=== PATIENT | male | born 1950 | race Caucasian/White ===

== ENCOUNTER 2020-12-12 15:57 | Outpatient (RCR) | payer MEDICARE, SELFPAY ==
[2015-11-04 21:30] VITALS: BMI 22.1
== END 2020-12-12 23:59 ==
LOC: IMMUN 15:57
PROVIDERS: Visit Provider Family Medicine
DX: Z23 Encounter for immunization (principal)
CPT/HCPCS: 0011A; 0012A; 91301

== ENCOUNTER 2022-11-02 12:50 | Emergency (ER) | payer MEDICARE, OTHER, SELFPAY ==
[2022-11-02 12:51] VITALS: BP 110/63; PULSE 79; RESP 22; TEMP 35.7; O2SAT 96; BMI 19.1
[2022-11-02 13:08] VITALS: BP 125/65; BP 131/67; BP 81/69; PULSE 71; PULSE 74; PULSE 80
--- NOTE | 2022-11-02 13:08 | EKG12_ITS ---
Test Reason : SYNCOPE Blood Pressure : / mmHG Vent. Rate : 079 BPM Atrial Rate : 079 BPM P-R Int : 160 ms QRS Dur : 072 ms QT Int : 378 ms P-R-T Axes : 082 001 051 degrees QTc Int : 433 ms Normal sinus rhythm Normal ECG Confirmed by CHRISTAL MIDDLETON, RIAZ ([id number]), sound editor MILKA MARTINEZ ([id number]) on 11/04/2022 9:29:13 AM Referred By: JACQUE Confirmed By:RIAZ SIEGEL MD
[2022-11-02 13:18] LABS: Absolute Lymphocyte Count 2.37 X10^3/uL (0.83-4.51); Absolute Neutrophil Count 7.7 X10^3/uL (2.0-7.7); Basophil# 0.09 X10^3/uL; Basophil% 0.8 % (0-1); Eosinophil# 0.32 X10^3/uL; Eosinophils% 2.8 % (0-5); Hematocrit 53.6 % (40-54); Hemoglobin 17.6 g/dL (13.0-16.5); Lymphocyte # 2.37 X10^3/ul (0.83-4.51); Mean Corp Hgb Conc 32.8 g/dL (32-36); Mean Corpuscular Hgb 30.4 pg (27.0-32.0); Mean Corpuscular Volume 92.7 fL (80-94); Mean Platelet Vol. 10.7 fl (6.2-12.0); Monocyte# 0.75 X10^3/uL; Monocyte% 6.6 % (0-10); NRBC Flagged by Analyzer 0 % (0-5); Neutrophil % 68.2 % (47-70); Platelet Count 240 K/mm3 (150-450); RBC Distribution Width CV 14.2 % (11.6-14.6); RBC Distribution Width SD 48.3 fl (35.1-43.9); Red Blood Count 5.78 M/mm3 (4.6-6.2); White Blood Count 11.3 K/mm3 (4.4-11.0)
[2022-11-02] MEDS: 0.9% Normal Saline 1,000 ML 1000 ML IV (13:22)
[2022-11-02 14:21] LABS: Anion Gap 6 (5-15); BUN 33 mg/dL (7-18); BUN/Creat Ratio 19.3 RATIO (10-20); Calcium,Total 9.1 mg/dL (8.5-10.1); Chloride 113 mmol/L (98-107); Creatinine, Serum 1.71 mg/dL (0.70-1.30); EST Glomerular Filtration Rate 42 mL/min (>60); Est Glom Filt Rate - Afr Amer 51 mL/min (>60); Estimated Creatinine Clearance 32.05 ml/min; Glucose 100 mg/dL (74-106); Potassium 4.2 mmol/L (3.5-5.1); Sodium Level 140 mmol/L (136-145)
[2022-11-02 14:50] VITALS: BP 128/69; PULSE 79; RESP 23; O2SAT 99
--- NOTE | 2022-11-02 14:55 | EDS_ITS ---
HPI History of Present Illness Chief Complaint: Syncope Detail of Chief Complaint: Near syncopal episode Informant: patient Onset/Context/Timing Onset: Hours Context: Sudden Onset Timing: Intermittent Quality: Lightheadedness while standing in line at [employer] Current Severity: Gone Maximum Severity: Moderate Worsened by: Prolonged standing Relieved by: Nothing specific Associated Symptoms Associated Symptoms: Sensation of warmth and slight nausea Narrative Narrative: Patient is a 72-year-old male with history of hypertension who presents with near syncopal sewed. Arrived by ambulance. He only eats once a day. He has had nothing to eat since yesterday at noon. He has had poor liquid intake. He denies headache, visual, ocular auditory symptoms. He denies cardiac respiratory symptoms. He denies black or maroon-colored stool. He reports compliance with his antihypertensive meds, amlodipine and lisinopril. Doses have not been changed or frequency has not been increased. He presently has no symptoms other than dry mouth and thirst. Prior similar symptoms: No Recent Illness/Hospitalization: No PFSH PFSH Allergy/AdvReac Type Severity Reaction Status Date / Time No Known Allergies Allergy Verified 11/02/22 12:53 Social History (Updated 11/02/22 @ 14:[address] Paddy Champagne MD) household members: none Smoking Status: Current every day smoker tobacco type: cigarettes substance use type: does not use ROS ROS ED Constitutional Constitutional ED: Denies chills, fever(s), subjective, sweats or weight loss Eyes Eyes: Denies blurry vision, change in vision or diplopia Cardiovascular Cardiovascular: Denies chest pain, orthopnea, palpitations, paroxysmal nocturnal dyspnea or racing heartbeat Respiratory/Chest Respiratory/Chest: Denies cough, dyspnea, dyspnea on exertion, orthopnea, paroxysmal nocturnal dyspnea or sputum Gastrointestinal Gastrointestinal: Reports nausea; Denies diarrhea or vomiting Neurologic Neurologic: Reports weakness; Denies headache(s) or paresthesias Endocrine Endocrinology: Denies cold intolerance, heat intolerance, polydipsia or polyuria Hematologic/Lymphatic Hematologic/Lymphatic: Reports none Allergic/Immunologic Allergic/Immunologic ED: Denies mouth swelling or tongue swelling EXAM Physical Exam Const Vital Signs: 11/02/22 12:51 11/02/22 13:21 11/02/22 13:08 Temperature 96.3 F L Temperature Source Temporal Pulse Rate 79 Pulse Rate [Lying] 71 Pulse Rate [Sitting (for 1 minute prior to obtaining)] 74 Pulse Rate [Standing (for 1 minute prior to obtaining)] 80 Respiratory Rate 22 H Respiratory Effort Normal Non-Labored Respiratory Pattern Normal Blood Pressure 110/63 Blood Pressure [Lying] 125/65 H Blood Pressure [Sitting (for 1 minute prior to obtaining)] 81/69 L Blood Pressure [Standing (for 1 minute prior to obtaining)] 131/67 H Blood Pressure Mean 78 Blood Pressure Mean [Lying] 85 Blood Pressure Mean [Sitting (for 1 minute prior to obtaining)] 73 Blood Pressure Mean [Standing (for 1 minute prior to obtaining)] 88 Pulse Ox 96 Oxygen Delivery Method Room Air Positive well nourished and well developed Constitutional Narrative: Patient appears slightly cachectic. He is not well groomed. General Appearance ED: well developed and NAD; Negative for cyanotic, diaphoretic or pallor HEENT Reports dry mucous membranes HEENT Narrative: Head is atraumatic no cephalic. Ears normal. Nares patent. Uvula midline. No deviation with protrusion. Mouth ED: Yes dry mucous membranes Mouth: dry mucous membranes Eyes PERRL and EOMs intact bilaterally General Eye ED: Negative for pale conjunctiva or scleral icterus Neck no lymphadenopathy, supple and no JVD Chest Wall inspection of chest normal and palpation of chest normal Resp normal respiratory effort and clear to auscultation bilaterally Cardio regular rate, regular rhythm, S1 normal heart sound, S2 normal heart sound and no murmurs GI normal to inspection, nondistended, normoactive bowel sounds, non-tender, non- distended and no masses; Negative for hepatosplenomegaly Palpation: soft Back/Spine no CVA tenderness Thoracic Spine / Upper Back: Negative for thoracic spinal tenderness Lumbar Spine / Lower Back: Negative for lumbar spinal tenderness Extremity normal to inspection General Extremety ED: Negative for edema or tenderness General Extremity: Negative for edema Neuro oriented x3, CN's II-XII intact bilaterally and no sensory deficits noted Sensorium / Orientation: alert Motor Exam: strength 5/5 throughout Psych mental status grossly normal Skin no rashes or lesions noted, no wounds and No skin turgor normal General Skin Exam: Negative for elasticity normal, jaundice or pallor MDM MDM MDM Narrative Medical decision making narrative: [facility] patient is dehydrated. Orthostatics were positive. Patient received a liter of normal saline. On reassessment he states he would like to go home. He is no longer thirsty. EKG was obtained per nurse protocol and was normal. There is no evidence of acute ischemic changes. Patient is not a good informant. History was supplemented by family member. Patient metabolic panel was obtained to assess electrolytes, anion gap and renal function. CBC to evaluate white count and H&H. Lab Data Attestation: I reviewed the patient's lab results. Lab results narrative: Comparing CBC to priors would indicate patient has heme count. Basic metabolic panel reveals an elevated BUN/creatinine of 33 and 1.71 consistent with poor p.o. intake. GFR is 42. His primary care physician is Dr. Alvarez. We will have patient make appointment for recheck in 3 to 5 days. Labs: Laboratory Results - last 24 hr 11/02/22 11/02/22 11/02/22 13:11 13:11 13:36 WBC 11.3 H RBC 5.78 Hgb 17.6 H Hct 53.6 MCV 92.7 MCH 30.4 MCHC 32.8 RDW Std Deviation 48.3 H RDW Coeff of Steven 14.2 Plt Count 240 MPV 10.7 Immature Gran % (Auto) 0.600 Neut % (Auto) 68.2 Lymph % (Auto) 21.0 [place] % (Auto) 6.6 Eos % (Auto) 2.8 Baso % (Auto) 0.8 Absolute Neuts (auto) 7.7 Absolute Lymphs (auto) 2.37 Nucleated RBC % 0 Sodium Cancelled Cancelled Potassium Cancelled Cancelled Chloride Cancelled Cancelled Carbon Dioxide Cancelled Cancelled Anion Gap Cancelled Cancelled BUN Cancelled Cancelled Creatinine Cancelled Cancelled Estim Creat Clear Calc Cancelled Cancelled Est GFR (MDRD) Af Amer Cancelled Cancelled Est GFR (MDRD) Non-Af Cancelled Cancelled BUN/Creatinine Ratio Cancelled Cancelled Glucose Cancelled Cancelled Calcium Cancelled Cancelled 11/02/22 13:59 WBC RBC Hgb Hct MCV MCH MCHC RDW Std Deviation RDW Coeff of Steven Plt Count MPV Immature Gran % (Auto) Neut % (Auto) Lymph % (Auto) [place] % (Auto) Eos % (Auto) Baso % (Auto) Absolute Neuts (auto) Absolute Lymphs (auto) Nucleated RBC % Sodium 140 Potassium 4.2 Chloride 113 H Carbon Dioxide 21.0 Anion Gap 6 BUN 33 H Creatinine 1.71 H Estim Creat Clear Calc 32.05 Est GFR (MDRD) Af Amer 51 L Est GFR (MDRD) Non-Af 42 L BUN/Creatinine Ratio 19.3 Glucose 100 Calcium 9.1 EKG Initial EKG: Attestation: I personally reviewed and interpreted this EKG as follows: Interpretation: Sinus Rhythm (Rate is 79. EKG is normal. MA interval is 160 ms. QS duration 72 ms. Dobbins is normal.) Prior: Unchanged Treatment and Re-Evaluation Narrative: IV fluids and outpatient follow-up basic metabolic panel Discharge Plan Triage Chief Complaint: Syncope ED Provider: Paddy Champagne Dx/Rx/DC Orders Clinical Impression: Orthostatic hypotension, Hypertension, Hypovolemia due to dehydration, Caloric malnutrition, Acute renal insufficiency Instructions: ED Dehydration (Adult), ED Hypotension, Orthostatic Primary Care Provider: Care Physician,No Primary Referrals: Tiago Alvarez MD [Med Staff - Rn Social Services] - 3-5 Days Care Physician,No Primary [Primary Care Provider] - Activity Restrictions/Additional Instructions: You need to contact Dr. Alvarez office tomorrow for follow-up appointment to have a repeat blood test, BMP. Your BUN and creatinine are elevated from baseline. This needs to be reassessed. You need to drink more fluids and increase your caloric intake. Disposition Disposition: Home, Self Care
[2022-11-02 15:12] VITALS: RESP 18
== END 2022-11-02 15:12 | disposition home or self-care (01) ==
PROVIDERS: Emergency Provider Emergency Medicine; Visit Provider Emergency Medicine
DX: I95.1 Orthostatic hypotension (principal); E86.0 Dehydration; F17.210 Nicotine dependence, cigarettes, uncomplicated; E86.1 Hypovolemia; I10 Essential (primary) hypertension; N28.9 Disorder of kidney and ureter, unspecified
CPT/HCPCS: 80048; 85025; 93005; 96360; 99285; J7030; A4216

== ENCOUNTER 2024-03-10 19:52 | Inpatient (IN) | payer MEDICARE, OTHER, SELFPAY ==
[2024-03-10 19:54] VITALS: BP 150/79; PULSE 88; RESP 16; TEMP 36.4; O2SAT 97; BMI 16.4
--- NOTE | 2024-03-10 20:09 | EKG12_ITS ---
Test Reason : DYSRHYTHMIA Blood Pressure : / mmHG Vent. Rate : 079 BPM Atrial Rate : 079 BPM P-R Int : 152 ms QRS Dur : 070 ms QT Int : 380 ms P-R-T Axes : 064 021 047 degrees QTc Int : 435 ms Normal sinus rhythm Cannot rule out Septal infarct , age undetermined Abnormal ECG Confirmed by Abhay Kc ([id number]), continuity editor MILKA MARTINEZ ([id number]) on 03/11/2024 10:14:57 AM Referred By: Confirmed By:Abhay Kc
--- NOTE | 2024-03-10 20:11 | EDS_ITS ---
HPI <SHILPA Ernandez - Last Filed: 03/10/24 22:02> History of Present Illness Chief Complaint: Weakness Narrative Narrative: Patient is a 73-year-old male with history of COPD who smokes 1 pack/day however he states he does not inhale, hypertension hyperlipidemia who presents to the emergency department for weakness, 60 pound weight loss in the last 6 weeks. Patient was seen at his PCPs office who referred him to the emergency department for further workup. Family is concerned. Patient does live at home, he does drive, does not use any ambulation devices, he goes to dinner every day. 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 PFSH <SHILPA Ernandez - Last Filed: 03/10/24 22:02> [facility] Medical History (Updated 03/10/24 @ 22:49 by Brianna Santiago) CKD (chronic kidney disease) CKD (chronic kidney disease) HTN (hypertension) HLD (hyperlipidemia) Medical History no medical history Home Medications ?Medication ?Instructions ?Recorded ?Last Taken ?Type NK 03/10/24 Unknown History Allergy/AdvReac Type Severity Reaction Status Date / Time No Known Allergies Allergy Verified 03/10/24 19:57 Social History household members: none Smoking Status: Current every day smoker tobacco type: cigarettes substance use type: does not use ROS <SHILPA Ernandez - Last Filed: 03/10/24 22:02> ROS ED ROS Narrative Constitutional: Negative for fever, chills. Positive for 16 pound weight loss in 6 weeks, positive for weakness Eyes: Negative for vision loss, vision change, double vision ENT: Negative for any sore throat, ear pain, congestion Cardiovascular: Negative for any chest pain, tightness, palpitations Respiratory: Negative for any cough, sputum production, hemoptysis, dyspnea, dyspnea on exertion, orthopnea Gastrointestinal: Negative for any abdominal pain, nausea, vomiting, diarrhea, constipation, blood in stool, blood in vomit : Negative for any urinary frequency, dysuria, retention, blood in urine Muscle skeletal: Negative for any neck pain, back pain Neurological: Negative for any headache, syncope, dizziness Skin: Negative for any rashes, itching, abrasions, lacerations Psychiatric: Negative for any depression, anxiety, stress, suicidal ideation, homicidal ideation Hematologic: Negative for any excessive bruising, easy bleeding EXAM <SHILPA Ernandez - Last Filed: 03/10/24 22:02> Physical Exam Narrative Exam Narrative: Vital signs reviewed. HEET: Head normocephalic atraumatic, TMs clear bilaterally. Posterior pharynx is clear, moist mucous membranes. Nares clear bilaterally. Neck: Supple with no lymphadenopathy or tenderness. No signs of meningismus. Cardiac: Regular rate and rhythm no murmurs gallops or rubs, equal peripheral pulses bilaterally. Respiratory: Coarse lung sounds throughout with expiratory wheezes to bilateral lower bases. no chest tenderness. Abdomen: Soft, nontender, nondistended. No abdominal bruit or pulsatile masses. No hepatosplenomegaly Extremities: No peripheral edema, no signs of gross trauma or deformity. Active full range of motion of all extremities. Neuro: Cranial nerves II through XII intact, no focal neurological deficits. Skin: Clean dry and intact with no rash, purpura, petechiae, vesicles or pustules. Backs/flank: No CVA tenderness, no midline spinal tenderness, no deformity. Psych: Normal mood and affect. No SI, HI or acute psychosis. Const Vital Signs: 03/10/24 19:54 03/10/24 20:13 03/10/24 20:25 Temperature 97.6 F L Temperature Source Temporal Pulse Rate 88 86 Respiratory Rate 16 18 Respiratory Effort Normal Respiratory Pattern Normal Normal Blood Pressure 150/79 H Blood Pressure Mean 102 Pulse Ox 97 Oxygen Delivery Method Room Air 03/10/24 21:53 Temperature Temperature Source Pulse Rate 86 Respiratory Rate 18 Respiratory Effort Respiratory Pattern Blood Pressure 149/65 H Blood Pressure Mean 93 Pulse Ox 96 Oxygen Delivery Method Room Air Positive cachectic General Appearance ED: cachectic Nutritional Appearance: cachectic <Dr. Kennedy Garcia DO - Last Filed: 03/10/24 23:29> Physical Exam Const Vital Signs: 03/10/24 19:54 03/10/24 20:13 03/10/24 20:25 Temperature 97.6 F L Temperature Source Temporal Pulse Rate 88 86 Respiratory Rate 16 18 Respiratory Effort Normal Respiratory Pattern Normal Normal Blood Pressure 150/79 H Blood Pressure Mean 102 Pulse Ox 97 Oxygen Delivery Method Room Air 03/10/24 21:53 Temperature Temperature Source Pulse Rate 86 Respiratory Rate 18 Respiratory Effort Respiratory Pattern Blood Pressure 149/65 H Blood Pressure Mean 93 Pulse Ox 96 Oxygen Delivery Method Room Air [facility] <Miguel MonaeSHILPA zhu - Last Filed: 03/10/24 22:02> [facility] Lab Data Labs: Laboratory Results - last 24 hr 03/10/24 03/10/24 20:17 20:50 WBC 9.2 RBC 4.02 L Hgb 11.1 L Hct 36.6 L MCV 91.0 MCH 27.6 MCHC 30.3 L RDW Std Deviation 46.5 H RDW Coeff of Steven 13.9 Plt Count 368 MPV 9.3 Immature Gran % (Auto) 0.700 Neut % (Auto) 75.8 H Lymph % (Auto) 15.1 L [place] % (Auto) 5.6 Eos % (Auto) 2.3 Baso % (Auto) 0.5 Absolute Neuts (auto) 7.0 Absolute Lymphs (auto) 1.39 Nucleated RBC % 0 Sodium 137 Potassium 3.3 L Chloride 103 Carbon Dioxide 27.0 Anion Gap 7 BUN 27 H Creatinine 1.94 H Estim Creat Clear Calc 23.86 Est GFR (MDRD) Af Amer 44 L Est GFR (MDRD) Non-Af 36 L BUN/Creatinine Ratio 13.9 Glucose 159 H Calcium 8.9 Total Bilirubin 0.30 AST 16 ALT 15 L Alkaline Phosphatase 126 H Total Protein 7.4 Albumin 2.3 L Globulin 5.1 H Albumin/Globulin Ratio 0.5 L Urine Color Yellow Urine Clarity Clear Urine pH 5.0 Ur Specific [place] 1.020 Urine Protein 30 H Urine Glucose (UA) Normal Urine Ketones Negative Urine Occult Blood Negative Urine Nitrite Negative Urine Bilirubin Negative Urine Urobilinogen Normal Ur Leukocyte Esterase 25 H Urine RBC 0 SEEN Urine WBC 0-5 SEEN Ur Squamous Epith Cells 0-5 SEEN Amorphous Sediment 1+ URATE Urine Bacteria RARE Hyaline Casts 0-5 SEEN Urine Mucus 0 SEEN Radiography Diagnostic Testing: Clinical Impression(s) from Imaging Studies Chest X-Ray 03/10/24 21:40 IMPRESSION: Suspect right lower lobe atelectasis. CT would be useful. Electronically Signed: Charles Flores MD at 22:07 EDT , Chest/Abdomen/Pelvis CT 03/10/24 22:04 IMPRESSION: 1. Dense right lower lobe pneumonia or atelectasis. Correlation with CT the chest with contrast and bronchoscopy to exclude endobronchial lesion would be useful. 2. 2. Nonobstructing right renal stones adjacent to a 6 cm cyst. 3. Suspect layering stones or sludge in the gallbladder. 4. Small right renal hernia containing fat. 5. Suspect benign prostatic hyperplasia. Electronically Signed: Charles Flores MD at 23:20 EDT , EKG Normal sinus rhythm, rate 79: Attestation: I personally reviewed and interpreted this EKG as follows: Comments: EKG shows normal sinus rhythm, rate 79 bpm, TX interval 152 ms, QRS duration 70 ms. Treatment and Re-Evaluation :: Differential diagnosis includes however is not limited to: Dehydration, failure to thrive, depression, electrolyte abnormality Patient appears to be in no obvious respiratory distress vital signs are stable, patient appears nontoxic. Patient alert orient x 4 and acting appropriate. Patient did come here from his PCPs office concerning for failure to thrive. Patient seems to be well-appearing, he is skinny, patient will receive basic laboratory values including CBC CMP, urinalysis. Chest x-ray two-view as well as some breathing treatments. Patient will receive IV fluids. Patient CBC shows anemia with a hemoglobin 11.1, in October 2022, it was 17.6, this is a significant drop. Patient's potassium was 3.3, creatinine is 1.9 which is getting worse, patient's glucose 159. Alkaline phos slightly elevated 126. Secondary to the patient's weight loss, I do believe the patient would benefit from admission to the hospital. I will speak with GI, I spoke with the patient as well as the patient's sister. Agreeable to be admitted to the hospital. Patient stool occult positive. Secondary to patient not having a colonoscopy in his life, I do believe it is important for admission. <Dr. Kennedy Garcia, DO - Last Filed: 03/10/24 23:29> [facility] Lab Data Attestation: I reviewed the patient's lab results. Labs: Laboratory Results - last 24 hr 03/10/24 03/10/24 20:17 20:50 WBC 9.2 RBC 4.02 L Hgb 11.1 L Hct 36.6 L MCV 91.0 MCH 27.6 MCHC 30.3 L RDW Std Deviation 46.5 H RDW Coeff of Steven 13.9 Plt Count 368 MPV 9.3 Immature Gran % (Auto) 0.700 Neut % (Auto) 75.8 H Lymph % (Auto) 15.1 L [place] % (Auto) 5.6 Eos % (Auto) 2.3 Baso % (Auto) 0.5 Absolute Neuts (auto) 7.0 Absolute Lymphs (auto) 1.39 Nucleated RBC % 0 Sodium 137 Potassium 3.3 L Chloride 103 Carbon Dioxide 27.0 Anion Gap 7 BUN 27 H Creatinine 1.94 H Estim Creat Clear Calc 23.86 Est GFR (MDRD) Af Amer 44 L Est GFR (MDRD) Non-Af 36 L BUN/Creatinine Ratio 13.9 Glucose 159 H Calcium 8.9 Total Bilirubin 0.30 AST 16 ALT 15 L Alkaline Phosphatase 126 H Total Protein 7.4 Albumin 2.3 L Globulin 5.1 H Albumin/Globulin Ratio 0.5 L Urine Color Yellow Urine Clarity Clear Urine pH 5.0 Ur Specific [place] 1.020 Urine Protein 30 H Urine Glucose (UA) Normal Urine Ketones Negative Urine Occult Blood Negative Urine Nitrite Negative Urine Bilirubin Negative Urine Urobilinogen Normal Ur Leukocyte Esterase 25 H Urine RBC 0 SEEN Urine WBC 0-5 SEEN Ur Squamous Epith Cells 0-5 SEEN Amorphous Sediment 1+ URATE Urine Bacteria RARE Hyaline Casts 0-5 SEEN Urine Mucus 0 SEEN Radiography Diagnostic Testing: Clinical Impression(s) from Imaging Studies Chest X-Ray 03/10/24 21:40 IMPRESSION: Suspect right lower lobe atelectasis. CT would be useful. Electronically Signed: Charles Flores MD at 22:07 EDT , Chest/Abdomen/Pelvis CT 03/10/24 22:04 IMPRESSION: 1. Dense right lower lobe pneumonia or atelectasis. Correlation with CT the chest with contrast and bronchoscopy to exclude endobronchial lesion would be useful. 2. 2. Nonobstructing right renal stones adjacent to a 6 cm cyst. 3. Suspect layering stones or sludge in the gallbladder. 4. Small right renal hernia containing fat. 5. Suspect benign prostatic hyperplasia. Electronically Signed: Charles Flores MD at 23:20 EDT , Treatment and Re-Evaluation :: Differential diagnosis includes however is not limited to: Dehydration, failure to thrive, depression, electrolyte abnormality Patient appears to be in no obvious respiratory distress vital signs are stable, patient appears nontoxic. Patient alert orient x 4 and acting appropriate. Patient did come here from his PCPs office concerning for failure to thrive. Patient seems to be well-appearing, he is skinny, patient will receive basic laboratory values including CBC CMP, urinalysis. Chest x-ray two-view as well as some breathing treatments. Patient will receive IV fluids. Patient CBC shows anemia with a hemoglobin 11.1, in October 2022, it was 17.6, this is a significant drop. Patient's potassium was 3.3, creatinine is 1.9 which is getting worse, patient's glucose 159. Alkaline phos slightly elevated 126. Secondary to the patient's weight loss, I do believe the patient would benefit from admission to the hospital. I will speak with GI, I spoke with the patient as well as the patient's sister. Agreeable to be admitted to the hospital. Patient stool occult positive. Secondary to patient not having a colonoscopy in his life, I do believe it is important for admission. Attending note: Patient seen and evaluated with precision filer hand. I perform my own [id number] evaluation. I agree with the plan of work-up. Sent in by PCP for evaluation. Patient reports 14 pound weight loss over the last 6 weeks. Decreased appetite only eating half the food. Denies vomiting or diarrhea. Denies bloody stools. Recent workup with concerning MICHELLE. He has not seen his PCP in over a year. Noncompliant not taking medication last few months. COPD along with hypertension hyperlipidemia history. Exam thin to check 6 male in no respiratory distress. Abdomen soft nondistended. Workup had a hemoglobin 11.1 down from 17 a year ago. Rectal exam brown stools return guaiac positive. 1 view chest x-ray reviewed interpreted myself concerning for right lung mass. Creatinine 1.94 up from 1.7 previously. He was given IV fluids. With clinic positive GI bleed hemoglobin down to 11.6 points from a year ago. Discussed with hospitalist for admission. Discussed concerning mass, will obtain noncontrast CT chest abdomen pelvis for further evaluation. Patient will be admitted to the medical floor. Discharge Plan Dx/Rx/DC Orders Clinical Impression: Abnormal weight loss, GI bleed, Weakness, Decreased appetite, Mass of right lung, Tobacco dependence, Acute on chronic renal insufficiency Disposition Disposition: Acute Care Hospital [facility] Discharge Date/Time: 03/10/24 22:35
[2024-03-10 20:25] VITALS: PULSE 86; RESP 18
[2024-03-10] MEDS: Ipratropium/Albuterol Sulfate 3 ML AMPUL.NEB INHALATION (20:25)
[2024-03-10] MEDS: Albuterol 2.5 MG/3 ML VIAL.NEB. INHALATION (20:25)
[2024-03-10] MEDS: 0.9% Normal Saline (1000mL) 1,000 ML 999 ML IV (20:27)
[2024-03-10 20:34] LABS: Absolute Lymphocyte Count 1.39 X10^3/uL (0.83-4.51); Basophil# 0.05 X10^3/uL; Basophil% 0.5 % (0-1); Eosinophil# 0.21 X10^3/uL; Eosinophils% 2.3 % (0-5); Hematocrit 36.6 % (40-54); Hemoglobin 11.1 g/dL (13.0-16.5); Lymphocyte # 1.39 X10^3/ul (0.83-4.51); Lymphocyte % 15.1 % (19-41); Mean Corp Hgb Conc 30.3 g/dL (32-36); Mean Corpuscular Hgb 27.6 pg (27.0-32.0); Mean Platelet Vol. 9.3 fl (6.2-12.0); Monocyte# 0.52 X10^3/uL; Monocyte% 5.6 % (0-10); NRBC Flagged by Analyzer 0 % (0-5); Neutrophil # 6.99 X10^3/uL (2.7-7.7); Neutrophil % 75.8 % (47-70); Platelet Count 368 K/mm3 (150-450); RBC Distribution Width CV 13.9 % (11.6-14.6); RBC Distribution Width SD 46.5 fl (35.1-43.9); Red Blood Count 4.02 M/mm3 (4.6-6.2); White Blood Count 9.2 K/mm3 (4.4-11.0)
[2024-03-10 20:50] LABS: ALB/GLOB Ratio 0.5 RATIO (0.9-2.4); AST(SGOT) 16 U/L (15-37); Alanine Aminotransfer ALT/SGPT 15 U/L (16-61); Albumin, Serum 2.3 g/dL (3.2-5.0); Alkaline Phosphatase 126 U/L (45-117); Anion Gap 7 (5-15); BUN 27 mg/dL (7-18); BUN/Creat Ratio 13.9 RATIO (10-20); Calcium,Total 8.9 mg/dL (8.5-10.1); Chloride 103 mmol/L (98-107); Creatinine, Serum 1.94 mg/dL (0.70-1.30); EST Glomerular Filtration Rate 36 mL/min (>60); Est Glom Filt Rate - Afr Amer 44 mL/min (>60); Estimated Creatinine Clearance 23.86 ml/min; Globulin 5.1 g/dL (2.2-4.2); Glucose 159 mg/dL (74-106); Potassium 3.3 mmol/L (3.5-5.1); Protein, Total 7.4 g/dL (6.4-8.2); Sodium Level 137 mmol/L (136-145)
--- NOTE | 2024-03-10 20:52 | CPS ---
x1 Albuterol given to pt. in ED as well
--- NOTE | 2024-03-10 21:40 | RAD_ITS ---
STUDY: X-RAY CHEST REASON FOR EXAM: Male, 73 years old. cough TECHNIQUE: Single AP portable view of the chest. COMPARISON: None. FINDINGS: Alveolar opacity in lower right lung with elevation right hemidiaphragm possibly consistent with right lower lobe atelectasis. CT would be useful.. There is no demonstrated pleural abnormality. Normal size heart. Normal mediastinum and ingris. Normal visualized pulmonary arteries. Normal visualized aortic arch and descending thoracic aorta. Normal visualized thoracic spine. Normal visualized ribs, clavicles, and shoulders. There is no demonstrated abnormality of the visualized soft tissue structures of the upper abdomen. RAD/Chest 1 View (Portable) IMPRESSION: Suspect right lower lobe atelectasis. CT would be useful. Electronically Signed: Charles Flores MD at 22:07 EDT ,
[2024-03-10 21:53] VITALS: BP 149/65; PULSE 86; RESP 18; O2SAT 96
--- NOTE | 2024-03-10 22:03 | PCM.HP.STD ---
[facility] - General General Date of Admission: 03/10/24 Date of Service: 03/10/24 Chief Complaint: ~60 pound weight loss in the past 6 weeks with generalized weakness. HPI Narrative DIANE FRANCES, is a 73 M with a past medical history of essential hypertension, hyperlipidemia, chronic kidney disease; stage III (with baseline creatinine of ~1.74 mg/dL) and history of tobacco abuse ~1 ppd x ~50 years; with subsequent COPD who presents to [facility] ER complaining of an unintentional ~60 pound weight loss in the past 6 weeks with patient having apparently been instructed by his PCP to come in for further evaluation and treatment. Mr. Lopez reports his symptoms began approximately 6 weeks prior to admission with a progressively worsening appetite and generalized weakness. His family accompany him to the ER to express their concerns though they admit he lives at home, drives and does not use any ambulation devices. He also admits to dyspnea on exertion that progressed to shortness of breath at rest with wheezing and nonproductive cough. There is no report of fever, chills, nausea, vomiting, diarrhea, constipation or blood in stools. In the ER he was noted to have a chest x-ray positive for evidence of a Right lower lobe mass likely due to malignancy with suspected pneumonia complicated by clinical evidence of acute exacerbation of COPD with respiratory insufficiency and he was noted to have laboratory evidence of hypokalemia of 3.3 mmol/L present on admission along with Hemoccult positive stools and he was then admitted to the general medical floor for ongoing care for stay that is expected to extend beyond 2 midnights. [facility] Medical History CKD (chronic kidney disease) CKD (chronic kidney disease) HTN (hypertension) HLD (hyperlipidemia) Medical History no medical history Home Medications ?Medication ?Instructions ?Recorded ?Last Taken ?Type NK 03/10/24 Unknown History Allergy/AdvReac Type Severity Reaction Status Date / Time No Known Allergies Allergy Verified 03/10/24 19:57 Social History household members: none Smoking Status: Current every day smoker tobacco type: cigarettes substance use type: does not use ROS ROS Narrative Review of systems: General: Patient admits to unintentional ~60 pound weight loss over the past 6 weeks as per HPI. He denies fever or chills. HENT: Denies headache, denies stuffy nose, denies sore throat EYES: Denies changes in vision or discharge from eyes. Resp: Patient admits to dyspnea on exertion that progressed to shortness of breath at rest with wheezing and nonproductive cough as per HPI. Cardiac: Denies chest pain, palpitations or heart racing. GI: Patient admits to sharply decreased appetite but he denies abdominal pain, denies changes in bowel, denies nausea or vomiting. : Denies changes in urination Extremity: Denies swelling Musculoskeletal: Feels somewhat generally weak and unwell but denies arthralgias or myalgias. Neuro: Patient denies headache, paresthesias or focal neurologic weakness. Heme: Patient was noted to have Hemoccult positive stools in the ER but he notes his stools are brown at home with no obvious bleeding. Skin: Denies rashes Psychiatric: No complaints voiced related to uncontrolled depression or anxiety. Endocrine: No polyuria, polydipsia or polyphagia. The rest of the 14 point ROS was negative except for positives in HPI. Vital Signs Vital Signs Vital Signs: 03/10/24 19:54 03/10/24 20:13 03/10/24 20:25 Temperature 97.6 F L Temperature Source Temporal Pulse Rate 88 86 Respiratory Rate 16 18 Respiratory Effort Normal Respiratory Pattern Normal Normal Blood Pressure 150/79 H Blood Pressure Mean 102 Pulse Ox 97 Oxygen Delivery Method Room Air Weight Weight: 111 lb 5.335 oz Body Mass Index (BMI) 16.4 Physical Exam Const alert, oriented x3 and no apparent distress Constitutional Narrative: Patient appears chronically ill. General Appearance: cooperative HEENT normocephalic, head/scalp atraumatic, hearing grossly normal bilaterally and moist oral mucous membranes Eyes PERRL and EOMs intact bilaterally Neck no lymphadenopathy and supple Resp Resp Narrative: Diminished breath sounds throughout with coarse rhonchi and expiratory wheezes at bilateral lower bases. Auscultation: rhonchi and wheezes Cardio regular rate and regular rhythm GI normal to inspection, nondistended, normoactive bowel sounds, soft to palpation, non-tender and non-distended Extremity normal to inspection and full ROM Skin Skin Narrative: Patient has no evidence of jaundice, rash or abscess. Neuro oriented x3, CN's II-XII intact bilaterally, moves all extremities and no focal motor deficits Sensorium / Orientation: awake, alert, oriented to person, oriented to place and oriented to time Speech: speech normal Psych affect normal Results Medical Records Data Attestation: I reviewed the patient's medical records Lab / Micro Data Attestation: I reviewed the patient's lab results. 03/10/24 20:17 03/10/24 20:17 Labs: Laboratory Results - last 24 hr 03/10/24 20:17: WBC 9.2, RBC 4.02 L, Hgb 11.1 L, Hct 36.6 L, MCV 91.0, MCH 27.6, MCHC 30.3 L, RDW Std Deviation 46.5 H, RDW Coeff of Steven 13.9, Plt Count 368, MPV 9.3, Immature Gran % (Auto) 0.700, Neut % (Auto) 75.8 H, Lymph % (Auto) 15.1 L, [place] % (Auto) 5.6, Eos % (Auto) 2.3, Baso % (Auto) 0.5, Absolute Neuts (auto) 7.0, Absolute Lymphs (auto) 1.39, Nucleated RBC % 0, Sodium 137, Potassium 3.3 L, Chloride 103, Carbon Dioxide 27.0, Anion Gap 7, BUN 27 H, Creatinine 1.94 H, Estim Creat Clear Calc 23.86, Est GFR (MDRD) Af Amer 44 L, Est GFR (MDRD) Non-Af 36 L, BUN/Creatinine Ratio 13.9, Glucose 159 H, Calcium 8.9, Total Bilirubin 0.30, AST 16, ALT 15 L, Alkaline Phosphatase 126 H, Total Protein 7.4, Albumin 2.3 L, Globulin 5.1 H, Albumin/Globulin Ratio 0.5 L Micro: Microbiology 03/10/24 20:55 Stool Stool Occult Blood (DEMETRICE) - Final Occult Blood Positive Imaging [facility] Imaging Services [address] [place] [address] Chest 1 View (Portable) MR#: [id number] Acct: [id number] Name: DIANE FRANCES Rep #: [id number] : 1950 M 73 From: Charles Flores MD PCP: Dr. Tiago Alvarez MD Status: REG ER Study: Chest 1 View (Portable) Date of Exam: 03/10/24 Exam# [id number] Ordering Dr: Miguel Monet STUDY: X-RAY CHEST REASON FOR EXAM: Male, 73 years old. cough TECHNIQUE: Single AP portable view of the chest. COMPARISON: None. FINDINGS: Alveolar opacity in lower right lung with elevation right hemidiaphragm possibly consistent with right lower lobe atelectasis. CT would be useful.. There is no demonstrated pleural abnormality. Normal size heart. Normal mediastinum and ingris. Normal visualized pulmonary arteries. Normal visualized aortic arch and descending thoracic aorta. Normal visualized thoracic spine. Normal visualized ribs, clavicles, and shoulders. There is no demonstrated abnormality of the visualized soft tissue structures of the upper abdomen. RAD/Chest 1 View (Portable) IMPRESSION: Suspect right lower lobe atelectasis. CT would be useful. Electronically Signed: Charles Flores MD at 22:07 EDT , CC: SHILPA Monet; Dr. Tiago Alvarez MD ~ Engineer Systems: Signed [facility] Imaging Services [address] [place], [place] [address] CT Chest, Abd, Pelvis WO Cont MR#: [id number] Acct: [id number] Name: DIANE FRANCES Rep #: [id number] : 1950 M 73 From: Charles Flores MD PCP: Dr. Tiago Alvarez MD Status: ADM IN Study: CT Chest, Abd, Pelvis WO Cont Date of Exam: 03/10/24 Exam# [id number] Ordering Dr: Kennedy Garcia DO STUDY: CT CHEST, ABDOMEN T PELVIS WITHOUT CONTRAST REASON FOR EXAM: Male, 73 years old. weight loss RADIATION DOSAGE (If Supplied By Facility): CTDIvol = ( 6.91 ) mGy, DLP = ( 610.21 ) mGycm TECHNIQUE: Transaxial imaging was performed without the administration of intravenous contrast material. Individualized dose optimization techniques were used for this CT. COMPARISON: Chest x-ray earlier today FINDINGS: CHEST Dense alveolar density in the lower right lung consistent with right lower lobe pneumonia or atelectasis. Correlation with CT the chest with contrast and bronchoscopy may be useful but no obvious endobronchial lesion is seen. There is no demonstrated pleural abnormality. Normal heart and pericardium. There are calcifications of the coronary arteries. Normal mediastinum. Normal hilar regions. Normal unenhanced pulmonary arteries. Normal aorta arch and descending thoracic aorta. Normal osseous structures. There is no demonstrated abnormality of the visualized upper abdomen. ABDOMEN The visualized lung bases are unremarkable. The visualized portions of the heart are within normal limits. Normal liver. Suspect layering stones or sludge in the gallbladder. Normal spleen. Normal pancreas. Normal bilateral adrenal glands. 6 cm cyst lower pole right kidney. Adjacent to this cyst or 2 nonobstructing stones. No hydronephrosis, ureteral stone, ureteral dilatation. Normal left kidney. Normal visualized stomach. Normal small intestine. Normal colon. The appendix is visualized and appears normal. Normal abdominal aorta. Normal inferior vena cava. Normal retroperitoneum. Normal abdominal wall. Normal osseous structures. PELVIS Normal urinary bladder. Normal visualized small intestine. Normal visualized colon. There is no pelvic fluid. There is no pelvic lymphadenopathy or mass lesion. There is enlargement of the prostate gland with calcification. Normal visualized pelvic arteries. There is a right inguinal hernia containing fat. Normal osseous structures. CT/CT Chest, Abd, Pelvis WO Cont IMPRESSION: 1. Dense right lower lobe pneumonia or atelectasis. Correlation with CT the chest with contrast and bronchoscopy to exclude endobronchial lesion would be useful. 2. 2. Nonobstructing right renal stones adjacent to a 6 cm cyst. 3. Suspect layering stones or sludge in the gallbladder. 4. Small right renal hernia containing fat. 5. Suspect benign prostatic hyperplasia. Electronically Signed: Charles Flores MD at 23:20 EDT , CC: Dr. Kennedy Garcia DO; Dr. Tiago Alvarez MD ~ Engineer Systems: Signed Assessment & Plan Assessment/Plan (1) COPD exacerbation: (2) Pneumonia: QUALIFIERS: Laterality: right Lung location: lower lobe of lung Pneumonia type: due to unspecified organism Qualified Code(s): J18.9 - Pneumonia, unspecified organism (3) Respiratory insufficiency: (4) Hypokalemia: (5) Tobacco dependence: (6) Decreased appetite: (7) Abnormal weight loss: (8) Weakness: PLAN: Plan 1. Acute exacerbation of COPD in the setting of ongoing chronic tobacco abuse with Right lower lobe mass with suspected pneumonia noted on chest x-ray present on admission and clinical evidence of respiratory insufficiency - Admit to general medical floor. Start IV Solu-Medrol and IV doxycycline plus scheduled and as needed nebulizers. Wean supplemental oxygen as tolerated. Tobacco cessation will be strongly encouraged with nicotine patch offered to control cravings. CT scan of the chest abdomen pelvis to stage patient's suspected malignancy is pending at this time. Finally, we will consult pulmonology to see this patient on rounds in the a.m. for further recommendations regarding possible bronchoscopy with biopsy this admission with help appreciated in advance. 2. Unintentional ~60 pound weight loss over the past 6 weeks with hypoalbuminemia of 2.3 g/dL present on admission suspicious for protein calorie malnutrition complicating #1 - Check prealbumin to confirm suspicion. Add Ensure meal supplements. Clinical dietitian will be asked to consult in the AM on-rounds with help appreciated in advance. 3. Hypokalemia of 3.3 mmol/L present on admission compounding #1 & #2 - Give supplemental KCl and then recheck level in a.m. to ensure improvement. 4. Hemoccult positive stools in the ER - Patient has slightly low hemoglobin of 11.1 g/dL present on admission (down from 17 g/dL at baseline). CT scan of the abdomen pelvis is pending to evaluate for potential mass. Check iron studies, B12 and folate levels to evaluate for potential reversible causes of anemia with obvious signs of chronically poor nutrition. Finally, we will consult gastroenterology disease patient on rounds in the a.m. for further recommendations regarding possible colonoscopy this admission with help appreciated in advance. 5. Essential hypertension - Continue home regimen plus give as needed IV hydralazine for systolic blood pressure greater than 160 mmHg. 6. Hyperlipidemia - Noted. Check lipid profile this admission. 7. CKD; stage III (with baseline creatinine of ~1.74 mg/dL) - Serum creatinine slightly elevated above previous baseline at 1.94 mg/dL so we will give volume resuscitation and recheck level in a.m. to ensure improvement. 8. DVT prophylaxis - SCD's only in light of Hemoccult positive stools present on admission. Total time: Approximately 75 minutes. Charges/Coding Visit Charges Inpatient E&M: 84308 Init Hosp L3
[2024-03-10 22:22] LABS: Mucous, Urine 0 SEEN /hpf (<or=2+); Red Blood Cells-Urine 0 SEEN /hpf (0-5)
[2024-03-10 22:24] LABS: Color, Urine Yellow (Yellow); Glucose, Dipstick Normal (Normal); Ketone-Dipstick Negative (Negative); Leukocyte Esterase-Dipstick 25 /ul (Negative); Nitrite-Dipstick Negative (Negative); Occult Blood-Urine Negative /ul (Negative); Protein-Dipstick 30 mg/dl (Negative); Urine Bilirubin Dipstick Negative (Negative); Urine Clarity Clear (Clear); Urine Urobilinogen Normal (Normal)
[2024-03-10 22:27] VITALS: BP 163/79; PULSE 84; RESP 16; TEMP 36.8; O2SAT 98
[2024-03-10 22:32] LABS: Amorphous Sediment 1+ URATE; Bacteria RARE /hpf (None Seen); Hyaline Cast 0-5 SEEN /lpf (0-5); Squamous Epithelial Cells - UA 0-5 SEEN /hpf (0-5); White Blood Cells 0-5 SEEN /hpf (0-5)
[2024-03-10 22:47] VITALS: BMI 14.3
[2024-03-10 22:55] VITALS: BP 153/76; PULSE 83; RESP 17; TEMP 36.9; O2SAT 98
[2024-03-10 23:15] VITALS: O2SAT 97
[2024-03-10 23:25] LABS: Ferritin 442 ng/mL (26-388); Iron 17 ug/dL (65-175); Iron Binding Capacity,Total 167 ug/dL (250-450); PERCENT IRON SATURATION 10.2 % (15.0-55.0); Prealbumin 8.4 mg/dL (20.0-40.0)
[2024-03-10] MEDS: Doxycycline 100 MG in Dextrose 5%-Water (250mL Bag) 250 ML 250 MG IV (23:33)
[2024-03-10] MEDS: 0.9% Normal Saline (1000mL) 1,000 ML 70 ML IV (23:33)
[2024-03-10] MEDS: MethylPREDNISolone 125 MG/2 ML Vial IV (23:33)
[2024-03-10] MEDS: Potassium Chloride Oral Tablet 20 MEQ 60 MEQ PO (23:48)
[2024-03-11 05:25] VITALS: BP 133/66; PULSE 71; RESP 16; TEMP 36.9; O2SAT 98
[2024-03-11 05:27] VITALS: BMI 16.1
--- NOTE | 2024-03-11 07:06 | CON.PCM.CC_ITS ---
Assessment & Plan Assessment/Plan (1) COPD exacerbation: PLAN: Plan RECOMMENDATIONS: 1. Transition antimicrobials to Levaquin to complete 7 days of therapy. 2. Continue bronchodilators. Transition from IV steroids to prednisone 40 mg daily to complete a 5-day burst. 3. Recommend follow-up CT scan in 6 to 8 weeks. 4. The patient should follow-up with his primary block making machine operator at [facility] following discharge. 5. Continue to monitor blood counts and transfuse if hemoglobin drops below 7 g/dL. Continue PPI therapy. 6. Will sign off from a pulmonary perspective. Please call with any additional questions. IMPRESSIONS: 1. Questionable COPD with exacerbation/history of tobacco dependency The patient initially presented to the hospital with generalized weakness and unintentional weight loss. As part of his workup, CT imaging of the chest was completed and demonstrated a dense right lower lobe consolidation without any focal endobronchial lesions. As such, the patient has been initiated on antimicrobials, bronchodilators and corticosteroids. He has noted overall improvement since being admitted to the hospital. The patient apparently has a history of COPD and is currently followed by a block making machine operator at [facility]. At this time, I would recommend that we transition the patient to Levaquin to complete a total of 7 days of therapy. In addition, I am going to discontinue his IV steroids and transition him to prednisone 40 mg daily x 5 days. I would recommend follow-up chest imaging in 6 to 8 weeks to document resolution of the pneumonia. Otherwise, no additional inpatient workup is indicated at this time. The patient is not hypoxemic. The patient should follow-up with his primary pulmonary provider following discharge. 2. Generalized weakness and unintentional weight loss Management and workup per hospitalist. 3. Anemia GI consultation is pending. Continue to monitor blood counts and transfuse if hemoglobin drops below 7 g/dL. Continue PPI therapy. This note was generated with [employer] dictation software. It may contain incorrect words, spelling, and punctuation that were not noted in checking the note before signing. HPI Consult Data Date of Consult: 03/11/24 HPI Narrative Reason for Consultation: COPD exacerbation HPI Narrative: The patient is a 73-year-old male, with a history as outlined below, who presented to the emergency department with generalized weakness and unintentional weight loss. The patient has a known history of tobacco dependency, questionable COPD, hypertension and hyperlipidemia. He stated that he has lost approximately 15 pounds unintentionally over the last several months. He reports associated decreased appetite. Apparently, his PCP advised that he should present to the emergency department for evaluation. When questioned as to what workup has been done by his primary care provider regarding the unintentional weight loss, the patient reported that nothing had been done thus far. The patient did state that he currently follows with a pulmonary provider at [facility], but cannot recall their name. He does currently smoke 1 pack of cigarettes per day. He is prescribed inhalers at his baseline, but cannot recall their names. On presentation, the patient was noted to be afebrile and hemodynamically stable. He was maintaining appropriate oxygen saturations on room air. Laboratory evaluation revealed a normal white blood cell count. Hemoglobin was low at 11.1 g/dL. Chemistry profile was notable for acute kidney injury with a creatinine of 1.94. Urine analysis was unrevealing. CT chest/abdomen/pelvis was obtained and demonstrated a right lower lobe consolidation with air bronchograms. There was no radiographic evidence of any endobronchial lesions. The patient received supplemental IV fluid hydration and was placed on antibiotics. He was admitted to the medical surgical floor for further management. [facility] Medical History CKD (chronic kidney disease) CKD (chronic kidney disease) HTN (hypertension) HLD (hyperlipidemia) Medical History no medical history Home Medications ?Medication ?Instructions ?Recorded ?Last Taken ?Type NK 03/10/24 Unknown History Allergy/AdvReac Type Severity Reaction Status Date / Time No Known Allergies Allergy Verified 03/10/24 19:57 Social History household members: none Smoking Status: Current every day smoker tobacco type: cigarettes substance use type: does not use ROS ROS Narrative 10 systems were reviewed with pertinent positives as noted in the HPI above. Physical Exam Const alert and no apparent distress Constitutional Narrative: Frail in appearance. General Appearance: cooperative HEENT normocephalic and head/scalp atraumatic Eyes PERRL, EOMs intact bilaterally and conjunctivae normal Neck supple General: trachea midline Chest inspection of chest normal Resp normal respiratory effort Auscultation: diminished lung sounds; Negative for rales, rhonchi or wheezes Cardio regular rate and regular rhythm GI normal to inspection, nondistended, normoactive bowel sounds Extremity no clubbing, cyanosis or edema Skin no rashes or lesions noted Neuro CN's II-XII intact bilaterally, moves all extremities and no focal motor deficits Psych cooperative Lab / Micro Data 03/11/24 06:32 03/10/24 20:17 Labs: Laboratory Results - last 24 hr 03/10/24 20:17: WBC 9.2, RBC 4.02 L, Hgb 11.1 L, Hct 36.6 L, MCV 91.0, MCH 27.6, MCHC 30.3 L, RDW Std Deviation 46.5 H, RDW Coeff of Steven 13.9, Plt Count 368, MPV 9.3, Immature Gran % (Auto) 0.700, Neut % (Auto) 75.8 H, Lymph % (Auto) 15.1 L, [place] % (Auto) 5.6, Eos % (Auto) 2.3, Baso % (Auto) 0.5, Absolute Neuts (auto) 7.0, Absolute Lymphs (auto) 1.39, Nucleated RBC % 0, Sodium 137, Potassium 3.3 L , Chloride 103, Carbon Dioxide 27.0, Anion Gap 7, BUN 27 H, Creatinine 1.94 H, Estim Creat Clear Calc 23.86, Est GFR (MDRD) Af Amer 44 L, Est GFR (MDRD) Non-Af 36 L, BUN/Creatinine Ratio 13.9, Glucose 159 H, Calcium 8.9, Iron 17 L, TIBC 167 L, Iron Saturation 10.2 L, Ferritin 442 H, Total Bilirubin 0.30, AST 16, ALT 15 L, Alkaline Phosphatase 126 H, Total Protein 7.4, Albumin 2.3 L, Globulin 5.1 H, Albumin/Globulin Ratio 0.5 L, Prealbumin 8.4 L, Folate 4.30 03/10/24 20:50: Urine Color Yellow, Urine Clarity Clear, Urine pH 5.0, Ur Specific [place] 1.020, Urine Protein 30 H, Urine Glucose (UA) Normal, Urine Ketones Negative, Urine Occult Blood Negative, Urine Nitrite Negative, Urine Bilirubin Negative, Urine Urobilinogen Normal, Ur Leukocyte Esterase 25 H, Urine RBC 0 SEEN, Urine WBC 0-5 SEEN, Ur Squamous Epith Cells 0-5 SEEN, Amorphous Sediment 1+ URATE, Urine Bacteria RARE, Hyaline Casts 0-5 SEEN, Urine Mucus 0 SEEN Micro: Microbiology 03/10/24 20:55 Stool Stool Occult Blood (DEMETRICE) - Final Occult Blood Positive Imaging Radiology Impression Chest X-Ray 03/10/24 21:40 IMPRESSION: Suspect right lower lobe atelectasis. CT would be useful. Electronically Signed: Charles Flores MD at 22:07 EDT , Chest/Abdomen/Pelvis CT 03/10/24 22:04 IMPRESSION: 1. Dense right lower lobe pneumonia or atelectasis. Correlation with CT the chest with contrast and bronchoscopy to exclude endobronchial lesion would be useful. 2. 2. Nonobstructing right renal stones adjacent to a 6 cm cyst. 3. Suspect layering stones or sludge in the gallbladder. 4. Small right renal hernia containing fat. 5. Suspect benign prostatic hyperplasia. Electronically Signed: Charles Flores MD at 23:20 EDT , Charges/Coding Visit Charges Inpatient E&M: 48050 Init Hosp L3
[2024-03-11 07:18] LABS: Absolute Lymphocyte Count 0.69 X10^3/uL (0.83-4.51); Absolute Neutrophil Count 9.4 X10^3/uL (2.0-7.7); Basophil# 0.02 X10^3/uL; Basophil% 0.2 % (0-1); Hematocrit 31.3 % (40-54); Hemoglobin 9.6 g/dL (13.0-16.5); Lymphocyte # 0.69 X10^3/ul (0.83-4.51); Lymphocyte % 6.7 % (19-41); Mean Corp Hgb Conc 30.7 g/dL (32-36); Mean Corpuscular Hgb 27.6 pg (27.0-32.0); Mean Corpuscular Volume 89.9 fL (80-94); Mean Platelet Vol. 9.8 fl (6.2-12.0); Monocyte# 0.09 X10^3/uL; Monocyte% 0.9 % (0-10); NRBC Flagged by Analyzer 0 % (0-5); Neutrophil # 9.39 X10^3/uL (2.7-7.7); Neutrophil % 91.3 % (47-70); Platelet Count 313 K/mm3 (150-450); RBC Distribution Width SD 45.5 fl (35.1-43.9); Red Blood Count 3.48 M/mm3 (4.6-6.2); White Blood Count 10.3 K/mm3 (4.4-11.0)
[2024-03-11 07:20] VITALS: O2SAT 95
[2024-03-11 07:54] LABS: ALB/GLOB Ratio 0.5 RATIO (0.9-2.4); AST(SGOT) 13 U/L (15-37); Alanine Aminotransfer ALT/SGPT 14 U/L (16-61); Albumin, Serum 2.1 g/dL (3.2-5.0); Alkaline Phosphatase 111 U/L (45-117); Anion Gap 5 (5-15); BUN 25 mg/dL (7-18); BUN/Creat Ratio 16.1 RATIO (10-20); Calcium,Total 8.5 mg/dL (8.5-10.1); Chloride 108 mmol/L (98-107); Creatinine, Serum 1.55 mg/dL (0.70-1.30); EST Glomerular Filtration Rate 47 mL/min (>60); Est Glom Filt Rate - Afr Amer 57 mL/min (>60); Estimated Creatinine Clearance 29.22 ml/min; Globulin 4.4 g/dL (2.2-4.2); Glucose 203 mg/dL (74-106); Potassium 4.3 mmol/L (3.5-5.1); Protein, Total 6.5 g/dL (6.4-8.2); Sodium Level 137 mmol/L (136-145); Thyroid Stim Hormone (TSH) 0.34 uIU/mL (0.358-3.74)
[2024-03-11] MEDS: predniSONE 20 MG Tablet 40 MG PO (09:49)
[2024-03-11] MEDS: Pantoprazole Sodium 40 MG Tablet PO (09:50)
[2024-03-11] MEDS: levoFLOXacin IV 750 MG/150 ML BAG 100 MG IV (09:50)
[2024-03-11] MEDS: Ensure Plus High Protein 120 ML LIQUID PO ×3 (09:56→16:55)
[2024-03-11 09:58] VITALS: BP 119/62; PULSE 66; RESP 16; TEMP 36.4; O2SAT 98
--- NOTE | 2024-03-11 10:59 | PCM.PN.HOSP ---
Reason for Visit Reason for Visit: Diagnoses Hypokalemia (03/10/24) Nicotine dependence, unspecified, uncomplicated (03/10/24) Pneumonia, unspecified organism (03/10/24) Chronic obstructive pulmonary disease with (acute) exacerbation (03/10/24) Other abnormalities of breathing (03/10/24) Weakness (03/10/24) Anorexia (03/10/24) Abnormal weight loss (03/10/24) Objective Data Objective Data Vital Signs: Vital Signs Temp Pulse Resp BP Pulse Ox O2 Del Method 97.5 F L 66 16 119/62 98 Room Air 03/11/24 09:58 03/11/24 09:58 03/11/24 09:58 03/11/24 09:58 03/11/24 09:58 03/11/24 09:59 Oxygen Delivery Method Room Air Weight: 108 lb 14.534 oz Body Mass Index (BMI) 16.1 Intake & Output: Intake and Output for Last 24 Hours 03/09/24 03/10/24 03/11/24 23:59 23:59 23:59 Intake Total 1000 / 1250 1485 / 1485 Output Total 650 / 650 Balance 1000 / 1050 835 / 835 Lab / Micro Data 03/11/24 06:32 03/11/24 06:32 Labs: Laboratory Results - last 24 hr 03/10/24 20:17: WBC 9.2, RBC 4.02 L, Hgb 11.1 L, Hct 36.6 L, MCV 91.0, MCH 27.6, MCHC 30.3 L, RDW Std Deviation 46.5 H, RDW Coeff of Steven 13.9, Plt Count 368, MPV 9.3, Immature Gran % (Auto) 0.700, Neut % (Auto) 75.8 H, Lymph % (Auto) 15.1 L, [place] % (Auto) 5.6, Eos % (Auto) 2.3, Baso % (Auto) 0.5, Absolute Neuts (auto) 7.0, Absolute Lymphs (auto) 1.39, Nucleated RBC % 0, Sodium 137, Potassium 3.3 L, Chloride 103, Carbon Dioxide 27.0, Anion Gap 7, BUN 27 H, Creatinine 1.94 H, Estim Creat Clear Calc 23.86, Est GFR (MDRD) Af Amer 44 L, Est GFR (MDRD) Non-Af 36 L, BUN/Creatinine Ratio 13.9, Glucose 159 H, Calcium 8.9, Iron 17 L, TIBC 167 L, Iron Saturation 10.2 L, Ferritin 442 H, Total Bilirubin 0.30, AST 16, ALT 15 L, Alkaline Phosphatase 126 H, Total Protein 7.4, Albumin 2.3 L, Globulin 5.1 H, Albumin/Globulin Ratio 0.5 L, Prealbumin 8.4 L, Folate 4.30 03/10/24 20:50: Urine Color Yellow, Urine Clarity Clear, Urine pH 5.0, Ur Specific [place] 1.020, Urine Protein 30 H, Urine Glucose (UA) Normal, Urine Ketones Negative, Urine Occult Blood Negative, Urine Nitrite Negative, Urine Bilirubin Negative, Urine Urobilinogen Normal, Ur Leukocyte Esterase 25 H, Urine RBC 0 SEEN, Urine WBC 0-5 SEEN, Ur Squamous Epith Cells 0-5 SEEN, Amorphous Sediment 1+ URATE, Urine Bacteria RARE, Hyaline Casts 0-5 SEEN, Urine Mucus 0 SEEN 03/11/24 06:32: WBC 10.3, RBC 3.48 L, Hgb 9.6 L, Hct 31.3 L, MCV 89.9, MCH 27.6, MCHC 30.7 L, RDW Std Deviation 45.5 H, RDW Coeff of Steven 14.0, Plt Count 313, MPV 9.8, Immature Gran % (Auto) 0.900, Neut % (Auto) 91.3 H, Lymph % (Auto) 6.7 L, [place] % (Auto) 0.9, Eos % (Auto) 0.0, Baso % (Auto) 0.2, Absolute Neuts (auto) 9.4 H, Absolute Lymphs (auto) 0.69 L, Nucleated RBC % 0, Sodium 137, Potassium 4.3, Chloride 108 H, Carbon Dioxide 24.0, Anion Gap 5, BUN 25 H, Creatinine 1.55 H, Estim Creat Clear Calc 29.22, Est GFR (MDRD) Af Amer 57 L, Est GFR (MDRD) Non-Af 47 L, BUN/Creatinine Ratio 16.1, Glucose 203 H, Calcium 8.5, Phosphorus 3.0, Magnesium 2.0, Total Bilirubin 0.20, AST 13 L, ALT 14 L, Alkaline Phosphatase 111, Total Protein 6.5, Albumin 2.1 L, Globulin 4.4 H, Albumin/Globulin Ratio 0.5 L, TSH 0.34 L, Blood Type A POSITIVE, Antibody Screen NEGATIVE Micro: Microbiology 03/10/24 20:55 Stool Stool Occult Blood (DEMETRICE) - Final Occult Blood Positive Radiography Diagnostic Testing: Radiology Impression Chest X-Ray 03/10/24 21:40 IMPRESSION: Suspect right lower lobe atelectasis. CT would be useful. Electronically Signed: Charles Flores MD at 22:07 EDT Reading Location ID and State: [id number] / [employer] Tel , Service support , Chest/Abdomen/Pelvis CT 03/10/24 22:04 IMPRESSION: 1. Dense right lower lobe pneumonia or atelectasis. Correlation with CT the chest with contrast and bronchoscopy to exclude endobronchial lesion would be useful. 2. 2. Nonobstructing right renal stones adjacent to a 6 cm cyst. 3. Suspect layering stones or sludge in the gallbladder. 4. Small right renal hernia containing fat. 5. Suspect benign prostatic hyperplasia. Electronically Signed: Charles Flores MD at 23:20 EDT , Physical Exam Narrative Seen and examined. Patient came to ED for generalized weakness and unintentional weight loss. Denies any increasing shortness of breath, increased cough or secretions/sputum production more than his baseline but has increased wheezing and rhonchi. 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 severe chronic protein malnutrition HEENT: Atraumatic, PERRLA, EOMI, Normocephalic Oral: No Gingival or Mucosal Lesions/ Ulcerations Neck: Supple, No JVD, Negative Carotid Bruits Chest wall/Lungs: Air entry diminished in bilateral lung bases. Right basilar expiratory rhonchi and wheezing Cardiovascular: Regular rate, Regular Rhythm, Normal S1, Normal S2, No M/G/R Abdomen: Bowel Sounds Present, Soft, Non Tender, Non-Distended : No dysuria. No renal angle tenderness. No suprapubic tenderness. Extremities: No edema, Capillary Refill Less than 3 Seconds Skin: No rashes, No breakdown Musculoskeletal: No Tenderness to Palpation of Joints or Extremities. Decreased muscle mass on extremities, paravertebral and craniofacial muscles Neurological: Cranial nerves II-XII grossly intact, DTR 2+/4. No acute focal neurological deficit. Psych/Mental Status: Normal Affect, Appropriate. Assessment & Plan Assessment/Plan (1) COPD exacerbation: (2) Pneumonia: QUALIFIERS: Laterality: right Lung location: lower lobe of lung Pneumonia type: due to unspecified organism Qualified Code(s): J18.9 - Pneumonia, unspecified organism (3) Respiratory insufficiency: (4) Hypokalemia: (5) Tobacco dependence: (6) Decreased appetite: (7) Abnormal weight loss: (8) Weakness: PLAN: Plan 73-year-old male was admitted with generalized weakness and unintentional weight loss. Patient has history of smoking, questionable COPD, hypertension and dyslipidemia Patient lost approximately 15 pounds unintentionally over the last several months. Decreased appetite. 1. Acute exacerbation of COPD with history of chronic tobacco abuse with Right lower lobe mass with suspected pneumonia noted on chest x-ray present on admission- Admit to general medical floor. Start IV Solu-Medrol and IV doxycycline plus scheduled and as needed nebulizers. Wean supplemental oxygen as tolerated. Tobacco cessation will be strongly encouraged with nicotine patch offered to control cravings. Patient was evaluated by architectural practice manager. Recommended to continue antibiotic Levaquin for total of 7 days. Discontinue IV steroid and transition to prednisone 40 mg daily for 5 days. Recommended follow-up chest imaging/CT scan in 6 to 8 weeks to document resolution of pneumonia. Patient is not hypoxemic. Patient further said about 2 years ago he had a right lobar mass in her bronchoscopic biopsy but pathology was negative for cancer, as verbal report from the patient but no documentation to corroborate it. 2. Unintentional ~60 pound weight loss over the past 6 weeks with hypoalbuminemia of 2.3 g/dL present on admission with clinical findings of severe chronic protein calorie malnutrition:-BMI 16.1 kg/m?. Prealbumin low. Add Ensure meal supplements. Clinical dietitian will be asked to consult in the AM on-rounds with help appreciated in advance. 3. Hypokalemia of 3.3 mmol/L present on admission: Potassium getting replaced. Serum magnesium phosphorus normal. 4. Hemoccult positive stools in the ER - Patient has slightly low hemoglobin of 11.1 g/dL present on admission (down from 17 g/dL at baseline). CT chest, abdomen and pelvis reported normal small intestine and colon. Normal visualized stomach, normal liver with layering of the stone or sludge in gallbladder. No tenderness. Stool for occult blood positive. Iron study shows low serum iron, TIBC and iron saturation 10.2% but ferritin elevated 442 consistent with anemia of chronic disease. Normal folic acid. B12 pending. GI is consulted 5. Essential hypertension - Continue home regimen plus give as needed IV hydralazine for systolic blood pressure greater than 160 mmHg. 6. Hyperlipidemia - Noted. Check lipid profile this admission. 7. CKD; stage III (with baseline creatinine of ~1.74 mg/dL) - Serum creatinine slightly elevated above previous baseline at 1.94 mg/dL so we will give volume resuscitation and recheck level in a.m. to ensure improvement. 8. DVT prophylaxis - SCD's only in light of Hemoccult positive stools present on admission. Microbiology Past 72 Hours 03/11/24 07:18 Mucosa - Nasopharyngeal Respiratory Panel (PCR) - Final 03/10/24 20:55 Stool Stool Occult Blood (DEMETRICE) - Final Occult Blood Positive Laboratory Results 03/10/24 20:17: WBC 9.2, RBC 4.02 L, Hgb 11.1 L, Hct 36.6 L, MCV 91.0, MCH 27.6, MCHC 30.3 L, RDW Std Deviation 46.5 H, RDW Coeff of Steven 13.9, Plt Count 368, MPV 9.3, Immature Gran % (Auto) 0.700, Neut % (Auto) 75.8 H, Lymph % (Auto) 15.1 L, [place] % (Auto) 5.6, Eos % (Auto) 2.3, Baso % (Auto) 0.5, Absolute Neuts (auto) 7.0, Absolute Lymphs (auto) 1.39, Nucleated RBC % 0, Sodium 137, Potassium 3.3 L, Chloride 103, Carbon Dioxide 27.0, Anion Gap 7, BUN 27 H, Creatinine 1.94 H, Estim Creat Clear Calc 23.86, Est GFR (MDRD) Af Amer 44 L, Est GFR (MDRD) Non-Af 36 L, BUN/Creatinine Ratio 13.9, Glucose 159 H, Calcium 8.9, Iron 17 L, TIBC 167 L, Iron Saturation 10.2 L, Ferritin 442 H, Total Bilirubin 0.30, AST 16, ALT 15 L, Alkaline Phosphatase 126 H, Total Protein 7.4, Albumin 2.3 L, Globulin 5.1 H, Albumin/Globulin Ratio 0.5 L, Prealbumin 8.4 L, Folate 4.30 03/10/24 20:50: Urine Color Yellow, Urine Clarity Clear, Urine pH 5.0, Ur Specific [place] 1.020, Urine Protein 30 H, Urine Glucose (UA) Normal, Urine Ketones Negative, Urine Occult Blood Negative, Urine Nitrite Negative, Urine Bilirubin Negative, Urine Urobilinogen Normal, Ur Leukocyte Esterase 25 H, Urine RBC 0 SEEN, Urine WBC 0-5 SEEN, Ur Squamous Epith Cells 0-5 SEEN, Amorphous Sediment 1+ URATE, Urine Bacteria RARE, Hyaline Casts 0-5 SEEN, Urine Mucus 0 SEEN 03/11/24 06:32: WBC 10.3, RBC 3.48 L, Hgb 9.6 L, Hct 31.3 L, MCV 89.9, MCH 27.6, MCHC 30.7 L, RDW Std Deviation 45.5 H, RDW Coeff of Steven 14.0, Plt Count 313, MPV 9.8, Immature Gran % (Auto) 0.900, Neut % (Auto) 91.3 H, Lymph % (Auto) 6.7 L, [place] % (Auto) 0.9, Eos % (Auto) 0.0, Baso % (Auto) 0.2, Absolute Neuts (auto) 9.4 H, Absolute Lymphs (auto) 0.69 L, Nucleated RBC % 0, Sodium 137, Potassium 4.3, Chloride 108 H, Carbon Dioxide 24.0, Anion Gap 5, BUN 25 H, Creatinine 1.55 H, Estim Creat Clear Calc 29.22, Est GFR (MDRD) Af Amer 57 L, Est GFR (MDRD) Non-Af 47 L, BUN/Creatinine Ratio 16.1, Glucose 203 H, Calcium 8.5, Phosphorus 3.0, Magnesium 2.0, Total Bilirubin 0.20, AST 13 L, ALT 14 L, Alkaline Phosphatase 111, Total Protein 6.5, Albumin 2.1 L, Globulin 4.4 H, Albumin/Globulin Ratio 0.5 L, Vitamin B12 1159 H, TSH 0.34 L, Blood Type A POSITIVE, Antibody Screen NEGATIVE Clinical Impression(s) from Imaging Studies Chest X-Ray 03/10/24 21:40 IMPRESSION: Suspect right lower lobe atelectasis. CT would be useful. Chest/Abdomen/Pelvis CT 03/10/24 22:04
--- NOTE | 2024-03-11 13:42 | CASEMGMT ---
Addendum entered by Tawny Olivas 03/11/24 16:39: HIWOT RUVALCABA back into pt room. Discussed with pt Pt Link program and HHC, pt declines both services. Pt does not feel he will need any services upon homegoing. Pt is aware that if he should change his mind once home, he can contact his PCP. Original Note: HIWOT RUVALCABA Assessment: Face to Face with pt for initial transition planning/care coordination assessment. HIWOT RUVALCABA introduced self and role at [facility], pt voices understanding and consents to assessment. Pt is A&O x4 and answers all questions appropriately at this time. Pt lying in bed in no distress on RA. Care providers, pharmacy, and demographics verified/updated. Admitting Dx: acute exac of COPD with newly dx R lung mass PCP:Antonio Specialists:[facility] [employer], pt cannot recall name Preferred Pharmacy: [facility] [place] Insurance: [employer], [employer] Prescription Benefit: yes LNOK: Montse Grady, sister Living Arrangements: Pt lives alone in a two story home with 1 step to enter. Pt reports he is I in ADL's and IADL's and denies concerns at home. Transportation: Pt drives self and denies concerns with transportation. DME:nebulizer, BP cuff HHC/SNF: Denies hx of Pt states no concerns with going home at time of dc. Pt states his neighbor checks in on him. Pt states no further concerns/needs. CM to follow. Advised pt to ask CM if any further question/concerns/needs arise, voices understanding. Pt Goal: Home Plan: Home [place] CM
[2024-03-11 14:05] LABS: Vitamin B12 1159 pg/mL (211-911)
[2024-03-11] MEDS: 0.9% Normal Saline (1000mL) 1,000 ML 70 ML IV (14:51)
[2024-03-11 14:52] VITALS: BP 127/64; PULSE 61; RESP 16; TEMP 36.3; O2SAT 99
--- NOTE | 2024-03-11 17:40 | EX.PCM.CON.G ---
HPI Consult Data Date of Consult: 03/11/24 HPI Narrative Reason for Consultation: Anemia and fecal positive stools HPI Narrative: DIANE FRANCES, is a 73 M with a past medical history of essential hypertension, hyperlipidemia, chronic kidney disease; stage III (with baseline creatinine of ~1.74 mg/dL) and history of tobacco abuse ~1 ppd x ~50 years; with subsequent COPD who presents to [facility] ER complaining of an unintentional ~60 pound weight loss in the past 6 weeks with patient having apparently been instructed by his PCP to come in for further evaluation and treatment. Mr. Lopez reports his symptoms began approximately 6 weeks prior to admission with a progressively worsening appetite and generalized weakness. His family accompany him to the ER to express their concerns though they admit he lives at home, drives and does not use any ambulation devices. He also admits to dyspnea on exertion that progressed to shortness of breath at rest with wheezing and nonproductive cough. There is no report of fever, chills, nausea, vomiting, diarrhea, constipation or blood in stools. In the ER he was noted to have a chest x-ray positive for evidence of a Right lower lobe mass likely due to malignancy with suspected pneumonia complicated by clinical evidence of acute exacerbation of COPD with respiratory insufficiency and he was noted to have laboratory evidence of hypokalemia of 3.3 mmol/L present on admission along with Hemoccult positive stools. Initially his hemoglobin was 17.6 when he came in to the hospital and it dropped down to 11.6 and currently is down to 9.6. He has never had a colonoscopy in the past. [facility] Medical History CKD (chronic kidney disease) CKD (chronic kidney disease) HTN (hypertension) HLD (hyperlipidemia) Medical History no medical history Home Medications ?Medication ?Instructions ?Recorded ?Last Taken ?Type NK 03/10/24 Unknown History Allergy/AdvReac Type Severity Reaction Status Date / Time No Known Allergies Allergy Verified 03/10/24 19:57 Social History household members: none Smoking Status: Current every day smoker tobacco type: cigarettes substance use type: does not use ROS ROS Narrative Review of systems: General: Patient admits to unintentional ~60 pound weight loss over the past 6 weeks as per HPI. He denies fever or chills. HENT: Denies headache, denies stuffy nose, denies sore throat EYES: Denies changes in vision or discharge from eyes. Resp: Patient admits to dyspnea on exertion that progressed to shortness of breath at rest with wheezing and nonproductive cough as per HPI. Cardiac: Denies chest pain, palpitations or heart racing. GI: Patient admits to sharply decreased appetite but he denies abdominal pain, denies changes in bowel, denies nausea or vomiting. : Denies changes in urination Extremity: Denies swelling Musculoskeletal: Feels somewhat generally weak and unwell but denies arthralgias or myalgias. Neuro: Patient denies headache, paresthesias or focal neurologic weakness. Heme: Patient was noted to have Hemoccult positive stools in the ER but he notes his stools are brown at home with no obvious bleeding. Skin: Denies rashes Psychiatric: No complaints voiced related to uncontrolled depression or anxiety. Endocrine: No polyuria, polydipsia or polyphagia. The rest of the 14 point ROS was negative except for positives in HPI. Physical Exam Narrative Seen and examined. Patient came to ED for generalized weakness and unintentional weight loss. Denies any increasing shortness of breath, increased cough or secretions/sputum production more than his baseline but has increased wheezing and rhonchi. 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 severe chronic protein malnutrition HEENT: Atraumatic, PERRLA, EOMI, Normocephalic Oral: No Gingival or Mucosal Lesions/ Ulcerations Neck: Supple, No JVD, Negative Carotid Bruits Chest wall/Lungs: Air entry diminished in bilateral lung bases. Right basilar expiratory rhonchi and wheezing Cardiovascular: Regular rate, Regular Rhythm, Normal S1, Normal S2, No M/G/R Abdomen: Bowel Sounds Present, Soft, Non Tender, Non-Distended : No dysuria. No renal angle tenderness. No suprapubic tenderness. Extremities: No edema, Capillary Refill Less than 3 Seconds Skin: No rashes, No breakdown Musculoskeletal: No Tenderness to Palpation of Joints or Extremities. Decreased muscle mass on extremities, paravertebral and craniofacial muscles Neurological: Cranial nerves II-XII grossly intact, DTR 2+/4. No acute focal neurological deficit. Psych/Mental Status: Normal Affect, Appropriate. Medical Records Data Medical Nutrition Assessment Dietitian: Malnutrition Criteria Met Start: 03/11/24 13:12 Freq: Status: Active Protocol: Document 03/11/24 13:12 SLA (Rec: 03/11/24 13:12 [facility] [id number]) Nutrition Malnutrition Evidence of Malnutrition Exists Yes Malnutrition (severe): Chronic Evidenced By Suboptimal Energy Intake ( Severe),Weight Loss (Severe), Physical Changes (Severe) Clinical Problem Altered Nutrient-Related Laboratory Values Etiology related to steroid administration Signs/Symptoms as evidenced by gluc 203 Status Active Problem Chronic Disease or Condition Related Malnutrition Etiology related to chronic COPD and new dx of lung mass and inadequate energy intake Signs/Symptoms as evidenced by 16.9% unintentional wt loss and <50% po intake of est 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 Status Active Problem Recommendation Dietitian Recommendations/Changes Rec [place] to liberal regular diet d/t signs and symptoms of malnutrition Continue ensure plus high protein 4 oz tid w/ medpass Add magic cup ice cream with lunch and dinner for increased nutrition if consumed. Lab / Micro Data 03/11/24 06:32 03/11/24 06:32 Labs: Laboratory Results - last 24 hr 03/10/24 20:17: WBC 9.2, RBC 4.02 L, Hgb 11.1 L, Hct 36.6 L, MCV 91.0, MCH 27.6, MCHC 30.3 L, RDW Std Deviation 46.5 H, RDW Coeff of Steven 13.9, Plt Count 368, MPV 9.3, Immature Gran % (Auto) 0.700, Neut % (Auto) 75.8 H, Lymph % (Auto) 15.1 L, [place] % (Auto) 5.6, Eos % (Auto) 2.3, Baso % (Auto) 0.5, Absolute Neuts (auto) 7.0, Absolute Lymphs (auto) 1.39, Nucleated RBC % 0, Sodium 137, Potassium 3.3 L, Chloride 103, Carbon Dioxide 27.0, Anion Gap 7, BUN 27 H, Creatinine 1.94 H, Estim Creat Clear Calc 23.86, Est GFR (MDRD) Af Amer 44 L, Est GFR (MDRD) Non-Af 36 L, BUN/Creatinine Ratio 13.9, Glucose 159 H, Calcium 8.9, Iron 17 L, TIBC 167 L, Iron Saturation 10.2 L, Ferritin 442 H, Total Bilirubin 0.30, AST 16, ALT 15 L, Alkaline Phosphatase 126 H, Total Protein 7.4, Albumin 2.3 L, Globulin 5.1 H, Albumin/Globulin Ratio 0.5 L, Prealbumin 8.4 L, Folate 4.30 03/10/24 20:50: Urine Color Yellow, Urine Clarity Clear, Urine pH 5.0, Ur Specific [place] 1.020, Urine Protein 30 H, Urine Glucose (UA) Normal, Urine Ketones Negative, Urine Occult Blood Negative, Urine Nitrite Negative, Urine Bilirubin Negative, Urine Urobilinogen Normal, Ur Leukocyte Esterase 25 H, Urine RBC 0 SEEN, Urine WBC 0-5 SEEN, Ur Squamous Epith Cells 0-5 SEEN, Amorphous Sediment 1+ URATE, Urine Bacteria RARE, Hyaline Casts 0-5 SEEN, Urine Mucus 0 SEEN 03/11/24 06:32: WBC 10.3, RBC 3.48 L, Hgb 9.6 L, Hct 31.3 L, MCV 89.9, MCH 27.6, MCHC 30.7 L, RDW Std Deviation 45.5 H, RDW Coeff of Steven 14.0, Plt Count 313, MPV 9.8, Immature Gran % (Auto) 0.900, Neut % (Auto) 91.3 H, Lymph % (Auto) 6.7 L, [place] % (Auto) 0.9, Eos % (Auto) 0.0, Baso % (Auto) 0.2, Absolute Neuts (auto) 9.4 H, Absolute Lymphs (auto) 0.69 L, Nucleated RBC % 0, Sodium 137, Potassium 4.3, Chloride 108 H, Carbon Dioxide 24.0, Anion Gap 5, BUN 25 H, Creatinine 1.55 H, Estim Creat Clear Calc 29.22, Est GFR (MDRD) Af Amer 57 L, Est GFR (MDRD) Non-Af 47 L, BUN/Creatinine Ratio 16.1, Glucose 203 H, Calcium 8.5, Phosphorus 3.0, Magnesium 2.0, Total Bilirubin 0.20, AST 13 L, ALT 14 L, Alkaline Phosphatase 111, Total Protein 6.5, Albumin 2.1 L, Globulin 4.4 H, Albumin/Globulin Ratio 0.5 L, Vitamin B12 1159 H, TSH 0.34 L, Blood Type A POSITIVE, Antibody Screen NEGATIVE Micro: Microbiology 03/11/24 07:18 Mucosa - Nasopharyngeal Respiratory Panel (PCR) - Final 03/10/24 20:55 Stool Stool Occult Blood (DEMETRICE) - Final Occult Blood Positive Imaging Radiology Impression Chest X-Ray 03/10/24 21:40 IMPRESSION: Suspect right lower lobe atelectasis. CT would be useful. Electronically Signed: Charles Flores MD at 22:07 EDT , Chest/Abdomen/Pelvis CT 03/10/24 22:04 IMPRESSION: 1. Dense right lower lobe pneumonia or atelectasis. Correlation with CT the chest with contrast and bronchoscopy to exclude endobronchial lesion would be useful. 2. 2. Nonobstructing right renal stones adjacent to a 6 cm cyst. 3. Suspect layering stones or sludge in the gallbladder. 4. Small right renal hernia containing fat. 5. Suspect benign prostatic hyperplasia. Electronically Signed: Charles Flores MD at 23:20 EDT , Assessment & Plan Assessment/Plan (1) COPD exacerbation: (2) Pneumonia: QUALIFIERS: Pneumonia type: due to unspecified organism Laterality: right Lung location: lower lobe of lung Qualified Code(s): J18.9 - Pneumonia, unspecified organism (3) Respiratory insufficiency: (4) Hypokalemia: (5) Tobacco dependence: (6) Decreased appetite: (7) Abnormal weight loss: (8) Weakness: PLAN: Plan 73 gentleman past medical history of COPD not on home oxygen with an Acute exacerbation of COPD in the setting of ongoing chronic tobacco abuse with Right lower lobe mass with suspected pneumonia noted on chest x-ray present on admission and clinical evidence of respiratory insufficiency. He also has been having decreasing hemoglobin and has loss ~60 pound weight loss over the past 6 weeks. Recommend upper and lower endoscopy to evaluate up any other GI tract for GI malignancy. We will also need to evaluate him for atrophic gastritis which can be associated with B12 and folate deficiency, celiac disease, underlying malignancy. He was explained alternatives, risk, benefits include not withstanding bleeding, infection, sepsis, perforation, need for emergent urgent . He will an ASA of 3. Charges/Coding Visit Charges Inpatient E&M: 19184 Init Hosp L3
[2024-03-11] MEDS: Bisacodyl 5 MG Tablet 20 MG PO (18:34)
[2024-03-11] MEDS: Metoclopramide 10 MG/2 ML Vial IV (18:34)
[2024-03-11] MEDS: Electrolyte Solution/Peg's 4000 ML PO (19:30)
[2024-03-11 20:00] VITALS: BP 153/79; PULSE 57; RESP 18; TEMP 36.6; O2SAT 99
[2024-03-12] VITALS (8 sets, daily range): BP systolic 130–159; BP diastolic 61–74; PULSE 53–66; RESP 14–18; TEMP 36–36.6; O2SAT 99–100; BMI 15.9; BMI 15.8
[2024-03-12] MEDS: Metoclopramide 10 MG/2 ML Vial IV ×2 (00:01→05:45)
[2024-03-12] MEDS: 0.9% Normal Saline (1000mL) 1,000 ML 70 ML IV ×2 (03:48→15:24)
[2024-03-12 06:17] LABS: Absolute Neutrophil Count 14.1 X10^3/uL (2.0-7.7); Basophil# 0.02 X10^3/uL; Basophil% 0.1 % (0-1); Hematocrit 31.8 % (40-54); Hemoglobin 9.6 g/dL (13.0-16.5); Lymphocyte % 6.9 % (19-41); Mean Corp Hgb Conc 30.2 g/dL (32-36); Mean Corpuscular Hgb 27.4 pg (27.0-32.0); Mean Corpuscular Volume 90.6 fL (80-94); Mean Platelet Vol. 9.3 fl (6.2-12.0); Monocyte% 3.1 % (0-10); NRBC Flagged by Analyzer 0 % (0-5); Neutrophil # 14.08 X10^3/uL (2.7-7.7); Neutrophil % 88.5 % (47-70); Platelet Count 322 K/mm3 (150-450); RBC Distribution Width CV 13.9 % (11.6-14.6); RBC Distribution Width SD 46.1 fl (35.1-43.9); Red Blood Count 3.51 M/mm3 (4.6-6.2); White Blood Count 15.9 K/mm3 (4.4-11.0)
[2024-03-12 06:25] LABS: International Normalized Ratio 1.3; Prothrombin Time (Protime)PT. 15.9 SECONDS (11.7-14.9)
--- NOTE | 2024-03-12 07:49 | NURSING ---
report given to Blas MI from x.
--- NOTE | 2024-03-12 08:05 | IMM_PTH ---
PATIENT: DIANE FRANCES LOC: MS3 U#:[id number] AGE/SX: 73/M ROOM: [facility]310 RE03/10/[address]: Dr. Bipin Hudson MD : 1950 BED: 1 DIS: 03/13/2024 SPEC #: [id number] RECD: 03/15/24 11:28 STATUS: SOUT REQ #: [id number] ROSA: 03/12/24 08:[address]: Ilan Thakkar DEPT: IMMUNOHISTOCHEMISTRY RECD BY: Sd Simms ENTERED: 03/15/24 11:28 SP TYPE: IMMUNO OTHR DR: DO Dr. Bipin Carias MD Dr. Victor Velasquez, MD Tissues: B - Gastric mucous membrane Procedures: H Pylori (initial) Comments: @ Ordering doctor for H.PYLORI edited from to @ by WESTLEY at 03/15/24 1130 @ Submitting doctor edited from to @ by WESTLEY at 03/15/24 1130 PHYSICIAN & [place] [phone] SPECIMEN INFORMATION: Tissue Source: B- Gastric antrum biopsy Clinical Info: Abnormal weight loss, anemia Specimen Number: [id number] CPT code: 41730 METHODOLOGY: Deparaffinized sections of prefer/formalin-fixed tissue or PAP/DQ stained slides are incubated with monoclonal/polyclonal antibodies/oligonucleotide probes. Localization is made via biotin free immunoperoxidase method. Appropriate controls are performed and reacted as expected. Results on target cell population are indicated in the following table: RESULTS: ANTIBODY / CLONE RESULT Block B H Pylori (polyclonal) negative These tests were developed and their performance characteristics determined by [facility]. They may not have been cleared or approved by the U.S. Food and Drug Administration. The FDA has determined that such clearance or approval is not necessary. The above immunohistochemical/dualISH markers are ordered and reviewed by the Pathologist. INTERPRETATION: B. Gastric antrum, biopsy: Negative for Helicobacter pylori organisms. DELISA/ 03/16/24
--- NOTE | 2024-03-12 08:05 | COLBX_PTH ---
PATIENT: DIANE FRANCES LOC: MS3 U#:[id number] AGE/SX: 73/M ROOM: [facility] [place] RE03/10/[address]: Dr. Bipin Hudson MD : 1950 BED: 1 DIS: 03/13/2024 SPEC #: [id number] RECD: 03/15/24 09:53 STATUS: PARKER NGUYỄN #: [id number] ROSA: 03/12/24 08:[address]: Ilan Thakkar DEPT: SURGICAL PATHOLOGY RECD BY: Rina Lagunas ENTERED: 03/15/24 13:18 SP TYPE: COLON BX OTHR DR: DO Dr. Bipin Carias MD Dr. Victor Velasquez, MD Tissues: A - Duodenum, NOS B - Gastric mucous membrane C - Gastric mucous membrane D - Gastric mucous membrane E - Esophagus, NOS F - COLON BIOPSY G - Sigmoid colon biopsy Procedures: Special Stain Group I Surgery Specimen Level IV Alcian Blue/PAS (control) HEADER OPERATION: Colonoscopy, cold snare polypectomy, biopsy, EGD with biopsy PRE-OP DIAGNOSIS: Abnormal weight loss, anemia TISSUE SUBMITTED: A- Duodenum biopsy, B- Gastric antrum biopsy, C- Gastric body biopsy, D- Gastric cardia biopsy, E- Distal esophagus biopsy, F- Hepatic flexure polyp, G- Sigmoid colon biopsy MICROSCOPIC DIAGNOSIS A. Duodenum, biopsy: Focal gastric metaplasia. Minimal chronic inflammation. See comment. B. Gastric antrum, biopsy: Mild chronic gastritis. C. Gastric body, biopsy: Mild chronic gastritis. D. Gastric cardia, biopsy: Mild chronic gastritis. E. Distal esophagus, biopsy: Gastroesophageal junctional mucosa with mild chronic inflammation. No evidence of goblet cell metaplasia. See comment. F. Colonic polyp at hepatic flexure, biopsy: Fragments of tubular adenoma. G. Sigmoid colon, biopsy: No pathologic change. AM/ 03/16/2024 COMMENT A. The results of immunohistochemistry for Helicobacter pylori will be reported separately ([id number]). E. Alcian blue/PAS stain with matched control supports the above diagnosis. MICROSCOPIC DESCRIPTION Slides are reviewed. GROSS DESCRIPTION A. Received in fixative is one container labeled with the patient's name and designated Duodenum biopsy. The specimen consists of two irregular fragments of light reilly soft tissue that in aggregate measure 0.7 x 0.5 x 0.1 cm. The specimen is totally submitted in one cassette. B. Received in fixative is one container labeled with the patient's name and designated gastric antrum. The specimen consists of two irregular fragments of light reilly soft tissue that in aggregate measure 0.7 x 0.5 x 0.1 cm. The specimen is totally submitted in one cassette. C. Received in fixative is one container labeled with the patient's name and designated Gastric body biopsy. The specimen consists of two irregular fragments of light reilly soft tissue that in aggregate measure 1.0 x 0.5 x 0.1 cm. The specimen is totally submitted in one cassette. D. Received in fixative is one container labeled with the patient's name and designated Gastric cardia biopsy. The specimen consists of two irregular fragments of light reilly soft tissue that in aggregate measure 1.0 x 0.3 x 0.1 cm. The specimen is totally submitted in one cassette. E. Received in fixative is one container labeled with the patient's name and designated Distal esophagus biopsy. The specimen consists of two irregular fragments of light reilly soft tissue that in aggregate measure 0.6 x 0.6 x 0.1 cm. The specimen is totally submitted in one cassette. F. Received in fixative is one container labeled with the patient's name and designated Hepatic flexure polyp. multiple irregular fragments of light reilly soft tissue that in aggregate measure 1.0 x 0.3 x 0.1 cm. The specimen is totally submitted in one cassette. G. Received in fixative is one container labeled with the patient's name and designated Sigmoid colon biopsy. The specimen consists of two irregular fragments of light reilly soft tissue that in aggregate measure 0.3 x 0.3 x 0.1 cm. The specimen is totally submitted in one cassette. DELISA/ 03/15/2024 TC:3 CPT:49056n9 ,29044
--- NOTE | 2024-03-12 08:09 | NURSING ---
CALLED SISTER, SHRUTHI, WITH UPDATE.
--- NOTE | 2024-03-12 09:13 | OP.CCLET_ITS ---
03/12/2024 Tiago Alvarez [address] [place] [address] Re : Upper GI endoscopy procedure for Jeffrey Barnhart Dear Dr. Alvarez This procedure was performed on Tuesday, March 12, 2024. My impressions and recommendations are as follows: Impressions : - Esophageal mucosal changes suspicious for short-segment Inman's esophagus. Biopsied. - Small hiatal hernia. - Non-bleeding gastric ulcers with no stigmata of bleeding. Biopsied. - Duodenitis. Biopsied. Recommendations : - Return patient to hospital heard for ongoing care. - Use Protonix (pantoprazole) 40 mg PO BID. - Continue present medications. My findings are described in the full procedure note, which is enclosed. If I can be of further assistance, please feel free to contact me at . Sincerely, Ilan Thakkar, 03/12/2024 9:12:43 AM This report has been signed electronically.
--- NOTE | 2024-03-12 09:13 | OP.EGD_ITS ---
Patient Name: Jeffrey Barnhart Procedure Date: 03/12/2024 7:39 AM Date of : 1950 Age: 73 Procedure: Upper GI endoscopy Indications: Iron deficiency anemia Providers: Ilan Thakkar DO Medicines: Monitored Anesthesia Care Patient Profile: This is a 73 year old male. Complications: No immediate complications. Procedure: Pre-Anesthesia Assessment: - Prior to the procedure, a History and Physical was performed, and patient medications and allergies were reviewed. The patient is competent. The risks and benefits of the procedure and the sedation options and risks were discussed with the patient. All questions were answered and informed consent was obtained. Patient identification and proposed procedure were verified by the physician in the pre-procedure area. Mental Status Examination: alert and oriented. Airway Examination: normal oropharyngeal airway and neck mobility. Respiratory Examination: clear to auscultation. CV Examination: normal. Prophylactic Antibiotics: The patient does not require prophylactic antibiotics. Prior Anticoagulants: The patient has taken no anticoagulant or antiplatelet agents. ASA Grade Assessment: IV - A patient with severe systemic disease that is a constant threat to life. After reviewing the risks and benefits, the patient was deemed in satisfactory condition to undergo the procedure. The anesthesia plan was to use monitored anesthesia care (MAC). Immediately prior to administration of medications, the patient was re-assessed for adequacy to receive sedatives. The heart rate, respiratory rate, oxygen saturations, blood pressure, adequacy of pulmonary ventilation, and response to care were monitored throughout the procedure. The physical status of the patient was re-assessed after the procedure. After obtaining informed consent, the endoscope was passed under direct vision. Throughout the procedure, the patient's blood pressure, pulse, and oxygen saturations were monitored continuously. The Colonoscope was introduced through the mouth, and advanced to the second part of duodenum. The upper GI endoscopy was accomplished without difficulty. The patient tolerated the procedure well. Scope In: 8:36:38 AM Scope Out: 8:44:20 AM Total Procedure Duration Time 0 hours 7 minutes 42 seconds Findings: The esophagus and gastroesophageal junction were examined with white light and narrow band imaging (NBI) from a forward view and retroflexed position. There were esophageal mucosal changes suspicious for short-segment Inman's esophagus. These changes involved the mucosa extending to the Z-line. [place]-colored mucosa was present. The maximum longitudinal extent of these esophageal mucosal changes was 2 cm in length. Mucosa was biopsied with a cold forceps for histology in a targeted manner at intervals of 1 cm in the lower third of the esophagus. One specimen bottle was sent to pathology. Verification of patient identification for the specimen was done. Estimated blood loss was minimal. A small hiatal hernia was present. Many non-bleeding linear gastric ulcers with no stigmata of bleeding were found in the cardia, in the gastric body and in the gastric antrum. The largest lesion was 5 mm in largest dimension. Biopsies were taken with a cold forceps for histology. Verification of patient identification for the specimen was done. Biopsies were taken with a cold forceps for Helicobacter pylori testing. Verification of patient identification for the specimen was done. Estimated blood loss was minimal. Patchy mild inflammation characterized by congestion (edema) was found in the duodenal bulb. Biopsies were taken with a cold forceps for histology. Verification of patient identification for the specimen was done. Estimated blood loss was minimal. Impression: - Esophageal mucosal changes suspicious for short-segment Inman's esophagus. Biopsied. - Small hiatal hernia. - Non-bleeding gastric ulcers with no stigmata of bleeding. Biopsied. - Duodenitis. Biopsied. Recommendation: - Return patient to hospital heard for ongoing care. - Use Protonix (pantoprazole) 40 mg PO BID. - Continue present medications. Procedure Code(s): --- Professional --- 12598, Esophagogastroduodenoscopy, flexible, transoral; with biopsy, single or multiple CPT copyright 2021 [employer]. All rights reserved. The codes documented in this report are preliminary and upon chemical operations and training review may be revised to meet current compliance requirements. Ilan Thakkar DO 03/12/2024 9:12:43 AM This report has been signed electronically. Number of Addenda: 0 Note Initiated On: 03/12/2024 7:39 AM
--- NOTE | 2024-03-12 09:17 | OP.COLON_ITS ---
Patient Name: Jeffrey Barnhart Procedure Date: 03/12/2024 8:44 AM Date of : 1950 Age: 73 Procedure: Colonoscopy Indications: Iron deficiency anemia Providers: Ilan Thakkar DO Medicines: Monitored Anesthesia Care Patient Profile: This is a 73 year old male. Refer to note in patient chart for documentation of history and physical. Last Colonoscopy: none. The patient's first colonoscopy is today. Complications: No immediate complications. Estimated blood loss: None. Procedure: Pre-Anesthesia Assessment: - Prior to the procedure, a History and Physical was performed, and patient medications and allergies were reviewed. The patient is competent. The risks and benefits of the procedure and the sedation options and risks were discussed with the patient. All questions were answered and informed consent was obtained. Patient identification and proposed procedure were verified by the physician in the pre-procedure area. Mental Status Examination: alert and oriented. Airway Examination: normal oropharyngeal airway and neck mobility. Respiratory Examination: clear to auscultation. CV Examination: normal. Prophylactic Antibiotics: The patient does not require prophylactic antibiotics. Prior Anticoagulants: The patient has taken no anticoagulant or antiplatelet agents. ASA Grade Assessment: IV - A patient with severe systemic disease that is a constant threat to life. After reviewing the risks and benefits, the patient was deemed in satisfactory condition to undergo the procedure. The anesthesia plan was to use monitored anesthesia care (MAC). Immediately prior to administration of medications, the patient was re-assessed for adequacy to receive sedatives. The heart rate, respiratory rate, oxygen saturations, blood pressure, adequacy of pulmonary ventilation, and response to care were monitored throughout the procedure. The physical status of the patient was re-assessed after the procedure. After I obtained informed consent, the scope was passed under direct vision. Throughout the procedure, the patient's blood pressure, pulse, and oxygen saturations were monitored continuously. The Colonoscope was introduced through the anus and advanced to the terminal ileum. The colonoscopy was performed without difficulty. The patient tolerated the procedure well. The quality of the bowel preparation was adequate. The terminal ileum, ileocecal valve, appendiceal orifice, and rectum were photographed. Scope In: 8:48:54 AM Scope Withdrawal Time 0 hours 9 minutes 9 seconds Scope Out: 9:00:47 AM Total Procedure Duration Time 0 hours 11 minutes 53 seconds Findings: The perianal and digital rectal examinations were normal. Multiple small and large-mouthed diverticula were found in the recto-sigmoid colon and sigmoid colon. An 8 mm polyp was found in the hepatic flexure. The polyp was sessile. The polyp was removed with a cold snare. Resection and retrieval were complete. Verification of patient identification for the specimen was done. Estimated blood loss was minimal. An area of mildly congested mucosa was found in the sigmoid colon. Biopsies were taken with a cold forceps for histology. Verification of patient identification for the specimen was done. Estimated blood loss was minimal. Impression: - Diverticulosis in the recto-sigmoid colon and in the sigmoid colon. - One 8 mm polyp at the hepatic flexure, removed with a cold snare. Resected and retrieved. - Congested mucosa in the sigmoid colon. Biopsied. Recommendation: - Return patient to hospital heard for ongoing care. - Resume previous diet. - Continue present medications. - Await pathology results. - Repeat colonoscopy in 5 years for surveillance. Procedure Code(s): --- Professional --- 88091, Colonoscopy, flexible; with removal of tumor(s), polyp(s), or other lesion(s) by snare technique 95541, 59, Colonoscopy, flexible; with biopsy, single or multiple CPT copyright 2021 [employer]. All rights reserved. The codes documented in this report are preliminary and upon manager balance review may be revised to meet current compliance requirements. Ilan Thakkar DO 03/12/2024 9:17:29 AM This report has been signed electronically. Number of Addenda: 0 Note Initiated On: 03/12/2024 8:44 AM
--- NOTE | 2024-03-12 09:18 | OP.CCLET_ITS ---
03/12/2024 Tiago Alvarez [address] [place] [address] Re : Colonoscopy procedure for Jeffrey Barnhart Dear Dr. Alvarez This procedure was performed on Tuesday, March 12, 2024. My impressions and recommendations are as follows: Impressions : - Diverticulosis in the recto-sigmoid colon and in the sigmoid colon. - One 8 mm polyp at the hepatic flexure, removed with a cold snare. Resected and retrieved. - Congested mucosa in the sigmoid colon. Biopsied. Recommendations : - Return patient to hospital heard for ongoing care. - Resume previous diet. - Continue present medications. - Await pathology results. - Repeat colonoscopy in 5 years for surveillance. My findings are described in the full procedure note, which is enclosed. If I can be of further assistance, please feel free to contact me at . Sincerely, Ilan Thakkar, 03/12/2024 9:17:29 AM This report has been signed electronically.
[2024-03-12] MEDS: Pantoprazole Sodium 40 MG Tablet PO ×2 (09:45→21:06)
[2024-03-12] MEDS: predniSONE 20 MG Tablet 40 MG PO (09:45)
[2024-03-12] MEDS: 0.9% Saline Lock 10 ML Syringe IV (09:46)
[2024-03-12 10:32] LABS: M R Staph aureus DNA By PCR Negative (Negative); Probe Check PASS; Specimen Processing Control PASS
--- NOTE | 2024-03-12 11:05 | DS.PCM_ITS ---
Providers Date of Admission: 03/10/24 Date of Discharge: 03/12/24 Primary Care Physician: Dr. Tiago Alvarez MD Consultations 03/10/24 22:40 Consult: Gastroenterology Routine Consulting Provider: [facility] Reason for Consult: Hemoccult positive stools with significant weight loss in the past 6 weeks EMERGENT Consult: No Notified: Yes Date Notified: 03/11/24 Time Notified: 06:03 Method of Notification: Text Consult: Coach Builder / Pulmonary Medicine Routine Consulting Provider: Intensivists/Pulmonary Med Reason for Consult: Acute exacerbation of COPD with newly diagnosed Right lower lobe mass. EMERGENT Consult: No Notified: Yes Date Notified: 03/11/24 Time Notified: 06:05 Method of Notification: Text Reason For Visit: ACUTE EXACERBATION OF COPD WITH NEWLY DIAGNOSED Diagnosis Discharge Diagnosis (1) COPD exacerbation: Status: Chronic Code(s): J44.1 - Chronic obstructive pulmonary disease with (acute) exacerbation (2) Pneumonia: Status: Acute Code(s): J18.9 - Pneumonia, unspecified organism Qualifiers: Pneumonia type: due to unspecified organism Laterality: right Lung location: lower lobe of lung Qualified Code(s): J18.9 - Pneumonia, unspecified organism (3) Respiratory insufficiency: Status: Acute Code(s): R06.89 - Other abnormalities of breathing (4) Hypokalemia: Status: Acute Code(s): E87.6 - Hypokalemia (5) Tobacco dependence: Status: Acute Code(s): F17.200 - Nicotine dependence, unspecified, uncomplicated (6) Decreased appetite: Status: Acute Code(s): R63.0 - Anorexia (7) Abnormal weight loss: Status: Acute Code(s): R63.4 - Abnormal weight loss (8) Weakness: Status: Acute Code(s): R53.1 - Weakness Plan 73-year-old male was admitted with generalized weakness and unintentional weight loss. Patient has history of smoking, questionable COPD, hypertension and dyslipidemia Patient lost approximately 15 pounds unintentionally over the last several months. Decreased appetite. 1. Acute exacerbation of COPD with history of chronic tobacco abuse with Right lower lobe mass with suspected pneumonia noted on chest x-ray present on admission- Admit to general medical floor. Start IV Solu-Medrol and IV doxycycline plus scheduled and as needed nebulizers. Wean supplemental oxygen as tolerated. Tobacco cessation will be strongly encouraged with nicotine patch offered to control cravings. Patient was evaluated by tactical air control party manager. Recommended to continue antibiotic Levaquin for total of 7 days. Discontinue IV steroid and transition to prednisone 40 mg daily for 5 days. Recommended follow-up chest imaging/CT scan in 6 to 8 weeks to document resolution of pneumonia. Patient is not hypoxemic. Patient further said about 2 years ago he had a right lobar mass in her bronchoscopic biopsy but pathology was negative for cancer, as verbal report from the patient but no documentation to corroborate it. 2. Unintentional ~60 pound weight loss over the past 6 weeks with hypoalbuminemia of 2.3 g/dL present on admission with clinical findings of severe chronic protein calorie malnutrition:-BMI 16.1 kg/m?. Prealbumin low. Add Ensure meal supplements. Clinical dietitian will be asked to consult in the AM on-rounds with help appreciated in advance. 3. Hypokalemia of 3.3 mmol/L present on admission: Potassium getting replaced. Serum magnesium phosphorus normal. 4. Hemoccult positive stools in the ER - Patient has slightly low hemoglobin of 11.1 g/dL present on admission (down from 17 g/dL at baseline). CT chest, abdomen and pelvis reported normal small intestine and colon. Normal visualized stomach, normal liver with layering of the stone or sludge in gallbladder. No tenderness. Stool for occult blood positive. Iron study shows low serum iron, TIBC and iron saturation 10.2% but ferritin elevated 442 consistent with anemia of chronic disease. Normal folic acid. B12 pending. GI is consulted 5. Essential hypertension - Continue home regimen plus give as needed IV hydralazine for systolic blood pressure greater than 160 mmHg. 6. Hyperlipidemia - Noted. Check lipid profile this admission. 7. CKD; stage III (with baseline creatinine of ~1.74 mg/dL) - Serum creatinine slightly elevated above previous baseline at 1.94 mg/dL so we will give volume resuscitation and recheck level in a.m. to ensure improvement. 8. DVT prophylaxis - SCD's only in light of Hemoccult positive stools present on admission. Microbiology Past 72 Hours 03/11/24 07:18 Mucosa - Nasopharyngeal Respiratory Panel (PCR) - Final 03/10/24 20:55 Stool Stool Occult Blood (DEMETRICE) - Final Occult Blood Positive Laboratory Results 03/10/24 20:17: WBC 9.2, RBC 4.02 L, Hgb 11.1 L, Hct 36.6 L, MCV 91.0, MCH 27.6, MCHC 30.3 L, RDW Std Deviation 46.5 H, RDW Coeff of Steven 13.9, Plt Count 368, MPV 9.3, Immature Gran % (Auto) 0.700, Neut % (Auto) 75.8 H, Lymph % (Auto) 15.1 L, Beckham % (Auto) 5.6, Eos % (Auto) 2.3, Baso % (Auto) 0.5, Absolute Neuts (auto) 7.0, Absolute Lymphs (auto) 1.39, Nucleated RBC % 0, Sodium 137, Potassium 3.3 L , Chloride 103, Carbon Dioxide 27.0, Anion Gap 7, BUN 27 H, Creatinine 1.94 H, Estim Creat Clear Calc 23.86, Est GFR (MDRD) Af Amer 44 L, Est GFR (MDRD) Non-Af 36 L, BUN/Creatinine Ratio 13.9, Glucose 159 H, Calcium 8.9, Iron 17 L, TIBC 167 L, Iron Saturation 10.2 L, Ferritin 442 H, Total Bilirubin 0.30, AST 16, ALT 15 L, Alkaline Phosphatase 126 H, Total Protein 7.4, Albumin 2.3 L, Globulin 5.1 H, Albumin/Globulin Ratio 0.5 L, Prealbumin 8.4 L, Folate 4.30 03/10/24 20:50: Urine Color Yellow, Urine Clarity Clear, Urine pH 5.0, Ur Specific Lynn 1.020, Urine Protein 30 H, Urine Glucose (UA) Normal, Urine Ketones Negative, Urine Occult Blood Negative, Urine Nitrite Negative, Urine Bilirubin Negative, Urine Urobilinogen Normal, Ur Leukocyte Esterase 25 H, Urine RBC 0 SEEN, Urine WBC 0-5 SEEN, Ur Squamous Epith Cells 0-5 SEEN, Amorphous Sediment 1+ URATE, Urine Bacteria RARE, Hyaline Casts 0-5 SEEN, Urine Mucus 0 SEEN 03/11/24 06:32: WBC 10.3, RBC 3.48 L, Hgb 9.6 L, Hct 31.3 L, MCV 89.9, MCH 27.6, MCHC 30.7 L, RDW Std Deviation 45.5 H, RDW Coeff of Steven 14.0, Plt Count 313, MPV 9.8, Immature Gran % (Auto) 0.900, Neut % (Auto) 91.3 H, Lymph % (Auto) 6.7 L, Beckham % (Auto) 0.9, Eos % (Auto) 0.0, Baso % (Auto) 0.2, Absolute Neuts (auto) 9.4 H, Absolute Lymphs (auto) 0.69 L, Nucleated RBC % 0, Sodium 137, Potassium 4.3, Chloride 108 H, Carbon Dioxide 24.0, Anion Gap 5, BUN 25 H, Creatinine 1.55 H, Estim Creat Clear Calc 29.22, Est GFR (MDRD) Af Amer 57 L, Est GFR (MDRD) Non-Af 47 L, BUN/Creatinine Ratio 16.1, Glucose 203 H, Calcium 8.5, Phosphorus 3.0, Magnesium 2.0, Total Bilirubin 0.20, AST 13 L, ALT 14 L, Alkaline Phosphatase 111, Total Protein 6.5, Albumin 2.1 L, Globulin 4.4 H, A lbumin/Globulin Ratio 0.5 L, Vitamin B12 1159 H, TSH 0.34 L, Blood Type A POSITIVE, Antibody Screen NEGATIVE Clinical Impression(s) from Imaging Studies Chest X-Ray 03/10/24 21:40 IMPRESSION: Suspect right lower lobe atelectasis. CT would be useful. Chest/Abdomen/Pelvis CT 03/10/24 22:04 IMPRESSION: 1. Dense right lower lobe pneumonia or atelectasis. Correlation with CT the chest with contrast and bronchoscopy to exclude endobronchial lesion would be useful. 2. 2. Nonobstructing right renal stones adjacent to a 6 cm cyst. 3. Suspect layering stones or sludge in the gallbladder. 4. Small right renal hernia containing fat. 5. Suspect benign prostatic hyperplasia. Electronically Signed: Charles Flores MD at 23:20 EDT , Medications at Discharge Home Medications NK 03/10/24 Medical Records Data Medical Nutrition Assessment Dietitian: Malnutrition Criteria Met Start: 03/11/24 13:12 Freq: Status: Active Protocol: Document 03/11/24 13:12 [facility] (Rec: 03/11/24 13:12 [facility] [id number]) Nutrition Malnutrition Evidence of Malnutrition Exists Yes Malnutrition (severe): Chronic Evidenced By Suboptimal Energy Intake ( Severe),Weight Loss (Severe), Physical Changes (Severe) Clinical Problem Altered Nutrient-Related Laboratory Values Etiology related to steroid administration Signs/Symptoms as evidenced by gluc 203 Status Active Problem Chronic Disease or Condition Related Malnutrition Etiology related to chronic COPD and new dx of lung mass and inadequate energy intake Signs/Symptoms as evidenced by 16.9% unintentional wt loss and <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 Status Active Problem Recommendation Dietitian Recommendations/Changes Rec BENTON to liberal regular diet d/t signs and symptoms of malnutrition Continue ensure plus high protein 4 oz tid w/ medpass Add magic cup ice cream with lunch and dinner for increased nutrition if consumed. Weight / BMI Weight Weight: 107 lb 8 oz Body Mass Index (BMI) 15.8 ABG / Lab / Microbiology Data 03/12/24 06:00 03/11/24 06:32 Laboratory: Laboratory Results - last 24 hr 03/11/24 06:32: Vitamin B12 1159 H 03/12/24 06:00: WBC 15.9 H, RBC 3.51 L, Hgb 9.6 L, Hct 31.8 L, MCV 90.6, MCH 27.4, MCHC 30.2 L, RDW Std Deviation 46.1 H, RDW Coeff of Steven 13.9, Plt Count 322, MPV 9.3, Immature Gran % (Auto) 1.400 H, Neut % (Auto) 88.5 H, Lymph % (Auto) 6.9 L, Beckham % (Auto) 3.1, Eos % (Auto) 0.0, Baso % (Auto) 0.1, Absolute Neuts (auto) 14.1 H, Absolute Lymphs (auto) 1.10, Nucleated RBC % 0, PT 15.9 H, INR 1.3 03/12/24 07:25: MRSA (PCR) Negative Microbiology: Microbiology 03/12/24 07:00 Urine, Clean Catch Legionella Antigen - Final 03/12/24 07:00 Urine, Clean Catch Streptococcus pneumoniae Antigen (M - Final 03/11/24 07:18 Mucosa - Nasopharyngeal Respiratory Panel (PCR) - Final 03/10/24 20:55 Stool Stool Occult Blood (DEMETRICE) - Final Occult Blood Positive Meaningful Use Info Ischemic Stroke Statin Dosing Therapy Reference: STATIN DOSE THERAPY REFERENCE: * Patients > 75 years receive moderate or high dose statin therapy. * Patients 75 years or YOUNGER should receive HIGH intensity statin dose unless contraindicated. You will be required to document reason for non-treatment if statin daily dose does not meet guidelines. HIGH DOSE STATIN THERAPY DAILY Atorvastatin > than or = to 40 mg Rosuvastatin > than or = to 20 mg Amlodipine + Atorvastatin > than or = to 2.5/40 mg Ezetimibe + Simvastatin 10/80 mg Simvastatin 80mg Discharge Plan Admission Admit Date/Time: 03/10/24 22:22 Attending Provider: Bipin Hudson Primary Care Provider: Tiago Alvarez Consulting Providers: Ed Jane Discharge Orders/Prescriptions Prescriptions: No Action NK Referrals / Follow Up: Tiago Alvarez MD [Primary Care Provider] - Care Physician,No Primary [Non-Staff] -
--- NOTE | 2024-03-12 11:05 | DCINST_ITS ---
Discharge Instructions Follow Up Care Test Results: Test results from this visit will be discussed in further detail at your follow- up appointment, if applicable. Discharge Plan Admission Admit Date/Time: 03/10/24 22:22 Attending Provider: Bipin Hudson Primary Care Provider: Tiago Alvarez Consulting Providers: Ed Jane Discharge Orders/Prescriptions Prescriptions: No Action NK Referrals / Follow Up: Care Physician,No Primary [Non-Staff] - Tiago Alvarez MD [Primary Care Provider] -
--- NOTE | 2024-03-12 12:02 | CASEMGMT ---
Addendum entered by Lianet Glynn 03/12/24 13:47: Social Work Return call from pt's sister Montse Grady. Montse stating concerns with pt's home situation - Broken Pipes, feces and urine running down the [place]rissey, no running water, no refrigerator, stove or oven in the home, uncertainty if microwave works. There is electricity and heat in the home. Sister is aware that pt denies any concerns with the home situation and states pt knows how to answer the questions correctly. Montse states [facility] was out at pt's home 2 1/2 weeks ago and they were unable to do anything since pt is A&Ox3 and denying problems. Pt's sister stating she understand that there is nothing to be done at this time but wants home situation documented. Pt does deny any concerns with returning home at this time. SW left a VM referral to Deepika at [facility]. Pt sister states she will pick pt up at time of discharge and take him home. SANIYA Diaz Addendum entered by Lianet Glynn 03/12/24 13:13: Social Work SW spoke with physician who reiterated pt's sisters concerns for pt poor living situation. Pt denies concerns with living situation. Phone call placed to pt sister and VM left. SANIYA Diaz Original Note: Social Work SW received referral from RN regarding pt's home situation. SW met with pt and introduced self and role of SW. SDOH questions addressed with pt. Pt stating he owns his home and has no concern with losing his housing. Pt states he has heat, electricity and running water. Pt expressing no concerns with home. Pt drives self and goes out to eat for meals. Pt able to tell SW where he enjoys eating. Pt states he is close with his sister and visits her several times a week. Pt denies any concerns with returning home at this time. SANIYA Diaz
--- NOTE | 2024-03-12 12:06 | PN.HOSP_ITS ---
Reason for Visit Reason for Visit: Diagnoses Hypokalemia (03/10/24) Nicotine dependence, unspecified, uncomplicated (03/10/24) Pneumonia, unspecified organism (03/10/24) Chronic obstructive pulmonary disease with (acute) exacerbation (03/10/24) Other abnormalities of breathing (03/10/24) Weakness (03/10/24) Anorexia (03/10/24) Abnormal weight loss (03/10/24) Objective Data Objective Data Vital Signs: Vital Signs Temp Pulse Resp BP Pulse Ox O2 Del Method 96.8 F L 58 L 18 159/70 H 99 Room Air 03/12/24 09:20 03/12/24 09:20 03/12/24 09:20 03/12/24 09:20 03/12/24 09:20 03/12/24 09:20 Oxygen Delivery Method Room Air Weight: 107 lb 8 oz Body Mass Index (BMI) 15.8 Intake & Output: Intake and Output for Last 24 Hours 03/10/24 03/11/24 03/12/24 23:59 23:59 23:59 Intake Total 1000 / 1250 1875.33 / 1875.33 906.5 / 906.5 Output Total 650 / 1050 800 / 800 Balance 1000 / 1050 1225.33 / 825.33 106.5 / 106.5 Medical Nutrition Assessment Dietitian: Malnutrition Criteria Met Start: 03/11/24 13:12 Freq: Status: Active Protocol: Document 03/11/24 13:12 [facility] (Rec: 03/11/24 13:12 [facility] [id number]) Nutrition Malnutrition Evidence of Malnutrition Exists Yes Malnutrition (severe): Chronic Evidenced By Suboptimal Energy Intake ( Severe),Weight Loss (Severe), Physical Changes (Severe) Clinical Problem Altered Nutrient-Related Laboratory Values Etiology related to steroid administration Signs/Symptoms as evidenced by gluc 203 Status Active Problem Chronic Disease or Condition Related Malnutrition Etiology related to chronic COPD and new dx of lung mass and inadequate energy intake Signs/Symptoms as evidenced by 16.9% unintentional wt loss and <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 Status Active Problem Recommendation Dietitian Recommendations/Changes Rec BENTON to liberal regular diet d/t signs and symptoms of malnutrition Continue ensure plus high protein 4 oz tid w/ medpass Add magic cup ice cream with lunch and dinner for increased nutrition if consumed. Lab / Micro Data 03/12/24 06:00 03/11/24 06:32 Labs: Laboratory Results - last 24 hr 03/11/24 06:32: Vitamin B12 1159 H 03/12/24 06:00: WBC 15.9 H, RBC 3.51 L, Hgb 9.6 L, Hct 31.8 L, MCV 90.6, MCH 27.4, MCHC 30.2 L, RDW Std Deviation 46.1 H, RDW Coeff of Steven 13.9, Plt Count 322, MPV 9.3, Immature Gran % (Auto) 1.400 H, Neut % (Auto) 88.5 H, Lymph % (Auto) 6.9 L, [place] % (Auto) 3.1, Eos % (Auto) 0.0, Baso % (Auto) 0.1, Absolute Neuts (auto) 14.1 H, Absolute Lymphs (auto) 1.10, Nucleated RBC % 0, PT 15.9 H, INR 1.3 03/12/24 07:25: MRSA (PCR) Negative Micro: Microbiology 03/12/24 07:00 Urine, Clean Catch Legionella Antigen - Final 03/12/24 07:00 Urine, Clean Catch Streptococcus pneumoniae Antigen (M - Final 03/11/24 07:18 Mucosa - Nasopharyngeal Respiratory Panel (PCR) - Final 03/10/24 20:55 Stool Stool Occult Blood (DEMETRICE) - Final Occult Blood Positive Physical Exam Narrative Seen and examined. As per the sister he is unsteady on her feet and fatigue. He does not have good home condition like no electricity or running water and his steps is he has difficulty climbing. No fever. Physical exam General: Alert, Oriented x3, Cooperative, BMI 16.1 kg/m? severe chronic protein malnutrition HEENT: Atraumatic, PERRLA, EOMI, Normocephalic Oral: No Gingival or Mucosal Lesions/ Ulcerations Neck: Supple, No JVD, Negative Carotid Bruits Chest wall/Lungs: Air entry diminished in bilateral lung bases. Right basilar expiratory rhonchi and wheezing. No hypoxia or tachypnea Cardiovascular: Regular rate, Regular Rhythm, Normal S1, Normal S2, No M/G/R Abdomen: Bowel Sounds Present, Soft, Non Tender, Non-Distended : No dysuria. No renal angle tenderness. No suprapubic tenderness. Extremities: No edema, Capillary Refill Less than 3 Seconds Skin: No rashes, No breakdown Musculoskeletal: No Tenderness to Palpation of Joints or Extremities. Decreased muscle mass on extremities, paravertebral and craniofacial muscles Neurological: Cranial nerves II-XII grossly intact, DTR 2+/4. No acute focal neurological deficit. Psych/Mental Status: Flat affect Assessment & Plan Assessment/Plan (1) COPD exacerbation: (2) Pneumonia: QUALIFIERS: Pneumonia type: due to unspecified organism L aterality: right Lung location: lower lobe of lung Qualified Code(s): J18.9 - Pneumonia, unspecified organism (3) Respiratory insufficiency: (4) Hypokalemia: (5) Tobacco dependence: (6) Decreased appetite: (7) Abnormal weight loss: (8) Weakness: PLAN: Plan 73-year-old male was admitted with generalized weakness and unintentional weight loss. Patient has history of smoking, questionable COPD, hypertension and dyslipidemia. He denied increasing or worsening of shortness of breath, increased cough or secretions/sputum production more than his baseline but has increased wheezing and rhonchi. He follows [place] senior financial reporting analyst for COPD and still smokes a pack of cigarette or less per day Patient lost approximately 60 pounds unintentionally over the last several months. Decreased appetite. 1. Acute exacerbation of COPD with history of chronic tobacco abuse with Right lower lobe mass with suspected pneumonia noted on chest x-ray present on admission- Admit to general medical floor. Start IV Solu-Medrol and IV doxycycline plus scheduled and as needed nebulizers. Wean supplemental oxygen as tolerated. Tobacco cessation will be strongly encouraged with nicotine patch offered to control cravings. Patient was evaluated by senior financial reporting analyst. Recommended to continue antibiotic Levaquin for total of 7 days. Discontinue IV steroid and transition to prednisone 40 mg daily for 5 days. Recommended follow-up chest imaging/CT scan in 6 to 8 weeks to document resolution of pneumonia. Patient is not hypoxemic. Patient further said about 2 years ago he had a right lobar mass in her bronchoscopic biopsy but pathology was negative for cancer, as verbal report from the patient but no documentation to corroborate it. 03/12:Menorrhagia/patient on levofloxacin continued. On prednisone. Continue incentive spirometry and PEP for 1 week. His sister also asked for prescription of DuoNeb 2. Unintentional ~60 pound weight loss over the past 6 weeks with hypoalbuminemia of 2.3 g/dL present on admission with clinical findings of severe chronic protein calorie malnutrition:-BMI 16.1 kg/m?. Prealbumin low. Add Ensure meal supplements. Clinical dietitian will be asked to consult in the AM on-rounds with help appreciated in advance. 03/12: As per her sister, her home living condition is not good with no electricity or running water and is unsteady on her feet. PT and OT ordered. Discussed with the social work instructor to further evaluate his living condition. 3. Hypokalemia of 3.3 mmol/L present on admission: Potassium getting replaced. Serum magnesium phosphorus normal. Labs from 03/11 shows repeat potassium 4.3, serum magnesium 2.0 and phosphorus 3.0. Hypokalemia resolved. 4. Chronic GI bleed most likely upper GI bleed with chronic severe anemia- Patient has slightly low hemoglobin of 11.1 g/dL present on admission (down from 17 g/dL at baseline). CT chest, abdomen and pelvis reported normal small intestine and colon. Normal visualized stomach, normal liver with layering of the stone or sludge in gallbladder. No tenderness. Stool for occult blood positive. Iron study shows low serum iron, TIBC and iron saturation 10.2% but ferritin elevated 442 consistent with anemia of chronic disease. Normal folic acid. GI is consulted 03/12: Patient had EGD and colonoscopy today. H&H decreased to 9.6 but similar to yesterday. B12 1159 high. EGD Impressions : - Esophageal mucosal changes suspicious for short-segment Inman's esophagus. Biopsied. - Small hiatal hernia. - Non-bleeding gastric ulcers with no stigmata of bleeding. Biopsied. - Duodenitis. Biopsied. Recommendations : - Return patient to hospital heard for ongoing care. - Use Protonix (pantoprazole) 40 mg PO BID. - Continue present medications. Colonoscopy impression: - Diverticulosis in the recto-sigmoid colon and in the sigmoid colon. - One 8 mm polyp at the hepatic flexure, removed with a cold snare. Resected and retrieved. - Congested mucosa in the sigmoid colon. Biopsied. Recommendation: - Return patient to hospital heard for ongoing care. - Resume previous diet. - Continue present medications. - Await pathology results. - Repeat colonoscopy in 5 years for surveillance. 5. Essential hypertension - Continue home regimen plus give as needed IV hydralazine for systolic blood pressure greater than 160 mmHg. 6. Hyperlipidemia - Noted. Check lipid profile this admission. 7. CKD; stage III (with baseline creatinine of ~1.74 mg/dL) - Serum creatinine slightly elevated above previous baseline at 1.94 mg/dL so we will give volume resuscitation and recheck level in a.m. to ensure improvement. 8. DVT prophylaxis - SCD's only in light of Hemoccult positive stools present on admission. Microbiology Past 72 Hours 03/12/24 07:00 Urine, Clean Catch Legionella Antigen - Final 03/12/24 07:00 Urine, Clean Catch Streptococcus pneumoniae Antigen (M - Final 03/11/24 07:18 Mucosa - Nasopharyngeal Respiratory Panel (PCR) - Final 03/10/24 20:55 Stool Stool Occult Blood (DEMETRIEC) - Final Occult Blood Positive Laboratory Results 03/11/24 06:32: Vitamin B12 1159 H 03/12/24 06:00: WBC 15.9 H, RBC 3.51 L, Hgb 9.6 L, Hct 31.8 L, MCV 90.6, MCH 27.4, MCHC 30.2 L, RDW Std Deviation 46.1 H, RDW Coeff of Steven 13.9, Plt Count 322, MPV 9.3, Immature Gran % (Auto) 1.400 H, Neut % (Auto) 88.5 H, Lymph % (Auto) 6.9 L, [place] % (Auto) 3.1, Eos % (Auto) 0.0, Baso % (Auto) 0.1, Absolute Neuts (auto) 14.1 H, Absolute Lymphs (auto) 1.10, Nucleated RBC % 0, PT 15.9 H, INR 1.3 03/12/24 07:25: MRSA (PCR) Negative Clinical Impression(s) from Imaging Studies Chest X-Ray 03/10/24 21:40 IMPRESSION: Suspect right lower lobe atelectasis. CT would be useful. Chest/Abdomen/Pelvis CT 03/10/24 22:04 IMPRESSION: 1. Dense right lower lobe pneumonia or atelectasis. Correlation with CT the chest with contrast and bronchoscopy to exclude endobronchial lesion would be useful. 2. 2. Nonobstructing right renal stones adjacent to a 6 cm cyst. 3. Suspect layering stones or sludge in the gallbladder. 4. Small right renal hernia containing fat. 5. Suspect benign prostatic hyperplasia. Electronically Signed: Charles Flores MD at 23:20 EDT , Charges/Coding Visit Charges Inpatient E&M: 22692 Subs Hosp L2
[2024-03-13 02:10] VITALS: BP 138/74; PULSE 61; RESP 16; TEMP 36.8; O2SAT 96
[2024-03-13] MEDS: 0.9% Normal Saline (1000mL) 1,000 ML 70 ML IV (05:25)
[2024-03-13 06:00] VITALS: BMI 17.9
[2024-03-13 06:26] LABS: Anion Gap 7 (5-15); BUN 30 mg/dL (7-18); BUN/Creat Ratio 19.2 RATIO (10-20); Calcium,Total 8.4 mg/dL (8.5-10.1); Chloride 113 mmol/L (98-107); Creatinine, Serum 1.56 mg/dL (0.70-1.30); EST Glomerular Filtration Rate 46 mL/min (>60); Est Glom Filt Rate - Afr Amer 56 mL/min (>60); Estimated Creatinine Clearance 32.32 ml/min; Glucose 120 mg/dL (74-106); Potassium 3.9 mmol/L (3.5-5.1); Sodium Level 142 mmol/L (136-145)
--- NOTE | 2024-03-13 07:43 | EX.PCM.PN.GI ---
Subjective Subjective Patient underwent upper lower endoscopy yesterday for weight loss and GI bleeding. He is doing very well and his hemoglobin seems to be stable today. Objective Data Objective Data Vital Signs: Vital Signs Temp Pulse Resp BP Pulse Ox O2 Del Method 97.5 F L 62 14 168/74 H 100 Room Air 03/13/24 09:00 03/13/24 09:00 03/13/24 09:00 03/13/24 09:00 03/13/24 09:00 03/13/24 09:00 Oxygen Delivery Method Room Air Weight: 121 lb 4.068 oz Body Mass Index (BMI) 17.9 Intake & Output: Intake and Output for Last 24 Hours 03/11/24 03/12/24 03/13/24 23:59 23:59 23:59 Intake Total 1875.33 / 1875.33 1718.5 / 1718.5 1487.00 / 1487.00 Output Total 650 / 1050 1600 / 1850 900 / 900 Balance 1225.33 / 825.33 118.5 / -131.5 587.00 / 587.00 Medical Nutrition Assessment Dietitian: Malnutrition Criteria Met Start: 03/11/24 13:12 Freq: Status: Active Protocol: Document 03/11/24 13:12 [facility] (Rec: 03/11/24 13:12 [facility] [id number]) Nutrition Malnutrition Evidence of Malnutrition Exists Yes Malnutrition (severe): Chronic Evidenced By Suboptimal Energy Intake ( Severe),Weight Loss (Severe), Physical Changes (Severe) Clinical Problem Altered Nutrient-Related Laboratory Values Etiology related to steroid administration Signs/Symptoms as evidenced by gluc 203 Status Active Problem Chronic Disease or Condition Related Malnutrition Etiology related to chronic COPD and new dx of lung mass and inadequate energy intake Signs/Symptoms as evidenced by 16.9% unintentional wt loss and <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 Status Active Problem Recommendation Dietitian Recommendations/Changes Rec BENTON to liberal regular diet d/t signs and symptoms of malnutrition Continue ensure plus high protein 4 oz tid w/ medpass Add magic cup ice cream with lunch and dinner for increased nutrition if consumed. Lab / Micro Data 03/12/24 06:00 03/13/24 05:11 Labs: Laboratory Results - last 24 hr 03/13/24 05:11: Sodium 142, Potassium 3.9, Chloride 113 H, Carbon Dioxide 22.0, Anion Gap 7, BUN 30 H, Creatinine 1.56 H, Estim Creat Clear Calc 32.32, Est GFR (MDRD) Af Amer 56 L, Est GFR (MDRD) Non-Af 46 L, BUN/Creatinine Ratio 19.2, Glucose 120 H, Calcium 8.4 L Micro: Microbiology 03/12/24 07:00 Urine, Clean Catch Legionella Antigen - Final 03/12/24 07:00 Urine, Clean Catch Streptococcus pneumoniae Antigen (M - Final 03/11/24 07:18 Mucosa - Nasopharyngeal Respiratory Panel (PCR) - Final 03/10/24 20:55 Stool Stool Occult Blood (DEMETRICE) - Final Occult Blood Positive Physical Exam Narrative Seen and examined. No acute issues. Patient is on room air Physical exam General: Alert, Oriented x3, Cooperative, BMI 16.1 kg/m? severe chronic protein malnutrition HEENT: Atraumatic, PERRLA, EOMI, Normocephalic Oral: No Gingival or Mucosal Lesions/ Ulcerations Neck: Supple, No JVD, Negative Carotid Bruits Chest wall/Lungs: Air entry diminished in bilateral lung bases. Lungs are clear. No hypoxia or tachypnea Cardiovascular: Regular rate, Regular Rhythm, Normal S1, Normal S2, No M/G/R Abdomen: Bowel Sounds Present, Soft, Non Tender, Non-Distended : No dysuria. No renal angle tenderness. No suprapubic tenderness. Extremities: No edema, Capillary Refill Less than 3 Seconds Skin: No rashes, No breakdown Musculoskeletal: No Tenderness to Palpation of Joints or Extremities. Decreased muscle mass on extremities, paravertebral and craniofacial muscles Neurological: Cranial nerves II-XII grossly intact, DTR 2+/4. No acute focal neurological deficit. Psych/Mental Status: Flat affect Assessment & Plan Assessment/Plan (1) COPD exacerbation: (2) Pneumonia: QUALIFIERS: Pneumonia type: due to unspecified organism Laterality: right Lung location: lower lobe of lung Qualified Code(s): J18.9 - Pneumonia, unspecified organism (3) Respiratory insufficiency: (4) Hypokalemia: (5) Tobacco dependence: (6) Decreased appetite: (7) Abnormal weight loss: (8) Weakness: PLAN: Plan 73-year-old male was admitted with generalized weakness and unintentional weight loss. Patient has history of smoking, questionable COPD, hypertension and dyslipidemia. He denied increasing or worsening of shortness of breath, increased cough or secretions/sputum production more than his baseline but has increased wheezing and rhonchi. He follows [place] protocol manager for COPD and still smokes a pack of cigarette or less per day Patient lost approximately 60 pounds unintentionally over the last several months. Decreased appetite. Unintentional ~60 pound weight loss over the past 6 weeks with hypoalbuminemia of 2.3 g/dL present on admission with clinical findings of severe chronic protein calorie malnutrition:-BMI 16.1 kg/m?. Prealbumin low. Add Ensure meal supplements. Clinical dietitian will be asked to consult in the AM on-rounds with help appreciated in advance. As per her sister, her home living condition is not good with no electricity or running water and is unsteady on her feet. Chronic GI bleed most likely upper GI bleed with chronic severe anemia- Patient has slightly low hemoglobin of 11.1 g/dL present on admission (down from 17 g/dL at baseline). CT chest, abdomen and pelvis reported normal small intestine and colon. Normal visualized stomach, normal liver with layering of the stone or sludge in gallbladder. No tenderness. Stool for occult blood positive. Iron study shows low serum iron, TIBC and iron saturation 10.2% but ferritin elevated 442 consistent with anemia of chronic disease. Normal folic acid. GI is consulted Patient had EGD and colonoscopy. H&H decreased to 9.6 but similar to yesterday. B12 1159 high. EGD Impressions : - Esophageal mucosal changes suspicious for short-segment Inman's esophagus. Biopsied. - Small hiatal hernia. - Non-bleeding gastric ulcers with no stigmata of bleeding. Biopsied. - Duodenitis. Biopsied. Recommendations : - Return patient to hospital heard for ongoing care. - Use Protonix (pantoprazole) 40 mg PO BID. - Continue present medications. Colonoscopy impression: - Diverticulosis in the recto-sigmoid colon and in the sigmoid colon. - One 8 mm polyp at the hepatic flexure, removed with a cold snare. Resected and retrieved. - Congested mucosa in the sigmoid colon. Biopsied. Recommendation: - Return patient to hospital heard for ongoing care. - Resume previous diet. - Continue present medications. - Await pathology results. - Repeat colonoscopy in 5 years for surveillance. Charges/Coding Visit Charges Inpatient E&M: 75702 Subs Hosp L3
--- NOTE | 2024-03-13 08:38 | DCINST_ITS ---
Discharge Instructions Diet Discharge Diet: No restrictions Activity Discharge Activity: Return to Normal Activity Weight Bearing Status: Weight bearing as tolerated Dressing / Incision Call your doctor if you observe: Fever of 101 or Higher, Coldness, Increased Pain, Numbness or Tingling, Change in Color, Inability to urinate, Inability to have a bowel movement, Shortness of breath, Dizziness, Fainting spells, Swelling in the ankles, Chest pain, Prolonged hiccupping, Increased palpitations (irregular heartbeat) and Calf discomfort Follow Up Care When: IN 2 WEEKS Test Results: Test results from this visit will be discussed in further detail at your follow- up appointment, if applicable. Discharge Plan Admission Admit Date/Time: 03/10/24 22:22 Primary Reason for Your Visit: Pneumonia. Attending Provider: Bipin Hudson Primary Care Provider: Tiago Alvarez Consulting Providers: Ed Jane Instructions Additional Instructions / Restrictions: Patient was advised to follow-up with forest ecology professor in [place] to have repeat CT chest in 6 to 8 weeks. Advised to follow-up with 2 to 3 weeks for COPD and pneumonia Discharge Orders/Prescriptions Prescriptions: New prednisone 20 mg Tablet 40 mg PO BREAKFAST 3 Days Qty: 6 0RF pantoprazole 40 mg Tablet,Delayed Release (Dr/Ec) 40 mg PO BID 30 Days Qty: 60 2RF ipratropium-albuterol 0.5 mg-3 mg(2.5 mg base)/3 mL solution for nebulization 3 ml inhalation Q6H PRN (Reason: shortness of breath) 30 Days Qty: 180 0RF levofloxacin 750 mg tablet 750 mg PO Q48H 6 Days Qty: 3 0RF Referrals / Follow Up: Ilan Thakkar DO [Med Staff - Active Staff] - Within 1 Month Tiago Alvarez MD [Primary Care Provider] - Within 1 Week Care Physician,No Primary [Non-Staff] - Disposition Disposition (needs filled in before D/C Order can be placed): Home, Self Care
--- NOTE | 2024-03-13 08:44 | PCM.DC.SUM ---
Providers Date of Admission: 03/10/24 Date of Discharge: 03/13/24 Primary Care Physician: Dr. Tiago Alvarez MD Consultations 03/10/24 22:40 Consult: Gastroenterology Routine Consulting Provider: [facility] Reason for Consult: Hemoccult positive stools with significant weight loss in the past 6 weeks EMERGENT Consult: No Notified: Yes Date Notified: 03/11/24 Time Notified: 06:03 Method of Notification: Text Consult: Lockstitch Cup Setter / Pulmonary Medicine Routine Consulting Provider: Intensivists/Pulmonary Med Reason for Consult: Acute exacerbation of COPD with newly diagnosed Right lower lobe mass. EMERGENT Consult: No Notified: Yes Date Notified: 03/11/24 Time Notified: 06:05 Method of Notification: Text Reason For Visit: ACUTE EXACERBATION OF COPD WITH NEWLY DIAGNOSED Diagnosis Discharge Diagnosis (1) COPD exacerbation: Status: Chronic Code(s): J44.1 - Chronic obstructive pulmonary disease with (acute) exacerbation (2) Pneumonia: Status: Acute Code(s): J18.9 - Pneumonia, unspecified organism Qualifiers: Pneumonia type: due to unspecified organism Laterality: right Lung location: lower lobe of lung Qualified Code(s): J18.9 - Pneumonia, unspecified organism (3) Respiratory insufficiency: Status: Acute Code(s): R06.89 - Other abnormalities of breathing (4) Hypokalemia: Status: Acute Code(s): E87.6 - Hypokalemia (5) Tobacco dependence: Status: Acute Code(s): F17.200 - Nicotine dependence, unspecified, uncomplicated (6) Decreased appetite: Status: Acute Code(s): R63.0 - Anorexia (7) Abnormal weight loss: Status: Acute Code(s): R63.4 - Abnormal weight loss (8) Weakness: Status: Acute Code(s): R53.1 - Weakness Plan 73-year-old male was admitted with generalized weakness and unintentional weight loss. Patient has history of smoking, questionable COPD, hypertension and dyslipidemia. He denied increasing or worsening of shortness of breath, increased cough or secretions/sputum production more than his baseline but has increased wheezing and rhonchi. He follows [place] hand worker for COPD and still smokes a pack of cigarette or less per day Patient lost approximately 60 pounds unintentionally over the last several months. Decreased appetite. 1. Acute exacerbation of COPD with history of chronic tobacco abuse with Right lower lobe mass with suspected pneumonia noted on chest x-ray present on admission- Admit to general medical floor. Start IV Solu-Medrol and IV doxycycline plus scheduled and as needed nebulizers. Wean supplemental oxygen as tolerated. Tobacco cessation will be strongly encouraged with nicotine patch offered to control cravings. Patient was evaluated by hand worker. Recommended to continue antibiotic Levaquin for total of 7 days. Discontinue IV steroid and transition to prednisone 40 mg daily for 5 days. Recommended follow-up chest imaging/CT scan in 6 to 8 weeks to document resolution of pneumonia. Patient is not hypoxemic. Patient further said about 2 years ago he had a right lobar mass in her bronchoscopic biopsy but pathology was negative for cancer, as verbal report from the patient but no documentation to corroborate it. 03/12:patient on levofloxacin continued. On prednisone. Continue incentive spirometry and PEP for 1 week. His sister also asked for prescription of DuoNeb 03/13: Prescriptions given for prednisone levofloxacin and DuoNeb. Mild leukocytosis from prednisone or steroid response. 2. Unintentional ~60 pound weight loss over the past 6 weeks with hypoalbuminemia of 2.3 g/dL present on admission with clinical findings of severe chronic protein calorie malnutrition:-BMI 16.1 kg/m?. Prealbumin low. Add Ensure meal supplements. Clinical dietitian will be asked to consult in the AM on-rounds with help appreciated in advance. 03/12: As per her sister, her home living condition is not good with no electricity or running water and is unsteady on her feet. PT and OT ordered. Discussed with the marriage and family social worker to further evaluate his living condition. 03/13: Patient wants to go home. Yesterday I discussed with the marriage and family social worker and necessary steps were taken. Patient emphasized today that he has inside and outside of his home in good condition with running water or electricity and no problem. 3. Hypokalemia of 3.3 mmol/L present on admission: Potassium getting replaced. Serum magnesium phosphorus normal. Labs from 03/11 shows repeat potassium 4.3, serum magnesium 2.0 and phosphorus 3.0. Hypokalemia resolved. 4. Chronic GI bleed most likely upper GI bleed with chronic severe anemia- Patient has slightly low hemoglobin of 11.1 g/dL present on admission (down from 17 g/dL at baseline). CT chest, abdomen and pelvis reported normal small intestine and colon. Normal visualized stomach, normal liver with layering of the stone or sludge in gallbladder. No tenderness. Stool for occult blood positive. Iron study shows low serum iron, TIBC and iron saturation 10.2% but ferritin elevated 442 consistent with anemia of chronic disease. Normal folic acid. GI is consulted 03/12: Patient had EGD and colonoscopy today. H&H decreased to 9.6 but similar to yesterday. B12 1159 high. EGD Impressions : - Esophageal mucosal changes suspicious for short-segment Inman's esophagus. Biopsied. - Small hiatal hernia. - Non-bleeding gastric ulcers with no stigmata of bleeding. Biopsied. - Duodenitis. Biopsied. Recommendations : - Return patient to hospital heard for ongoing care. - Use Protonix (pantoprazole) 40 mg PO BID. - Continue present medications. Colonoscopy impression: - Diverticulosis in the recto-sigmoid colon and in the sigmoid colon. - One 8 mm polyp at the hepatic flexure, removed with a cold snare. Resected and retrieved. - Congested mucosa in the sigmoid colon. Biopsied. Recommendation: - Return patient to hospital heard for ongoing care. - Resume previous diet. - Continue present medications. - Await pathology results. - Repeat colonoscopy in 5 years for surveillance. 03/13: Follow-up in GI clinic in 1 month 5. Essential hypertension - Continue home regimen plus give as needed IV hydralazine for systolic blood pressure greater than 160 mmHg. 6. Hyperlipidemia - Noted. Check lipid profile this admission. 7. CKD; stage III (with baseline creatinine of ~1.74 mg/dL) - Serum creatinine slightly elevated above previous baseline at 1.94 mg/dL so we will give volume resuscitation and recheck level in a.m. to ensure improvement. 8. DVT prophylaxis - SCD's only in light of Hemoccult positive stools present on admission. Discharge medication reconciliation done. Discharge follow-up instructions completed. Discharge process discussed with the patient and all questions were answered to patient's satisfaction. Follow with PCP in 1 to 2 weeks Total time spent, exact 35 minutes on discharge meds reconciliation, examination, coordination of care with nurses and ancillary staff, review of imaging and blood test and discussion with the patient on follow-up instructions. Microbiology Past 72 Hours 03/12/24 07:00 Urine, Clean Catch Legionella Antigen - Final 03/12/24 07:00 Urine, Clean Catch Streptococcus pneumoniae Antigen (M - Final 03/11/24 07:18 Mucosa - Nasopharyngeal Respiratory Panel (PCR) - Final 03/10/24 20:55 Stool Stool Occult Blood (DEMETRICE) - Final Occult Blood Positive Laboratory Results 03/11/24 06:32: Vitamin B12 1159 H 03/12/24 06:00: WBC 15.9 H, RBC 3.51 L, Hgb 9.6 L, Hct 31.8 L, MCV 90.6, MCH 27.4, MCHC 30.2 L, RDW Std Deviation 46.1 H, RDW Coeff of [place] 13.9, Plt Count 322, MPV 9.3, Immature Gran % (Auto) 1.400 H, Neut % (Auto) 88.5 H, Lymph % (Auto) 6.9 L, [place] % (Auto) 3.1, Eos % (Auto) 0.0, Baso % (Auto) 0.1, Absolute Neuts (auto) 14.1 H, Absolute Lymphs (auto) 1.10, Nucleated RBC % 0, PT 15.9 H, INR 1.3 03/12/24 07:25: MRSA (PCR) Negative Clinical Impression(s) from Imaging Studies Chest X-Ray 03/10/24 21:40 IMPRESSION: Suspect right lower lobe atelectasis. CT would be useful. Chest/Abdomen/Pelvis CT 03/10/24 22:04 IMPRESSION: 1. Dense right lower lobe pneumonia or atelectasis. Correlation with CT the chest with contrast and bronchoscopy to exclude endobronchial lesion would be useful. 2. 2. Nonobstructing right renal stones adjacent to a 6 cm cyst. 3. Suspect layering stones or sludge in the gallbladder. 4. Small right renal hernia containing fat. 5. Suspect benign prostatic hyperplasia. Electronically Signed: Charles Flores MD at 23:20 EDT , Medications at Discharge Home Medications ipratropium 0.5 mg-albuterol 3 mg (2.5 mg base)/3 mL nebulization soln 3 ml inhalation Q6H PRN shortness of breath 1 month #180 mL 03/13/24 levofloxacin 750 mg tablet 750 mg PO Q48H 6 days #3 tabs 03/13/24 pantoprazole 40 mg tablet,delayed release 40 mg PO BID 30 days #60 tabs 03/13/24 prednisone 20 mg tablet 40 mg (2 x 20 mg) PO BREAKFAST 3 days #6 tabs 03/13/24 Physical Exam Narrative Seen and examined. No acute issues. Patient is on room air Physical exam General: Alert, Oriented x3, Cooperative, BMI 16.1 kg/m? severe chronic protein malnutrition HEENT: Atraumatic, PERRLA, EOMI, Normocephalic Oral: No Gingival or Mucosal Lesions/ Ulcerations Neck: Supple, No JVD, Negative Carotid Bruits Chest wall/Lungs: Air entry diminished in bilateral lung bases. Lungs are clear. No hypoxia or tachypnea Cardiovascular: Regular rate, Regular Rhythm, Normal S1, Normal S2, No M/G/R Abdomen: Bowel Sounds Present, Soft, Non Tender, Non-Distended : No dysuria. No renal angle tenderness. No suprapubic tenderness. Extremities: No edema, Capillary Refill Less than 3 Seconds Skin: No rashes, No breakdown Musculoskeletal: No Tenderness to Palpation of Joints or Extremities. Decreased muscle mass on extremities, paravertebral and craniofacial muscles Neurological: Cranial nerves II-XII grossly intact, DTR 2+/4. No acute focal neurological deficit. Psych/Mental Status: Flat affect Medical Records Data Medical Nutrition Assessment Dietitian: Malnutrition Criteria Met Start: 03/11/24 13:12 Freq: Status: Active Protocol: Document 03/11/24 13:12 [facility] (Rec: 03/11/24 13:12 [facility] [id number]) Nutrition Malnutrition Evidence of Malnutrition Exists Yes Malnutrition (severe): Chronic Evidenced By Suboptimal Energy Intake ( Severe),Weight Loss (Severe), Physical Changes (Severe) Clinical Problem Altered Nutrient-Related Laboratory Values Etiology related to steroid administration Signs/Symptoms as evidenced by gluc 203 Status Active Problem Chronic Disease or Condition Related Malnutrition Etiology related to chronic COPD and new dx of lung mass and inadequate energy intake Signs/Symptoms as evidenced by 16.9% unintentional wt loss and <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 Status Active Problem Recommendation Dietitian Recommendations/Changes Rec [place] to liberal regular diet d/t signs and symptoms of malnutrition Continue ensure plus high protein 4 oz tid w/ medpass Add magic cup ice cream with lunch and dinner for increased nutrition if consumed. Weight / BMI Weight Weight: 121 lb 4.068 oz Body Mass Index (BMI) 17.9 ABG / Lab / Microbiology Data 03/12/24 06:00 03/13/24 05:11 Laboratory: Laboratory Results - last 24 hr 03/12/24 07:25: MRSA (PCR) Negative 03/13/24 05:11: Sodium 142, Potassium 3.9, Chloride 113 H, Carbon Dioxide 22.0, Anion Gap 7, BUN 30 H, Creatinine 1.56 H, Estim Creat Clear Calc 32.32, Est GFR (MDRD) Af Amer 56 L, Est GFR (MDRD) Non-Af 46 L, BUN/Creatinine Ratio 19.2, Glucose 120 H, Calcium 8.4 L Microbiology: Microbiology 03/12/24 07:00 Urine, Clean Catch Legionella Antigen - Final 03/12/24 07:00 Urine, Clean Catch Streptococcus pneumoniae Antigen (M - Final 03/11/24 07:18 Mucosa - Nasopharyngeal Respiratory Panel (PCR) - Final 03/10/24 20:55 Stool Stool Occult Blood (DEMETRICE) - Final Occult Blood Positive D/C Instructions Discharge Diet: No restrictions Weight Bearing Status: Weight bearing as tolerated Call your doctor if you observe: Fever of 101 or Higher, Coldness, Increased Pain, Numbness or Tingling, Change in Color, Inability to urinate, Inability to have a bowel movement, Shortness of breath, Dizziness, Fainting spells, Swelling in the ankles, Chest pain, Prolonged hiccupping, Increased palpitations (irregular heartbeat) and Calf discomfort When: IN 2 WEEKS Meaningful Use Info Meaningful Use Meaningful Use Diagnoses (Choose all that apply): None applicable Ischemic Stroke Statin Dosing Therapy Reference: STATIN DOSE THERAPY REFERENCE: * Patients > 75 years receive moderate or high dose statin therapy. * Patients 75 years or YOUNGER should receive HIGH intensity statin dose unless contraindicated. You will be required to document reason for non-treatment if statin daily dose does not meet guidelines. HIGH DOSE STATIN THERAPY DAILY Atorvastatin > than or = to 40 mg Rosuvastatin > than or = to 20 mg Amlodipine + Atorvastatin > than or = to 2.5/40 mg Ezetimibe + Simvastatin 10/80 mg Simvastatin 80mg Discharge Plan Admission Admit Date/Time: 03/10/24 22:22 Primary Reason for Your Visit: Pneumonia. Attending Provider: Bipin Hudson Primary Care Provider: Tiago Alvarez Consulting Providers: Ed Jane Instructions Additional Instructions / Restrictions: Patient was advised to follow-up with hand worker in [place] to have repeat CT chest in 6 to 8 weeks. Advised to follow-up with 2 to 3 weeks for COPD and pneumonia Discharge Orders/Prescriptions Prescriptions: New prednisone 20 mg Tablet 40 mg PO BREAKFAST 3 Days Qty: 6 0RF pantoprazole 40 mg Tablet,Delayed Release (Dr/Ec) 40 mg PO BID 30 Days Qty: 60 2RF ipratropium-albuterol 0.5 mg-3 mg(2.5 mg base)/3 mL solution for nebulization 3 ml inhalation Q6H PRN (Reason: shortness of breath) 30 Days Qty: 180 0RF levofloxacin 750 mg tablet 750 mg PO Q48H 6 Days Qty: 3 0RF Referrals / Follow Up: Ilan Thakkar DO [Med Staff - Active Staff] - Within 1 Month Tiago Alvarez MD [Primary Care Provider] - Within 1 Week Care Physician,No Primary [Non-Staff] - Disposition Disposition (needs filled in before D/C Order can be placed): Home, Self Care Charges/Coding Visit Charges Inpatient E&M: 68033 Disch Hosp >30min
[2024-03-13] MEDS: Pantoprazole Sodium 40 MG Tablet PO (08:57)
[2024-03-13] MEDS: predniSONE 20 MG Tablet 40 MG PO (08:57)
[2024-03-13] MEDS: levoFLOXacin IV 750 MG/150 ML BAG 100 MG IV (08:58)
[2024-03-13 09:00] VITALS: BP 168/74; PULSE 62; RESP 14; TEMP 36.4; O2SAT 100
== END 2024-03-13 13:48 | disposition home or self-care (01) | DRG 190 ==
LOC: ED 22:08 → MS3 23:02
PROVIDERS: Anesthesiology; Internal Medicine Critical Care Medicine; Internal Medicine Gastroenterology; Nurse Practitioner; Admitting Provider Internal Medicine; Emergency Provider Emergency Medicine; PCP Internal Medicine; Visit Provider Internal Medicine
PROC: 0DJD8ZZ Inspection of Lower Intestinal Tract, Via Natural or Artificial Opening Endoscopic (ICD-10-PCS; CPT 45378; principal; 2024-03-12 08:00)
DX: J44.0 Chronic obstructive pulmonary disease with (acute) lower respiratory infection (principal); J18.9 Pneumonia, unspecified organism; E43 Unspecified severe protein-calorie malnutrition; K92.2 Gastrointestinal hemorrhage, unspecified; Z68.1 Body mass index [BMI] 19.9 or less, adult; D63.8 Anemia in other chronic diseases classified elsewhere; J44.1 Chronic obstructive pulmonary disease with (acute) exacerbation; N18.30 Chronic kidney disease, stage 3 unspecified; I12.9 Hypertensive chronic kidney disease with stage 1 through stage 4 chronic kidney disease, or unspecified chronic kidney disease; F17.210 Nicotine dependence, cigarettes, uncomplicated; K80.20 Calculus of gallbladder without cholecystitis without obstruction; E78.5 Hyperlipidemia, unspecified; E87.6 Hypokalemia; K29.80 Duodenitis without bleeding; K57.30 Diverticulosis of large intestine without perforation or abscess without bleeding; K44.9 Diaphragmatic hernia without obstruction or gangrene; K63.5 Polyp of colon; K25.9 Gastric ulcer, unspecified as acute or chronic, without hemorrhage or perforation; R63.4 Abnormal weight loss; N40.0 Benign prostatic hyperplasia without lower urinary tract symptoms; K90.0 Celiac disease; Z91.148 Patient's other noncompliance with medication regimen for other reason; R91.8 Other nonspecific abnormal finding of lung field
CPT/HCPCS: 36415; 71045; 71250; 74176; 80048; 80053; 81001; 82274; 82607; 82728; 82746; 83540; 83550; 83735; 84100; 84134; 84443; 85025; 85610; 86850; 86900; 86901; 87449; 87633; 87641; 88305; 88312; 88342; 93005; 94640; 94668; 97162; 97165; 97530; 99284; J7030; A4216; J2405

== ENCOUNTER 2024-05-17 08:30 | Inpatient (IN) | payer MEDICARE, OTHER, SELFPAY ==
[2024-05-17] VITALS (20 sets, daily range): BP systolic 143–170; BP diastolic 94–119; PULSE 79–91; RESP 16–36; TEMP 36.1–36.8; O2SAT 88–99; BMI 17.8; BMI 16.4
--- NOTE | 2024-05-17 08:52 | EDS_ITS ---
HPI History of Present Illness Chief Complaint: Abn Labs Detail of Chief Complaint: Generalized weakness and elevated BUN Narrative Narrative: Patient presents to the emergency department with generalized weakness. Presents from extended-care facility. Patient recently admitted to [facility] from [facility] where he was there for COPD and malnutrition. There is practitioner called today after obtaining lab work and noting that patient's BUN was elevated at 106. Patient has history of chronic kidney disease but is not on dialysis. Patient denies chest pain or shortness of breath. Denies fevers or chills or sweats. He denies abdominal pain. Patient tells me has been urinating normally. Denies dysuria. PFSH [facility] Medical History CKD (chronic kidney disease) CKD (chronic kidney disease) HTN (hypertension) HLD (hyperlipidemia) Medical History no medical history Home Medications ?Medication ?Instructions ?Recorded ?Last Taken ?Type albuterol sulfate 90 mcg/actuation 2 puff inhalation Q4H PRN PRN 05/17/24 Unknown History aerosol inhaler wheezing guaifenesin 600 mg tablet, 600 mg PO BID 05/17/24 Unknown History extended release 12 hr (Mucus Relief ER) hydralazine 25 mg tablet 25 mg PO TID 05/17/24 Unknown History insulin glargine-yfgn 100 unit/mL 5 unit subcut QPM 05/17/24 Unknown History (3 mL) subcutaneous pen isosorbide mononitrate 30 mg 15 mg PO DAILY 05/17/24 Unknown History tablet,extended release 24 hr metoprolol succinate 25 mg 25 mg PO DAILY 05/17/24 Unknown History tablet,extended release 24 hr (Toprol XL) pantoprazole 40 mg tablet,delayed 40 mg PO DAILY 05/17/24 Unknown History release Allergy/AdvReac Type Severity Reaction Status Date / Time No Known Allergies Allergy Verified 05/17/24 08:38 Social History household members: none Smoking Status: Current every day smoker tobacco type: cigarettes substance use type: does not use ROS ROS ED Review of Systems ROS Unobtainable: other Constitutional Constitutional ED: Reports lethargy; Denies chills, fever(s), sweats or weight loss Eyes Eyes: Denies blurry vision, change in vision or diplopia ENT ENT ED: Denies rhinorrhea or sore throat Cardiovascular Cardiovascular: Denies chest pain, orthopnea or racing heartbeat Respiratory/Chest Respiratory/Chest: Denies cough, dyspnea, dyspnea on exertion, orthopnea or sputum Gastrointestinal Gastrointestinal: Denies abdominal pain, diarrhea, nausea or vomiting Genitourinary Genitourinary ED: Denies dysuria, hematuria or urinary frequency Musculoskeletal Musculoskeletal: Denies arthralgias, back pain, myalgias or neck pain Integumentary Denies abscess, Abrasions or rash Neurologic Neurologic: Reports weakness; Denies headache(s) Psychiatric Psychiatric: Denies anxiety, depression or suicidal thoughts Endocrine Endocrinology: Denies polydipsia, polyphagia or polyuria Hematologic/Lymphatic Hematologic/Lymphatic: Denies easy bleeding, easy bruising or lymphadenopathy Allergic/Immunologic Allergic/Immunologic ED: Denies mouth swelling, tongue swelling or urticaria EXAM Physical Exam Const Vital Signs: 05/17/24 08:33 05/17/24 08:33 05/17/24 09:30 Temperature 97.1 F L Temperature Source Temporal Pulse Rate 91 90 Respiratory Rate 30 H 28 H Respiratory Effort Short of Breath Labored Respiratory Pattern Tachypnea Blood Pressure 162/109 H 166/106 H Blood Pressure Mean 126 126 Pulse Ox 92 95 Oxygen Delivery Method Nasal Cannula Nasal Cannula Oxygen Flow Rate (L/min) 3 3 05/17/24 10:00 Temperature Temperature Source Pulse Rate 89 Respiratory Rate 33 H Respiratory Effort Respiratory Pattern Blood Pressure 159/109 H Blood Pressure Mean 125 Pulse Ox 90 Oxygen Delivery Method Nasal Cannula Oxygen Flow Rate (L/min) 3 Positive well nourished and well developed General Appearance ED: well developed and NAD HEENT Reports TM's clear and moist mucous membranes normocephalic and atraumatic; Negative for trauma or tenderness Tympanic Membrane ED: Yes TM's clear Eyes PERRL and EOMs intact bilaterally General Eye ED: Negative for pale conjunctiva or scleral icterus Neck no lymphadenopathy, supple and no JVD General: Negative for tenderness Chest Wall inspection of chest normal and palpation of chest normal Chest: Negative for tenderness Resp normal respiratory effort and clear to auscultation bilaterally Effort and Inspection: Negative for respiratory distress or pain with movement Auscultation: Negative for rhonchi, wheezes or diminished lung sounds Cardio regular rate, regular rhythm, S1 normal heart sound, S2 normal heart sound and no murmurs Peripheral Pulses: pulses 2+ throughout GI normal to inspection, nondistended, normoactive bowel sounds, soft to palpation, non-tender, non-distended and no masses Back/Spine no CVA tenderness and no thoracic nor lumbar tenderness Extremity normal to inspection General Extremety ED: Negative for edema General Extremity: Negative for edema Neuro oriented x3, CN's II-XII intact bilaterally, no sensory deficits noted and gait normal Sensorium / Orientation: awake, alert, oriented to person, oriented to place and oriented to time Motor Exam: strength 5/5 throughout and strength abnormal Psych mental status grossly normal Skin no rashes or lesions noted and no wounds MDM MDM MDM Narrative Medical decision making narrative: Patient presents to the emergency department from longterm with concern for elevated BUN. Patient just complains of generalized weakness really does not have much more complaint. IV line established. CBC with differential obtained showed a white count of 11.9 with hemoglobin 12.9 and platelet count of 286. Chemistries unremarkable. BUN was 105 and creatinine 4.46. LFTs elevated with AST of 243 and ALT of 264 however total bilirubin was normal at 0.6 and alk phos was normal at 89. Urinalysis unremarkable. While in the department patient was started on normal saline IV. Chest x-ray obtained showed diffuse airspace disease right hemithorax with blunting of both costophrenic angles infiltrate a nd posterior medial segment of left lower lobe also noticed. Patient had blood cultures ordered and will start empirically on Levaquin. Discussed case with hospitalist to evaluate patient for admission. Lab Data Attestation: I reviewed the patient's lab results. Labs: Laboratory Results - last 24 hr 05/17/24 05/17/24 08:57 10:00 WBC 11.9 H RBC 4.34 L Hgb 12.9 L Hct 40.4 MCV 93.1 MCH 29.7 MCHC 31.9 L RDW Std Deviation 67.6 H RDW Coeff of Steven 20.4 H Plt Count 286 MPV 10.8 Immature Gran % (Auto) 1.900 H Neut % (Auto) 72.3 H Lymph % (Auto) 18.5 L [place] % (Auto) 6.9 Eos % (Auto) 0.1 Baso % (Auto) 0.3 Absolute Neuts (auto) 8.6 H Absolute Lymphs (auto) 2.21 Nucleated RBC % 0.5 Differential Comment SCANNED Polychromasia RARE Anisocytosis 2+ Sodium 135 L Potassium 4.9 Chloride 98 Carbon Dioxide 23.0 Anion Gap 14 BUN 105 H* Creatinine 4.46 H Estim Creat Clear Calc 11.24 Est GFR (MDRD) Af Amer 17 L Est GFR (MDRD) Non-Af 14 L BUN/Creatinine Ratio 23.5 H Glucose 134 H Calcium 9.6 Total Bilirubin 0.60 AST 243 H ALT 264 H Alkaline Phosphatase 89 Total Protein 6.7 Albumin 2.5 L Globulin 4.2 Albumin/Globulin Ratio 0.6 L Urine Color Yellow Urine Clarity Clear Urine pH 5.0 Ur Specific [place] 1.020 Urine Protein 100 H Urine Glucose (UA) Normal Urine Ketones Negative Urine Occult Blood Negative Urine Nitrite Negative Urine Bilirubin Negative Urine Urobilinogen Normal Ur Leukocyte Esterase Negative Urine RBC 0 SEEN Urine WBC 0-5 SEEN Ur Squamous Epith Cells 0-5 SEEN Ur Transition Epith Cell 0-5 SEEN Ur Renal Epithelial Cell 0-5 SEEN Amorphous Sediment 1+ Urine Bacteria 2+ Hyaline Casts 0-5 SEEN Coarse Granular Casts 0-5 SEEN Urine Mucus 0 SEEN Radiography Diagnostic Testing: Clinical Impression(s) from Imaging Studies Chest X-Ray 05/17/24 09:00 IMPRESSION: Diffuse airspace disease in the right hemithorax with blunting of both costophrenic angles. Infiltrate in the posterior medial segment of the left lower lobe as well as focal infiltrate in the left upper lobe. Electronically Signed: Carroll Kim MD at 9:19 EDT , 1 view chest x-ray obtained interpreted by myself as increased markings in both lungs right greater than left concerning for possible pneumonia versus fluid overload. Radiology felt likely pneumonia. EKG Initial EKG: Attestation: I personally reviewed and interpreted this EKG as follows: Comments: Sinus rhythm with rate of [address] changes Discharge Plan Triage Chief Complaint: Abn Labs ED Provider: Bryant Hernandez Dx/Rx/DC Orders Clinical Impression: Acute renal failure, Weakness, Pneumonia, Dehydration Prescriptions: No Action albuterol sulfate 90 mcg/actuation HFA aerosol inhaler 2 puff inhalation Q4H PRN PRN (Reason: wheezing) guaifenesin [Mucus Relief ER] 600 mg tablet extended release 12hr 600 mg PO BID hydralazine 25 mg tablet 25 mg PO TID insulin glargine-yfgn 100 unit/mL (3 mL) insulin pen 5 unit subcut QPM isosorbide mononitrate 30 mg tablet extended release 24 hr 15 mg PO DAILY metoprolol succinate [Toprol XL] 25 mg tablet extended release 24 hr 25 mg PO DAILY pantoprazole 40 mg Tablet,Delayed Release (Dr/Ec) 40 mg PO DAILY Primary Care Provider: Tiago Alvarez Referrals: Tiago Alvarez MD [Primary Care Provider] - Print Language: Romansh Disposition Disposition: Acute Care Hospital [facility]
--- NOTE | 2024-05-17 08:52 | EKG12_ITS ---
Test Reason : SOB Blood Pressure : / mmHG Vent. Rate : 090 BPM Atrial Rate : 090 BPM P-R Int : 148 ms QRS Dur : 076 ms QT Int : 372 ms P-R-T Axes : 057 004 122 degrees QTc Int : 455 ms Normal sinus rhythm Possible Left atrial enlargement Nonspecific ST and T wave abnormality Abnormal ECG Confirmed by AVERY MIDDLETON, ELSA ([id number]), website/blog editor YASMANI HILTON ([id number]) on 05/20/2024 10:15:59 AM Referred By: Confirmed By:DARYL VARELA MD
[2024-05-17] MEDS: 0.9% Normal Saline (1000mL) 1,000 ML 150 ML IV ×2 (08:57→10:50)
--- NOTE | 2024-05-17 09:00 | RAD_ITS ---
STUDY: X-RAY CHEST REASON FOR EXAM: Male, 73 years old. Tachypnea TECHNIQUE: Single AP portable view of the chest. COMPARISON: Comparison is made with prior study dated March 10, 2024. FINDINGS: EKG electrodes are seen. Elevation of the right hemidiaphragm. Diffuse airspace disease in the right hemithorax with blunting of the right costophrenic angle. Consolidation in the posteromedial aspect of the left lower lobe as well as focal infiltrates in the left upper lobe. Blunting of the left costophrenic angle. Normal size heart. Normal mediastinum and ingris. Normal visualized pulmonary arteries. Normal visualized aortic arch and descending thoracic aorta. Normal visualized thoracic spine. Normal visualized ribs, clavicles, and shoulders. There is no demonstrated abnormality of the visualized soft tissue structures of the upper abdomen. RAD/Chest 1 View (Portable) IMPRESSION: Diffuse airspace disease in the right hemithorax with blunting of both costophrenic angles. Infiltrate in the posterior medial segment of the left lower lobe as well as focal infiltrate in the left upper lobe. Electronically Signed: Carroll Kim MD at 9:19 EDT ,
[2024-05-17 09:07] LABS: Absolute Lymphocyte Count 2.21 X10^3/uL (0.83-4.51); Absolute Neutrophil Count 8.6 X10^3/uL (2.0-7.7); Basophil# 0.04 X10^3/uL; Basophil% 0.3 % (0-1); Eosinophil# 0.01 X10^3/uL; Eosinophils% 0.1 % (0-5); Hematocrit 40.4 % (40-54); Hemoglobin 12.9 g/dL (13.0-16.5); Lymphocyte # 2.21 X10^3/ul (0.83-4.51); Lymphocyte % 18.5 % (19-41); Mean Corp Hgb Conc 31.9 g/dL (32-36); Mean Corpuscular Hgb 29.7 pg (27.0-32.0); Mean Corpuscular Volume 93.1 fL (80-94); Mean Platelet Vol. 10.8 fl (6.2-12.0); Monocyte# 0.82 X10^3/uL; Monocyte% 6.9 % (0-10); NRBC Flagged by Analyzer 0.5 % (0-5); Neutrophil # 8.63 X10^3/uL (2.7-7.7); Neutrophil % 72.3 % (47-70); POSITIVE MORPHOLOGY YES; Platelet Count 286 K/mm3 (150-450); RBC Distribution Width CV 20.4 % (11.6-14.6); RBC Distribution Width SD 67.6 fl (35.1-43.9); Red Blood Count 4.34 M/mm3 (4.6-6.2); White Blood Count 11.9 K/mm3 (4.4-11.0)
[2024-05-17 09:09] LABS: Differential Indicated SCAN CRITERIA MET
[2024-05-17 09:24] LABS: Anisocytosis 2+; Differential Comment SCANNED; Polychromasia RARE
[2024-05-17 09:29] LABS: ALB/GLOB Ratio 0.6 RATIO (0.9-2.4); AST(SGOT) 243 U/L (15-37); Alanine Aminotransfer ALT/SGPT 264 U/L (16-61); Albumin, Serum 2.5 g/dL (3.2-5.0); Alkaline Phosphatase 89 U/L (45-117); Anion Gap 14 (5-15); BUN 105 mg/dL (7-18); BUN/Creat Ratio 23.5 RATIO (10-20); Calcium,Total 9.6 mg/dL (8.5-10.1); Chloride 98 mmol/L (98-107); Creatinine, Serum 4.46 mg/dL (0.70-1.30); EST Glomerular Filtration Rate 14 mL/min (>60); Est Glom Filt Rate - Afr Amer 17 mL/min (>60); Estimated Creatinine Clearance 11.24 ml/min; Globulin 4.2 g/dL (2.2-4.2); Glucose 134 mg/dL (74-106); Potassium 4.9 mmol/L (3.5-5.1); Protein, Total 6.7 g/dL (6.4-8.2); Sodium Level 135 mmol/L (136-145)
[2024-05-17 10:03] LABS: Mucous, Urine 0 SEEN /hpf (<or=2+); Red Blood Cells-Urine 0 SEEN /hpf (0-5)
[2024-05-17 10:14] LABS: Color, Urine Yellow (Yellow); Glucose, Dipstick Normal (Normal); Ketone-Dipstick Negative (Negative); Leukocyte Esterase-Dipstick Negative /ul (Negative); Nitrite-Dipstick Negative (Negative); Occult Blood-Urine Negative /ul (Negative); Protein-Dipstick 100 mg/dl (Negative); Urine Bilirubin Dipstick Negative (Negative); Urine Clarity Clear (Clear); Urine Urobilinogen Normal (Normal)
[2024-05-17 10:20] LABS: Coarse Granular Cast 0-5 SEEN /lpf (0-5 /lpf); Hyaline Cast 0-5 SEEN /lpf (0-5)
[2024-05-17 10:21] LABS: Bacteria 2+ /hpf (None Seen)
[2024-05-17 10:22] LABS: Renal Epithelial Cells 0-5 SEEN /hpf (0-5); Squamous Epithelial Cells - UA 0-5 SEEN /hpf (0-5); Transitional Epithelial - Ur 0-5 SEEN /hpf (0-5); White Blood Cells 0-5 SEEN /hpf (0-5)
[2024-05-17 10:23] LABS: Amorphous Sediment 1+
--- NOTE | 2024-05-17 10:32 | HP.PCM.HOS_ITS ---
[facility] Date of Admission: 05/17/24 Date of Service: 05/17/24 Chief Complaint: abnormal labs [facility] Narrative DIANE FRANCES, is a 73 M with a PMH as outlined who presents via the ED on 05/17/2024 o/a of abnormal labs. He was sent in from his [facility] ([facility]) o/a of labs done which showed elevated BUN. History was mainly obtained from his sister who said patient had recently been admitted at [facility] for pneumonia and had just been discharged only this past Thursday. She said he was managed for pneumonia and had bronchoscopy x 2 done and treated with antibiotics. He had had a previous admission in [facility] for pneumonia as well. He was discharged from [facility] on Thursday 8 6 [facility] for where he was admitted bedside. He had also been admitted in [facility] at the end of February for pneumonia. He has not been eating and drinkiing well at the SNF. He denied any nausea or vomiting, fever or chills or shortness of breath. Review of systems otherwise negative. Vitals in the ED were blood pressure 159/109, pulse rate of 89, respiratory rate of 33 and oxygen saturation of 90% on 3 L of oxygen. CBC showed hemoglobin of 12.9, WBC of 11.9 and platelets of 286. Chemistry showed sodium of 135 with potassium of 4.9 and creatinine of 4.46 with BUN of 105. Baseline creatinine is around 1.55. Urinalysis showed 2+ bacteria. Chest x-ray showed diffuse airspace disease in the right hemithorax with blunting of both costophrenic angles infiltrates in the posterior medial segment of the left lower lobe as well as focal infiltrate in the left upper lobe. HE is being admitted to be managed for MICHELLE on CKD and bilateral pneumonia. [facility] Medical History Kidney disease COPD (chronic obstructive pulmonary disease) Former smoker Pneumonia CKD (chronic kidney disease) CKD (chronic kidney disease) HTN (hypertension) HLD (hyperlipidemia) Home Medications ?Medication ?Instructions ?Recorded ?Last Taken ?Type albuterol sulfate 90 mcg/actuation 2 puff inhalation Q4H PRN PRN 05/17/24 Unknown History aerosol inhaler wheezing guaifenesin 600 mg tablet, 600 mg PO BID 05/17/24 Unknown History extended release 12 hr (Mucus Relief ER) hydralazine 25 mg tablet 25 mg PO TID 05/17/24 Unknown History insulin glargine-yfgn 100 unit/mL 5 unit subcut QPM 05/17/24 Unknown History (3 mL) subcutaneous pen isosorbide mononitrate 30 mg 15 mg PO DAILY 05/17/24 Unknown History tablet,extended release 24 hr metoprolol succinate 25 mg 25 mg PO DAILY 05/17/24 Unknown History tablet,extended release 24 hr (Toprol XL) pantoprazole 40 mg tablet,delayed 40 mg PO DAILY 05/17/24 Unknown History release Allergy/AdvReac Type Severity Reaction Status Date / Time No Known Allergies Allergy Verified 05/17/24 08:38 Social History household members: none Smoking Status: Former smoker substance use type: does not use ROS Constitutional Constitutional: Reports anorexia, chills, fatigue, malaise and weakness; Denies fever(s) Eyes Eyes: Denies change in vision ENT HEENT: Denies dysphagia, headache(s), nasal congestion or sore throat Cardiovascular Cardiovascular: Reports dyspnea on exertion and orthopnea; Denies chest pain, edema, lightheadedness, rapid heart rate or syncope Respiratory/Chest Respiratory/Chest: Reports cough, dyspnea, shortness of breath at rest and shortness of breath with exertion; Denies excessive phlegm production, hemoptysis, productive cough or wheezing Gastrointestinal Gastrointestinal: Denies abdominal pain, constipation, diarrhea, dyspepsia, nausea or vomiting Genitourinary Genitourinary: Denies burning urination, dysuria or hematuria Musculoskeletal Musculoskeletal: Denies arthralgias Neurologic Neurologic: Denies confusion, dizziness, focal weakness or headache(s) Psychiatric Psychiatric: Denies anxiety or depression Endocrine Endocrinology: Denies change in body appearance Hematologic/Lymphatic Hematologic/Lymphatic: Denies anemia Vital Signs Vital Signs Vital Signs: 05/17/24 08:33 05/17/24 08:33 05/17/24 09:30 Temperature 97.1 F L Temperature Source Temporal Pulse Rate 91 90 Respiratory Rate 30 H 28 H Respiratory Effort Short of Breath Labored Respiratory Pattern Tachypnea Blood Pressure 162/109 H 166/106 H Blood Pressure Mean 126 126 Pulse Ox 92 95 Oxygen Delivery Method Nasal Cannula Nasal Cannula Oxygen Flow Rate (L/min) 3 3 05/17/24 10:00 Temperature Temperature Source Pulse Rate 89 Respiratory Rate 33 H Respiratory Effort Respiratory Pattern Blood Pressure 159/109 H Blood Pressure Mean 125 Pulse Ox 90 Oxygen Delivery Method Nasal Cannula Oxygen Flow Rate (L/min) 3 Weight Weight: 120 lb 9.486 oz Body Mass Index (BMI) 17.8 Physical Exam Const alert and oriented x3 Constitutional Narrative: frail and weak, looks cachectic General Appearance: cooperative Orientation / Consciousness: confused HEENT normocephalic and head/scalp atraumatic HEENT Narrative: dry oral mucosa Eyes PERRL, EOMs intact bilaterally and conjunctivae normal Neck no lymphadenopathy, supple and no JVD Resp Resp Narrative: Diminished breath sounds bibasilarly. No wheezes or crackles. On 4 L of oxygen by nasal cannula. Cardio regular rate, regular rhythm, S1 normal heart sound, S2 normal heart sound, no murmurs and no rub GI normal to inspection, nondistended, normoactive bowel sounds, soft to palpation and non-tender Extremity normal to inspection, full ROM and no clubbing, cyanosis or edema Neuro oriented x3, CN's II-XII intact bilaterally, moves all extremities and no focal motor deficits Sensorium / Orientation: awake and alert Motor Exam: strength 5/5 throughout Psych affect normal Results Lab / Micro Data 05/17/24 08:57 05/17/24 08:57 Labs: Laboratory Results - last 24 hr 05/17/24 08:57: WBC 11.9 H, RBC 4.34 L, Hgb 12.9 L, Hct 40.4, MCV 93.1, MCH 29.7, MCHC 31.9 L, RDW Std Deviation 67.6 H, RDW Coeff of Steven 20.4 H, Plt Count 286, MPV 10.8, Immature Gran % (Auto) 1.900 H, Neut % (Auto) 72.3 H, Lymph % (Auto) 18.5 L, [place] % (Auto) 6.9, Eos % (Auto) 0.1, Baso % (Auto) 0.3, Absolute Neuts (auto) 8.6 H, Absolute Lymphs (auto) 2.21, Nucleated RBC % 0.5, Differential Comment SCANNED, Polychromasia RARE, Anisocytosis 2+, Sodium 135 L, Potassium 4.9, Chloride 98, Carbon Dioxide 23.0, Anion Gap 14, BUN 105 H*, C reatinine 4.46 H, Estim Creat Clear Calc 11.24, Est GFR (MDRD) Af Amer 17 L, Est GFR (MDRD) Non-Af 14 L, BUN/Creatinine Ratio 23.5 H, Glucose 134 H, Calcium 9.6, Total Bilirubin 0.60, AST 243 H, ALT 264 H, Alkaline Phosphatase 89, Total Protein 6.7, Albumin 2.5 L, Globulin 4.2, Albumin/Globulin Ratio 0.6 L 05/17/24 10:00: Urine Color Yellow, Urine Clarity Clear, Urine pH 5.0, Ur Specific [place] 1.020, Urine Protein 100 H, Urine Glucose (UA) Normal, Urine Ketones Negative, Urine Occult Blood Negative, Urine Nitrite Negative, Urine Bilirubin Negative, Urine Urobilinogen Normal, Ur Leukocyte Esterase Negative, Urine RBC 0 SEEN, Urine WBC 0-5 SEEN, Ur Squamous Epith Cells 0-5 SEEN, Ur Transition Epith Cell 0-5 SEEN, Ur Renal Epithelial Cell 0-5 SEEN, Amorphous Sediment 1+, Urine Bacteria 2+, Hyaline Casts 0-5 SEEN, Coarse Granular Casts 0- 5 SEEN, Urine Mucus 0 SEEN Imaging Radiology Impression Chest X-Ray 05/17/24 09:00 IMPRESSION: Diffuse airspace disease in the right hemithorax with blunting of both costophrenic angles. Infiltrate in the posterior medial segment of the left lower lobe as well as focal infiltrate in the left upper lobe. Electronically Signed: Carroll Kim MD at 9:19 EDT , Assessment & Plan Assessment/Plan (1) Pneumonia: (2) Dehydration: (3) Weakness: (4) Acute renal failure: (5) Respiratory insufficiency: PLAN: Plan #MICHELLE on CKD * Creatinine is 4.46 with BUN of 105. Baseline in the EMR is 1.55 from February. * However per discussion with nephrology was [facility], at time patient was discharged from [facility] on Thursday, his baseline was between 3.5-4. * It does appear like his kidney function has gradually been worsening. Nephrology consulted. * Patient being hydrated with IV fluids but his sister told us that his EF at [facility] was 30% so IV fluids discontinued. * Will monitor creatinine. Renal ultrasound ordered. Will request records from [facility]. * I with nephrology recs * * #Hypoxia * May be due to pneumonia and heart failure. Chest x-ray showed diffuse airspace disease in the right hemithorax with blunting of both costophrenic angles and infiltrate in the posterior medial segment of the left lower lobe as well as focal infiltrate in the left upper lobe. * Per Records reviewed by nephrology at [facility], patient was treated for pneumonia over there on antibiotics. He had bronchoscopy x 2 and the culture results from the [facility] seem to have just come back with growth of a yeastlike organism. There was also growth of Coxiella species. * Infectious disease consulted. Per ID, patient had been on doxycycline at [facility] so patient continued on doxycycline here. * Will request records from [facility]. * Breathing treatments bronchodilators. Titrate oxygen to maintain saturation above 90%. Unable to diurese patient aggressively in light of his worsening kidney function. #History of heart failure with reduced action fraction * 2D echo done at [facility] showed EF of 31%. Patient currently on 4 L of oxygen was not previously on oxygen. * Will give a dose of IV Lasix though is not clear he is in exacerbation. Will check BNP though the results may be skewed in light of the elevated creatinine. * Monitor intake and output. * #History of lung mass #Hypertension: On hydralazine and Imdur as well as metoprolol #Severe protein calorie malnutrition: BMI 16.4 and patient looks cachectic. Nutrition consulted. #GERD prophylaxis: Heparin CODE STATUS: DNR CCA no intubation * Patient and sister counseled extensively about different types of CODE STATUS including full code, DNR CCA and DNR CCA. Patient elects to be DNRCCA no intubation * Patient sister said he is due to sign papers with cashier office today to make his sister his healthcare POA and it also indicates that he does not want any resuscitative measures.. * Total [id number] time 19 minutes. Charges/Coding Visit Charges Inpatient E&M: 74908 Init Hosp L3 Procedures Hospitalists Procedures: 96584 Advncd Care Plan 30 Min
--- NOTE | 2024-05-17 10:47 | NURSING ---
MED SURG KORAM ACUTE RENAL FAILURE, PNEUMONIA
[2024-05-17] MEDS: levoFLOXacin IV 750 MG/150 ML BAG 100 MG IV (10:49)
--- NOTE | 2024-05-17 11:46 | US_ITS ---
INDICATION: MICHELLE on CKD EXAMINATION: Ultrasound US Kidney(s) complete (eg, kidneys and bladder) TECHNIQUE: Atkins scale and color doppler images were obtained of the kidneys. COMPARISON: FINDINGS: RIGHT KIDNEY: 10.5 x 4.2 x 3.8 cm. The cortex is 13 mm. There is no hydronephrosis. Possible 6 mm calculus. Cysts are noted up to 6.4 cm. LEFT KIDNEY: 9.2 x 3.8 x 4.6 cm. The cortex is 10 mm. There is no hydronephrosis. No shadowing calculus or perinephric collection is demonstrated. 1.5 cm cyst. URINARY BLADDER: Bocanegra catheter in place. Possible intraluminal debris. US/Kidney and Bladder IMPRESSION: Bilateral renal cystic nodules. Possible right renal calculus. Debris in the urinary bladder. Electronically Signed: Errol Downing DO at 22:44 EDT ,
[2024-05-17] MEDS: hydrALAZINE 25 MG Tablet PO ×2 (12:26→21:24)
[2024-05-17 12:44] LABS: Bedside Glucose 110 mg/dL (74-106)
[2024-05-17] MEDS: Ipratropium/Albuterol Sulfate 3 ML AMPUL.NEB INHALATION ×2 (13:30→19:33)
--- NOTE | 2024-05-17 13:45 | CON.PCM.ID_ITS ---
Assessment & Plan Assessment/Plan (1) Pneumonia: (2) Acute renal failure: (3) Weakness: PLAN: TTE 05/10/24 at [facility] showed EF 31%. Cr at discharge 05/14/24 was 3.6. Now Cr 4.4. No fever, mild leukocytosis. Reviewed [facility] records, seen by ID there. Since discharge, coxiella IgG and phase II titer came back (+). Single BAL sample with rare yeast, likely not true pathogen. Had received one week of po doxy, will restart to complete course for the coxiella in case that was contributing. Given dose of levaquin here, will hold off on further doses at this time (with GFR, would not be due anyways until 48h from now.) Will follow, thank you HPI Consult Data Date of Consult: 05/17/24 HPI Narrative Reason for Consultation: pneumonia HPI Narrative: DIANE FRANCES, is a 73 M with h/o CKD, CHF, htn, multiple recent admits to [facility] and [facility]. Discharged from [facility] 05/14 after admit for pneumonia. Had bronch done. Seen by ID. Given one week of zosyn and doxy which completed that day. Since discharge to [facility], c/o worsened fatigue. No fever, no dyspnea, some mild cough. No abd pain. Found to have worsening GFR, admitted to [facility]. Given dose of levaquin in ED. After leaving [place], coxiella test came back (+). Does have indoor/outdoor cats at home and poor living conditions including cat feces on the floor. Full ROS performed and neg except as noted above. [facility] Medical History Kidney disease COPD (chronic obstructive pulmonary disease) Former smoker Pneumonia CKD (chronic kidney disease) CKD (chronic kidney disease) HTN (hypertension) HLD (hyperlipidemia) Home Medications ?Medication ?Instructions ?Recorded ?Last Taken ?Type albuterol sulfate 90 mcg/actuation 2 puff inhalation Q4H PRN PRN 05/17/24 Unknown History aerosol inhaler wheezing guaifenesin 600 mg tablet, 600 mg PO BID 05/17/24 Unknown History extended release 12 hr (Mucus Relief ER) hydralazine 25 mg tablet 25 mg PO TID 05/17/24 Unknown History insulin glargine-yfgn 100 unit/mL 5 unit subcut QPM 05/17/24 Unknown History (3 mL) subcutaneous pen isosorbide mononitrate 30 mg 15 mg PO DAILY 05/17/24 Unknown History tablet,extended release 24 hr metoprolol succinate 25 mg 25 mg PO DAILY 05/17/24 Unknown History tablet,extended release 24 hr (Toprol XL) pantoprazole 40 mg tablet,delayed 40 mg PO DAILY 05/17/24 Unknown History release Allergy/AdvReac Type Severity Reaction Status Date / Time No Known Allergies Allergy Verified 05/17/24 08:38 Social History household members: none Smoking Status: Former smoker substance use type: does not use Physical Exam Const alert and no apparent distress General Appearance: cooperative HEENT normocephalic and head/scalp atraumatic Eyes PERRL and EOMs intact bilaterally Neck supple and No nodes Resp Auscultation: rhonchi and diminished lung sounds Cardio regular rate and regular rhythm GI soft to palpation, non-tender and non-distended Extremity General Extremity: Negative for edema Skin no rashes or lesions noted Neuro CN's II-XII intact bilaterally Lab / Micro Data Attestation: I reviewed the patient's lab results. 05/17/24 08:57 05/17/24 08:57 Labs: Laboratory Results - last 24 hr 05/17/24 08:57: WBC 11.9 H, RBC 4.34 L, Hgb 12.9 L, Hct 40.4, MCV 93.1, MCH 29.7, MCHC 31.9 L, RDW Std Deviation 67.6 H, RDW Coeff of Steven 20.4 H, Plt Count 286, MPV 10.8, Immature Gran % (Auto) 1.900 H, Neut % (Auto) 72.3 H, Lymph % (Auto) 18.5 L, [place] % (Auto) 6.9, Eos % (Auto) 0.1, Baso % (Auto) 0.3, Absolute Neuts (auto) 8.6 H, Absolute Lymphs (auto) 2.21, Nucleated RBC % 0.5, Differential Comment SCANNED, Polychromasia RARE, Anisocytosis 2+, Sodium 135 L, Potassium 4.9, Chloride 98, Carbon Dioxide 23.0, Anion Gap 14, BUN 105 H*, C reatinine 4.46 H, Estim Creat Clear Calc 11.24, Est GFR (MDRD) Af Amer 17 L, Est GFR (MDRD) Non-Af 14 L, BUN/Creatinine Ratio 23.5 H, Glucose 134 H, Calcium 9.6, Total Bilirubin 0.60, AST 243 H, ALT 264 H, Alkaline Phosphatase 89, Total Protein 6.7, Albumin 2.5 L, Globulin 4.2, Albumin/Globulin Ratio 0.6 L 05/17/24 10:00: Urine Color Yellow, Urine Clarity Clear, Urine pH 5.0, Ur Specific [place] 1.020, Urine Protein 100 H, Urine Glucose (UA) Normal, Urine Ketones Negative, Urine Occult Blood Negative, Urine Nitrite Negative, Urine Bilirubin Negative, Urine Urobilinogen Normal, Ur Leukocyte Esterase Negative, Urine RBC 0 SEEN, Urine WBC 0-5 SEEN, Ur Squamous Epith Cells 0-5 SEEN, Ur Transition Epith Cell 0-5 SEEN, Ur Renal Epithelial Cell 0-5 SEEN, Amorphous Sediment 1+, Urine Bacteria 2+, Hyaline Casts 0-5 SEEN, Coarse Granular Casts 0- 5 SEEN, Urine Mucus 0 SEEN 05/17/24 12:25: POC Glucose 110 H Imaging Radiology Impression Chest X-Ray 05/17/24 09:00 IMPRESSION: Diffuse airspace disease in the right hemithorax with blunting of both costophrenic angles. Infiltrate in the posterior medial segment of the left lower lobe as well as focal infiltrate in the left upper lobe. Electronically Signed: Carroll Kim MD at 9:19 EDT ,
[2024-05-17] MEDS: Doxycycline 100 MG CAPSULE PO ×2 (14:40→21:24)
[2024-05-17] MEDS: 0.9% Saline Lock 10 ML Syringe IV ×2 (14:40→15:54)
--- NOTE | 2024-05-17 14:40 | CON.PCM.RE_ITS ---
Assessment & Plan Assessment/Plan (1) Acute renal failure: PLAN: CKD stage IIIb. Baseline creatinine around 1.6 or so. Reviewed records from [facility]. He was treated for pneumonia, CHF. Echocardiogram with low ejection fraction of 30%. BNP was as high as 55,000. He has received IV Lasix, this was held at the end of the hospitalization due to MICHELLE. Discharge creatinine around 3.4. Clinically does not look overloaded to me. If it he appears on the dry side however breathing is pretty heavy and borderline. Hold off on IV fluids for now. Urine analysis at [facility] did not show any significant hematuria. Urine protein was less than 300 mg. I doubt he has any glomerulonephritis. Currently has a Ramos catheter indwelling, obstruction unlikely. Discussed with hospitalist. BAL specimen reviewed. 1 specimen had fungus and it seems he also is Coxiella positive. ID will be consulted. HPI Consult Data Date of Consult: 05/17/24 HPI Narrative Reason for Consultation: Acute renal failure HPI Narrative: DIANE FRANCES, is a 73 M who presents To the hospital with shortness of breath. Nephrology on consultation in view of acute renal failure. This is his third admission in the last 3 months with similar complaints. He was initially admitted in here for pneumonia, treated for community-acquired pneumonia. He was admitted at [facility] couple of weeks ago. CT chest showed multifocal infiltrate, necrotizing pneumonia right lower lobe. He was seen by ID, pulmonary, status post bronchoscopic alveolar lavage. He was treated with Zosyn and doxycycline. Most of the cultures, smears were negative. It seems his Coxiella came back positive after he was discharged. He was sent to the snf/rehab, he was found to have worsening shortness of breath and sent in. Nephrology on consultation in view of acute renal failure, creatinine 4.4. It seems she has history of CKD stage IIIb, baseline creatinine around 1.6 about 2 months ago. Reviewed records from [facility]. He was aggressively diuresed, discharge creatinine around 3.5. Currently has a Ramos catheter. His main complaint right now is shortness of breath. [facility] Medical History Kidney disease COPD (chronic obstructive pulmonary disease) Former smoker Pneumonia CKD (chronic kidney disease) CKD (chronic kidney disease) HTN (hypertension) HLD (hyperlipidemia) Home Medications ?Medication ?Instructions ?Recorded ?Last Taken ?Type albuterol sulfate 90 mcg/actuation 2 puff inhalation Q4H PRN PRN 05/17/24 Unknown History aerosol inhaler wheezing guaifenesin 600 mg tablet, 600 mg PO BID 05/17/24 Unknown History extended release 12 hr (Mucus Relief ER) hydralazine 25 mg tablet 25 mg PO TID 05/17/24 Unknown History insulin glargine-yfgn 100 unit/mL 5 unit subcut QPM 05/17/24 Unknown History (3 mL) subcutaneous pen isosorbide mononitrate 30 mg 15 mg PO DAILY 05/17/24 Unknown History tablet,extended release 24 hr metoprolol succinate 25 mg 25 mg PO DAILY 05/17/24 Unknown History tablet,extended release 24 hr (Toprol XL) pantoprazole 40 mg tablet,delayed 40 mg PO DAILY 05/17/24 Unknown History release Allergy/AdvReac Type Severity Reaction Status Date / Time No Known Allergies Allergy Verified 05/17/24 08:38 Social History household members: none Smoking Status: Former smoker substance use type: does not use ROS ROS Narrative negative except above Physical Exam Narrative Alert awake oriented x 3 resp distress no pallor no icterus no JVD s1s2 no murmurs lungs coarse BS abdomen soft no organomegaly no edema no cyanosis ramos + Medical Records Data Medical Nutrition Assessment Dietitian: Malnutrition Criteria Met Start: 05/17/24 13:57 Freq: Status: Active Protocol: Document 05/17/24 13:57 HELENA (Rec: 05/17/24 13:58 SLA [email or web address]) Nutrition Malnutrition Evidence of Malnutrition Exists Yes Malnutrition (severe): Chronic Evidenced By Suboptimal Energy Intake ( Severe),Weight Loss (Severe), Physical Changes (Severe) Clinical Problem Chronic Disease or Condition Related Malnutrition Etiology related to chronic dz and inability to consume adequate nutrition Signs/Symptoms as evidenced by 23.4% unintended wt loss and po intake meeting <75% of estimated nutrition needs. Pt with obvious fat/muscle 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 BMI = 16.4 Status Active Problem Recommendation Dietitian Recommendations/Changes Will change diet to liberal regular d/t signs and symptoms of malnutrition. Will order 4 oz ensure plus high protein 4x/day w/ medpass . Rec consider appetite stimulant to help encourage increased po intake. May wish to consider alternate nutrition support if continued poor po intake/wt loss if in accordance w/ patient/family wishes to help prevent further decline in pt nutritional status. Lab / Micro Data 05/17/24 08:57 05/17/24 08:57 Labs: Laboratory Results - last 24 hr 05/17/24 08:57: WBC 11.9 H, RBC 4.34 L, Hgb 12.9 L, Hct 40.4, MCV 93.1, MCH 29.7, MCHC 31.9 L, RDW Std Deviation 67.6 H, RDW Coeff of Steven 20.4 H, Plt Count 286, MPV 10.8, Immature Gran % (Auto) 1.900 H, Neut % (Auto) 72.3 H, Lymph % (Auto) 18.5 L, [place] % (Auto) 6.9, Eos % (Auto) 0.1, Baso % (Auto) 0.3, Absolute Neuts (auto) 8.6 H, Absolute Lymphs (auto) 2.21, Nucleated RBC % 0.5, Differential Comment SCANNED, Polychromasia RARE, Anisocytosis 2+, Sodium 135 L, Potassium 4.9, Chloride 98, Carbon Dioxide 23.0, Anion Gap 14, BUN 105 H*, C reatinine 4.46 H, Estim Creat Clear Calc 11.24, Est GFR (MDRD) Af Amer 17 L, Est GFR (MDRD) Non-Af 14 L, BUN/Creatinine Ratio 23.5 H, Glucose 134 H, Calcium 9.6, Total Bilirubin 0.60, AST 243 H, ALT 264 H, Alkaline Phosphatase 89, Total Protein 6.7, Albumin 2.5 L, Globulin 4.2, Albumin/Globulin Ratio 0.6 L 05/17/24 10:00: Urine Color Yellow, Urine Clarity Clear, Urine pH 5.0, Ur Specific [place] 1.020, Urine Protein 100 H, Urine Glucose (UA) Normal, Urine Ketones Negative, Urine Occult Blood Negative, Urine Nitrite Negative, Urine Bilirubin Negative, Urine Urobilinogen Normal, Ur Leukocyte Esterase Negative, Urine RBC 0 SEEN, Urine WBC 0-5 SEEN, Ur Squamous Epith Cells 0-5 SEEN, Ur Transition Epith Cell 0-5 SEEN, Ur Renal Epithelial Cell 0-5 SEEN, Amorphous Sediment 1+, Urine Bacteria 2+, Hyaline Casts 0-5 SEEN, Coarse Granular Casts 0- 5 SEEN, Urine Mucus 0 SEEN 05/17/24 12:25: POC Glucose 110 H Micro: Microbiology 05/17/24 10:00 Urine Catheter - Catheter Legionella Antigen - Final 05/17/24 10:00 Urine Catheter - Catheter Streptococcus pneumoniae Antigen (M - Final Imaging Radiology Impression Chest X-Ray 05/17/24 09:00 IMPRESSION: Diffuse airspace disease in the right hemithorax with blunting of both costophrenic angles. Infiltrate in the posterior medial segment of the left lower lobe as well as focal infiltrate in the left upper lobe. Electronically Signed: Carroll Kim MD at 9:19 EDT ,
[2024-05-17] MEDS: cloNIDine HCl 0.2 MG Tablet PO (15:02)
[2024-05-17] MEDS: Ondansetron 4 MG/2 ML Vial IV (15:54)
[2024-05-17 16:17] LABS: Bedside Glucose 125 mg/dL (74-106)
[2024-05-17 16:54] LABS: Urine Sodium 15 mmol/L (Not Establ.)
[2024-05-17] MEDS: guaiFENesin 600 MG Tablet PO (21:24)
[2024-05-17] MEDS: Insulin Glargine-YFGN 100 UNIT/ML Pen SC (21:25)
[2024-05-17] MEDS: Heparin Injection (Vial) 5,000 UNIT/ML VIAL 5000 UNIT SC (21:25)
[2024-05-17 21:49] LABS: Bedside Glucose 138 mg/dL (74-106)
[2024-05-18] VITALS (18 sets, daily range): BP systolic 139–155; BP diastolic 102–115; PULSE 82–95; RESP 18–28; TEMP 36.2–36.8; O2SAT 93–98
[2024-05-18] MEDS: Ipratropium/Albuterol Sulfate 3 ML AMPUL.NEB INHALATION ×4 (00:44→19:36)
[2024-05-18] MEDS: hydrALAZINE 25 MG Tablet PO ×3 (04:16→22:24)
[2024-05-18 06:54] LABS: Absolute Lymphocyte Count 1.42 X10^3/uL (0.83-4.51); Absolute Neutrophil Count 11.1 X10^3/uL (2.0-7.7); Basophil# 0.03 X10^3/uL; Basophil% 0.2 % (0-1); Hematocrit 39.2 % (40-54); Hemoglobin 12.6 g/dL (13.0-16.5); Lymphocyte # 1.42 X10^3/ul (0.83-4.51); Lymphocyte % 10.5 % (19-41); Mean Corp Hgb Conc 32.1 g/dL (32-36); Mean Corpuscular Hgb 29.9 pg (27.0-32.0); Mean Corpuscular Volume 93.1 fL (80-94); Mean Platelet Vol. 11.6 fl (6.2-12.0); Monocyte# 0.73 X10^3/uL; Monocyte% 5.4 % (0-10); NRBC Flagged by Analyzer 0.5 % (0-5); Neutrophil # 11.08 X10^3/uL (2.7-7.7); Neutrophil % 81.8 % (47-70); POSITIVE MORPHOLOGY YES; Platelet Count 239 K/mm3 (150-450); RBC Distribution Width CV 20.6 % (11.6-14.6); RBC Distribution Width SD 67.9 fl (35.1-43.9); Red Blood Count 4.21 M/mm3 (4.6-6.2); White Blood Count 13.5 K/mm3 (4.4-11.0)
[2024-05-18 06:55] LABS: Differential Indicated SCAN CRITERIA MET
[2024-05-18 07:08] LABS: Bedside Glucose 109 mg/dL (74-106)
[2024-05-18 07:28] LABS: Anisocytosis 1+
[2024-05-18 08:09] LABS: Anion Gap 13 (5-15); BUN/Creat Ratio 24.8 RATIO (10-20); Calcium,Total 9.2 mg/dL (8.5-10.1); Chloride 101 mmol/L (98-107); Creatinine, Serum 4.35 mg/dL (0.70-1.30); EST Glomerular Filtration Rate 14 mL/min (>60); Est Glom Filt Rate - Afr Amer 17 mL/min (>60); Estimated Creatinine Clearance 10.64 ml/min; Glucose 131 mg/dL (74-106); Potassium 4.7 mmol/L (3.5-5.1); Sodium Level 135 mmol/L (136-145)
[2024-05-18 08:10] LABS: BUN 108 mg/dL (7-18)
[2024-05-18 08:23] LABS: BNP,B-Type NATRIURETIC PEPTIDE 2074.8 pg/mL (0-100)
[2024-05-18 09:07] LABS: Base Excess -4 mmol/L (-2 to +2); Bicarbonate 18.7 mmol/L (22-26); Blood Gas Specimen Type ART; Mode Not entered; O2 Delivery Device Cannula; PO2 74 mmHG (75-100); SITE L Brach; SO2 97 % (95-99); Total Carbon Dioxide 19 mmol/L; pCO2 21.7 mmHg (35-45); pH 7.54 (7.35-7.45)
[2024-05-18] MEDS: Metoprolol(XL)Succ 25 MG Tablet PO (09:30)
[2024-05-18] MEDS: Pantoprazole Sodium 40 MG Tablet PO (09:30)
[2024-05-18] MEDS: Doxycycline 100 MG CAPSULE PO ×2 (09:30→22:24)
[2024-05-18] MEDS: Heparin Injection (Vial) 5,000 UNIT/ML VIAL 5000 UNIT SC ×2 (09:30→22:24)
--- NOTE | 2024-05-18 09:30 | NURSING ---
Voicemail left for patient's NOK - Sister Montse for update on patient.
[2024-05-18] MEDS: guaiFENesin 600 MG Tablet PO ×2 (09:31→22:24)
[2024-05-18] MEDS: Isosorbide Mononitrate 30 MG Tablet 15 MG PO (09:31)
--- NOTE | 2024-05-18 10:26 | CASEMGMT ---
Patient is from [place]. SW will check in with patient to confirm his plan is to return to [facility] [place] at discharge. Updates sent to [facility] via [employer]. Shirin PANTOJA
[2024-05-18] MEDS: 0.9% Saline Lock 10 ML Syringe IV (10:57)
[2024-05-18] MEDS: Furosemide 40 MG/4 ML Vial IV (10:57)
[2024-05-18] MEDS: Insulin Lispro 100 UNIT/ML INSULN.PEN SC (11:07)
[2024-05-18 11:59] LABS: Bedside Glucose 152 mg/dL (74-106)
--- NOTE | 2024-05-18 12:29 | PN_ITS ---
Subjective Subjective Patient seen and examined. He had no active complaints. He felt like his breathing had not worsened. However, patient is tachypneic and was tachypneic overnight. He is now down to 2 L of oxygen. His creatinine today has trended downward slightly to 4.35. BUN is 108. Objective Data Objective Data Vital Signs: Vital Signs Temp Pulse Resp BP Pulse Ox O2 Del Method O2 Flow Rate 97.2 F L 92 18 142/108 H 97 Nasal Cannula 2 05/18/24 10:39 05/18/24 12:25 05/18/24 12:25 05/18/24 10:39 05/18/24 10:39 05/18/24 10:40 05/18/24 10:40 Oxygen Flow Rate (L/min) 2 Oxygen Delivery Method Nasal Cannula Weight: 111 lb 5.335 oz Body Mass Index (BMI) 16.4 Intake & Output: Intake and Output for Last 24 Hours 05/16/24 05/17/24 05/18/24 23:59 23:59 23:59 Intake Total 687.5 / 687.5 1040 / 1040 Output Total 375 / 375 650 / 650 Balance 312.5 / 312.5 390 / 390 Medical Nutrition Assessment Dietitian: Malnutrition Criteria Met Start: 05/17/24 13:57 Freq: Status: Active Protocol: Document 05/17/24 13:57 SLA (Rec: 05/17/24 13:58 SLA [email or web address]) Nutrition Malnutrition Evidence of Malnutrition Exists Yes Malnutrition (severe): Chronic Evidenced By Suboptimal Energy Intake ( Severe),Weight Loss (Severe), Physical Changes (Severe) Clinical Problem Chronic Disease or Condition Related Malnutrition Etiology related to chronic dz and inability to consume adequate nutrition Signs/Symptoms as evidenced by 23.4% unintended wt loss and po intake meeting <75% of estimated nutrition needs. Pt with obvious fat/muscle 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 BMI = 16.4 Status Active Problem Recommendation Dietitian Recommendations/Changes Will change diet to liberal regular d/t signs and symptoms of malnutrition. Will order 4 oz ensure plus high protein 4x/day w/ medpass . Rec consider appetite stimulant to help encourage increased po intake. May wish to consider alternate nutrition support if continued poor po intake/wt loss if in accordance w/ patient/family wishes to help prevent further decline in pt nutritional status. Lab / Micro Data 05/18/24 06:31 05/18/24 06:31 Labs: Laboratory Results - last 24 hr 05/17/24 11:00: Ur Random Sodium 15, Urine Creatinine 92.90 05/17/24 12:25: POC Glucose 110 H 05/17/24 15:57: POC Glucose 125 H 05/17/24 21:22: POC Glucose 138 H 05/18/24 06:31: WBC 13.5 H, RBC 4.21 L, Hgb 12.6 L, Hct 39.2 L, MCV 93.1, MCH 29.9, MCHC 32.1, RDW Std Deviation 67.9 H, RDW Coeff of Steven 20.6 H, Plt Count 239, MPV 11.6, Immature Gran % (Auto) 2.100 H, Neut % (Auto) 81.8 H, Lymph % (Auto) 10.5 L, [place] % (Auto) 5.4, Eos % (Auto) 0.0, Baso % (Auto) 0.2, Absolute Neuts (auto) 11.1 H, Absolute Lymphs (auto) 1.42, Nucleated RBC % 0.5, Anisocytosis 1+, Sodium 135 L, Potassium 4.7, Chloride 101, Carbon Dioxide 21.0, Anion Gap 13, BUN 108 H*, Creatinine 4.35 H, Estim Creat Clear Calc 10.64, Est GFR (MDRD) Af Amer 17 L, Est GFR (MDRD) Non-Af 14 L, BUN/Creatinine Ratio 24.8 H , Glucose 131 H, Calcium 9.2, B-Natriuretic Peptide 2074.8 H 05/18/24 06:48: POC Glucose 109 H 05/18/24 11:04: POC Glucose 152 H Micro: Microbiology 05/17/24 10:00 Urine Catheter - Catheter Legionella Antigen - Final 05/17/24 10:00 Urine Catheter - Catheter Streptococcus pneumoniae Antigen (M - Final ABG Data ABG results: ABG 05/18/24 09:01 Specimen Type ART Sample Site L Brach pH 7.54 H Bicarbonate Actual 18.7 L Total CO2 19 Base Excess -4 L O2 Saturation 97 O2 % 3.0 ABG pCO2 21.7 L ABG pO2 74 L Sanford Test N/A O2 Delivery Device Cannula Vent Mode Not entered Radiography Diagnostic Testing: Radiology Impression Renal Ultrasound 05/17/24 11:46 IMPRESSION: Bilateral renal cystic nodules. Possible right renal calculus. Debris in the urinary bladder. Electronically Signed: Errol Downing DO at 22:44 EDT , Physical Exam Const alert and oriented x3 Constitutional Narrative: frail and weak, looks cachectic General Appearance: cooperative Orientation / Consciousness: confused HEENT normocephalic and head/scalp atraumatic Eyes PERRL, EOMs intact bilaterally and conjunctivae normal Neck no lymphadenopathy, supple and no JVD Resp Resp Narrative: Diminished breath sounds bibasilarly. No wheezes or crackles. On 2 L of oxygen by nasal cannula. Effort and Inspection: tachypneic Cardio regular rate, regular rhythm, S1 normal heart sound, S2 normal heart sound, no murmurs and no rub GI normal to inspection, nondistended, normoactive bowel sounds, soft to palpation and non-tender Extremity normal to inspection, full ROM and no clubbing, cyanosis or edema Neuro oriented x3, CN's II-XII intact bilaterally, moves all extremities and no focal motor deficits Sensorium / Orientation: awake and alert Motor Exam: strength 5/5 throughout Psych affect normal Mood & Affect: flat affect Assessment & Plan Assessment/Plan (1) Pneumonia: (2) Dehydration: (3) Weakness: (4) Acute renal failure: (5) Respiratory insufficiency: PLAN: Plan #MICHELLE on CKD IIIb * Creatinine has trended down slightly today to 4.35 from 4.46 on admission. BUN is high at 108. * However per discussion with nephrology was able to pull up patient's chart at [facility], at time patient was discharged from [facility] on Thursday, his baseline was between 3.5-4. * Nephrology on board. * Continue holding off on IV fluids for now. * Bocanegra catheter in situ. * * * #Hypoxia with respiratory alkalosis * May be due to pneumonia and heart failure. Chest x-ray showed diffuse airspace disease in the right hemithorax with blunting of both costophrenic angles and infiltrate in the posterior medial segment of the left lower lobe as well as focal infiltrate in the left upper lobe. * Per Records reviewed by nephrology at [facility], patient was treated for pneumonia over there on antibiotics. He had bronchoscopy x 2 and the culture results from the [facility] seem to have just come back with growth of a yeastlike organism. There was also growth of Coxiella species. * Infectious disease on boad.. Per ID, patient had been on doxycycline at [facility] so patient continued on doxycycline here. * Currently down to 2 L of oxygen. He was however tachypneic this morning and ABG done showed respiratory alkalosis with low pO2 of 74 and pCO2 of 21.7. * Breathing treatments bronchodilators. Titrate oxygen to maintain saturation above 90%. * Patient given a dose of IV lasix 40mg x 1 today. #History of heart failure with reduced action fraction * 2D echo done at [facility] showed EF of 31%. Patient currently on 4 L of oxygen was not previously on oxygen. * Will give a dose of IV Lasix though is not clear he is in exacerbation. Will check BNP though the results may be skewed in light of the elevated creatinine. * Monitor intake and output. * BNP elevated at >2000, though in the setting of MICHELLE on CKD IIIB, the BNP results may not be very accurate. * will give a dose of IV lasix today * #History of lung mass: stable #Hypertension: On hydralazine and Imdur as well as metoprolol #Severe protein calorie malnutrition: BMI 16.4 and patient looks cachectic. Nutrition consulted. #GERD prophylaxis: Heparin CODE STATUS: DNR CCA no intubation * Disposition: Transfer to PCU in light of respiratory alkalosis and concern for fluid overload. Charges/Coding Visit Charges Inpatient E&M: 21991 Subs Hosp L3
--- NOTE | 2024-05-18 12:38 | CASEMGMT ---
CARLOS met with patient. Introduced self and role at [facility]. SW asked patient if his plan is to return to [place] at discharge for his rehab. Patient told SW to talk to his sister. SW called patient's sister and left her a voice mail requesting a return call. Shirin PANTOJA
--- NOTE | 2024-05-18 13:20 | PN.RENAL_ITS ---
Subjective Subjective remains dyspneic Objective Data Objective Data Vital Signs: Vital Signs Temp Pulse Resp BP Pulse Ox O2 Del Method O2 Flow Rate 97.9 F 88 22 H 149/105 H 96 Nasal Cannula 2 05/18/24 13:20 05/18/24 13:20 05/18/24 13:20 05/18/24 13:20 05/18/24 13:20 05/18/24 13:20 05/18/24 13:20 Oxygen Flow Rate (L/min) 2 Oxygen Delivery Method Nasal Cannula Weight: 50.5 kg Body Mass Index (BMI) 16.4 Intake & Output: Intake and Output for Last 24 Hours 05/16/24 05/17/24 05/18/24 23:59 23:59 23:59 Intake Total 687.5 / 687.5 1040 / 1040 Output Total 375 / 375 650 / 650 Balance 312.5 / 312.5 390 / 390 Medical Nutrition Assessment Dietitian: Malnutrition Criteria Met Start: 05/17/24 13:57 Freq: Status: Active Protocol: Document 05/17/24 13:57 SLA (Rec: 05/17/24 13:58 SLA [email or web address]) Nutrition Malnutrition Evidence of Malnutrition Exists Yes Malnutrition (severe): Chronic Evidenced By Suboptimal Energy Intake ( Severe),Weight Loss (Severe), Physical Changes (Severe) Clinical Problem Chronic Disease or Condition Related Malnutrition Etiology related to chronic dz and inability to consume adequate nutrition Signs/Symptoms as evidenced by 23.4% unintended wt loss and po intake meeting <75% of estimated nutrition needs. Pt with obvious fat/muscle 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 BMI = 16.4 Status Active Problem Recommendation Dietitian Recommendations/Changes Will change diet to liberal regular d/t signs and symptoms of malnutrition. Will order 4 oz ensure plus high protein 4x/day w/ medpass . Rec consider appetite stimulant to help encourage increased po intake. May wish to consider alternate nutrition support if continued poor po intake/wt loss if in accordance w/ patient/family wishes to help prevent further decline in pt nutritional status. Lab / Micro Data 05/18/24 06:31 05/18/24 06:31 Labs: Laboratory Results - last 24 hr 05/17/24 11:00: Ur Random Sodium 15, Urine Creatinine 92.90 05/17/24 15:57: POC Glucose 125 H 05/17/24 21:22: POC Glucose 138 H 05/18/24 06:31: WBC 13.5 H, RBC 4.21 L, Hgb 12.6 L, Hct 39.2 L, MCV 93.1, MCH 29.9, MCHC 32.1, RDW Std Deviation 67.9 H, RDW Coeff of Steven 20.6 H, Plt Count 239, MPV 11.6, Immature Gran % (Auto) 2.100 H, Neut % (Auto) 81.8 H, Lymph % (Auto) 10.5 L, Wilkes % (Auto) 5.4, Eos % (Auto) 0.0, Baso % (Auto) 0.2, Absolute Neuts (auto) 11.1 H, Absolute Lymphs (auto) 1.42, Nucleated RBC % 0.5, Anisocytosis 1+, Sodium 135 L, Potassium 4.7, Chloride 101, Carbon Dioxide 21.0, Anion Gap 13, BUN 108 H*, Creatinine 4.35 H, Estim Creat Clear Calc 10.64, Est GFR (MDRD) Af Amer 17 L, Est GFR (MDRD) Non-Af 14 L, BUN/Creatinine Ratio 24.8 H , Glucose 131 H, Calcium 9.2, B-Natriuretic Peptide 2074.8 H 05/18/24 06:48: POC Glucose 109 H 05/18/24 11:04: POC Glucose 152 H Micro: Microbiology 05/17/24 10:00 Urine Catheter - Catheter Legionella Antigen - Final 05/17/24 10:00 Urine Catheter - Catheter Streptococcus pneumoniae Antigen (M - Final ABG Data ABG results: ABG 05/18/24 09:01 Specimen Type ART Sample Site L Brach pH 7.54 H Bicarbonate Actual 18.7 L Total CO2 19 Base Excess -4 L O2 Saturation 97 O2 % 3.0 ABG pCO2 21.7 L ABG pO2 74 L Sanford Test N/A O2 Delivery Device Cannula Vent Mode Not entered Radiography Diagnostic Testing: Radiology Impression Renal Ultrasound 05/17/24 11:46 IMPRESSION: Bilateral renal cystic nodules. Possible right renal calculus. Debris in the urinary bladder. Electronically Signed: Errol Downing DO at 22:44 EDT , Physical Exam Narrative Alert awake oriented x 3 resp distress no pallor no icterus no JVD s1s2 no murmurs lungs coarse BS abdomen soft no organomegaly no edema no cyanosis ramos + Assessment & Plan Assessment/Plan (1) Acute renal failure: PLAN: CKD stage IIIb. Baseline creatinine around 1.6 or so. Reviewed records from [facility]. He was treated for pneumonia, CHF. Echocardiogram with low ejection fraction of 30%. BNP was as high as 55,000. He has received IV Lasix, this was held at the end of the hospitalization due to MICHELLE. Discharge creatinine around 3.4. Clinically does not look overloaded to me. he appears on the dry side however breathing is pretty heavy and borderline. if breathing improves will give back some fluids Urine analysis at [facility] did not show any significant hematuria. Urine protein was less than 300 mg. I doubt he has any glomerulonephritis. Currently has a Ramos catheter indwelling, obstruction unlikely.
--- NOTE | 2024-05-18 13:47 | PCM.PN.ID ---
Physical Exam Narrative Feeling tired, no fever, breathing ok, no abd pain, no n/v/d, no sputum Const alert and no apparent distress General Appearance: cooperative Resp Auscultation: diminished lung sounds Cardio regular rate and regular rhythm GI soft to palpation, non-tender and non-distended Skin no rashes or lesions noted ID ID: Route of nutrition/ use of supplements: [] Nutritional Intake: [] IV Site: [] Bocanegra Catheter: [] Assessment & Plan Assessment/Plan (1) Pneumonia: (2) Acute renal failure: (3) Weakness: PLAN: TTE 05/10/24 at [facility] showed EF 31%. Cr at discharge 05/14/24 was 3.6. Now Cr 4.4. No fever, mild leukocytosis. Reviewed [facility] records, seen by ID there. Since discharge, coxiella IgG and phase II titer came back (+). Single BAL sample with rare yeast, likely not true pathogen. Had received one week of po doxy, plan on 7 more days of doxy to complete course for the coxiella in case that was contributing. Given dose of levaquin here, will hold off on further doses at this time. Will follow
[2024-05-18 17:05] LABS: Bedside Glucose 93 mg/dL (74-106)
--- NOTE | 2024-05-18 22:14 | NURSING ---
Talked with patients sister, Montse. Update was given regarding pt being tx from [facility] to [facility]. Sister states that patient will return to [facility] on the transitional care floor when pt is ready for d/c.
[2024-05-19] VITALS (14 sets, daily range): BP systolic 141–152; BP diastolic 95–103; PULSE 79–90; RESP 16–24; TEMP 36.2–36.6; O2SAT 93–100; BMI 16.6
[2024-05-19 00:42] LABS: Bedside Glucose 147 mg/dL (74-106)
[2024-05-19] MEDS: hydrALAZINE 25 MG Tablet PO ×3 (06:22→21:10)
[2024-05-19 06:24] LABS: Absolute Lymphocyte Count 1.64 X10^3/uL (0.83-4.51); Absolute Neutrophil Count 7.9 X10^3/uL (2.0-7.7); Basophil# 0.02 X10^3/uL; Basophil% 0.2 % (0-1); Eosinophil# 0.01 X10^3/uL; Eosinophils% 0.1 % (0-5); Hematocrit 37.6 % (40-54); Hemoglobin 12.1 g/dL (13.0-16.5); Lymphocyte # 1.64 X10^3/ul (0.83-4.51); Lymphocyte % 15.9 % (19-41); Mean Corp Hgb Conc 32.2 g/dL (32-36); Mean Corpuscular Hgb 30.3 pg (27.0-32.0); Mean Platelet Vol. 11.8 fl (6.2-12.0); Monocyte# 0.67 X10^3/uL; Monocyte% 6.5 % (0-10); NRBC Flagged by Analyzer 0.3 % (0-5); Neutrophil # 7.85 X10^3/uL (2.7-7.7); Neutrophil % 75.9 % (47-70); POSITIVE MORPHOLOGY YES; Platelet Count 215 K/mm3 (150-450); RBC Distribution Width CV 20.4 % (11.6-14.6); RBC Distribution Width SD 67.2 fl (35.1-43.9); White Blood Count 10.3 K/mm3 (4.4-11.0)
[2024-05-19] MEDS: Ipratropium/Albuterol Sulfate 3 ML AMPUL.NEB INHALATION ×3 (06:40→18:57)
[2024-05-19 06:48] LABS: Bedside Glucose 150 mg/dL (74-106)
[2024-05-19 07:04] LABS: Differential Indicated SCAN CRITERIA MET
[2024-05-19 07:16] LABS: Anion Gap 15 (5-15); BUN 113 mg/dL (7-18); BUN/Creat Ratio 25.2 RATIO (10-20); Chloride 100 mmol/L (98-107); Creatinine, Serum 4.48 mg/dL (0.70-1.30); EST Glomerular Filtration Rate 14 mL/min (>60); Est Glom Filt Rate - Afr Amer 17 mL/min (>60); Estimated Creatinine Clearance 10.44 ml/min; Glucose 156 mg/dL (74-106); Sodium Level 136 mmol/L (136-145)
[2024-05-19 08:26] LABS: Anisocytosis 2+
--- NOTE | 2024-05-19 09:18 | CASEMGMT ---
Addendum entered by Shirin Bright 05/19/24 13:00: CARLOS spoke with Montse. CARLOS let Montse know as long as patient does not need O2 and patient is able to get in and out of the car it should be okay for her to transport. CARLOS said it can be assessed when he is ready for discharge. Montse thanked CARLOS. Shirin PANTOJA Original Note: CARLOS received a voice mail from patient's sister Montse. Montse confirmed the plan is for patient to return to [place]. Montse also said she would like to transport patient back to [place] when ready. Plan: d/c back to [place] when medically ready. Shirin PANTOJA
[2024-05-19] MEDS: Doxycycline 100 MG CAPSULE PO ×2 (10:26→21:11)
[2024-05-19] MEDS: guaiFENesin 600 MG Tablet PO ×2 (10:27→21:11)
[2024-05-19] MEDS: Metoprolol(XL)Succ 25 MG Tablet PO (10:27)
[2024-05-19] MEDS: Heparin Injection (Vial) 5,000 UNIT/ML VIAL 5000 UNIT SC ×2 (10:27→21:11)
[2024-05-19] MEDS: Pantoprazole Sodium 40 MG Tablet PO (10:27)
[2024-05-19] MEDS: Isosorbide Mononitrate 30 MG Tablet 15 MG PO (10:27)
--- NOTE | 2024-05-19 10:43 | PN_ITS ---
Subjective Subjective Patient seen and examined. He had no complaints and was resting calmly in bed. He had an uneventful night. Review of systems otherwise negative. Cr has trended upwards to 4.48 today. Objective Data Objective Data Vital Signs: Vital Signs Temp Pulse Resp BP Pulse Ox O2 Del Method O2 Flow Rate 97.8 F 81 24 H 141/95 H 100 Nasal Cannula 2 05/19/24 08:11 05/19/24 10:27 05/19/24 08:11 05/19/24 08:11 05/19/24 08:55 05/19/24 08:55 05/19/24 08:55 Oxygen Flow Rate (L/min) 2 Oxygen Delivery Method Nasal Cannula Weight: 112 lb 6.972 oz Body Mass Index (BMI) 16.6 Intake & Output: Intake and Output for Last 24 Hours 05/17/24 05/18/24 05/19/24 23:59 23:59 23:59 Intake Total 687.5 / 687.5 1400 / 1400 Output Total 375 / 375 2049 / 2049 275 / 275 Balance 312.5 / 312.5 -650 / -650 -275 / -275 Medical Nutrition Assessment Dietitian: Malnutrition Criteria Met Start: 05/17/24 13:57 Freq: Status: Active Protocol: Document 05/17/24 13:57 SLA (Rec: 05/17/24 13:58 SLA [email or web address]) Nutrition Malnutrition Evidence of Malnutrition Exists Yes Malnutrition (severe): Chronic Evidenced By Suboptimal Energy Intake ( Severe),Weight Loss (Severe), Physical Changes (Severe) Clinical Problem Chronic Disease or Condition Related Malnutrition Etiology related to chronic dz and inability to consume adequate nutrition Signs/Symptoms as evidenced by 23.4% unintended wt loss and po intake meeting <75% of estimated nutrition needs. Pt with obvious fat/muscle 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 BMI = 16.4 Status Active Problem Recommendation Dietitian Recommendations/Changes Will change diet to liberal regular d/t signs and symptoms of malnutrition. Will order 4 oz ensure plus high protein 4x/day w/ medpass . Rec consider appetite stimulant to help encourage increased po intake. May wish to consider alternate nutrition support if continued poor po intake/wt loss if in accordance w/ patient/family wishes to help prevent further decline in pt nutritional status. Lab / Micro Data 05/19/24 05:45 05/19/24 05:45 Labs: Laboratory Results - last 24 hr 05/18/24 11:04: POC Glucose 152 H 05/18/24 16:21: POC Glucose 93 05/18/24 22:29: POC Glucose 147 H 05/19/24 05:45: WBC 10.3, RBC 4.00 L, Hgb 12.1 L, Hct 37.6 L, MCV 94.0, MCH 30.3, MCHC 32.2, RDW Std Deviation 67.2 H, RDW Coeff of Stevne 20.4 H, Plt Count 215, MPV 11.8, Immature Gran % (Auto) 1.400 H, Neut % (Auto) 75.9 H, Lymph % (Auto) 15.9 L, [place] % (Auto) 6.5, Eos % (Auto) 0.1, Baso % (Auto) 0.2, Absolute Neuts (auto) 7.9 H, Absolute Lymphs (auto) 1.64, Nucleated RBC % 0.3, Anisocytosis 2+, Sodium 136, Potassium 4.0, Chloride 100, Carbon Dioxide 21.0, Anion Gap 15, BUN 113 H*, Creatinine 4.48 H, Estim Creat Clear Calc 10.44, Est GFR (MDRD) Af Amer 17 L, Est GFR (MDRD) Non-Af 14 L, BUN/Creatinine Ratio 25.2 H , Glucose 156 H, Calcium 9.0 05/19/24 06:21: POC Glucose 150 H Micro: Microbiology 05/17/24 10:00 Urine Catheter - Catheter Legionella Antigen - Final 05/17/24 10:00 Urine Catheter - Catheter Streptococcus pneumoniae Antigen (M - Final Physical Exam Const alert and oriented x3 Constitutional Narrative: frail and weak, looks cachectic General Appearance: cooperative Orientation / Consciousness: confused HEENT normocephalic and head/scalp atraumatic Eyes PERRL, EOMs intact bilaterally and conjunctivae normal Neck no lymphadenopathy, supple and no JVD Resp Resp Narrative: Diminished breath sounds bibasilarly. No wheezes or crackles. On 2 L of oxygen by nasal cannula. Effort and Inspection: tachypneic Cardio regular rate, regular rhythm, S1 normal heart sound, S2 normal heart sound, no murmurs and no rub GI normal to inspection, nondistended, normoactive bowel sounds, soft to palpation and non-tender Extremity normal to inspection, full ROM and no clubbing, cyanosis or edema Neuro oriented x3, CN's II-XII intact bilaterally, moves all extremities and no focal motor deficits Sensorium / Orientation: awake and alert Motor Exam: strength 5/5 throughout Psych affect normal Mood & Affect: flat affect Assessment & Plan Assessment/Plan (1) Pneumonia: (2) Dehydration: (3) Weakness: (4) Acute renal failure: (5) Respiratory insufficiency: PLAN: Plan #MICHELLE on CKD IIIb * Creatinine has trended upward slightly from 4.35 yesterday to 4.48 today. BUN is even higher today at 113. * However per discussion with nephrology was able to pull up patient's chart at [facility], at time patient was discharged from [facility] on Thursday, his baseline was between 3.5-4. * Nephrology on board. * Bocanegra catheter in situ. * await nephro rec's in light of worsening Cr. * #Hypoxia with respiratory alkalosis * May be due to pneumonia and heart failure. Chest x-ray showed diffuse airspace disease in the right hemithorax with blunting of both costophrenic angles and infiltrate in the posterior medial segment of the left lower lobe as well as focal infiltrate in the left upper lobe. * Per Records reviewed by nephrology at [facility], patient was treated for pneumonia over there on antibiotics. He had bronchoscopy x 2 and the culture results from the [facility] seem to have just come back with growth of a yeastlike organism. There was also growth of Coxiella species. * Infectious disease on board. Per ID, patient had been on doxycycline at [facility] so patient continued on doxycycline, to complete a one week course here. * Currently down to 2 L of oxygen. * Breathing treatments bronchodilators. Titrate oxygen to maintain saturation above 90%. * #History of heart failure with reduced action fraction * 2D echo done at [facility] showed EF of 31%. Patient currently on 4 L of oxygen was not previously on oxygen. * Will give a dose of IV Lasix though is not clear he is in exacerbation. Will check BNP though the results may be skewed in light of the elevated creatinine. * Monitor intake and output. * BNP elevated at >2000, though in the setting of MICHELLE on CKD IIIB, the BNP results may not be very accurate. * currently on 2L of oxygen. * in negative fluid balance by 612.5mls * #History of lung mass: stable #Hypertension: On hydralazine and Imdur as well as metoprolol #Severe protein calorie malnutrition: BMI 16.4 and patient looks cachectic. Nutrition consulted. #GERD prophylaxis: Heparin CODE STATUS: DNR CCA no intubation * Charges/Coding Visit Charges Inpatient E&M: 99722 Subs Hosp L2
[2024-05-19 11:33] LABS: Bedside Glucose 172 mg/dL (74-106)
--- NOTE | 2024-05-19 15:08 | PCM.PN.REN ---
Subjective Subjective received a dose of lasix yesterday breathing is actually better BUN higher Objective Data Objective Data Vital Signs: Vital Signs Temp Pulse Resp BP Pulse Ox O2 Del Method O2 Flow Rate 97.1 F L 84 16 143/96 H 95 Room Air 2 05/19/24 14:13 05/19/24 14:18 05/19/24 14:13 05/19/24 14:13 05/19/24 14:13 05/19/24 14:13 05/19/24 08:55 Oxygen Flow Rate (L/min) 2 Oxygen Delivery Method Room Air Weight: 51 kg Body Mass Index (BMI) 16.6 Intake & Output: Intake and Output for Last 24 Hours 05/17/24 05/18/24 05/19/24 23:59 23:59 23:59 Intake Total 687.5 / 687.5 1400 / 1400 Output Total 375 / 375 2049 / 2049 525 / 525 Balance 312.5 / 312.5 -650 / -650 -525 / -525 Medical Nutrition Assessment Dietitian: Malnutrition Criteria Met Start: 05/17/24 13:57 Freq: Status: Active Protocol: Document 05/17/24 13:57 SLA (Rec: 05/17/24 13:58 SLA [email or web address]) Nutrition Malnutrition Evidence of Malnutrition Exists Yes Malnutrition (severe): Chronic Evidenced By Suboptimal Energy Intake ( Severe),Weight Loss (Severe), Physical Changes (Severe) Clinical Problem Chronic Disease or Condition Related Malnutrition Etiology related to chronic dz and inability to consume adequate nutrition Signs/Symptoms as evidenced by 23.4% unintended wt loss and po intake meeting <75% of estimated nutrition needs. Pt with obvious fat/muscle 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 BMI = 16.4 Status Active Problem Recommendation Dietitian Recommendations/Changes Will change diet to liberal regular d/t signs and symptoms of malnutrition. Will order 4 oz ensure plus high protein 4x/day w/ medpass . Rec consider appetite stimulant to help encourage increased po intake. May wish to consider alternate nutrition support if continued poor po intake/wt loss if in accordance w/ patient/family wishes to help prevent further decline in pt nutritional status. Lab / Micro Data 05/19/24 05:45 05/19/24 05:45 Labs: Laboratory Results - last 24 hr 05/18/24 16:21: POC Glucose 93 05/18/24 22:29: POC Glucose 147 H 05/19/24 05:45: WBC 10.3, RBC 4.00 L, Hgb 12.1 L, Hct 37.6 L, MCV 94.0, MCH 30.3, MCHC 32.2, RDW Std Deviation 67.2 H, RDW Coeff of Steven 20.4 H, Plt Count 215, MPV 11.8, Immature Gran % (Auto) 1.400 H, Neut % (Auto) 75.9 H, Lymph % (Auto) 15.9 L, Travis % (Auto) 6.5, Eos % (Auto) 0.1, Baso % (Auto) 0.2, Absolute Neuts (auto) 7.9 H, Absolute Lymphs (auto) 1.64, Nucleated RBC % 0.3, Anisocytosis 2+, Sodium 136, Potassium 4.0, Chloride 100, Carbon Dioxide 21.0, Anion Gap 15, BUN 113 H*, Creatinine 4.48 H, Estim Creat Clear Calc 10.44, Est GFR (MDRD) Af Amer 17 L, Est GFR (MDRD) Non-Af 14 L, BUN/Creatinine Ratio 25.2 H, Glucose 156 H, Calcium 9.0 05/19/24 06:21: POC Glucose 150 H 05/19/24 11:16: POC Glucose 172 H Micro: Microbiology 05/17/24 10:00 Urine Catheter - Catheter Legionella Antigen - Final 05/17/24 10:00 Urine Catheter - Catheter Streptococcus pneumoniae Antigen (M - Final Physical Exam Narrative Alert awake oriented x 3 resp distress no pallor no icterus no JVD s1s2 no murmurs lungs coarse BS abdomen soft no organomegaly no edema no cyanosis ramos + Assessment & Plan Assessment/Plan (1) Acute renal failure: PLAN: CKD stage IIIb. Baseline creatinine around 1.6 or so. Reviewed records from [facility]. He was treated for pneumonia, CHF. Echocardiogram with low ejection fraction of 30%. BNP was as high as 55,000. He has received IV Lasix, this was held at the end of the hospitalization due to MICHELLE. Discharge creatinine around 3.4. Urine analysis at [facility] did not show any significant hematuria. Urine protein was less than 300 mg. I doubt he has any glomerulonephritis. Currently has a Ramos catheter indwelling, obstruction unlikely. Overnight received lasix. breathing is slightly better. I think dyspnea is a combination of CHF and pneumonia. unfortunately renal function is poor. discussed about temporary dialysis to make breathing better. he is agreeable. consult placed to surgery for catheter placement. emanuel surgery. dw hospitalist
--- NOTE | 2024-05-19 16:05 | EX.PCM.CON.S ---
Assessment & Plan Assessment/Plan (1) Acute on chronic renal insufficiency: PLAN: Patient is a 73-year-old male admitted for ongoing management of bilateral pneumonia as well as evidence of acute on chronic kidney injury. According to nephrology, patient requires initiation of dialysis in the next couple of days. They are hopeful for spontaneous recovery of his kidney function and Mr. Barnhart, for his part, denies an awareness of kidney difficulties chronically?speaking. His last creatinine in our system before this visit was approximately 1.5 during a admission for treatment of pneumonia as well. It is further nephrology suspicion, however, that patient will not see this recovery in the span of his admission and will likely require outpatient dialysis. Thus I held a lengthy conversation with both patient and his sister (who was initially present only via telephone but then arrived later to the hospital for an?person encounter) regarding the goals of dialysis to improve the filtration of Mr. Barnhart's blood as well as to avoid volume overload. I discussed the access options to include temporary lines, tunneled lines, fistula, and even evaluation for kidney transplant if patient is found to require dialysis indefinitely. Numerous questions were addressed from patient and his sister and were answered to their satisfaction?somewhat so that patient's sister repeatedly thanked us for time. In addition to this introduction I shared with patient that I recommended placing a catheter opposite the prospective extremity for the fistula and given his left hand dominance recommended placement of a left-sided catheter. Procedure risks including bleeding, infection, and possible pneumothorax were addressed. Patient confirms that he is interested in proceeding as described and confesses that he would like to at least see how dialysis goes at first and if he is able to achieve spontaneous recovery of his renal function. Given the above we have requested patient to be held n.p.o. past midnight and OR this tentatively scheduled for noon on 05/20/2024. Primary team is also been notified. Abhay Quiroz MD General Surgery Endocrine Surgery Pager: [facility] [address] [place] [address], [address] [place] [address] Office: [phone] HPI Consult Data Date of Consult: 05/19/24 HPI Narrative Reason for Consultation: MICHELLE on CKD requiring access for initiation of hemodialysis HPI Narrative: DIANE BARNHART, is a 73 M who presented to [facility] on 05/17/2024 with progressive shortness of breath and respiratory complaints as well as laboratory evidence of acute kidney injury on a history of chronic kidney disease. Patient is notably recently discharged from [facility] where he was treated for bilateral pneumonia. He confirms during that hospital stay he was followed by nephrology, but never approached about dialysis. In fact, he denies any awareness of a problem with his kidneys apart from the past month. He was seen in February of this year at our facility for a pneumonia as well and at that time had a creatinine of 1.5. Today Mr. Barnhart states that he feels somewhat worse than yesterday with increased shortness of breath. He denies any difficulty with problem-solving or concentrating. Mr. Barnhart denies any history of central line placement. He denies any history of cutaneous infections. Lastly he reports that he is left-hand dominant. [facility] Medical History Kidney disease COPD (chronic obstructive pulmonary disease) Former smoker Pneumonia CKD (chronic kidney disease) CKD (chronic kidney disease) HTN (hypertension) HLD (hyperlipidemia) Home Medications ?Medication ?Instructions ?Recorded ?Last Taken ?Type albuterol sulfate 90 mcg/actuation 2 puff inhalation Q4H PRN PRN 05/17/24 Unknown History aerosol inhaler wheezing guaifenesin 600 mg tablet, 600 mg PO BID 05/17/24 Unknown History extended release 12 hr (Mucus Relief ER) hydralazine 25 mg tablet 25 mg PO TID 05/17/24 Unknown History insulin glargine-yfgn 100 unit/mL 5 unit subcut QPM 05/17/24 Unknown History (3 mL) subcutaneous pen isosorbide mononitrate 30 mg 15 mg PO DAILY 05/17/24 Unknown History tablet,extended release 24 hr metoprolol succinate 25 mg 25 mg PO DAILY 05/17/24 Unknown History tablet,extended release 24 hr (Toprol XL) pantoprazole 40 mg tablet,delayed 40 mg PO DAILY 05/17/24 Unknown History release Allergy/AdvReac Type Severity Reaction Status Date / Time No Known Allergies Allergy Verified 05/17/24 08:38 Social History household members: none Smoking Status: Former smoker substance use type: does not use Physical Exam Const alert, oriented x3 and no apparent distress Neck Neck Narrative: No scars or cutaneous eruptions Chest Chest Narrative: No scars or cutaneous eruptions Resp Resp Narrative: Mildly tachypneic Medical Records Data Medical Nutrition Assessment Dietitian: Malnutrition Criteria Met Start: 05/17/24 13:57 Freq: Status: Active Protocol: Document 05/17/24 13:57 SLA (Rec: 05/17/24 13:58 SLA [id number]) Nutrition Malnutrition Evidence of Malnutrition Exists Yes Malnutrition (severe): Chronic Evidenced By Suboptimal Energy Intake ( Severe),Weight Loss (Severe), Physical Changes (Severe) Clinical Problem Chronic Disease or Condition Related Malnutrition Etiology related to chronic dz and inability to consume adequate nutrition Signs/Symptoms as evidenced by 23.4% unintended wt loss and po intake meeting <75% of estimated nutrition needs. Pt with obvious fat/muscle 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 BMI = 16.4 Status Active Problem Recommendation Dietitian Recommendations/Changes Will change diet to liberal regular d/t signs and symptoms of malnutrition. Will order 4 oz ensure plus high protein 4x/day w/ medpass . Rec consider appetite stimulant to help encourage increased po intake. May wish to consider alternate nutrition support if continued poor po intake/wt loss if in accordance w/ patient/family wishes to help prevent further decline in pt nutritional status. Lab / Micro Data 05/19/24 05:45 05/19/24 05:45 Labs: Laboratory Results - last 24 hr 05/18/24 16:21: POC Glucose 93 05/18/24 22:29: POC Glucose 147 H 05/19/24 05:45: WBC 10.3, RBC 4.00 L, Hgb 12.1 L, Hct 37.6 L, MCV 94.0, MCH 30.3, MCHC 32.2, RDW Std Deviation 67.2 H, RDW Coeff of Steven 20.4 H, Plt Count 215, MPV 11.8, Immature Gran % (Auto) 1.400 H, Neut % (Auto) 75.9 H, Lymph % (Auto) 15.9 L, [place] % (Auto) 6.5, Eos % (Auto) 0.1, Baso % (Auto) 0.2, Absolute Neuts (auto) 7.9 H, Absolute Lymphs (auto) 1.64, Nucleated RBC % 0.3, Anisocytosis 2+, Sodium 136, Potassium 4.0, Chloride 100, Carbon Dioxide 21.0, Anion Gap 15, BUN 113 H*, Creatinine 4.48 H, Estim Creat Clear Calc 10.44, Est GFR (MDRD) Af Amer 17 L, Est GFR (MDRD) Non-Af 14 L, BUN/Creatinine Ratio 25.2 H, Glucose 156 H, Calcium 9.0 05/19/24 06:21: POC Glucose 150 H 05/19/24 11:16: POC Glucose 172 H Micro: Microbiology 05/17/24 10:00 Urine Catheter - Catheter Legionella Antigen - Final 05/17/24 10:00 Urine Catheter - Catheter Streptococcus pneumoniae Antigen (M - Final Charges/Coding Visit Charges Inpatient E&M: 52872 Init Hosp L2
[2024-05-19] MEDS: 0.9% Saline Lock 10 ML Syringe IV (21:16)
[2024-05-19 23:00] LABS: Bedside Glucose 127 mg/dL (74-106)
[2024-05-20] VITALS (25 sets, daily range): BP systolic 116–166; BP diastolic 71–104; PULSE 71–97; RESP 14–20; TEMP 36.2–36.7; O2SAT 88–99; BMI 16.9; BMI 16.6
[2024-05-20 05:08] LABS: Absolute Lymphocyte Count 1.46 X10^3/uL (0.83-4.51); Absolute Neutrophil Count 7.4 X10^3/uL (2.0-7.7); Basophil# 0.03 X10^3/uL; Basophil% 0.3 % (0-1); Eosinophil# 0.03 X10^3/uL; Eosinophils% 0.3 % (0-5); Hematocrit 36.3 % (40-54); Hemoglobin 11.3 g/dL (13.0-16.5); Lymphocyte # 1.46 X10^3/ul (0.83-4.51); Lymphocyte % 15.1 % (19-41); Mean Corp Hgb Conc 31.1 g/dL (32-36); Mean Corpuscular Hgb 29.5 pg (27.0-32.0); Mean Corpuscular Volume 94.8 fL (80-94); Mean Platelet Vol. 11.7 fl (6.2-12.0); Monocyte# 0.68 X10^3/uL; NRBC Flagged by Analyzer 0.3 % (0-5); Neutrophil # 7.36 X10^3/uL (2.7-7.7); Neutrophil % 76.2 % (47-70); POSITIVE MORPHOLOGY YES; Platelet Count 210 K/mm3 (150-450); RBC Distribution Width CV 20.2 % (11.6-14.6); RBC Distribution Width SD 68.8 fl (35.1-43.9); Red Blood Count 3.83 M/mm3 (4.6-6.2); White Blood Count 9.7 K/mm3 (4.4-11.0)
[2024-05-20 05:17] LABS: Partial Thromboplast Time 39.2 Seconds (24.1-36.2)
[2024-05-20 05:31] LABS: Differential Indicated SCAN CRITERIA MET
--- NOTE | 2024-05-20 05:55 | EKG12_ITS ---
Test Reason : AM EKG Blood Pressure : / mmHG Vent. Rate : 080 BPM Atrial Rate : 080 BPM P-R Int : 154 ms QRS Dur : 080 ms QT Int : 416 ms P-R-T Axes : 046 -14 137 degrees QTc Int : 479 ms Normal sinus rhythm Nonspecific T wave abnormality Prolonged QT Abnormal ECG No previous ECGs available Confirmed by CHRISTAL MIDDLETON, RIAZ ([id number]), industrial editor YASMANI HILTON ([id number]) on 05/20/2024 11:33:12 AM Referred By: NESHA Confirmed By:RIAZ SIEGEL MD
[2024-05-20 05:59] LABS: Anion Gap 11 (5-15); BUN 107 mg/dL (7-18); BUN/Creat Ratio 25.2 RATIO (10-20); Chloride 101 mmol/L (98-107); Creatinine, Serum 4.25 mg/dL (0.70-1.30); EST Glomerular Filtration Rate 15 mL/min (>60); Est Glom Filt Rate - Afr Amer 18 mL/min (>60); Estimated Creatinine Clearance 11.22 ml/min; Glucose 110 mg/dL (74-106); Potassium 3.9 mmol/L (3.5-5.1); Sodium Level 137 mmol/L (136-145)
[2024-05-20] MEDS: hydrALAZINE 25 MG Tablet PO ×3 (06:45→21:16)
[2024-05-20 07:11] LABS: Bedside Glucose 98 mg/dL (74-106)
[2024-05-20] MEDS: Ipratropium/Albuterol Sulfate 3 ML AMPUL.NEB INHALATION ×2 (07:26→19:10)
[2024-05-20 08:12] LABS: Hemoglobin A1c 5.3 % (3.8-5.6)
--- NOTE | 2024-05-20 08:57 | CASEMGMT ---
CARLOS sent updates to Delano via [employer]. CARLOS also let Delano know patient is getting a temporary dialysis catheter placed today. Shirin Bright [employer]
--- NOTE | 2024-05-20 09:18 | PN_ITS ---
Subjective Subjective Patient seen and examined. He had no complaints and had an uneventful night. Review of systems is otherwise negative. He is for insertion of temporary dialysis catheter today and commencement of dialysis afterwards. He has remained hemodynamically stable. Objective Data Objective Data Vital Signs: Vital Signs Temp Pulse Resp BP Pulse Ox O2 Del Method O2 Flow Rate 97.1 F L 78 16 148/93 H 93 Room Air 2 05/20/24 06:37 05/20/24 06:45 05/20/24 06:37 05/20/24 06:45 05/20/24 06:37 05/20/24 07:55 05/19/24 08:55 Oxygen Flow Rate (L/min) 2 Oxygen Delivery Method Room Air Weight: 114 lb 10.246 oz Body Mass Index (BMI) 16.9 Intake & Output: Intake and Output for Last 24 Hours 05/18/24 05/19/24 05/20/24 23:59 23:59 23:59 Intake Total 1400 / 1400 Output Total 2049 / 2049 800 / 800 300 / 300 Balance -650 / -650 -800 / -800 -300 / -300 Medical Nutrition Assessment Dietitian: Malnutrition Criteria Met Start: 05/17/24 13:57 Freq: Status: Active Protocol: Document 05/17/24 13:57 SLA (Rec: 05/17/24 13:58 SLA [email or web address]) Nutrition Malnutrition Evidence of Malnutrition Exists Yes Malnutrition (severe): Chronic Evidenced By Suboptimal Energy Intake ( Severe),Weight Loss (Severe), Physical Changes (Severe) Clinical Problem Chronic Disease or Condition Related Malnutrition Etiology related to chronic dz and inability to consume adequate nutrition Signs/Symptoms as evidenced by 23.4% unintended wt loss and po intake meeting <75% of estimated nutrition needs. Pt with obvious fat/muscle 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 BMI = 16.4 Status Active Problem Recommendation Dietitian Recommendations/Changes Will change diet to liberal regular d/t signs and symptoms of malnutrition. Will order 4 oz ensure plus high protein 4x/day w/ medpass . Rec consider appetite stimulant to help encourage increased po intake. May wish to consider alternate nutrition support if continued poor po intake/wt loss if in accordance w/ patient/family wishes to help prevent further decline in pt nutritional status. Lab / Micro Data 05/20/24 04:00 05/20/24 04:00 Labs: Laboratory Results - last 24 hr 05/19/24 11:16: POC Glucose 172 H 05/19/24 21:07: POC Glucose 127 H 05/20/24 04:00: WBC 9.7, RBC 3.83 L, Hgb 11.3 L, Hct 36.3 L, MCV 94.8 H, MCH 29.5, MCHC 31.1 L, RDW Std Deviation 68.8 H, RDW Coeff of Steven 20.2 H, Plt Count 210, MPV 11.7, Immature Gran % (Auto) 1.100 H, Neut % (Auto) 76.2 H, Lymph % (Auto) 15.1 L, [place] % (Auto) 7.0, Eos % (Auto) 0.3, Baso % (Auto) 0.3, Absolute Neuts (auto) 7.4, Absolute Lymphs (auto) 1.46, Nucleated RBC % 0.3, APTT 39.2 H, Sodium 137, Potassium 3.9, Chloride 101, Carbon Dioxide 25.0, Anion Gap 11, BUN 107 H*, Creatinine 4.25 H, Estim Creat Clear Calc 11.22, Est GFR (MDRD) Af Amer 18 L, Est GFR (MDRD) Non-Af 15 L, BUN/Creatinine Ratio 25.2 H, Glucose 110 H, Hemoglobin A1c 5.3, Calcium 9.0 05/20/24 06:43: POC Glucose 98 Micro: Microbiology 05/17/24 10:43 Blood Culture (Wb) - Right Hand Blood Culture - Preliminary No growth in 48 hours. 05/17/24 10:00 Urine Catheter - Catheter Legionella Antigen - Final 05/17/24 10:00 Urine Catheter - Catheter Streptococcus pneumoniae Antigen (M - Final Physical Exam Const alert and oriented x3 Constitutional Narrative: frail and weak, looks cachectic General Appearance: cooperative Orientation / Consciousness: confused HEENT normocephalic and head/scalp atraumatic Eyes PERRL, EOMs intact bilaterally and conjunctivae normal Neck no lymphadenopathy, supple and no JVD Resp Resp Narrative: Diminished breath sounds bibasilarly. No wheezes or crackles. On 2 L of oxygen by nasal cannula. Effort and Inspection: tachypneic Cardio regular rate, regular rhythm, S1 normal heart sound, S2 normal heart sound and no murmurs GI normal to inspection, nondistended, normoactive bowel sounds, soft to palpation and non-tender Extremity normal to inspection, full ROM, normal capillary refill and no clubbing, cyanosis or edema General Extremity: no tenderness to palpation of joints or extremities Neuro oriented x3, CN's II-XII intact bilaterally, moves all extremities and no focal motor deficits Sensorium / Orientation: awake and alert Motor Exam: strength 5/5 throughout Psych thought process normal, cooperative and affect normal Mood & Affect: flat affect Assessment & Plan Assessment/Plan (1) Pneumonia: (2) Dehydration: (3) Weakness: (4) Acute renal failure: (5) Respiratory insufficiency: PLAN: Plan #MICHELLE on CKD IIIb * Creatinine has trended upward slightly from 4.35 yesterday to 4.48 today. BUN is even higher today at 113. * However per discussion with nephrology was able to pull up [facility], at time patient was discharged from [facility] on Thursday, his baseline was between 3.5-4. * Nephrology on board. * Bocanegra catheter in situ. * to have temporary dialysis catheter inserted today, and for commencement of dialysis afterwards. * renal USG showed bilateral renal cystic nodules and possible reight renal calculus * #Hypoxia with respiratory alkalosis * May be due to pneumonia and heart failure. Chest x-ray showed diffuse airspace disease in the right hemithorax with blunting of both costophrenic angles and infiltrate in the posterior medial segment of the left lower lobe as well as focal infiltrate in the left upper lobe. * Per Records reviewed by nephrology at [facility], patient was treated for pneumonia over there on antibiotics. He had bronchoscopy x 2 and the culture results from the [facility] seem to have just come back with growth of a yeastlike organism. There was also growth of Coxiella species. * Infectious disease on board. Per ID, patient had been on doxycycline at [facility] so patient continued on doxycycline, to complete a one week course here. * now on room air. * Breathing treatments bronchodilators. Titrate oxygen to maintain saturation above 90%. * #History of heart failure with reduced action fraction * 2D echo done at [facility] showed EF of 31%. Patient currently on 4 L of oxygen was not previously on oxygen. * Will give a dose of IV Lasix though is not clear he is in exacerbation. Will check BNP though the results may be skewed in light of the elevated creatinine. * Monitor intake and output. * BNP elevated at >2000, though in the setting of MICHELLE on CKD IIIB, the BNP results may not be very accurate. * now on room air. * in negative fluid balance by 1.437L * #History of lung mass: stable #Hypertension: On hydralazine and Imdur as well as metoprolol #Severe protein calorie malnutrition: BMI 16.4 and patient looks cachectic. Nutrition on board. #GERD prophylaxis: Heparin CODE STATUS: DNR CCA no intubation * Charges/Coding Visit Charges Inpatient E&M: 37304 Subs Hosp L2
--- NOTE | 2024-05-20 11:07 | PCM.PRE.AN2 ---
ASA Classification* ASA Classification ASA Classification: 3 Assessment & Plan Anesthesia* Anesthesia Assessment Anesthesia Assessment: Discussed sedation and/or anesthesia options, risks, benefits, and alternatives with patient/parents/legal guardian/POA. Questions invited. The patient/parents/legal guardian/POA seems to understand and agrees to proceed with anesthesia plan. Reviewed the physical assessment, medical history, allergy history and patient home medications list prior to surgery/procedure/anesthetic and documented any changes. Performed airway and anesthesia risk assessments. Anesthesia Type Anesthesia Type: MAC Anesthesia Focused Assessment* Temperature: 97.2 F Pulse Rate: 83 Blood Pressure: 152/93 Respiratory Rate: 14 Pulse Ox: 94 Airway Assessment Mouth opens: >3 cm Mallampati Score: II Focused Labs Anesthesia Preop lab: CBC WBC 9.7 K/mm3 (4.4-11.0) 05/20/24 04:00 RBC 3.83 M/mm3 (4.6-6.2) L 05/20/24 04:00 Hgb 11.3 g/dL (13.0-16.5) L 05/20/24 04:00 Hct 36.3 % (40-54) L 05/20/24 04:00 Plt Count 210 K/mm3 (150-450) 05/20/24 04:00 CHEMISTRY Potassium 3.9 mmol/L (3.5-5.1) 05/20/24 04:00 Sodium 137 mmol/L (136-145) 05/20/24 04:00 Magnesium 2.0 mg/dL (1.6-2.6) 03/11/24 06:32 Phosphorus 3.0 mg/dL (2.5-4.9) 03/11/24 06:32 BUN 107 mg/dL (7-18) H* 05/20/24 04:00 Creatinine 4.25 mg/dL (0.70-1.30) H 05/20/24 04:00 Glucose 110 mg/dL (74-106) H 05/20/24 04:00 POC Glucose 98 mg/dL (74-106) 05/20/24 06:43 TSH 0.34 uIU/mL (0.358-3.74) L 03/11/24 06:32 COAG PT 15.9 SECONDS (11.7-14.9) H 03/12/24 06:00 Pre-Assessment Diagnosis/Proposed Procedure Planned Operative Procedure(s): Insertion Left hemodiaylsis catheter Anesthesia History 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 When Was Last Pacemaker Check QUESTION #4 FULL TEXT: You/Your Family Experience fever (hyperthermia) with Anesthesia Last Oral Intake Last Oral intake: Last Oral Intake NPO since 00:00 05/19/24 23:02 Meds taken in AM with sips of Yes 05/19/24 23:02 water? Meds patient instructed to hydralazine 05/19/24 23:02 take am of surgery PONV PONV - bus trolley and taxi instructor: PONV - bus trolley and taxi instructor Female HX of Motion Sickness HX of N/V After Surgery Non-Smoker Duration of Surgery greater than 60 minutes Number of Risk Factors PONV Score Height & Weight Height & Weight: Anesthesia: Height & Weight Height 5 ft 9 in 05/19/24 23:02 Weight: 52 kg 05/20/24 04:17 Body Mass Index (BMI) 16.9 05/20/24 04:17 Respiratory Assessment Respiratory Assessment - bus trolley and taxi instructor: Respiratory Tract Infection Hx - bus trolley and taxi instructor Hx Respiratory Tract Infection No 05/19/24 21:18 STOP Sleep Apnea STOP Sleep Apnea - bus trolley and taxi instructor: STOP Sleep Apnea - bus trolley and taxi instructor Hx Hypertension Yes 05/19/24 14:59 Hx Sleep Apnea No 05/17/24 11:47 CPAP BIPAP Do you snore loudly (louder No 05/17/24 11:47 than talking or can be heard Do you often feel tired/ No 05/17/24 11:47 fatigued/ sleepy during daytime? Has anyone observed you stop No 05/17/24 11:47 breathing during sleep? STOP Results Negative 05/17/24 11:47 QUESTION #5 FULL TEXT : Do you snore loudly (louder than talking or can be heard through closed doors)? 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 Specify any problems Hx of Preganancy in last 3 N/A 05/17/24 11:47 Months Nurse Filling Out Transfusion [id number] 05/17/24 11:47 & Questions: Date: 05/17/24 05/17/24 11:47 Time: 11:57 05/17/24 11:47 Patient unable to answer at this time (ie. confused, unrespo /Reproduction History /Reproductive History - bus trolley and taxi instructor: /Reproductive Hx- bus trolley and taxi instructor Hx Now Gestational Age (in weeks): EDC: Hx Hx Para Hx Section SAB No 03/12/24 00:00 Active Medications Active Medications: Current Medications Generic Name Dose Route Start Last Admin Trade Name Freq PRN Reason Stop Dose Admin Acetaminophen 650 mg 05/17/24 11:46 Acetaminophen 325 Mg Tablet PO Q6H PRN PRN Pain 1-10 Or Fever >100.7 Albuterol/Ipratropium 3 ml 05/17/24 11:46 05/20/24 07:26 Ipratropium/Albuterol Sulfate 3 Ml Ampul.Neb INHALATION 3 ml Q6HWA.RT JOSÉ MANUEL Administration Doxycycline Monohydrate 100 mg 05/17/24 13:10 05/19/24 21:11 Doxycycline 100 Mg Capsule PO 100 mg BID JOSÉ MANUEL Administration Glucagon 1 mg 05/17/24 11:46 Glucagon 1 Mg/Ml Syringe IM X1 PRN HYPOGLYCEMIA Protocol Guaifenesin 600 mg 05/17/24 22:00 05/19/24 21:11 Guaifenesin 600 Mg Tablet PO 600 mg BID [facility] Administration Heparin Sodium (Porcine) 5,000 unit 05/17/24 22:00 05/20/24 10:24 Heparin Injection (Vial) 5,000 Unit/Ml Vial SC Not Given Q12 [facility] Hydralazine HCl 25 mg 05/17/24 14:00 05/20/24 06:45 Hydralazine 25 Mg Tablet PO 25 mg TID [facility] Administration Protocol Dextrose 250 mls @ 0 mls/hr 05/17/24 11:46 Dextrose 10%-Water IV .Q0M PRN HYPOGLYCEMIA Protocol As Directed Sodium Chloride 250 mls @ 15 mls/hr 05/17/24 11:48 IV .[id number] PRN Additional IVPB Infusion Sodium Chloride 250 mls @ 15 mls/hr 05/17/24 11:48 IV .[id number] PRN Saline Flush Cefazolin Sodium 2 gm/ Sodium 110 mls @ 150 mls/hr 05/20/24 12:00 Chloride IV 05/20/24 12:43 PREOP ONE Insulin Glargine 5 unit 05/17/24 22:00 05/19/24 21:12 Insulin Glargine-Yfgn 100 Unit/Ml Pen SC Not Given QHS [facility] Insulin Human Lispro 0 unit 05/17/24 11:46 05/20/24 06:45 Insulin Lispro 100 Unit/Ml Insuln.Pen SC Not Given ACHS [facility] Protocol Isosorbide Mononitrate 15 mg 05/18/24 10:00 05/19/24 10:27 Isosorbide Mononitrate 30 Mg Tablet PO 15 mg DAILY [facility] Administration Protocol Metoprolol Succinate 25 mg 05/18/24 10:00 05/19/24 10:27 Metoprolol(Xl)Succ 25 Mg Tablet PO 25 mg DAILY [facility] Administration Protocol Morphine Sulfate 2 - 4 mg 05/17/24 11:46 Morphine 2 Mg/Ml Syringe IV Q3H PRN PRN Pain Score 6-10 Nitroglycerin 0.4 mg 05/17/24 11:46 Nitroglycerin (Inpatient Use) 0.4 Mg Tab.Subl SL Q5M PRN CARDIAC/CHEST PAIN Nutritional Formula (Lactose Free) 120 ml 05/17/24 14:00 05/20/24 10:24 Ensure Plus High Protein 120 Ml Liquid PO Not Given 4X/DAY JOSÉ MANUEL Ondansetron HCl 4 mg 05/17/24 11:46 05/17/24 15:54 Ondansetron 4 Mg/2 Ml Vial IV 4 mg Q8H PRN PRN Administration NAUSEA/VOMITING Oxycodone HCl 5 mg 05/17/24 11:46 Oxycodone 5 Mg Tablet PO Q4H PRN PRN Pain Score 4-10 Pantoprazole Sodium 40 mg 05/18/24 10:00 05/19/24 10:27 Pantoprazole Sodium 40 Mg Tablet PO 40 mg DAILY JOSÉ MANUEL Administration Sodium Chloride 10 - 40 ml 05/17/24 11:48 05/19/24 21:16 0.9% Saline Lock 10 Ml Syringe IV 10 ml UD PRN Administration SALINE FLUSH [facility] Medical History Kidney disease COPD (chronic obstructive pulmonary disease) Former smoker Pneumonia CKD (chronic kidney disease) CKD (chronic kidney disease) HTN (hypertension) HLD (hyperlipidemia) Home Medications ?Medication ?Instructions ?Recorded ?Last Taken ?Type albuterol sulfate 90 mcg/actuation 2 puff inhalation Q4H PRN PRN 05/17/24 Unknown History aerosol inhaler wheezing guaifenesin 600 mg tablet, 600 mg PO BID 05/17/24 Unknown History extended release 12 hr (Mucus Relief ER) hydralazine 25 mg tablet 25 mg PO TID 05/17/24 Unknown History insulin glargine-yfgn 100 unit/mL 5 unit subcut QPM 05/17/24 Unknown History (3 mL) subcutaneous pen isosorbide mononitrate 30 mg 15 mg PO DAILY 05/17/24 Unknown History tablet,extended release 24 hr metoprolol succinate 25 mg 25 mg PO DAILY 05/17/24 Unknown History tablet,extended release 24 hr (Toprol XL) pantoprazole 40 mg tablet,delayed 40 mg PO DAILY 05/17/24 Unknown History release Allergy/AdvReac Type Severity Reaction Status Date / Time No Known Allergies Allergy Verified 05/17/24 08:38 Social History household members: none Smoking Status: Former smoker substance use type: does not use Review of Systems (Anesthesia) ROS Narrative System reviewed and no additional complaints, except as documented.
[2024-05-20] MEDS: 0.9% Normal Saline (250mL Bag) 250 ML 15 ML IV (11:27)
[2024-05-20 11:49] LABS: Bedside Glucose 107 mg/dL (74-106)
[2024-05-20] MEDS: Cefazolin 2 GM in 0.9% Normal Saline (100mL Bag) 100 ML IV (12:20)
[2024-05-20] MEDS: Bupivacaine Mpf 0.5% 30 ML VIAL (12:49)
[2024-05-20] MEDS: Heparin 10,000 UNITS/10 ML Vial 10000 UNITS (13:00)
--- NOTE | 2024-05-20 13:09 | PCM.OPRPT ---
Report of Operation Date of Procedure: 05/20/24 Pre-Operative Diagnosis: Acute kidney injury on chronic kidney disease requiring initiation of hemodialysis Post-Operative Diagnosis: Same Surgery/Procedure Performed:: Ultrasound and fluoroscopic guided placement of tunneled right internal jugular hemodialysis catheter Surgeon: Abhay Quiroz Type of Anesthesia: MAC/Supplemental Estimated Blood Loss (mL): 10 Description of Procedure: After appropriate identification in the preoperative holding area the patient was brought to the operating room where they were positioned supine on the operating room table. Preoperative antibiotics were completely administered. Sedation was begun per anesthesia and the patient's right neck was prepped and draped in usual sterile fashion after confirming patency of the right internal jugular vein with bedside ultrasound. Formal timeout was conducted to confirm both the patient and the procedure. Procedure was begun with ultrasound-guided access of the right internal jugular vein using a provided 035 guidewire from the access kit. Fluoroscopy confirmed appropriate position of the wire. At this point I made a measurement from the insertion site to the mid atrium of approximately 15 cm. Desiring some room for the patient's tunneling/cuff placement, elected to proceed with a 19 cm catheter. The 035 guidewire from the catheter kit was placed through the micro access sheath and again fluoroscopy was used to confirm this placement. The insertion site was then enlarged sharply and bluntly. Measuring back from the proximal insertion site on the catheter, we determined that the tunneling site would need to be at least 6 cm away from the insertion site. Therefore this was measured out on the patient's chest and a counterincision was made at this point after instilling local anesthetic. A gentle curve of the tunneling tract to the insertion site was also instilled with local anesthetic. Then the catheter was connected to the tunneling device and was tunneled to the insertion site. I again measured the distance to the atrium and major extra catheter was fed to the insertion site. Next the insertion site was serially dilated and the peel-away sheath was placed under fluoroscopy. The catheter was fed through the peel-away sheath and once we neared completion another fluoroscopy image was obtained. Functionally, the catheter was tested with aspiration and flush of injectable saline which it did with ease. The insertion site was then closed with a single interrupted 2-0 nylon stitch. Another 3-0 nylon stitch was used to close down the insertion site at the tunneling entrance as a means of creating a cerclage. Lastly, the catheter was secured at the tiedown points on each port with a interrupted 2-0 nylon. Now the catheter was locked with 2.0 mL heparinized saline (concentration 1000 units/mL) per package specification. A chlorhexidine gel dressing was fit about the catheter. A small OpSite was applied to the insertion site. Patient was then allowed to emerge from sedation and was taken to PACU in stable condition. A chest x-ray was ordered in PACU for review of the catheter placement and to exclude pneumothorax. Grafts/Implants Used: Palindrome catheter 14.5 Fr X 19 cm, ref [id number], lot [id number] Complications None Procedures Cardiovascular CF Procedures [id number]: [id number] Insert tunneled cv cath
--- NOTE | 2024-05-20 13:12 | RAD_ITS ---
STUDY: X-RAY CHEST REASON FOR EXAM: Male, 73 years old. Status post line placement TECHNIQUE: Single AP portable view of the chest. COMPARISON: Comparison is made with prior study dated May 17, 2024. FINDINGS: A right-sided Vas-Cath has been placed with the tip at the junction of the superior vena cava and right atrium. Stable airspace disease in the right hemithorax with the infiltrate in the left lower lobe. Blunting of both costophrenic angles. There is mild cardiac enlargement. Normal mediastinum and ingris. Normal visualized pulmonary arteries. Normal visualized aortic arch and descending thoracic aorta. Normal visualized thoracic spine. Normal visualized ribs, clavicles, and shoulders. There is no demonstrated abnormality of the visualized soft tissue structures of the upper abdomen. RAD/CXR for Line Placement IMPRESSION: The tip of the right-sided dialysis catheter is at the junction of the superior vena cava and right atrium. The remainder of the examination is unchanged. Electronically Signed: Carroll Kim MD at 13:52 EDT ,
--- NOTE | 2024-05-20 13:20 | PCM.POST.ANE ---
Anesthesia: Postop Eval I Current Vital Signs Temperature: 98 F Pulse Rate: 83 Blood Pressure: 151/97 Respiratory Rate: 20 Pulse Ox: 88 Oxygen Delivery Method: Room Air Assessment Airway patent: Yes Spontaneous unlabored respirations: Yes Mental status: Awake and Calm nausea: No Vomiting: No Anesthesia Complication: No Fluid Hydration Crystalloid volume administer (ml): 300 Total IV fluid infused: 300 Progress Note Anesthesia document: Postop Eval 1 completed: Yes
--- NOTE | 2024-05-20 13:25 | POSTOPAN2_ITS ---
Anesthesia Postop Eval I Sum Postop Eval Completion status Anesthesia document: Postop Eval 1 completed: Yes Anesthesia Postop Eval I Summary Anesthesia Postop Eval I Summary: Anesthesia Postop Eval I: Assessment Summary Airway patent Yes 05/20/24 13:22 [email or web address] Spontaneous unlabored Yes 05/20/24 13:22 [email or web address]/LAUNDRY [email or web address] respirations Mental status Awake,Calm 05/20/24 13:22 [email or web address] [email or web address] nausea No 05/20/24 13:22 [email or web address]/LAUNDRY [email or web address] Vomiting No 05/20/24 13:22 [email or web address]/LAUNDRY [email or web address] Anesthesia Postop Eval I: Fluid Summary Crystalloid volume administer 300 05/20/24 13:22 [email or web address] [email or web address] (ml) Colloids volume administered ( ml) Blood Product volume administered (ml) Total IV fluid infused 300 05/20/24 13:22 [email or web address]/LAUNDRY [email or web address] Anesthesia Postop Eval I: Summary Notes Anesthesia Complication No 05/20/24 13:22 [email or web address] [email or web address] Anesthesia Complication Comment: Post-operative progress note Anesthesia: Postop Eval II Evaluation Mental status: Awake Pain Level: 0 nausea: No Vomiting: No
--- NOTE | 2024-05-20 13:25 | PCM.POSTANE2 ---
Anesthesia Postop Eval I Sum Postop Eval Completion status Anesthesia document: Postop Eval 1 completed: Yes Anesthesia Postop Eval I Summary Anesthesia Postop Eval I Summary: Anesthesia Postop Eval I: Assessment Summary Airway patent Yes 05/20/24 13:22 CERTIFIED VETERINARY [email or web address] Spontaneous unlabored Yes 05/20/24 13:22 CERTIFIED VETERINARY TECHNICIAN.JDEF respirations Mental status Awake,Calm 05/20/24 13:22 CERTIFIED VETERINARY [email or web address] nausea No 05/20/24 13:22 CERTIFIED VETERINARY TECHNICIAN.[email or web address] Vomiting No 05/20/24 13:22 CERTIFIED VETERINARY [email or web address] Anesthesia Postop Eval I: Fluid Summary Crystalloid volume administer 300 05/20/24 13:22 CERTIFIED VETERINARY [email or web address] (ml) Colloids volume administered ( ml) Blood Product volume administered (ml) Total IV fluid infused 300 05/20/24 13:22 CERTIFIED VETERINARY [email or web address] Anesthesia Postop Eval I: Summary Notes Anesthesia Complication No 05/20/24 13:22 CERTIFIED VETERINARY TECHNICIAN.[email or web address] Anesthesia Complication Comment: Post-operative progress note Anesthesia: Postop Eval II Evaluation Mental status: Awake Pain Level: 0 nausea: No Vomiting: No
[2024-05-20] MEDS: 0.9% Saline Lock 10 ML Syringe IV ×2 (14:49→21:26)
[2024-05-20] MEDS: PureFlow B 4K Dialysis Soln 1 BAG BAG 6 BAG PF (14:49)
[2024-05-20] MEDS: 0.9% Normal Saline 1,000 ML IV.SOLN. 1000 ML OPERA.SITE (14:49)
[2024-05-20 15:32] LABS: Hepatitis B Surface Antigen Non-Reactive (Nonreactive)
--- NOTE | 2024-05-20 15:50 | CASEMGMT ---
Social Work LW/POA documents are not on file. SW sent a message to [employer] via [email or web address] asked them to fax over the documents. ELIZABETH Fletcher
[2024-05-20] MEDS: Heparin 10,000 UNITS/10 ML Vial IV (16:33)
[2024-05-20 17:17] LABS: Bedside Glucose 110 mg/dL (74-106)
[2024-05-20] MEDS: guaiFENesin 600 MG Tablet PO (21:16)
[2024-05-20] MEDS: Doxycycline 100 MG CAPSULE PO (21:16)
[2024-05-20] MEDS: Insulin Glargine-YFGN 100 UNIT/ML Pen SC (21:16)
[2024-05-20] MEDS: Heparin Injection (Vial) 5,000 UNIT/ML VIAL 5000 UNIT SC (21:17)
[2024-05-20] MEDS: Insulin Lispro 100 UNIT/ML INSULN.PEN SC (21:17)
[2024-05-20 22:38] LABS: Bedside Glucose 157 mg/dL (74-106)
[2024-05-21] VITALS (23 sets, daily range): BP systolic 138–209; BP diastolic 81–116; PULSE 76–90; RESP 17–22; TEMP 36.1–36.6; O2SAT 93–100; BMI 16.6
[2024-05-21] MEDS: Ipratropium/Albuterol Sulfate 3 ML AMPUL.NEB INHALATION ×4 (00:15→19:13)
[2024-05-21] MEDS: hydrALAZINE 25 MG Tablet PO ×3 (06:30→22:39)
[2024-05-21 06:32] LABS: Absolute Neutrophil Count 8.3 X10^3/uL (2.0-7.7); Basophil# 0.02 X10^3/uL; Basophil% 0.2 % (0-1); Eosinophil# 0.01 X10^3/uL; Eosinophils% 0.1 % (0-5); Hemoglobin 11.9 g/dL (13.0-16.5); Lymphocyte % 11.5 % (19-41); Mean Corp Hgb Conc 31.3 g/dL (32-36); Mean Corpuscular Hgb 29.7 pg (27.0-32.0); Mean Corpuscular Volume 94.8 fL (80-94); Mean Platelet Vol. 11.4 fl (6.2-12.0); Monocyte# 0.81 X10^3/uL; Monocyte% 7.7 % (0-10); NRBC Flagged by Analyzer 0.3 % (0-5); Neutrophil # 8.33 X10^3/uL (2.7-7.7); Neutrophil % 79.5 % (47-70); POSITIVE MORPHOLOGY YES; Platelet Count 184 K/mm3 (150-450); RBC Distribution Width CV 20.6 % (11.6-14.6); RBC Distribution Width SD 68.9 fl (35.1-43.9); Red Blood Count 4.01 M/mm3 (4.6-6.2); White Blood Count 10.5 K/mm3 (4.4-11.0)
[2024-05-21 06:47] LABS: Differential Indicated SCAN CRITERIA MET
[2024-05-21 07:13] LABS: Bedside Glucose 121 mg/dL (74-106)
[2024-05-21 07:15] LABS: Anion Gap 11 (5-15); BUN 71 mg/dL (7-18); BUN/Creat Ratio 21.6 RATIO (10-20); Calcium,Total 8.9 mg/dL (8.5-10.1); Chloride 106 mmol/L (98-107); Creatinine, Serum 3.29 mg/dL (0.70-1.30); EST Glomerular Filtration Rate 20 mL/min (>60); Est Glom Filt Rate - Afr Amer 24 mL/min (>60); Estimated Creatinine Clearance 14.21 ml/min; Glucose 121 mg/dL (74-106); Potassium 4.3 mmol/L (3.5-5.1); Sodium Level 139 mmol/L (136-145)
[2024-05-21] MEDS: PureFlow B 2K Dialysis Soln 1 BAG 6 BAG PF (07:51)
[2024-05-21] MEDS: 0.9% Normal Saline 1,000 ML IV.SOLN. 1000 ML OPERA.SITE (07:51)
[2024-05-21] MEDS: 0.9% Saline Lock 10 ML Syringe IV ×2 (07:52→10:08)
--- NOTE | 2024-05-21 08:43 | PCM.PN.SRG ---
Subjective Subjective Patient currently getting dialysis no issues also got dialysis yesterday Objective Data Objective Data Vital Signs: Vital Signs Temp Pulse Resp BP Pulse Ox O2 Del Method O2 Flow Rate 96.9 F L 84 20 H 174/113 H 99 Nasal Cannula 3 05/21/24 06:25 05/21/24 08:30 05/21/24 08:30 05/21/24 08:30 05/21/24 08:30 05/21/24 08:30 05/21/24 08:30 Oxygen Flow Rate (L/min) 3 Oxygen Delivery Method Nasal Cannula Weight: 112 lb 6.972 oz Body Mass Index (BMI) 16.6 Intake & Output: Intake and Output for Last 24 Hours 05/19/24 05/20/24 05/21/24 23:59 23:59 23:59 Intake Total 597 / 597 Output Total 800 / 800 1950 / 1950 150 / 150 Balance -800 / -800 -1353 / -1353 -150 / -150 Medical Nutrition Assessment Dietitian: Malnutrition Criteria Met Start: 05/17/24 13:57 Freq: Status: Active Protocol: Document 05/17/24 13:57 SLA (Rec: 05/17/24 13:58 SLA [email or web address]) Nutrition Malnutrition Evidence of Malnutrition Exists Yes Malnutrition (severe): Chronic Evidenced By Suboptimal Energy Intake ( Severe),Weight Loss (Severe), Physical Changes (Severe) Clinical Problem Chronic Disease or Condition Related Malnutrition Etiology related to chronic dz and inability to consume adequate nutrition Signs/Symptoms as evidenced by 23.4% unintended wt loss and po intake meeting <75% of estimated nutrition needs. Pt with obvious fat/muscle 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 BMI = 16.4 Status Active Problem Recommendation Dietitian Recommendations/Changes Will change diet to liberal regular d/t signs and symptoms of malnutrition. Will order 4 oz ensure plus high protein 4x/day w/ medpass . Rec consider appetite stimulant to help encourage increased po intake. May wish to consider alternate nutrition support if continued poor po intake/wt loss if in accordance w/ patient/family wishes to help prevent further decline in pt nutritional status. Lab / Micro Data 05/21/24 06:11 05/21/24 06:11 Labs: Laboratory Results - last 24 hr 05/20/24 11:31: POC Glucose 107 H 05/20/24 13:07: Hep Bs Antigen Non-Reactive 05/20/24 16:26: POC Glucose 110 H 05/20/24 21:13: POC Glucose 157 H 05/21/24 06:11: WBC 10.5, RBC 4.01 L, Hgb 11.9 L, Hct 38.0 L, MCV 94.8 H, MCH 29.7, MCHC 31.3 L, RDW Std Deviation 68.9 H, RDW Coeff of Steven 20.6 H, Plt Count 184, MPV 11.4, Immature Gran % (Auto) 1.000 H, Neut % (Auto) 79.5 H, Lymph % (Auto) 11.5 L, [place] % (Auto) 7.7, Eos % (Auto) 0.1, Baso % (Auto) 0.2, Absolute Neuts (auto) 8.3 H, Absolute Lymphs (auto) 1.20, Nucleated RBC % 0.3, Sodium 139, Potassium 4.3, Chloride 106, Carbon Dioxide 22.0, Anion Gap 11, BUN 71 H, Creatinine 3.29 H, Estim Creat Clear Calc 14.21, Est GFR (MDRD) Af Amer 24 L, Est GFR (MDRD) Non-Af 20 L, BUN/Creatinine Ratio 21.6 H, Glucose 121 H, Calcium 8.9 05/21/24 06:28: POC Glucose 121 H Micro: Microbiology 05/17/24 10:43 Blood Culture (Wb) - Right Hand Blood Culture - Preliminary No growth in 48 hours. 05/17/24 10:00 Urine Catheter - Catheter Legionella Antigen - Final 05/17/24 10:00 Urine Catheter - Catheter Streptococcus pneumoniae Antigen (M - Final Radiography Diagnostic Testing: Radiology Impression Chest X-Ray 05/20/24 13:12 IMPRESSION: The tip of the right-sided dialysis catheter is at the junction of the superior vena cava and right atrium. The remainder of the examination is unchanged. Electronically Signed: Carroll Kim MD at 13:52 EDT , Physical Exam Narrative Right IJ tunneled dialysis catheter intact working well. Assessment & Plan Assessment/Plan (1) Acute on chronic renal insufficiency: PLAN: Plan Right IJ tunneled dialysis catheter working well-No issues. Follow-up as needed. Call with questions. Rianna Foreman M.D. Pager: [phone] [facility] [address] [place] [address], [address] [place] [address] Office: [phone]
[2024-05-21 08:57] LABS: Anisocytosis 1+; Red Cell Morphology N CHROM NORMAL (NORM C&C)
[2024-05-21] MEDS: Heparin 10,000 UNITS/10 ML Vial IV (10:08)
[2024-05-21] MEDS: Doxycycline 100 MG CAPSULE PO ×2 (10:39→22:40)
[2024-05-21] MEDS: Metoprolol(XL)Succ 25 MG Tablet PO (10:39)
[2024-05-21] MEDS: Pantoprazole Sodium 40 MG Tablet PO (10:39)
[2024-05-21] MEDS: Isosorbide Mononitrate 30 MG Tablet 15 MG PO (10:39)
[2024-05-21] MEDS: guaiFENesin 600 MG Tablet PO ×2 (10:40→22:41)
[2024-05-21] MEDS: Heparin Injection (Vial) 5,000 UNIT/ML VIAL 5000 UNIT SC ×2 (10:40→22:40)
--- NOTE | 2024-05-21 11:04 | PN_ITS ---
Subjective Subjective Patient seen and examined. He had no active complaints. He was undergoing dialysis. He had an uneventful night. Review of systems otherwise negative. Blood pressure was a bit elevated this morning but came down with dialysis. Objective Data Objective Data Vital Signs: Vital Signs Temp Pulse Resp BP Pulse Ox O2 Del Method O2 Flow Rate 97.2 F L 85 18 157/110 H 100 Nasal Cannula 2 05/21/24 10:35 05/21/24 10:39 05/21/24 10:35 05/21/24 10:39 05/21/24 10:35 05/21/24 10:35 05/21/24 10:35 Oxygen Flow Rate (L/min) 2 Oxygen Delivery Method Nasal Cannula Weight: 112 lb 6.972 oz Body Mass Index (BMI) 16.6 Intake & Output: Intake and Output for Last 24 Hours 05/19/24 05/20/24 05/21/24 23:59 23:59 23:59 Intake Total 597 / 597 Output Total 800 / 800 1950 / 1950 1600 / 1600 Balance -800 / -800 -1353 / -1353 -1600 / -1600 Medical Nutrition Assessment Dietitian: Malnutrition Criteria Met Start: 05/17/24 13:57 Freq: Status: Active Protocol: Document 05/17/24 13:57 SLA (Rec: 05/17/24 13:58 SLA [email or web address]) Nutrition Malnutrition Evidence of Malnutrition Exists Yes Malnutrition (severe): Chronic Evidenced By Suboptimal Energy Intake ( Severe),Weight Loss (Severe), Physical Changes (Severe) Clinical Problem Chronic Disease or Condition Related Malnutrition Etiology related to chronic dz and inability to consume adequate nutrition Signs/Symptoms as evidenced by 23.4% unintended wt loss and po intake meeting <75% of estimated nutrition needs. Pt with obvious fat/muscle 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 BMI = 16.4 Status Active Problem Recommendation Dietitian Recommendations/Changes Will change diet to liberal regular d/t signs and symptoms of malnutrition. Will order 4 oz ensure plus high protein 4x/day w/ medpass . Rec consider appetite stimulant to help encourage increased po intake. May wish to consider alternate nutrition support if continued poor po intake/wt loss if in accordance w/ patient/family wishes to help prevent further decline in pt nutritional status. Lab / Micro Data 05/21/24 06:11 05/21/24 06:11 Labs: Laboratory Results - last 24 hr 05/20/24 11:31: POC Glucose 107 H 05/20/24 13:07: Hep Bs Antigen Non-Reactive 05/20/24 16:26: POC Glucose 110 H 05/20/24 21:13: POC Glucose 157 H 05/21/24 06:11: WBC 10.5, RBC 4.01 L, Hgb 11.9 L, Hct 38.0 L, MCV 94.8 H, MCH 29.7, MCHC 31.3 L, RDW Std Deviation 68.9 H, RDW Coeff of Steven 20.6 H, Plt Count 184, MPV 11.4, Immature Gran % (Auto) 1.000 H, Neut % (Auto) 79.5 H, Lymph % (Auto) 11.5 L, [place] % (Auto) 7.7, Eos % (Auto) 0.1, Baso % (Auto) 0.2, Absolute Neuts (auto) 8.3 H, Absolute Lymphs (auto) 1.20, Nucleated RBC % 0.3, RBC Morphology N CHROM, Anisocytosis 1+, Sodium 139, Potassium 4.3, Chloride 106, Carbon Dioxide 22.0, Anion Gap 11, BUN 71 H, Creatinine 3.29 H, Estim Creat Clear Calc 14.21, Est GFR (MDRD) Af Amer 24 L, Est GFR (MDRD) Non-Af 20 L, B UN/Creatinine Ratio 21.6 H, Glucose 121 H, Calcium 8.9 05/21/24 06:28: POC Glucose 121 H Micro: Microbiology 05/17/24 10:43 Blood Culture (Wb) - Right Hand Blood Culture - Preliminary No growth in 48 hours. 05/17/24 10:00 Urine Catheter - Catheter Legionella Antigen - Final 05/17/24 10:00 Urine Catheter - Catheter Streptococcus pneumoniae Antigen (M - Final Radiography Diagnostic Testing: Radiology Impression Chest X-Ray 05/20/24 13:12 IMPRESSION: The tip of the right-sided dialysis catheter is at the junction of the superior vena cava and right atrium. The remainder of the examination is unchanged. Electronically Signed: Carroll Kim MD at 13:52 EDT , Physical Exam Const alert and oriented x3 Constitutional Narrative: frail and weak, looks cachectic General Appearance: cooperative Orientation / Consciousness: confused HEENT normocephalic and head/scalp atraumatic Eyes PERRL, EOMs intact bilaterally and conjunctivae normal Neck no lymphadenopathy, supple and no JVD Resp Resp Narrative: Diminished breath sounds bibasilarly. No wheezes or crackles. On 2 L of oxygen by nasal cannula. Effort and Inspection: tachypneic Cardio regular rate, regular rhythm, S1 normal heart sound, S2 normal heart sound, no murmurs and no rub GI normal to inspection, nondistended, normoactive bowel sounds, soft to palpation and non-tender Extremity normal to inspection, full ROM, normal capillary refill and no clubbing, cyanosis or edema Extremity Narrative: temporary dialysis catheter in situ General Extremity: no tenderness to palpation of joints or extremities Neuro oriented x3, CN's II-XII intact bilaterally, moves all extremities and no focal motor deficits Sensorium / Orientation: awake and alert Motor Exam: general weakness Psych thought process normal, cooperative and affect normal Mood & Affect: flat affect Assessment & Plan Assessment/Plan (1) Pneumonia: (2) Dehydration: (3) Weakness: (4) Acute renal failure: (5) Respiratory insufficiency: PLAN: Plan #MICHELLE on CKD IIIb * Creatinine has trended upward slightly from 4.35 yesterday to 4.48 today. BUN is even higher today at 113. * However per discussion with nephrology was able to pull up patient's chart at [facility], at time patient was discharged from [facility] on Thursday, his baseline was between 3.5-4. * Nephrology on board. * Bocanegra catheter in situ. * to have temporary dialysis catheter inserted yesterday, and commnced dialysis afterwards * renal USG showed bilateral renal cystic nodules and possible reight renal calculus * #Hypoxia with respiratory alkalosis * May be due to pneumonia and heart failure. Chest x-ray showed diffuse airspace disease in the right hemithorax with blunting of both costophrenic angles and infiltrate in the posterior medial segment of the left lower lobe as well as focal infiltrate in the left upper lobe. * Per Records reviewed by nephrology at [facility], patient was treated for pneumonia over there on antibiotics. He had bronchoscopy x 2 and the culture results from the [facility] seem to have just come back with growth of a yeastlike organism. There was also growth of Coxiella species. * Infectious disease on board. Per ID, patient had been on doxycycline at [facility] so patient continued on doxycycline, to complete a one week course here. * now on room air. * Breathing treatments bronchodilators. Titrate oxygen to maintain saturation above 90%. * resolving. On 2L of oxygen by nasal caula #History of heart failure with reduced action fraction * 2D echo done at [facility] showed EF of 31%. Patient currently on 2 L of oxygen was not previously on oxygen. * Will give a dose of IV Lasix though is not clear he is in exacerbation. Will check BNP though the results may be skewed in light of the elevated creatinine. * Monitor intake and output. * BNP elevated at >2000, though in the setting of MICHELLE on CKD IIIB, the BNP results may not be very accurate. * now on room air. * * #History of lung mass: stable #Hypertension: On hydralazine and Imdur as well as metoprolol. Blood pressure has been elevated with systolic in the 170s. Should improve with dialysis. If it does not we will adjust BP meds. #Severe protein calorie malnutrition: BMI 16.4 and patient looks cachectic. Nutrition on board. #GERD prophylaxis: Heparin CODE STATUS: DNR CCA no intubation * Disposition: Case management to set up dialysis in detention. Patient to be discharged to detention once this is set up which will likely be early next week. Charges/Coding Visit Charges Inpatient E&M: 78463 Subs Hosp L2
--- NOTE | 2024-05-21 12:20 | PCM.PN.REN ---
Subjective Subjective Follow-up for acute kidney injury Had hemodialysis earlier today, his second dialysis treatment He feels okay, tolerating his lunch Objective Data Objective Data Vital Signs: Vital Signs Temp Pulse Resp BP Pulse Ox O2 Del Method O2 Flow Rate 97.2 F L 85 18 157/110 H 100 Nasal Cannula 2 05/21/24 10:35 05/21/24 10:39 05/21/24 10:35 05/21/24 10:39 05/21/24 10:35 05/21/24 10:35 05/21/24 10:35 Oxygen Flow Rate (L/min) 2 Oxygen Delivery Method Nasal Cannula Weight: 51 kg Body Mass Index (BMI) 16.6 Intake & Output: Intake and Output for Last 24 Hours 05/19/24 05/20/24 05/21/24 23:59 23:59 23:59 Intake Total 597 / 597 120 / 120 Output Total 800 / 800 1950 / 1950 1750 / 1750 Balance -800 / -800 -1353 / -1353 -1630 / -1630 Medical Nutrition Assessment Dietitian: Malnutrition Criteria Met Start: 05/17/24 13:57 Freq: Status: Active Protocol: Document 05/17/24 13:57 SLA (Rec: 05/17/24 13:58 SLA [email or web address]) Nutrition Malnutrition Evidence of Malnutrition Exists Yes Malnutrition (severe): Chronic Evidenced By Suboptimal Energy Intake ( Severe),Weight Loss (Severe), Physical Changes (Severe) Clinical Problem Chronic Disease or Condition Related Malnutrition Etiology related to chronic dz and inability to consume adequate nutrition Signs/Symptoms as evidenced by 23.4% unintended wt loss and po intake meeting <75% of estimated nutrition needs. Pt with obvious fat/muscle 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 BMI = 16.4 Status Active Problem Recommendation Dietitian Recommendations/Changes Will change diet to liberal regular d/t signs and symptoms of malnutrition. Will order 4 oz ensure plus high protein 4x/day w/ medpass . Rec consider appetite stimulant to help encourage increased po intake. May wish to consider alternate nutrition support if continued poor po intake/wt loss if in accordance w/ patient/family wishes to help prevent further decline in pt nutritional status. Lab / Micro Data 05/21/24 06:11 05/21/24 06:11 Labs: Laboratory Results - last 24 hr 05/20/24 13:07: Hep Bs Antigen Non-Reactive 05/20/24 16:26: POC Glucose 110 H 05/20/24 21:13: POC Glucose 157 H 05/21/24 06:11: WBC 10.5, RBC 4.01 L, Hgb 11.9 L, Hct 38.0 L, MCV 94.8 H, MCH 29.7, MCHC 31.3 L, RDW Std Deviation 68.9 H, RDW Coeff of Steven 20.6 H, Plt Count 184, MPV 11.4, Immature Gran % (Auto) 1.000 H, Neut % (Auto) 79.5 H, Lymph % (Auto) 11.5 L, [place] % (Auto) 7.7, Eos % (Auto) 0.1, Baso % (Auto) 0.2, Absolute Neuts (auto) 8.3 H, Absolute Lymphs (auto) 1.20, Nucleated RBC % 0.3, RBC Morphology N CHROM, Anisocytosis 1+, Sodium 139, Potassium 4.3, Chloride 106, Carbon Dioxide 22.0, Anion Gap 11, BUN 71 H, Creatinine 3.29 H, Estim Creat Clear Calc 14.21, Est GFR (MDRD) Af Amer 24 L, Est GFR (MDRD) Non-Af 20 L, BUN/Creatinine Ratio 21.6 H, Glucose 121 H, Calcium 8.9 05/21/24 06:28: POC Glucose 121 H Micro: Microbiology 05/17/24 10:43 Blood Culture (Wb) - Right Hand Blood Culture - Preliminary No growth in 48 hours. 05/17/24 10:00 Urine Catheter - Catheter Legionella Antigen - Final 05/17/24 10:00 Urine Catheter - Catheter Streptococcus pneumoniae Antigen (M - Final Radiography Diagnostic Testing: Radiology Impression Chest X-Ray 05/20/24 13:12 IMPRESSION: The tip of the right-sided dialysis catheter is at the junction of the superior vena cava and right atrium. The remainder of the examination is unchanged. Electronically Signed: Carroll Kim MD at 13:52 EDT , Physical Exam Narrative Thin, alert responsive no acute distress Positive for right tunnel dialysis catheter Normal respiration Assessment & Plan Assessment/Plan (1) Acute renal failure: PLAN: CKD stage IIIb. Baseline creatinine around 1.6 or so. Reviewed records from [facility]. He was treated for pneumonia, CHF. Echocardiogram with low ejection fraction of 30%. BNP was as high as 55,000. He has received IV Lasix, this was held at the end of the hospitalization due to MICHELLE. Discharge creatinine around 3.4. Urine analysis at [facility] did not show any significant hematuria. Urine protein was less than 300 mg. I doubt he has any glomerulonephritis. Currently has a Bocanegra catheter indwelling, obstruction unlikely. Overnight received lasix. breathing is slightly better. I think dyspnea is a combination of CHF and pneumonia. unfortunately renal function is poor. discussed about temporary dialysis to make breathing better. PLAN: Plan Tolerated hemodialysis well today, azotemia is improving, electrolytes are stable Continue with renal replacement therapy next dialysis treatment to be on Thursday Patient will need outpatient dialysis to be set up prior to discharge Thank you please call [phone] with any concerns
[2024-05-21 12:39] LABS: Bedside Glucose 68 mg/dL (74-106)
[2024-05-21 13:05] LABS: Bedside Glucose 108 mg/dL (74-106)
[2024-05-21 17:33] LABS: Bedside Glucose 131 mg/dL (74-106)
[2024-05-21] MEDS: Insulin Glargine-YFGN 100 UNIT/ML Pen SC (22:41)
[2024-05-21 23:39] LABS: Bedside Glucose 109 mg/dL (74-106)
[2024-05-22] VITALS (16 sets, daily range): BP systolic 135–151; BP diastolic 74–104; PULSE 69–80; RESP 16–20; TEMP 36.3–36.9; O2SAT 93–100; BMI 16.8
[2024-05-22 05:28] LABS: Bedside Glucose 108 mg/dL (74-106)
[2024-05-22 05:40] LABS: Absolute Lymphocyte Count 1.49 X10^3/uL (0.83-4.51); Absolute Neutrophil Count 6.7 X10^3/uL (2.0-7.7); Basophil# 0.03 X10^3/uL; Basophil% 0.3 % (0-1); Eosinophil# 0.06 X10^3/uL; Eosinophils% 0.7 % (0-5); Hematocrit 37.8 % (40-54); Hemoglobin 11.8 g/dL (13.0-16.5); Lymphocyte # 1.49 X10^3/ul (0.83-4.51); Lymphocyte % 16.4 % (19-41); Mean Corp Hgb Conc 31.2 g/dL (32-36); Mean Corpuscular Hgb 29.9 pg (27.0-32.0); Mean Corpuscular Volume 95.7 fL (80-94); Mean Platelet Vol. 12.4 fl (6.2-12.0); Monocyte% 7.7 % (0-10); NRBC Flagged by Analyzer 0.2 % (0-5); Neutrophil # 6.71 X10^3/uL (2.7-7.7); Neutrophil % 74.1 % (47-70); POSITIVE MORPHOLOGY YES; Platelet Count 143 K/mm3 (150-450); RBC Distribution Width CV 19.9 % (11.6-14.6); RBC Distribution Width SD 70.1 fl (35.1-43.9); Red Blood Count 3.95 M/mm3 (4.6-6.2); White Blood Count 9.1 K/mm3 (4.4-11.0)
[2024-05-22 05:59] LABS: Anion Gap 9 (5-15); BUN 59 mg/dL (7-18); BUN/Creat Ratio 21.6 RATIO (10-20); Calcium,Total 8.8 mg/dL (8.5-10.1); Chloride 103 mmol/L (98-107); Creatinine, Serum 2.73 mg/dL (0.70-1.30); EST Glomerular Filtration Rate 24 mL/min (>60); Est Glom Filt Rate - Afr Amer 29 mL/min (>60); Estimated Creatinine Clearance 17.33 ml/min; Glucose 108 mg/dL (74-106); Sodium Level 136 mmol/L (136-145)
[2024-05-22] MEDS: hydrALAZINE 25 MG Tablet PO ×3 (06:20→21:06)
[2024-05-22 06:24] LABS: Differential Indicated SCAN CRITERIA MET
[2024-05-22] MEDS: Ipratropium/Albuterol Sulfate 3 ML AMPUL.NEB INHALATION ×3 (06:31→19:25)
[2024-05-22 06:35] LABS: Anisocytosis 1+
[2024-05-22 06:49] LABS: Bedside Glucose 101 mg/dL (74-106)
[2024-05-22] MEDS: Pantoprazole Sodium 40 MG Tablet PO (08:57)
[2024-05-22] MEDS: guaiFENesin 600 MG Tablet PO ×2 (08:57→21:06)
[2024-05-22] MEDS: Doxycycline 100 MG CAPSULE PO ×2 (08:57→21:06)
[2024-05-22] MEDS: Isosorbide Mononitrate 30 MG Tablet 15 MG PO (08:57)
[2024-05-22] MEDS: Metoprolol(XL)Succ 25 MG Tablet PO (08:58)
[2024-05-22] MEDS: Heparin Injection (Vial) 5,000 UNIT/ML VIAL 5000 UNIT SC ×2 (08:59→21:06)
--- NOTE | 2024-05-22 10:42 | PN.HOSP_ITS ---
Reason for Visit Reason for Visit: Diagnoses Dehydration (05/17/24) Pneumonia, unspecified organism (05/17/24) Acute kidney failure, unspecified (05/17/24) Chronic kidney disease, unspecified (05/17/24) Disorder of kidney and ureter, unspecified (05/17/24) Other abnormalities of breathing (05/17/24) Weakness (05/17/24) Objective Data Objective Data Vital Signs: Vital Signs Temp Pulse Resp BP Pulse Ox O2 Del Method O2 Flow Rate 97.3 F L 80 18 151/104 H 100 Nasal Cannula 2 05/22/24 09:05 05/22/24 09:05 05/22/24 09:05 05/22/24 09:05 05/22/24 09:05 05/22/24 09:05 05/22/24 09:05 Oxygen Flow Rate (L/min) 2 Oxygen Delivery Method Nasal Cannula Weight: 113 lb 12.136 oz Body Mass Index (BMI) 16.8 Intake & Output: Intake and Output for Last 24 Hours 05/20/24 05/21/24 05/22/24 23:59 23:59 23:59 Intake Total 597 / 597 240 / 480 600 / 600 Output Total 1950 / 1950 1750 / 1875 725 / 725 Balance -1353 / -1353 -1510 / -1395 -125 / -125 Medical Nutrition Assessment Dietitian: Malnutrition Criteria Met Start: 05/17/24 13:57 Freq: Status: Active Protocol: Document 05/17/24 13:57 SLA (Rec: 05/17/24 13:58 SLA [email or web address]) Nutrition Malnutrition Evidence of Malnutrition Exists Yes Malnutrition (severe): Chronic Evidenced By Suboptimal Energy Intake ( Severe),Weight Loss (Severe), Physical Changes (Severe) Clinical Problem Chronic Disease or Condition Related Malnutrition Etiology related to chronic dz and inability to consume adequate nutrition Signs/Symptoms as evidenced by 23.4% unintended wt loss and po intake meeting <75% of estimated nutrition needs. Pt with obvious fat/muscle 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 BMI = 16.4 Status Active Problem Recommendation Dietitian Recommendations/Changes Will change diet to liberal regular d/t signs and symptoms of malnutrition. Will order 4 oz ensure plus high protein 4x/day w/ medpass . Rec consider appetite stimulant to help encourage increased po intake. May wish to consider alternate nutrition support if continued poor po intake/wt loss if in accordance w/ patient/family wishes to help prevent further decline in pt nutritional status. Lab / Micro Data 05/22/24 04:39 05/22/24 04:39 Labs: Laboratory Results - last 24 hr 05/21/24 11:54: POC Glucose 68 L 05/21/24 12:47: POC Glucose 108 H 05/21/24 16:52: POC Glucose 131 H 05/21/24 22:33: POC Glucose 109 H 05/22/24 03:10: POC Glucose 108 H 05/22/24 04:39: WBC 9.1, RBC 3.95 L, Hgb 11.8 L, Hct 37.8 L, MCV 95.7 H, MCH 29.9, MCHC 31.2 L, RDW Std Deviation 70.1 H, RDW Coeff of Steven 19.9 H, Plt Count 143 L, MPV 12.4 H, Immature Gran % (Auto) 0.800, Neut % (Auto) 74.1 H, Lymph % (Auto) 16.4 L, [place] % (Auto) 7.7, Eos % (Auto) 0.7, Baso % (Auto) 0.3, Absolute Neuts (auto) 6.7, Absolute Lymphs (auto) 1.49, Nucleated RBC % 0.2, Anisocytosis 1+, Sodium 136, Potassium 4.0, Chloride 103, Carbon Dioxide 24.0, Anion Gap 9, B UN 59 H, Creatinine 2.73 H, Estim Creat Clear Calc 17.33, Est GFR (MDRD) Af Amer 29 L, Est GFR (MDRD) Non-Af 24 L, BUN/Creatinine Ratio 21.6 H, Glucose 108 H, Calcium 8.8 05/22/24 06:24: POC Glucose 101 Micro: Microbiology 05/17/24 10:43 Blood Culture (Wb) - Right Hand Blood Culture - Preliminary No growth in 48 hours. 05/17/24 10:00 Urine Catheter - Catheter Legionella Antigen - Final 05/17/24 10:00 Urine Catheter - Catheter Streptococcus pneumoniae Antigen (M - Final Physical Exam Narrative Seen and examined. Patient has dialysis catheter inserted during this hospital course, right IJ. Shortness of breath is better. No chest pain. Physical exam General: Alert, Oriented x3, Cooperative HEENT: Atraumatic, PERRLA, EOMI, Normocephalic Oral: No Gingival or Mucosal Lesions/ Ulcerations Neck: Supple, No JVD, Negative Carotid Bruits Chest wall/Lungs: Air entry diminished in bilateral lung bases. No crepitation/rhonchi Cardiovascular: Regular rate, Regular Rhythm, Normal S1, Normal S2, No M/G/R Abdomen: Bowel Sounds Present, Soft, Non Tender, Non-Distended : Chronic anuria. On dialysis. No renal angle tenderness. No suprapubic tenderness. Extremities: No edema, Capillary Refill Less than 3 Seconds Skin: No rashes, No breakdown Musculoskeletal: No Tenderness to Palpation of Joints or Extremities Neurological: Cranial nerves II-XII grossly intact, DTR 2+/4. No acute focal neurological deficit. Psych/Mental Status: Flat affect Assessment & Plan Assessment/Plan (1) Pneumonia: (2) Dehydration: (3) Weakness: (4) Acute renal failure: (5) Respiratory insufficiency: PLAN: Plan #MICHELLE on CKD IIIb * Creatinine has trended upward slightly from 4.35 yesterday to 4.48 today. BUN is even higher today at 113. * However per discussion with nephrology was able to pull up patient's chart at [facility], at time patient was discharged from [facility] on Thursday, his baseline was between 3.5-4. * Nephrology on board. * Bocanegra catheter in situ. * to have temporary dialysis catheter inserted on 06-11 and started dialysis afterwards * renal USG showed bilateral renal cystic nodules and possible right renal calculus #Hypoxia with respiratory alkalosis * May be due to pneumonia and heart failure. Chest x-ray showed diffuse airspace disease in the right hemithorax with blunting of both costophrenic angles and infiltrate in the posterior medial segment of the left lower lobe as well as focal infiltrate in the left upper lobe. * Per Records reviewed by nephrology at [facility], patient was treated for pneumonia over there on antibiotics. He had bronchoscopy x 2 and the culture results from the [facility] seem to have just come back with growth of a yeastlike organism. There was also growth of Coxiella species. * Infectious disease on board. Per ID, patient had been on doxycycline at [facility] so patient continued on doxycycline, to complete a one week course here. * now on room air. * Breathing treatments bronchodilators. Titrate oxygen to maintain saturation above 90%. * resolving. On 2L of oxygen by nasal caula #History of heart failure with reduced action fraction * 2D echo done at [facility] showed EF of 31%. Patient currently on 2 L of oxygen was not previously on oxygen. * Will give a dose of IV Lasix though is not clear he is in exacerbation. * Monitor intake and output. * BNP elevated at >2000, though in the setting of MICHELLE on CKD IIIB, the BNP results may not be very accurate. * now on room air. 05/22: Patient does not seem to be in acute exacerbation. #History of lung mass: stable #Hypertension: On hydralazine and Imdur as well as metoprolol. Blood pressure has been elevated with systolic in the 170s. Should improve with dialysis. If it does not we will adjust BP meds. #Severe protein calorie malnutrition: BMI 16.4 and patient looks cachectic. Nutrition on board. #GERD prophylaxis: Heparin CODE STATUS: DNR CCA no intubation Patient was transferred to [facility] floor from [facility] in exchange of 1 patient from [facility] who required NIH stroke scale monitoring and telemetry Charges/Coding Visit Charges Inpatient E&M: 26740 Subs Hosp L2
[2024-05-22 11:53] LABS: Bedside Glucose 119 mg/dL (74-106)
--- NOTE | 2024-05-22 13:26 | NURSING ---
Report called to nurse Angel for pt to be transferred to [facility].
[2024-05-22 17:02] LABS: Bedside Glucose 91 mg/dL (74-106)
[2024-05-22] MEDS: Insulin Glargine-YFGN 100 UNIT/ML Pen SC (21:09)
[2024-05-22 22:23] LABS: Bedside Glucose 122 mg/dL (74-106)
[2024-05-23] VITALS (20 sets, daily range): BP systolic 141–225; BP diastolic 86–109; PULSE 63–80; RESP 16–20; TEMP 36.4–37; O2SAT 96–100; BMI 16.7; BMI 16.5
[2024-05-23 06:25] LABS: Absolute Lymphocyte Count 1.63 X10^3/uL (0.83-4.51); Absolute Neutrophil Count 6.4 X10^3/uL (2.0-7.7); Basophil# 0.03 X10^3/uL; Basophil% 0.3 % (0-1); Eosinophil# 0.17 X10^3/uL; Eosinophils% 1.9 % (0-5); Hemoglobin 11.7 g/dL (13.0-16.5); Lymphocyte # 1.63 X10^3/ul (0.83-4.51); Lymphocyte % 18.1 % (19-41); Mean Corp Hgb Conc 30.8 g/dL (32-36); Mean Corpuscular Hgb 29.7 pg (27.0-32.0); Mean Corpuscular Volume 96.4 fL (80-94); Mean Platelet Vol. 12.1 fl (6.2-12.0); Monocyte# 0.68 X10^3/uL; Monocyte% 7.6 % (0-10); NRBC Flagged by Analyzer 0 % (0-5); Neutrophil # 6.42 X10^3/uL (2.7-7.7); Neutrophil % 71.3 % (47-70); POSITIVE MORPHOLOGY YES; Platelet Count 145 K/mm3 (150-450); RBC Distribution Width CV 20.1 % (11.6-14.6); RBC Distribution Width SD 70.5 fl (35.1-43.9); Red Blood Count 3.94 M/mm3 (4.6-6.2)
[2024-05-23] MEDS: hydrALAZINE 25 MG Tablet PO ×3 (06:25→21:27)
[2024-05-23 06:33] LABS: Differential Indicated SCAN CRITERIA MET
[2024-05-23 07:04] LABS: Anion Gap 10 (5-15); BUN 66 mg/dL (7-18); BUN/Creat Ratio 22.1 RATIO (10-20); Calcium,Total 8.7 mg/dL (8.5-10.1); Chloride 102 mmol/L (98-107); Creatinine, Serum 2.99 mg/dL (0.70-1.30); EST Glomerular Filtration Rate 22 mL/min (>60); Est Glom Filt Rate - Afr Amer 27 mL/min (>60); Estimated Creatinine Clearance 15.73 ml/min; Glucose 106 mg/dL (74-106); Potassium 4.2 mmol/L (3.5-5.1); Sodium Level 135 mmol/L (136-145)
[2024-05-23] MEDS: Ipratropium/Albuterol Sulfate 3 ML AMPUL.NEB INHALATION ×2 (07:10→18:36)
[2024-05-23 07:19] LABS: Bedside Glucose 125 mg/dL (74-106)
[2024-05-23 07:42] LABS: Anisocytosis 2+; Differential Comment SCANNED
[2024-05-23] MEDS: Doxycycline 100 MG CAPSULE PO ×2 (10:05→21:27)
[2024-05-23] MEDS: Heparin Injection (Vial) 5,000 UNIT/ML VIAL 5000 UNIT SC ×2 (10:05→21:28)
[2024-05-23] MEDS: Pantoprazole Sodium 40 MG Tablet PO (10:06)
[2024-05-23] MEDS: guaiFENesin 600 MG Tablet PO ×2 (10:06→21:28)
[2024-05-23] MEDS: Isosorbide Mononitrate 30 MG Tablet 15 MG PO (10:06)
[2024-05-23] MEDS: Metoprolol(XL)Succ 25 MG Tablet PO (10:06)
--- NOTE | 2024-05-23 10:23 | CASEMGMT ---
Discharge Planning Updates sent via [facility] to [facility]. Suzan Rojas DC Planning Asst.
--- NOTE | 2024-05-23 10:23 | NURSING ---
iv apresoline held due to starting dialdysis at this time
[2024-05-23] MEDS: 0.9% Normal Saline 1,000 ML IV.SOLN. 1000 ML OPERA.SITE (10:44)
[2024-05-23] MEDS: PureFlow B 2K Dialysis Soln 1 BAG 6 BAG PF (10:44)
[2024-05-23] MEDS: Heparin 10,000 UNITS/10 ML Vial IV (12:38)
--- NOTE | 2024-05-23 12:40 | CASEMGMT ---
This RN CM contacted Dr. Joya to ensure the pt will need OP HD set up for after DC. The MD states that they are not working today and to contact [facility] [place]. This RN CM contacted [facility] who states the pt is in fact needing OP HD set up for MICHELLE. This RN CM to pt room at this time. Pt is resting in bed and is currently getting HD treatment. Pt agreeable to answer this RN CM questions. Pt states that he does not have a preference on where to attend OP HD. Pt states that he is OK with [facility] in [place] (Pt lives at [facility]). Pt also reports that he does not have a preference between M/W/F schedule vs T//S. Pt does not have a preference in the time of day. Pt states that whatever they have available works. Referral sent to [facility] via the Portal at this time with the appropriate documentation. Awaiting return response. Pt sister came to the nurses station to talk to this RN CM. Pt sister states that she can provide transportation from [facility] to [facility] but the pt sister cannot drive the pt to HD 3x/week. Will collaborate with and [facility] to figure out transportation for this pt. Pt sister also states that it is too early to DC him today, and that he shouldn't DC until tomorrow at the earliest. This RN CM reassured the pt sister that this RN CM will let the MD know. Pt sister thanks this RN CM and denies further concerns at this time. Backline to Dr. Hudson at this time updating the MD of this information.
--- NOTE | 2024-05-23 12:49 | PN.RENAL_ITS ---
<Statement entered by Yasmin Alcala MD - 05/25/24 15:26> Pt seen & evaluated w/JENNIFER. I personally interviewed & exam the pt. I was involved in all aspects of pt's orders, interpretation of results & treatment Subjective Subjective Resting in bed undergoing hemodialysis. No overnight events. Objective Data Objective Data Vital Signs: Vital Signs Temp Pulse Resp BP Pulse Ox O2 Del Method O2 Flow Rate 98.2 F 63 16 141/97 H 99 Nasal Cannula 1 05/23/24 10:15 05/23/24 12:36 05/23/24 12:36 05/23/24 12:36 05/23/24 12:36 05/23/24 12:36 05/23/24 12:36 Oxygen Flow Rate (L/min) 1 Oxygen Delivery Method Nasal Cannula Weight: 51.3 kg Body Mass Index (BMI) 16.7 Intake & Output: Intake and Output for Last 24 Hours 05/21/24 05/22/24 05/23/24 23:59 23:59 23:59 Intake Total 240 / 480 1540 / 1740 300 / 300 Output Total 1750 / 1875 1200 / 1475 350 / 350 Balance -1510 / -1395 340 / 265 -50 / -50 Medical Nutrition Assessment Dietitian: Malnutrition Criteria Met Start: 05/17/24 13:57 Freq: Status: Active Protocol: Document 05/17/24 13:57 SLA (Rec: 05/17/24 13:58 SLA [email or web address]) Nutrition Malnutrition Evidence of Malnutrition Exists Yes Malnutrition (severe): Chronic Evidenced By Suboptimal Energy Intake ( Severe),Weight Loss (Severe), Physical Changes (Severe) Clinical Problem Chronic Disease or Condition Related Malnutrition Etiology related to chronic dz and inability to consume adequate nutrition Signs/Symptoms as evidenced by 23.4% unintended wt loss and po intake meeting <75% of estimated nutrition needs. Pt with obvious fat/muscle 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 BMI = 16.4 Status Active Problem Recommendation Dietitian Recommendations/Changes Will change diet to liberal regular d/t signs and symptoms of malnutrition. Will order 4 oz ensure plus high protein 4x/day w/ medpass . Rec consider appetite stimulant to help encourage increased po intake. May wish to consider alternate nutrition support if continued poor po intake/wt loss if in accordance w/ patient/family wishes to help prevent further decline in pt nutritional status. Lab / Micro Data 05/23/24 05:25 05/23/24 05:25 Labs: Laboratory Results - last 24 hr 05/22/24 16:40: POC Glucose 91 05/22/24 21:10: POC Glucose 122 H 05/23/24 05:25: WBC 9.0, RBC 3.94 L, Hgb 11.7 L, Hct 38.0 L, MCV 96.4 H, MCH 29.7, MCHC 30.8 L, RDW Std Deviation 70.5 H, RDW Coeff of Steven 20.1 H, Plt Count 145 L, MPV 12.1 H, Immature Gran % (Auto) 0.800, Neut % (Auto) 71.3 H, Lymph % (Auto) 18.1 L, [place] % (Auto) 7.6, Eos % (Auto) 1.9, Baso % (Auto) 0.3, Absolute Neuts (auto) 6.4, Absolute Lymphs (auto) 1.63, Nucleated RBC % 0, Differential Comment SCANNED, Anisocytosis 2+, Sodium 135 L, Potassium 4.2, Chloride 102, Carbon Dioxide 23.0, Anion Gap 10, BUN 66 H, Creatinine 2.99 H, Estim Creat Clear Calc 15.73, Est GFR (MDRD) Af Amer 27 L, Est GFR (MDRD) Non-Af 22 L, B UN/Creatinine Ratio 22.1 H, Glucose 106, Calcium 8.7 05/23/24 06:27: POC Glucose 125 H Micro: Microbiology 05/17/24 10:43 Blood Culture (Wb) - Right Hand Blood Culture - Final No growth in 5 days. 05/17/24 10:00 Urine Catheter - Catheter Legionella Antigen - Final 05/17/24 10:00 Urine Catheter - Catheter Streptococcus pneumoniae Antigen (M - Final Physical Exam Narrative Alert and oriented, no acute distress S1, S2, RRR Lung sounds clear Abdomen soft Tunneled dialysis catheter dressing clean, dry and intact Bocanegra with straw-colored urine in bag Assessment & Plan Assessment/Plan (1) Acute renal failure: PLAN: CKD stage IIIb. Baseline creatinine around 1.6 or so. Reviewed records from [facility]. He was treated for pneumonia, CHF. Echocardiogram with low ejection fraction of 30%. BNP was as high as 55,000. He has received IV Lasix, this was held at the end of the hospitalization due to MICHELLE. Discharge creatinine around 3.4. Urine analysis at [facility] did not show any significant hematuria. Urine protein was less than 300 mg. I doubt he has any glomerulonephritis. Currently has a Bocanegra catheter indwelling, obstruction unlikely. dyspnea is a combination of CHF and pneumonia (also note patient has history of stable lung mass). unfortunately renal function is poor. discussed about temporary dialysis to make breathing better. -Dialysis requiring MICHELLE on CKD. Patient's first hemodialysis was 05/20 (serum creatinine 4.25, BUN 107). Underwent hemodialysis again on 05/21. Patient to undergo hemodialysis today with aim of ~1.5L UF. Arrangements underway for outpatient hemodialysis at [facility], diagnosis MICHELLE followed by Dr. Joya. Will continue to monitor for renal recovery. Volume status improving with hemodialysis.
--- NOTE | 2024-05-23 13:53 | PN.HOSP_ITS ---
Reason for Visit Reason for Visit: Diagnoses Dehydration (05/17/24) Pneumonia, unspecified organism (05/17/24) Acute kidney failure, unspecified (05/17/24) Chronic kidney disease, unspecified (05/17/24) Disorder of kidney and ureter, unspecified (05/17/24) Other abnormalities of breathing (05/17/24) Weakness (05/17/24) Objective Data Objective Data Vital Signs: Vital Signs Temp Pulse Resp BP Pulse Ox O2 Del Method O2 Flow Rate 98.2 F 63 16 141/97 H 99 Nasal Cannula 1 05/23/24 10:15 05/23/24 13:50 05/23/24 12:36 05/23/24 12:36 05/23/24 12:36 05/23/24 12:36 05/23/24 12:36 Oxygen Flow Rate (L/min) 1 Oxygen Delivery Method Nasal Cannula Weight: 113 lb 1.554 oz Body Mass Index (BMI) 16.7 Intake & Output: Intake and Output for Last 24 Hours 05/21/24 05/22/24 05/23/24 23:59 23:59 23:59 Intake Total 240 / 480 1540 / 1740 300 / 300 Output Total 1750 / 1875 1200 / 1475 350 / 350 Balance -1510 / -1395 340 / 265 -50 / -50 Medical Nutrition Assessment Dietitian: Malnutrition Criteria Met Start: 05/17/24 13:57 Freq: Status: Active Protocol: Document 05/17/24 13:57 SLA (Rec: 05/17/24 13:58 SLA [email or web address]) Nutrition Malnutrition Evidence of Malnutrition Exists Yes Malnutrition (severe): Chronic Evidenced By Suboptimal Energy Intake ( Severe),Weight Loss (Severe), Physical Changes (Severe) Clinical Problem Chronic Disease or Condition Related Malnutrition Etiology related to chronic dz and inability to consume adequate nutrition Signs/Symptoms as evidenced by 23.4% unintended wt loss and po intake meeting <75% of estimated nutrition needs. Pt with obvious fat/muscle 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 BMI = 16.4 Status Active Problem Recommendation Dietitian Recommendations/Changes Will change diet to liberal regular d/t signs and symptoms of malnutrition. Will order 4 oz ensure plus high protein 4x/day w/ medpass . Rec consider appetite stimulant to help encourage increased po intake. May wish to consider alternate nutrition support if continued poor po intake/wt loss if in accordance w/ patient/family wishes to help prevent further decline in pt nutritional status. Lab / Micro Data 05/23/24 05:25 05/23/24 05:25 Labs: Laboratory Results - last 24 hr 05/22/24 16:40: POC Glucose 91 05/22/24 21:10: POC Glucose 122 H 05/23/24 05:25: WBC 9.0, RBC 3.94 L, Hgb 11.7 L, Hct 38.0 L, MCV 96.4 H, MCH 29.7, MCHC 30.8 L, RDW Std Deviation 70.5 H, RDW Coeff of Steven 20.1 H, Plt Count 145 L, MPV 12.1 H, Immature Gran % (Auto) 0.800, Neut % (Auto) 71.3 H, Lymph % (Auto) 18.1 L, [place] % (Auto) 7.6, Eos % (Auto) 1.9, Baso % (Auto) 0.3, Absolute Neuts (auto) 6.4, Absolute Lymphs (auto) 1.63, Nucleated RBC % 0, Differential Comment SCANNED, Anisocytosis 2+, Sodium 135 L, Potassium 4.2, Chloride 102, Carbon Dioxide 23.0, Anion Gap 10, BUN 66 H, Creatinine 2.99 H, Estim Creat Clear Calc 15.73, Est GFR (MDRD) Af Amer 27 L, Est GFR (MDRD) Non-Af 22 L, B UN/Creatinine Ratio 22.1 H, Glucose 106, Calcium 8.7 05/23/24 06:27: POC Glucose 125 H Micro: Microbiology 05/17/24 10:43 Blood Culture (Wb) - Right Hand Blood Culture - Final No growth in 5 days. 05/17/24 10:00 Urine Catheter - Catheter Legionella Antigen - Final 05/17/24 10:00 Urine Catheter - Catheter Streptococcus pneumoniae Antigen (M - Final Physical Exam Narrative Seen and examined. Patient has dialysis catheter inserted during this hospital course, right IJ. Shortness of breath is better. No chest pain. No acute issues overnight. Physical exam General: Alert, Oriented x3, Cooperative HEENT: Atraumatic, PERRLA, EOMI, Normocephalic Oral: No Gingival or Mucosal Lesions/ Ulcerations Neck: Supple, No JVD, Negative Carotid Bruits Chest wall/Lungs: Air entry diminished in bilateral lung bases. No crepitation/rhonchi Cardiovascular: Regular rate, Regular Rhythm, Normal S1, Normal S2, No M/G/R Abdomen: Bowel Sounds Present, Soft, Non Tender, Non-Distended : Chronic anuria. On dialysis. No renal angle tenderness. No suprapubic tenderness. Extremities: No edema, Capillary Refill Less than 3 Seconds Skin: No rashes, No breakdown Musculoskeletal: No Tenderness to Palpation of Joints or Extremities Neurological: Cranial nerves II-XII grossly intact, DTR 2+/4. No acute focal neurological deficit. Psych/Mental Status: Flat affect Assessment & Plan Assessment/Plan (1) Pneumonia: (2) Dehydration: (3) Weakness: (4) Acute renal failure: (5) Respiratory insufficiency: PLAN: Plan #MICHELLE on CKD IIIb * Creatinine has trended upward slightly from 4.35 yesterday to 4.48 today. BUN is even higher today at 113. * However per discussion with nephrology was able to pull up patient's chart at [facility], at time patient was discharged from [facility] on Thursday, his baseline was between 3.5-4. * Nephrology on board. * Bocanegra catheter in situ. * to have temporary dialysis catheter inserted on 06-11 and started dialysis afterwards * renal USG showed bilateral renal cystic nodules and possible right renal calculus 05/23: Patient is started on dialysis and had dialysis today. Plan for possible discharge tomorrow with setting up of outpatient hemodialysis. #Hypoxia with respiratory alkalosis * May be due to pneumonia and heart failure. Chest x-ray showed diffuse airspace disease in the right hemithorax with blunting of both costophrenic angles and infiltrate in the posterior medial segment of the left lower lobe as well as focal infiltrate in the left upper lobe. * Per Records reviewed by nephrology at [facility], patient was treated for pneumonia over there on antibiotics. He had bronchoscopy x 2 and the culture results from the [facility] seem to have just come back with growth of a yeastlike organism. There was also growth of Coxiella species. * Infectious disease on board. Per ID, patient had been on doxycycline at [facility] so patient continued on doxycycline, to complete a one week course here. * now on room air. * Breathing treatments bronchodilators. Titrate oxygen to maintain saturation above 90%. * resolving. On 2L of oxygen by nasal caula 05/23: Patient titrated down to 1 L of oxygen pulse ox 99. Heart rate in 60s. Try to wean off the oxygen. ID recommended 1 week of doxycycline from 05/18/2024. #History of heart failure with reduced action fraction * 2D echo done at [facility] showed EF of 31%. Patient currently on 2 L of oxygen was not previously on oxygen. * Will give a dose of IV Lasix though is not clear he is in exacerbation. * Monitor intake and output. * BNP elevated at >2000, though in the setting of MICHELLE on CKD IIIB, the BNP results may not be very accurate. * now on room air. 05/22: Patient does not seem to be in acute exacerbation. #History of lung mass: stable #Hypertension: On hydralazine and Imdur as well as metoprolol. Blood pressure has been elevated with systolic in the 170s. Should improve with dialysis. If it does not we will adjust BP meds. #Severe protein calorie malnutrition: BMI 16.4 and patient looks cachectic. Nutrition on board. 05/23: Nutrition and calories as planned by agricultural real estate agent. #GERD prophylaxis: Heparin CODE STATUS: DNR CCA no intubation Charges/Coding Visit Charges Inpatient E&M: 10098 Subs Hosp L2
--- NOTE | 2024-05-23 14:06 | CASEMGMT ---
Social Work SW sent two messages to [place] and left a voicemail regarding dialysis, the last question asked is regarding if they have a time slot they prefer in order to get pt to and from dialysis. SW awaiting a response. ELIZABETH Fletcher
[2024-05-23 20:30] LABS: Bedside Glucose 134 mg/dL (74-106)
[2024-05-23] MEDS: Insulin Glargine-YFGN 100 UNIT/ML Pen SC (21:28)
[2024-05-23 22:28] LABS: Bedside Glucose 116 mg/dL (74-106)
[2024-05-24 02:15] VITALS: BP 129/86; PULSE 76; RESP 16; TEMP 36.8; O2SAT 99
[2024-05-24 06:00] VITALS: BMI 16.5
[2024-05-24 06:02] VITALS: BP 134/89; PULSE 80
[2024-05-24] MEDS: hydrALAZINE 25 MG Tablet PO (06:02)
[2024-05-24 06:28] LABS: Bedside Glucose 101 mg/dL (74-106)
[2024-05-24 07:02] LABS: Absolute Lymphocyte Count 1.61 X10^3/uL (0.83-4.51); Absolute Neutrophil Count 5.3 X10^3/uL (2.0-7.7); Basophil# 0.04 X10^3/uL; Basophil% 0.5 % (0-1); Eosinophil# 0.24 X10^3/uL; Eosinophils% 3.1 % (0-5); Hematocrit 36.7 % (40-54); Hemoglobin 11.4 g/dL (13.0-16.5); Lymphocyte # 1.61 X10^3/ul (0.83-4.51); Lymphocyte % 20.6 % (19-41); Mean Corp Hgb Conc 31.1 g/dL (32-36); Mean Corpuscular Hgb 29.8 pg (27.0-32.0); Mean Corpuscular Volume 95.8 fL (80-94); Mean Platelet Vol. 12.2 fl (6.2-12.0); Monocyte# 0.57 X10^3/uL; Monocyte% 7.3 % (0-10); NRBC Flagged by Analyzer 0 % (0-5); Neutrophil # 5.31 X10^3/uL (2.7-7.7); POSITIVE MORPHOLOGY YES; Platelet Count 112 K/mm3 (150-450); RBC Distribution Width CV 19.8 % (11.6-14.6); RBC Distribution Width SD 68.9 fl (35.1-43.9); Red Blood Count 3.83 M/mm3 (4.6-6.2); White Blood Count 7.8 K/mm3 (4.4-11.0)
[2024-05-24 07:09] VITALS: PULSE 73; RESP 18; O2SAT 96
[2024-05-24] MEDS: Ipratropium/Albuterol Sulfate 3 ML AMPUL.NEB INHALATION (07:09)
[2024-05-24 07:10] LABS: Differential Indicated SCAN CRITERIA MET
[2024-05-24 07:14] LABS: Anion Gap 7 (5-15); BUN 47 mg/dL (7-18); BUN/Creat Ratio 18.3 RATIO (10-20); Calcium,Total 8.6 mg/dL (8.5-10.1); Chloride 107 mmol/L (98-107); Creatinine, Serum 2.57 mg/dL (0.70-1.30); EST Glomerular Filtration Rate 26 mL/min (>60); Est Glom Filt Rate - Afr Amer 32 mL/min (>60); Estimated Creatinine Clearance 18.01 ml/min; Glucose 77 mg/dL (74-106); Potassium 3.8 mmol/L (3.5-5.1); Sodium Level 139 mmol/L (136-145)
[2024-05-24 07:43] LABS: Anisocytosis 1+
[2024-05-24 09:25] VITALS: BP 139/83; PULSE 72; RESP 18; TEMP 36.7; O2SAT 94
--- NOTE | 2024-05-24 09:25 | DCINST_ITS ---
Discharge Instructions Diet Discharge Diet: 2000 mg Sodium Diet and Renal Diet Activity Discharge Activity: Return to Normal Activity Weight Bearing Status: Weight bearing as tolerated Dressing / Incision Call your doctor if you observe: Fever of 101 or Higher, Coldness, Increased Pain, Numbness or Tingling, Change in Color, Inability to urinate, Inability to have a bowel movement, Shortness of breath, Dizziness, Fainting spells, Swelling in the ankles, Chest pain, Prolonged hiccupping, Increased palpitations (irregular heartbeat) and Calf discomfort Follow Up Care When: IN 2 WEEKS Test Results: Test results from this visit will be discussed in further detail at your follow- up appointment, if applicable. Discharge Plan Admission Admit Date/Time: 05/17/24 10:45 Primary Reason for Your Visit: MICHELLE on CKD, new start hemodialysis. Atypical chronic pneumonia Attending Provider: Bipin Hudson Primary Care Provider: Tiago Alvarez Consulting Providers: Abhay Quiroz; Luiz Ferguson; Deirdre Jerry Discharge Orders/Prescriptions Prescriptions: New doxycycline monohydrate 100 mg Capsule 100 mg PO BID 2 Days Qty: 4 0RF Continued albuterol sulfate 90 mcg/actuation HFA aerosol inhaler 2 puff inhalation Q4H PRN PRN (Reason: wheezing) guaifenesin [Mucus Relief ER] 600 mg tablet extended release 12hr 600 mg PO BID hydralazine 25 mg tablet 25 mg PO TID isosorbide mononitrate 30 mg tablet extended release 24 hr 15 mg PO DAILY metoprolol succinate [Toprol XL] 25 mg tablet extended release 24 hr 25 mg PO DAILY pantoprazole 40 mg Tablet,Delayed Release (Dr/Ec) 40 mg PO DAILY insulin glargine-yfgn 100 unit/mL (3 mL) insulin pen 5 unit subcut QPM 30 Days Qty: 0 0RF Rx Instructions: Hold if glucose less than 130 mg/dl Referrals / Follow Up: Kaitlin Joya MD [Med Staff - Consulting] - Within 1 Month (New start of hemodialysis.) Tiago Alvarez MD [Primary Care Provider] - Within 2 Weeks Disposition Disposition (needs filled in before D/C Order can be placed): Home, Self Care
--- NOTE | 2024-05-24 09:40 | TREXTCAR_ITS ---
Diet Diet Order/Speech Therapy: 05/20/24 14:53 Diet: Renal diet Routine Orders/Code Status Suppository Type: Dulcolax 10mg Suppository Frequency: Daily PRN Wound(s) buttock: Wound Type: Pressure Injury RIGHT CHEST: Wound Type: Surgical Incision Therapies Extremity Affected:: Bilateral Lower Physical Therapy: Eval and Treat Occupational Therapy: Eval and Treat Speech Therapy: Eval and Treat Problem/Diagnosis (1) Acute renal failure: Status: Acute Code(s): N17.9 - Acute kidney failure, unspecified Plan #MICHELLE on CKD IIIb * Creatinine has trended upward slightly from 4.35 yesterday to 4.48 today. BUN is even higher today at 113. * However per discussion with nephrology was able to pull up patient's chart at [facility], at time patient was discharged from [facility] on Thursday, his baseline was between 3.5-4. * Nephrology on board. * Bocanegra catheter in situ. * to have temporary dialysis catheter inserted on 06-11 and started dialysis afterwards * renal USG showed bilateral renal cystic nodules and possible right renal calculus 05/23: Patient is started on dialysis and had dialysis today. Plan for possible discharge tomorrow with setting up of outpatient hemodialysis. #Hypoxia with respiratory alkalosis * May be due to pneumonia and heart failure. Chest x-ray showed diffuse airspace disease in the right hemithorax with blunting of both costophrenic angles and infiltrate in the posterior medial segment of the left lower lobe as well as focal infiltrate in the left upper lobe. * Per Records reviewed by nephrology at [facility], patient was treated for pneumonia over there on antibiotics. He had bronchoscopy x 2 and the culture results from the [facility] seem to have just come back with growth of a yeastlike organism. There was also growth of Coxiella species. * Infectious disease on board. Per ID, patient had been on doxycycline at [facility] so patient continued on doxycycline, to complete a one week course here. * now on room air. * Breathing treatments bronchodilators. Titrate oxygen to maintain saturation above 90%. * resolving. On 2L of oxygen by nasal caula 05/23: Patient titrated down to 1 L of oxygen pulse ox 99. Heart rate in 60s. Try to wean off the oxygen. ID recommended 1 week of doxycycline from 05/18/2024. #History of heart failure with reduced action fraction * 2D echo done at [facility] showed EF of 31%. Patient currently on 2 L of oxygen was not previously on oxygen. * Will give a dose of IV Lasix though is not clear he is in exacerbation. * Monitor intake and output. * BNP elevated at >2000, though in the setting of MICHELLE on CKD IIIB, the BNP results may not be very accurate. * now on room air. 05/22: Patient does not seem to be in acute exacerbation. #History of lung mass: stable #Hypertension: On hydralazine and Imdur as well as metoprolol. Blood pressure has been elevated with systolic in the 170s. Should improve with dialysis. If it does not we will adjust BP meds. #Severe protein calorie malnutrition: BMI 16.4 and patient looks cachectic. Nutrition on board. 05/23: Nutrition and calories as planned by business communications instructor. #GERD prophylaxis: Heparin CODE STATUS: DNR CCA no intubation Allergies/Procedures Done in Hospital Allergies No Known Allergies Allergy (Verified 05/17/24 08:38) Type of Care/Length of Stay Estimated LOS: Convalescent Care Less Than 30 days Type of Care Needed: Skilled Rehab Potential: Good Prognosis: Good Additional Orders/Day of Discharge Day of Discharge: 05/24/24 Dietary and Speech Recommendations Dietitian Recommendations/Changes: Will continue liberal regular d/t signs and symptoms of malnutrition. Will discontinue 4 oz ensure plus high protein 4x/day w/ medpass d/t consistent refusals Rec consider appetite stimulant to help encourage increased po intake. May wish to consider alternate nutrition support if continued poor po intake/wt loss if in accordance w/ patient/family wishes to help prevent further decline in pt nutritional status. Discharge Plan Admission Admit Date/Time: 05/17/24 10:45 Primary Reason for Your Visit: MICHELLE on CKD, new start hemodialysis. Atypical chronic pneumonia Attending Provider: Bipin Hudson Primary Care Provider: Tiago Alvarez Consulting Providers: Abhay Quiroz; Luiz Ferguson; Deirdre Jerry Discharge Orders/Prescriptions Prescriptions: New doxycycline monohydrate 100 mg Capsule 100 mg PO BID 2 Days Qty: 4 0RF Continued albuterol sulfate 90 mcg/actuation HFA aerosol inhaler 2 puff inhalation Q4H PRN PRN (Reason: wheezing) guaifenesin [Mucus Relief ER] 600 mg tablet extended release 12hr 600 mg PO BID hydralazine 25 mg tablet 25 mg PO TID isosorbide mononitrate 30 mg tablet extended release 24 hr 15 mg PO DAILY metoprolol succinate [Toprol XL] 25 mg tablet extended release 24 hr 25 mg PO DAILY pantoprazole 40 mg Tablet,Delayed Release (Dr/Ec) 40 mg PO DAILY insulin glargine-yfgn 100 unit/mL (3 mL) insulin pen 5 unit subcut QPM 30 Days Qty: 0 0RF Rx Instructions: Hold if glucose less than 130 mg/dl Referrals / Follow Up: [facility] [Outside] (Dialysis Thursday, , Thursday at 11:30 AM with arrival at 10:45. First start date 05/26/24.) Kaitlin Joya MD [Med Staff - Consulting] - Within 1 Month (New start of h emodialysis.) Tiago Alvarez MD [Primary Care Provider] - Within 2 Weeks Disposition Disposition (needs filled in before D/C Order can be placed): Home, Self Care
--- NOTE | 2024-05-24 09:59 | CASEMGMT ---
Social Work Pt is ready for discharge as per physician. SW spoke w/CM, pt's dialysis chair time is set up w/[facility] for Thursday, and Thursday at 11:30 with the first dialysis on 05/26, and pt needs to be there that day at 10:45. SW called Dayana Hanna at [facility], message left w/chair time and to ask if they can secure transportation, waiting for a return call. SW will continue to follow. ELIZABETH Fletcher
[2024-05-24] MEDS: Pantoprazole Sodium 40 MG Tablet PO (10:05)
[2024-05-24] MEDS: Isosorbide Mononitrate 30 MG Tablet 15 MG PO (10:05)
[2024-05-24] MEDS: Heparin Injection (Vial) 5,000 UNIT/ML VIAL 5000 UNIT SC (10:05)
[2024-05-24 10:06] VITALS: PULSE 80
[2024-05-24] MEDS: guaiFENesin 600 MG Tablet PO (10:06)
[2024-05-24] MEDS: Metoprolol(XL)Succ 25 MG Tablet PO (10:06)
--- NOTE | 2024-05-24 10:34 | PCM.PN.REN ---
Subjective Subjective Following for dialysis requiring MICHELLE Patient sitting up in bed. No complaints. No overnight events. Hopeful discharge today. Objective Data Objective Data Vital Signs: Vital Signs Temp Pulse Resp BP Pulse Ox O2 Del Method O2 Flow Rate 98.0 F 80 18 139/83 H 94 Room Air 2 05/24/24 09:25 05/24/24 10:06 05/24/24 09:25 05/24/24 09:25 05/24/24 09:25 05/24/24 09:25 05/24/24 02:00 Oxygen Flow Rate (L/min) 2 Oxygen Delivery Method Room Air Weight: 50.5 kg Body Mass Index (BMI) 16.5 Intake & Output: Intake and Output for Last 24 Hours 05/22/24 05/23/24 05/24/24 23:59 23:59 23:59 Intake Total 1540 / 1740 330 / 330 Output Total 1200 / 1475 1450 / 1600 400 / 400 Balance 340 / 265 -1120 / -1270 -400 / -400 Medical Nutrition Assessment Dietitian: Malnutrition Criteria Met Start: 05/17/24 13:57 Freq: Status: Active Protocol: Document 05/17/24 13:57 SLA (Rec: 05/17/24 13:58 SLA [email or web address]) Nutrition Malnutrition Evidence of Malnutrition Exists Yes Malnutrition (severe): Chronic Evidenced By Suboptimal Energy Intake ( Severe),Weight Loss (Severe), Physical Changes (Severe) Clinical Problem Chronic Disease or Condition Related Malnutrition Etiology related to chronic dz and inability to consume adequate nutrition Signs/Symptoms as evidenced by 23.4% unintended wt loss and po intake meeting <75% of estimated nutrition needs. Pt with obvious fat/muscle 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 BMI = 16.4 Status Active Problem Recommendation Dietitian Recommendations/Changes Will change diet to liberal regular d/t signs and symptoms of malnutrition. Will order 4 oz ensure plus high protein 4x/day w/ medpass . Rec consider appetite stimulant to help encourage increased po intake. May wish to consider alternate nutrition support if continued poor po intake/wt loss if in accordance w/ patient/family wishes to help prevent further decline in pt nutritional status. Lab / Micro Data 05/24/24 05:35 05/24/24 05:35 Labs: Laboratory Results - last 24 hr 05/23/24 19:45: POC Glucose 134 H 05/23/24 21:26: POC Glucose 116 H 05/24/24 05:35: WBC 7.8, RBC 3.83 L, Hgb 11.4 L, Hct 36.7 L, MCV 95.8 H, MCH 29.8, MCHC 31.1 L, RDW Std Deviation 68.9 H, RDW Coeff of Steven 19.8 H, Plt Count 112 L, MPV 12.2 H, Immature Gran % (Auto) 0.500, Neut % (Auto) 68.0, Lymph % (Auto) 20.6, [place] % (Auto) 7.3, Eos % (Auto) 3.1, Baso % (Auto) 0.5, Absolute Neuts (auto) 5.3, Absolute Lymphs (auto) 1.61, Nucleated RBC % 0, Anisocytosis 1+, Sodium 139, Potassium 3.8, Chloride 107, Carbon Dioxide 25.0, Anion Gap 7, BUN 47 H, Creatinine 2.57 H, Estim Creat Clear Calc 18.01, Est GFR (MDRD) Af Amer 32 L, Est GFR (MDRD) Non-Af 26 L, BUN/Creatinine Ratio 18.3, Glucose 77, Calcium 8.6 05/24/24 06:01: POC Glucose 101 Micro: Microbiology 05/17/24 10:43 Blood Culture (Wb) - Right Hand Blood Culture - Final No growth in 5 days. 05/17/24 10:00 Urine Catheter - Catheter Legionella Antigen - Final 05/17/24 10:00 Urine Catheter - Catheter Streptococcus pneumoniae Antigen (M - Final Physical Exam Narrative Alert and oriented, no acute distress S1, S2, RRR Lung sounds clear Abdomen soft no edema Tunneled dialysis catheter dressing clean, dry and intact Bocanegra with straw-colored urine in bag Assessment & Plan Assessment/Plan (1) Acute renal failure: PLAN: CKD stage IIIb. Baseline creatinine around 1.6 or so. Reviewed records from [facility]. He was treated for pneumonia, CHF. Echocardiogram with low ejection fraction of 30%. BNP was as high as 55,000. He has received IV Lasix, this was held at the end of the hospitalization due to MICHELLE. Discharge creatinine around 3.4. Urine analysis at [facility] did not show any significant hematuria. Urine protein was less than 300 mg. I doubt he has any glomerulonephritis. Currently has a Bocanegra catheter indwelling, obstruction unlikely. dyspnea is a combination of CHF and pneumonia (also note patient has history of stable lung mass). unfortunately renal function is poor. discussed about temporary dialysis to make breathing better. -Dialysis requiring MICHELLE on CKD. Patient's first hemodialysis was 05/20 (serum creatinine 4.25, BUN 107). Underwent hemodialysis again on 05/24 with ~1.5L UF. No acute indication for BI REPORT DEVELOPER today. Bps acceptable on hydralazine. Arrangements underway for outpatient hemodialysis at [facility], diagnosis MICHELLE followed by Dr. Joya. Will continue to monitor for renal recovery. Volume status improving with hemodialysis. - Ok for discharge per renal when outpatient HD arrangements confirmed. Next dialysis depending upon outpatient dialysis schedule.
--- NOTE | 2024-05-24 10:48 | PHA.DC.MR.R ---
Pharmacy [place] Med Reconciliation Pharmacy Service has performed discharge medication reconciliation for this patient. The patient's discharge medication list was reviewed for discrepancies and discrepancies were resolved. Medications at Discharge Home Medications albuterol sulfate 90 mcg/actuation aerosol inhaler 2 puff inhalation Q4H PRN PRN wheezing 05/17/24 guaifenesin 600 mg tablet, extended release 12 hr (Mucus Relief ER) 600 mg PO BID 05/17/24 hydralazine 25 mg tablet 25 mg PO TID 05/17/24 isosorbide mononitrate 30 mg tablet,extended release 24 hr 15 mg PO DAILY 05/17/24 metoprolol succinate 25 mg tablet,extended release 24 hr (Toprol XL) 25 mg PO DAILY 05/17/24 pantoprazole 40 mg tablet,delayed release 40 mg PO DAILY 05/17/24 doxycycline monohydrate 100 mg capsule 100 mg PO BID 2 days #4 caps 05/23/24 insulin glargine-yfgn 100 unit/mL (3 mL) subcutaneous pen 5 unit (0.05 mL) subcut QPM 30 days #0 mL 05/23/24
--- NOTE | 2024-05-24 11:36 | CASEMGMT ---
The pt has been accepted by [facility] and has a chair time for 1100 T//S. CARLOS Gonzalez is working with [facility] to figure out transportation for this pt. See note. TC to Soha ([facility] liaison working on this case). No answer at this time, VM left.
--- NOTE | 2024-05-24 12:08 | CASEMGMT ---
Addendum entered by Lisa Ruby 05/24/24 12:12: Social Work SW spoke w/escrow assistant Dennis, he states pt will be fine getting dialysis . D/C estate planning attorney Suzan setting up discharge. ELIZABETH Fletcher Original Note: Social Work SW spoke w/Dayana from [facility], they have the transport set for pt to start to dialysis, and can be d/c to [facility] today. SW asked RN to complete the COVID test. Text sent to physician to make sure pt okay to go today and get dialysis next on . SW waiting for a response. ELIZABETH Fletcher
--- NOTE | 2024-05-24 13:37 | CASEMGMT ---
Discharge Planning Discharge orders, signed med list, covid results, and transport time sent via [facility] to [facility]. Physicians will transport patient by cot at 3p. Nursing, SW, patient, and his sister updated. Suzan Rojas DC Planning Asst.
--- NOTE | 2024-05-24 13:55 | PCM.PN.HOSP ---
Reason for Visit Reason for Visit: Diagnoses Dehydration (05/17/24) Pneumonia, unspecified organism (05/17/24) Acute kidney failure, unspecified (05/17/24) Chronic kidney disease, unspecified (05/17/24) Disorder of kidney and ureter, unspecified (05/17/24) Other abnormalities of breathing (05/17/24) Weakness (05/17/24) Objective Data Objective Data Vital Signs: Vital Signs Temp Pulse Resp BP Pulse Ox O2 Del Method O2 Flow Rate 98.0 F 80 18 139/83 H 94 Room Air 2 05/24/24 09:25 05/24/24 10:06 05/24/24 09:25 05/24/24 09:25 05/24/24 09:25 05/24/24 09:25 05/24/24 02:00 Oxygen Flow Rate (L/min) 2 Oxygen Delivery Method Room Air Weight: 111 lb 5.335 oz Body Mass Index (BMI) 16.5 Intake & Output: Intake and Output for Last 24 Hours 05/22/24 05/23/24 05/24/24 23:59 23:59 23:59 Intake Total 1540 / 1740 330 / 330 Output Total 1200 / 1475 1450 / 1600 400 / 400 Balance 340 / 265 -1120 / -1270 -400 / -400 Medical Nutrition Assessment Dietitian: Malnutrition Criteria Met Start: 05/17/24 13:57 Freq: Status: Active Protocol: Document 05/17/24 13:57 SLA (Rec: 05/17/24 13:58 SLA [id number]) Nutrition Malnutrition Evidence of Malnutrition Exists Yes Malnutrition (severe): Chronic Evidenced By Suboptimal Energy Intake ( Severe),Weight Loss (Severe), Physical Changes (Severe) Clinical Problem Chronic Disease or Condition Related Malnutrition Etiology related to chronic dz and inability to consume adequate nutrition Signs/Symptoms as evidenced by 23.4% unintended wt loss and po intake meeting <75% of estimated nutrition needs. Pt with obvious fat/muscle 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 BMI = 16.4 Status Active Problem Recommendation Dietitian Recommendations/Changes Will change diet to liberal regular d/t signs and symptoms of malnutrition. Will order 4 oz ensure plus high protein 4x/day w/ medpass . Rec consider appetite stimulant to help encourage increased po intake. May wish to consider alternate nutrition support if continued poor po intake/wt loss if in accordance w/ patient/family wishes to help prevent further decline in pt nutritional status. Lab / Micro Data 05/24/24 05:35 05/24/24 05:35 Labs: Laboratory Results - last 24 hr 05/23/24 19:45: POC Glucose 134 H 05/23/24 21:26: POC Glucose 116 H 05/24/24 05:35: WBC 7.8, RBC 3.83 L, Hgb 11.4 L, Hct 36.7 L, MCV 95.8 H, MCH 29.8, MCHC 31.1 L, RDW Std Deviation 68.9 H, RDW Coeff of Steven 19.8 H, Plt Count 112 L, MPV 12.2 H, Immature Gran % (Auto) 0.500, Neut % (Auto) 68.0, Lymph % (Auto) 20.6, [place] % (Auto) 7.3, Eos % (Auto) 3.1, Baso % (Auto) 0.5, Absolute Neuts (auto) 5.3, Absolute Lymphs (auto) 1.61, Nucleated RBC % 0, Anisocytosis 1+, Sodium 139, Potassium 3.8, Chloride 107, Carbon Dioxide 25.0, Anion Gap 7, BUN 47 H, Creatinine 2.57 H, Estim Creat Clear Calc 18.01, Est GFR (MDRD) Af Amer 32 L, Est GFR (MDRD) Non-Af 26 L, BUN/Creatinine Ratio 18.3, Glucose 77, Calcium 8.6 05/24/24 06:01: POC Glucose 101 Micro: Microbiology 05/24/24 12:35 Nasal Secretion SARS-CoV-2 Antigen (Rapid) - Final 05/17/24 10:43 Blood Culture (Wb) - Right Hand Blood Culture - Final No growth in 5 days. 05/17/24 10:00 Urine Catheter - Catheter Legionella Antigen - Final 05/17/24 10:00 Urine Catheter - Catheter Streptococcus pneumoniae Antigen (M - Final Physical Exam Narrative Seen and examined. Patient has dialysis catheter inserted during this hospital course, right IJ. Shortness of breath is improved. On room air. Physical exam General: Alert, Oriented x3, Cooperative HEENT: Atraumatic, PERRLA, EOMI, Normocephalic Oral: No Gingival or Mucosal Lesions/ Ulcerations Neck: Supple, No JVD, Negative Carotid Bruits Chest wall/Lungs: Air entry diminished in bilateral lung bases. No crepitation/rhonchi Cardiovascular: Regular rate, Regular Rhythm, Normal S1, Normal S2, No M/G/R Abdomen: Bowel Sounds Present, Soft, Non Tender, Non-Distended : Chronic anuria. On dialysis. No renal angle tenderness. No suprapubic tenderness. Extremities: No edema, Capillary Refill Less than 3 Seconds Skin: No rashes, No breakdown Musculoskeletal: No Tenderness to Palpation of Joints or Extremities Neurological: Cranial nerves II-XII grossly intact, DTR 2+/4. No acute focal neurological deficit. Psych/Mental Status: Flat affect Assessment & Plan Assessment/Plan (1) Pneumonia: (2) Dehydration: (3) Weakness: (4) Acute renal failure: (5) Respiratory insufficiency: PLAN: Plan #MICHELLE on CKD IIIb Creatinine has trended upward slightly from 4.35 yesterday to 4.48 today. BUN is even higher today at 113. However per discussion with nephrology was able to pull up patient's chart at [facility], at time patient was discharged from [facility] on Thursday, his baseline was between 3.5-4. Nephrology on board. Bocanegra catheter in situ. to have temporary dialysis catheter inserted on 06-11 and started dialysis afterwards renal USG showed bilateral renal cystic nodules and possible right renal calculus 05/23: Patient is started on dialysis and had dialysis today. Plan for possible discharge tomorrow with setting up of outpatient hemodialysis. 05/24: clearing tub worker to set up dialysis outpatient. [facility] Follow-up with repair electric motor assembler as an outpatient. #Hypoxia with respiratory alkalosis May be due to pneumonia and heart failure. Chest x-ray showed diffuse airspace disease in the right hemithorax with blunting of both costophrenic angles and infiltrate in the posterior medial segment of the left lower lobe as well as focal infiltrate in the left upper lobe. Per Records reviewed by nephrology at [facility], patient was treated for pneumonia over there on antibiotics. He had bronchoscopy x 2 and the culture results from the [facility] seem to have just come back with growth of a yeastlike organism. There was also growth of Coxiella species. Infectious disease on board. Per ID, patient had been on doxycycline at [facility] so patient continued on doxycycline, to complete a one week course here. now on room air. Breathing treatments bronchodilators. Titrate oxygen to maintain saturation above 90%. resolving. On 2L of oxygen by nasal caula 05/23: Patient titrated down to 1 L of oxygen pulse ox 99. Heart rate in 60s. Try to wean off the oxygen. ID recommended 1 week of doxycycline from 05/18/2024. 05/24: Patient on room air, pulse ox 94%. #History of heart failure with reduced action fraction 2D echo done at [facility] showed EF of 31%. Patient currently on 2 L of oxygen was not previously on oxygen. Will give a dose of IV Lasix though is not clear he is in exacerbation. Monitor intake and output. BNP elevated at >2000, though in the setting of MICHELLE on CKD IIIB, the BNP results may not be very accurate. now on room air. 05/22: Patient does not seem to be in acute exacerbation. #History of lung mass: stable #Hypertension: On hydralazine and Imdur as well as metoprolol. Blood pressure has been elevated with systolic in the 170s. Should improve with dialysis. If it does not we will adjust BP meds. #Severe protein calorie malnutrition: BMI 16.4 and patient looks cachectic. Nutrition on board. 05/23: Nutrition and calories as planned by professional housing consultant. #GERD prophylaxis: Heparin CODE STATUS: DNR CCA no intubation Discharge medication reconciliation done. Discharge follow-up instructions completed. Discharge process discussed with the patient and all questions were answered to patient's satisfaction. Follow with PCP in 1 to 2 weeks Total time spent, exact 35 minutes on discharge meds reconciliation, examination, coordination of care with nurses and ancillary staff, review of imaging and blood test and discussion with the patient on follow-up instructions. Charges/Coding Visit Charges Inpatient E&M: 64970 Subs Hosp L2
--- NOTE | 2024-05-24 14:53 | NURSING ---
report given to GIOVANNI
--- NOTE | 2024-05-24 15:14 | CASEMGMT ---
Social Work Pt's sister inquiring why pt can't go to [facility] and get [facility]. SW explained to pt's sister that only chronic dialysis pts can get dialysis at [facility] so if pt went to [facility] he would still need to go out to dialysis. Pt's sister states understanding. She then had several questions around assisted living vs SNF, SW answered. No further needs, pt to [place] today. ELIZABETH Fletcher
--- NOTE | 2024-05-24 16:36 | PCM.DC.SUM ---
Providers Date of Admission: 05/17/24 Date of Discharge: 05/24/24 Primary Care Physician: Dr. Tiago Alvarez MD Consultations 05/17/24 12:23 Consult: Infectious Disease Routine Consulting Provider: Luiz Ferguson Reason for Consult: fungal pneumonia EMERGENT Consult: No Notified: Yes Date Notified: 05/17/24 Time Notified: 12:23 Method of Notification: Verbal 05/19/24 12:20 Consult: General Surgery Routine Consulting Provider: Abhay Quiroz Reason for Consult: HD catheter placement EMERGENT Consult: No Notified: Yes Date Notified: 05/19/24 Time Notified: 12:21 Method of Notification: Verbal Reason For Visit: COMMUNITY ACQUIRED PNEUMONIA, MICHELLE ON CKD Diagnosis Discharge Diagnosis (1) Pneumonia: Status: Acute Code(s): J18.9 - Pneumonia, unspecified organism (2) Dehydration: Status: Acute Code(s): E86.0 - Dehydration (3) Weakness: Status: Acute Code(s): R53.1 - Weakness (4) Acute renal failure: Status: Acute Code(s): N17.9 - Acute kidney failure, unspecified (5) Respiratory insufficiency: Status: Acute Code(s): R06.89 - Other abnormalities of breathing Plan 73 gentleman was admitted with generalized weakness from extended-care facility where he was admitted from [facility] after treatment of COPD exacerbation and malnutrition. His BUN was elevated 106 no chest pain shortness of breath fever or chills. #MICHELLE on CKD IIIb Creatinine has trended upward slightly from 4.35 yesterday to 4.48 today. BUN is even higher at 113. However per discussion with nephrology was able to pull up patient's chart at [facility], at time patient was discharged from [facility] on Thursday, his baseline was between 3.5-4. Nephrology on board. Bocanegra catheter in situ. to have temporary dialysis catheter inserted on 06-11 and started dialysis afterwards renal USG showed bilateral renal cystic nodules and possible right renal calculus 05/23: Patient is started on dialysis and had dialysis today. Plan for possible discharge tomorrow with setting up of outpatient hemodialysis. 05/24: mat worker to set up dialysis outpatient. [facility] going to detention. Follow-up with surgical nurse as an outpatient. #Hypoxia with respiratory alkalosis May be due to pneumonia and heart failure. Chest x-ray showed diffuse airspace disease in the right hemithorax with blunting of both costophrenic angles and infiltrate in the posterior medial segment of the left lower lobe as well as focal infiltrate in the left upper lobe. Per Records reviewed by nephrology at [facility], patient was treated for pneumonia over there on antibiotics. He had bronchoscopy x 2 and the culture results from the [facility] seem to have just come back with growth of a yeastlike organism. There was also growth of Coxiella species. Infectious disease on board. Per ID, patient had been on doxycycline at [facility] so patient continued on doxycycline, to complete a one week course here. now on room air. Breathing treatments bronchodilators. Titrate oxygen to maintain saturation above 90%. resolving. On 2L of oxygen by nasal caula 05/23: Patient titrated down to 1 L of oxygen pulse ox 99. Heart rate in 60s. Try to wean off the oxygen. ID recommended 1 week of doxycycline from 05/18/2024. 05/24: Patient on room air, pulse ox 94%. #History of heart failure with reduced action fraction 2D echo done at [facility] showed EF of 31%. Patient currently on 2 L of oxygen was not previously on oxygen. Will give a dose of IV Lasix though is not clear he is in exacerbation. Monitor intake and output. BNP elevated at >2000, though in the setting of MICHELLE on CKD IIIB, the BNP results may not be very accurate. now on room air. 05/22: Patient does not seem to be in acute exacerbation. #History of lung mass: stable #Hypertension: On hydralazine and Imdur as well as metoprolol. Blood pressure has been elevated with systolic in the 170s. Should improve with dialysis. If it does not we will adjust BP meds. #Severe protein calorie malnutrition: BMI 16.4 and patient looks cachectic. Nutrition on board. 05/23: Nutrition and calories as planned by drapery estimator. #GERD prophylaxis: Heparin CODE STATUS: DNR CCA no intubation Discharge medication reconciliation done. Discharge follow-up instructions completed. Discharge process discussed with the patient and all questions were answered to patient's satisfaction. Follow with PCP in 1 to 2 weeks Total time spent, exact 35 minutes on discharge meds reconciliation, examination, coordination of care with nurses and ancillary staff, review of imaging and blood test and discussion with the patient on follow-up instructions. Medications at Discharge Home Medications albuterol sulfate 90 mcg/actuation aerosol inhaler 2 puff inhalation Q4H PRN PRN wheezing 05/17/24 guaifenesin 600 mg tablet, extended release 12 hr (Mucus Relief ER) 600 mg PO BID 05/17/24 hydralazine 25 mg tablet 25 mg PO TID 05/17/24 isosorbide mononitrate 30 mg tablet,extended release 24 hr 15 mg PO DAILY 05/17/24 metoprolol succinate 25 mg tablet,extended release 24 hr (Toprol XL) 25 mg PO DAILY 05/17/24 pantoprazole 40 mg tablet,delayed release 40 mg PO DAILY 05/17/24 doxycycline monohydrate 100 mg capsule 100 mg PO BID 2 days #4 caps 05/23/24 insulin glargine-yfgn 100 unit/mL (3 mL) subcutaneous pen 5 unit (0.05 mL) subcut QPM 30 days #0 mL 05/23/24 Physical Exam Narrative Seen and examined. Patient has dialysis catheter inserted during this hospital course, right IJ. Shortness of breath is improved. On room air. Physical exam General: Alert, Oriented x3, Cooperative HEENT: Atraumatic, PERRLA, EOMI, Normocephalic Oral: No Gingival or Mucosal Lesions/ Ulcerations Neck: Supple, No JVD, Negative Carotid Bruits Chest wall/Lungs: Air entry diminished in bilateral lung bases. No crepitation/rhonchi Cardiovascular: Regular rate, Regular Rhythm, Normal S1, Normal S2, No M/G/R Abdomen: Bowel Sounds Present, Soft, Non Tender, Non-Distended : Chronic anuria. On dialysis. No renal angle tenderness. No suprapubic tenderness. Extremities: No edema, Capillary Refill Less than 3 Seconds Skin: No rashes, No breakdown Musculoskeletal: No Tenderness to Palpation of Joints or Extremities Neurological: Cranial nerves II-XII grossly intact, DTR 2+/4. No acute focal neurological deficit. Psych/Mental Status: Flat affect Medical Records Data Medical Nutrition Assessment Dietitian: Malnutrition Criteria Met Start: 05/17/24 13:57 Freq: Status: Active Protocol: Document 05/17/24 13:57 SLA (Rec: 05/17/24 13:58 SLA [id number]) Nutrition Malnutrition Evidence of Malnutrition Exists Yes Malnutrition (severe): Chronic Evidenced By Suboptimal Energy Intake ( Severe),Weight Loss (Severe), Physical Changes (Severe) Clinical Problem Chronic Disease or Condition Related Malnutrition Etiology related to chronic dz and inability to consume adequate nutrition Signs/Symptoms as evidenced by 23.4% unintended wt loss and po intake meeting <75% of estimated nutrition needs. Pt with obvious fat/muscle 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 BMI = 16.4 Status Active Problem Recommendation Dietitian Recommendations/Changes Will change diet to liberal regular d/t signs and symptoms of malnutrition. Will order 4 oz ensure plus high protein 4x/day w/ medpass . Rec consider appetite stimulant to help encourage increased po intake. May wish to consider alternate nutrition support if continued poor po intake/wt loss if in accordance w/ patient/family wishes to help prevent further decline in pt nutritional status. Weight / BMI Weight Weight: 111 lb 5.335 oz Body Mass Index (BMI) 16.5 ABG / Lab / Microbiology Data 05/24/24 05:35 05/24/24 05:35 Laboratory: Laboratory Results - last 24 hr 05/23/24 19:45: POC Glucose 134 H 05/23/24 21:26: POC Glucose 116 H 05/24/24 05:35: WBC 7.8, RBC 3.83 L, Hgb 11.4 L, Hct 36.7 L, MCV 95.8 H, MCH 29.8, MCHC 31.1 L, RDW Std Deviation 68.9 H, RDW Coeff of Steven 19.8 H, Plt Count 112 L, MPV 12.2 H, Immature Gran % (Auto) 0.500, Neut % (Auto) 68.0, Lymph % (Auto) 20.6, [place] % (Auto) 7.3, Eos % (Auto) 3.1, Baso % (Auto) 0.5, Absolute Neuts (auto) 5.3, Absolute Lymphs (auto) 1.61, Nucleated RBC % 0, Anisocytosis 1+, Sodium 139, Potassium 3.8, Chloride 107, Carbon Dioxide 25.0, Anion Gap 7, BUN 47 H, Creatinine 2.57 H, Estim Creat Clear Calc 18.01, Est GFR (MDRD) Af Amer 32 L, Est GFR (MDRD) Non-Af 26 L, BUN/Creatinine Ratio 18.3, Glucose 77, Calcium 8.6 05/24/24 06:01: POC Glucose 101 Microbiology: Microbiology 05/17/24 10:43 Blood Culture (Wb) - Right Hand Blood Culture - Final No growth in 5 days. 05/17/24 10:00 Urine Catheter - Catheter Legionella Antigen - Final 05/17/24 10:00 Urine Catheter - Catheter Streptococcus pneumoniae Antigen (M - Final D/C Instructions Discharge Diet: 2000 mg Sodium Diet and Renal Diet Weight Bearing Status: Weight bearing as tolerated Call your doctor if you observe: Fever of 101 or Higher, Coldness, Increased Pain, Numbness or Tingling, Change in Color, Inability to urinate, Inability to have a bowel movement, Shortness of breath, Dizziness, Fainting spells, Swelling in the ankles, Chest pain, Prolonged hiccupping, Increased palpitations (irregular heartbeat) and Calf discomfort When: IN 2 WEEKS Meaningful Use Info Meaningful Use Meaningful Use Diagnoses (Choose all that apply): None applicable Ischemic Stroke Statin Dosing Therapy Reference: STATIN DOSE THERAPY REFERENCE: * Patients > 75 years receive moderate or high dose statin therapy. * Patients 75 years or YOUNGER should receive HIGH intensity statin dose unless contraindicated. You will be required to document reason for non-treatment if statin daily dose does not meet guidelines. HIGH DOSE STATIN THERAPY DAILY Atorvastatin > than or = to 40 mg Rosuvastatin > than or = to 20 mg Amlodipine + Atorvastatin > than or = to 2.5/40 mg Ezetimibe + Simvastatin 10/80 mg Simvastatin 80mg Discharge Plan Admission Admit Date/Time: 05/17/24 10:45 Primary Reason for Your Visit: MICHELLE on CKD, new start hemodialysis. Atypical chronic pneumonia Attending Provider: Bipin Hudson Primary Care Provider: Tiago Alvarez Consulting Providers: Abhay Quiroz; Luiz Ferguson; Deirdre Jerry Discharge Orders/Prescriptions Prescriptions: New doxycycline monohydrate 100 mg Capsule 100 mg PO BID 2 Days Qty: 4 0RF Continued albuterol sulfate 90 mcg/actuation HFA aerosol inhaler 2 puff inhalation Q4H PRN PRN (Reason: wheezing) guaifenesin [Mucus Relief ER] 600 mg tablet extended release 12hr 600 mg PO BID hydralazine 25 mg tablet 25 mg PO TID isosorbide mononitrate 30 mg tablet extended release 24 hr 15 mg PO DAILY metoprolol succinate [Toprol XL] 25 mg tablet extended release 24 hr 25 mg PO DAILY pantoprazole 40 mg Tablet,Delayed Release (Dr/Ec) 40 mg PO DAILY insulin glargine-yfgn 100 unit/mL (3 mL) insulin pen 5 unit subcut QPM 30 Days Qty: 0 0RF Rx Instructions: Hold if glucose less than 130 mg/dl Referrals / Follow Up: [facility] [Outside] (Dialysis Thursday, , Thursday at 11:30 AM with arrival at 10:45. First start date 05/26/24.) Kaitlin Joya MD [Med Staff - Consulting] - Within 1 Month (New start of hemodialysis.) Tiago Alvarez MD [Primary Care Provider] - Within 2 Weeks Disposition Disposition (needs filled in before D/C Order can be placed): Home, Self Care Charges/Coding Visit Charges Inpatient E&M: 04733 Disch Hosp >30min
== END 2024-05-24 14:56 | disposition skilled nursing facility (03) | DRG 673 ==
LOC: ED 10:45 → MS3 11:11 → PCU 05-18 12:24 → MS3 05-22 14:05
PROVIDERS: Anesthesiology; Internal Medicine Nephrology; Surgery; Admitting Provider Student in an Organized Health Care Education/Training Program; Emergency Provider Emergency Medicine; PCP Internal Medicine; Visit Provider Internal Medicine
PROC: 0JH63XZ Insertion of Tunneled Vascular Access Device into Chest Subcutaneous Tissue and Fascia, Percutaneous Approach (ICD-10-PCS; principal; 2024-05-20 11:45)
DX: N17.9 Acute kidney failure, unspecified (principal); J18.9 Pneumonia, unspecified organism; E43 Unspecified severe protein-calorie malnutrition; I13.0 Hypertensive heart and chronic kidney disease with heart failure and stage 1 through stage 4 chronic kidney disease, or unspecified chronic kidney disease; E87.3 Alkalosis; J44.0 Chronic obstructive pulmonary disease with (acute) lower respiratory infection; I50.22 Chronic systolic (congestive) heart failure; Z68.1 Body mass index [BMI] 19.9 or less, adult; N18.32 Chronic kidney disease, stage 3b; E86.0 Dehydration; E78.5 Hyperlipidemia, unspecified; K21.9 Gastro-esophageal reflux disease without esophagitis; Z87.891 Personal history of nicotine dependence; Z66 Do not resuscitate; N20.0 Calculus of kidney
CPT/HCPCS: 36415; 36600; 51702; 71045; 76000; 76770; 80048; 80053; 81001; 82570; 82803; 82962; 83036; 83880; 84300; 85025; 85730; 87040; 87340; 87426; 87449; 90937; 92610; 93005; 94640; 97150; 97162; 97166; 97802; 99285; J7030; J7050; A4216; C1750; G0257; J1940; J2405

== ENCOUNTER 2024-06-09 02:00 | Inpatient (IN) | payer MEDICARE, OTHER, SELFPAY ==
[2024-06-09] VITALS (30 sets, daily range): BP systolic 110–342; BP diastolic 67–142; PULSE 69–91; RESP 14–118; TEMP 36–36.6; O2SAT 4–100; BMI 18.1; BMI 17.2; BMI 17.9
--- NOTE | 2024-06-09 | FLU_PTH ---
PATIENT: DIANE FRANCES LOC: [facility] U#:[id number] AGE/SX: 73/M ROOM: [facility] RE06/10/[address]: Dr. Ed Davis MD : 1950 BED: 1 DIS: 06/11/2024 SPEC #: [id number] RECD: 06/09/24 15:19 STATUS: PARKER REKinga #: [id number] ROSA: 06/09/24 00:[address]: Ed Davis DEPT: CYTOLOGY RECD BY: Rina Lagunas ENTERED: 06/10/24 07:37 SP TYPE: Fluid OTHR DR: MD Dr. Kaitlin Olivia MD Dr. Kathryn Lee, DO Tissues: Pleural fluid, NOS Procedures: Special Stain Group II Surgery Specimen Level IV Cytospin Fluid HEADER OPERATION: Ultrasound guided thoracentesis PRE-OP DIAGNOSIS: Pleural effusion TISSUE SUBMITTED: Thoracentesis fluid for cytology DIAGNOSIS CYTOLOGY Thoracentesis fluid for cytology (cytospin and cellblock): Negative for malignant cells. DELISA/ 06/13/2024 CYTOLOGY STUDY Slides are reviewed. CYTOLOGY GROSS Received is 85 ml of hazy-yellow fluid labeled with the patient's name and and designated per the requisition as Thoracentesis fluid. Submitted for cytology preparation including cell block. Mr 06/10/2024 TC:5 CPT: 36030,83136
--- NOTE | 2024-06-09 02:18 | RAD_ITS ---
EXAM: XR CHEST, 1 VIEW CLINICAL INDICATION: SOB TECHNIQUE: Frontal view of the chest. COMPARISON: Single view chest 05/17/2024 FINDINGS: LUNGS AND PLEURAL SPACES: Patchy bilateral airspace disease with moderate pleural effusions. No pneumothorax. HEART: Mild enlargement of the cardiac silhouette. MEDIASTINUM: Central airways and mediastinal contour are unremarkable. BONES/JOINTS: Unremarkable. No acute fracture. SOFT TISSUES: Unremarkable. TUBES, LINES AND DEVICES: Right chest central venous catheter. RAD/Chest 1 View (Portable) IMPRESSION: Patchy bilateral airspace disease with moderate pleural effusions. Findings may indicate pneumonia. Electronically Signed: Sammy Riley MD at 3:02 EDT ,
--- NOTE | 2024-06-09 02:18 | EKG12_ITS ---
Test Reason : Blood Pressure : / mmHG Vent. Rate : 093 BPM Atrial Rate : 093 BPM P-R Int : 146 ms QRS Dur : 070 ms QT Int : 366 ms P-R-T Axes : 044 -19 125 degrees QTc Int : 455 ms Sinus rhythm with Premature supraventricular complexes Possible Left atrial enlargement NS T CHANGES Abnormal ECG Reconfirmed by AVERY MIDDLETON, ELSA ([id number]), pictures editor YASMANI HILTON ([id number]) on 06/10/2024 6:51:21 A M Referred By: Confirmed By:DARYL VARELA MD
[2024-06-09 02:25] LABS: Absolute Lymphocyte Count 1.68 X10^3/uL (0.83-4.51); Absolute Neutrophil Count 5.4 X10^3/uL (2.0-7.7); Basophil# 0.05 X10^3/uL; Basophil% 0.6 % (0-1); Eosinophil# 0.19 X10^3/uL; Eosinophils% 2.4 % (0-5); Hematocrit 43.6 % (40-54); Hemoglobin 13.1 g/dL (13.0-16.5); Lymphocyte # 1.68 X10^3/ul (0.83-4.51); Lymphocyte % 21.1 % (19-41); Mean Corpuscular Hgb 29.6 pg (27.0-32.0); Mean Corpuscular Volume 98.4 fL (80-94); Mean Platelet Vol. 11.4 fl (6.2-12.0); Monocyte# 0.63 X10^3/uL; Monocyte% 7.9 % (0-10); NRBC Flagged by Analyzer 0 % (0-5); Neutrophil # 5.35 X10^3/uL (2.7-7.7); Neutrophil % 67.2 % (47-70); Platelet Count 231 K/mm3 (150-450); RBC Distribution Width CV 17.2 % (11.6-14.6); RBC Distribution Width SD 62.4 fl (35.1-43.9); Red Blood Count 4.43 M/mm3 (4.6-6.2)
[2024-06-09 02:38] LABS: Anion Gap 8 (5-15); BUN 66 mg/dL (7-18); BUN/Creat Ratio 22.4 RATIO (10-20); Calcium,Total 8.9 mg/dL (8.5-10.1); Chloride 104 mmol/L (98-107); Creatinine, Serum 2.95 mg/dL (0.70-1.30); EST Glomerular Filtration Rate 22 mL/min (>60); Est Glom Filt Rate - Afr Amer 27 mL/min (>60); Estimated Creatinine Clearance 16.87 ml/min; Glucose 129 mg/dL (74-106); Potassium 4.7 mmol/L (3.5-5.1); Sodium Level 139 mmol/L (136-145)
[2024-06-09] MEDS: Ipratropium/Albuterol Sulfate 3 ML AMPUL.NEB INHALATION (03:29)
--- NOTE | 2024-06-09 03:32 | CPS ---
pt took 1/2 aero tx-states these don't do anything/help
--- NOTE | 2024-06-09 03:43 | ED.VIS.DYS ---
HPI History of Present Illness Chief Complaint: Shortness of Breath Narrative Narrative: 73-year-old male past medical history of COPD, currently on dialysis, [facility] 2 L of oxygen [facility] the [facility] presents with increasing shortness of breath. He received an aerosol treatment at the correction facility but still complains of shortness of breath. He denies any fever or chills, no cough. Of note, he has a dialysis catheter in his right chest but no fistulas, and states that he missed dialysis yesterday because he did not feel well. He had gone on Thursday and received full treatment, but skipped it. He denies any leg swelling. He states he quit smoking 6 weeks ago. [facility] Medical History Acute renal failure Respiratory insufficiency Kidney disease COPD (chronic obstructive pulmonary disease) Former smoker Pneumonia CKD (chronic kidney disease) CKD (chronic kidney disease) HTN (hypertension) HLD (hyperlipidemia) Home Medications ?Medication ?Instructions ?Recorded ?Last Taken ?Type albuterol sulfate 90 mcg/actuation 2 puff inhalation Q4H PRN PRN 05/17/24 Unknown History aerosol inhaler wheezing guaifenesin 600 mg tablet, 600 mg PO BID 05/17/24 Unknown History extended release 12 hr (Mucus Relief ER) hydralazine 25 mg tablet 25 mg PO TID 05/17/24 Unknown History isosorbide mononitrate 30 mg 15 mg PO DAILY 05/17/24 Unknown History tablet,extended release 24 hr metoprolol succinate 25 mg 25 mg PO DAILY 05/17/24 Unknown History tablet,extended release 24 hr (Toprol XL) pantoprazole 40 mg tablet,delayed 40 mg PO DAILY 05/17/24 Unknown History release insulin glargine-yfgn 100 unit/mL 5 unit (0.05 mL) subcut QPM 30 05/23/24 Unknown Rx (3 mL) subcutaneous pen days #0 mL amino acids-protein hydrolysate 15 30 ml PO BID 06/09/24 Unknown History gram-100 kcal/30 mL oral liquid (Pro-Stat Sugar Free) fluticasone 250 mcg-salmeterol 50 1 inh inhalation BID 06/09/24 Unknown History mcg/dose blistr powdr for inhalation (Advair Diskus) Allergy/AdvReac Type Severity Reaction Status Date / Time No Known Allergies Allergy Verified 06/09/24 02:01 Social History household members: none Smoking Status: Former smoker substance use type: does not use ROS ROS ED ROS Narrative Constitutional: No fever, no chills. HEENT: No sore throat. No neck pain. No loss of vision. No rhinorrhea. Cardiovascular: No chest pain. No palpitations. No pedal edema. Respiratory: No cough, positive dyspnea and shortness of breath. Abdominal: No abdominal pain. No nausea. No vomiting. Genitourinary: No dysuria. No hematuria. Musculoskeletal: No myalgias. No arthralgias. Neurologic: No headaches. No dizziness. No lightheadedness. Skin: No rash. No change in color. Psychiatric: No depression. No anxiety. EXAM Physical Exam Narrative Exam Narrative: Afebrile. Vital signs noted. HEENT: Normocephalic. Atraumatic. PERRL, EOMI. Neck soft and supple. No point tenderness or step off. Cardiovascular: Regular rate and rhythm. No murmurs, rubs, or gallops appreciated. Respiratory: Positive tachypnea. Decreased breath sounds bilateral bases. Continually stating I can't breathe. Gastrointestinal: Abdomen soft, nontender, with normoactive bowel sounds. No rebound or guarding. Neurological: Awake. Alert. Nonfocal, nonlateralizing. Skin: No rash. Normal color. No pallor. Musculoskeletal: No pedal edema. Full range of motion extremities. Const Vital Signs: 06/09/24 02:01 06/09/24 02:07 06/09/24 02:22 Temperature 97.3 F L Temperature Source Temporal Pulse Rate 91 Respiratory Rate 31 H Respiratory Effort Normal Blood Pressure 157/117 H Blood Pressure Mean 130 Pulse Ox 97 Oxygen Delivery Method Nasal Cannula Nasal Cannula Nasal Cannula Oxygen Flow Rate (L/min) 2 2 2 06/09/24 03:29 Temperature Temperature Source Pulse Rate 89 Respiratory Rate 18 Respiratory Effort Blood Pressure Blood Pressure Mean Pulse Ox Oxygen Delivery Method Oxygen Flow Rate (L/min) MDM MDM MDM Narrative Medical decision making narrative: Differential diagnosis includes fluid overload versus COPD exacerbation versus pneumonia versus pneumothorax. History and physical does not support the latter 2 diagnoses as he states he has not had fever or cough. He may have more of a COPD exacerbation, and additionally he missed his dialysis. Chest x-ray in 1 view interpreted by myself independently shows bilateral fluffy infiltrates and bilateral pleural effusions more consistent with fluid overload. Patient has not been hypoxic on his 2 L here nasal cannula. I reviewed his laboratory work and he has normal white count of 8.0 and hemoglobin 13.1, hematocrit 43.6, platelet count normal at 231. His electrolyte panel is grossly unremarkable except for the BUN of 66 and creatinine of 2.95. This appears to be his baseline. Potassium is normal at 4.7. Glucose elevated at 129 with a normal anion gap of 8. EKG was obtained and interpreted by myself independently as sinus rhythm with premature supraventricular complexes at [address] changes. No STEMI. I do not feel that the patient has pneumonia as clinically he has no fever, no cough, and there is no leukocytosis. I discussed the patient with the on-call physician for Dr. Portillo his vinyl cutter who was made aware of the patient's need for dialysis. I then discussed patient with Dr. Singletary the hospitalist for observation as he continued to state that he could not breathe and I think that although he does not have an electrolyte abnormality that he could not be sent back to the detention because he requires dialysis later today. Disposition is assigned observation on the PCU. Patient is in stable condition. History & Record Review Discussion w/independent historian: Patient Additional record(s) reviewed:: Prior labs Lab Data Attestation: I reviewed the patient's lab results. Labs: Laboratory Results - last 24 hr 06/09/24 02:20 WBC 8.0 RBC 4.43 L Hgb 13.1 Hct 43.6 MCV 98.4 H MCH 29.6 MCHC 30.0 L RDW Std Deviation 62.4 H RDW Coeff of Steven 17.2 H Plt Count 231 MPV 11.4 Immature Gran % (Auto) 0.800 Neut % (Auto) 67.2 Lymph % (Auto) 21.1 [place] % (Auto) 7.9 Eos % (Auto) 2.4 Baso % (Auto) 0.6 Absolute Neuts (auto) 5.4 Absolute Lymphs (auto) 1.68 Nucleated RBC % 0 Sodium 139 Potassium 4.7 Chloride 104 Carbon Dioxide 27.0 Anion Gap 8 BUN 66 H Creatinine 2.95 H Estim Creat Clear Calc 16.87 Est GFR (MDRD) Af Amer 27 L Est GFR (MDRD) Non-Af 22 L BUN/Creatinine Ratio 22.4 H Glucose 129 H Calcium 8.9 Radiography Diagnostic Testing: Clinical Impression(s) from Imaging Studies Chest X-Ray 06/09/24 02:18 IMPRESSION: Patchy bilateral airspace disease with moderate pleural effusions. Findings may indicate pneumonia. Electronically Signed: Sammy Riley MD at 3:02 EDT , Discharge Plan Dx/Rx/DC Orders Clinical Impression: SOB (shortness of breath), Missed dialysis Disposition Disposition: Acute [facility]
--- NOTE | 2024-06-09 03:50 | CT_ITS ---
EXAM: CT ANGIOGRAPHY CHEST WITHOUT AND WITH INTRAVENOUS CONTRAST CLINICAL INDICATION: sob TECHNIQUE: Helically acquired angiography images were obtained of the chest without and with intravenous contrast. This CT exam was performed using one or more of the following dose reduction techniques: automated exposure control, adjustment of the mA and/or kV according to patient size, and/or use of iterative reconstruction technique. MIP reconstructed images were created and reviewed. CONTRAST: IV 75mL [id number]-370 RADIATION DOSE: CTDIvol = 16.38 mGy, DLP = 345.08 mGy-cm COMPARISON: Single view chest from same date, and previous CT chest abdomen pelvis from 03/10/2024 FINDINGS: PULMONARY ARTERIES: Unremarkable. Normal in caliber. No evidence of pulmonary embolism. AORTA: Atherosclerotic changes of the thoracic aorta. Normal in caliber. No evidence of dissection. GREAT VESSELS OF AORTIC ARCH: Unremarkable. Normal in caliber. No evidence of dissection. LUNGS AND PLEURAL SPACES: Large left and moderate right pleural effusions with left lower lobe consolidation, and additional patchy airspace disease in the upper lobes and right lower lobe. No mass. HEART: Unremarkable. Heart size is normal. No pericardial effusion. No significant coronary artery calcifications. MEDIASTINUM: Unremarkable. No mediastinal or hilar adenopathy. Esophagus is unremarkable. No hiatal hernia. THYROID: Unremarkable. No thyroid lesions. BONES/JOINTS: Unremarkable. No suspicious lytic or blastic abnormality. CT/CTA Chest W/WO Contrast IMPRESSION: 1. Large left and moderate right pleural effusions with left lower lobe consolidation, and additional patchy airspace disease in the upper lobes and right lower lobe. Findings likely indicate pneumonia. Follow-up is recommended to ensure resolution. 2. No evidence of pulmonary embolism. Electronically Signed: Sammy Riley MD at 5:45 EDT ,
--- NOTE | 2024-06-09 03:52 | PCM.HP.STD ---
HPI - General General Date of Admission: 06/09/24 Date of Service: 06/09/24 Chief Complaint: Shortness of breath HPI Narrative DIANE FRANCES, is a 73 M who presented to the emergency department at [facility] on 06/09/2024 with a chief complaint of shortness of breath. Patient states his symptoms started about 3 days ago. He denies any associated cough, fever, or chills. He states he is short of breath at rest and with exertion. He had a recent extensive admission here at which time he was started on dialysis. He reports now he is making very little urine. He missed dialysis on 06/08/2024 because he did not feel well. He would not elaborate on how he did not feel well at that time but it sounds as if maybe it was related to his shortness of breath. He is not clear what his dry weight is. He denies any wheezing. He was sent in from [facility] for evaluation due to his complaints. Patient reports he has been wearing 2 L nasal cannula [id number] since his discharge from here on 05/24/2024. Vital signs on presentation showed a temperature of 97.3, heart rate 91, blood pressure 157/117, respiratory rate was initially 31 but repeat was 18 and oxygen saturations were 97% on 2 L nasal cannula. His CBC is unremarkable. He has no left shift. Chemistry panel shows an elevated BUN and creatinine compared to his 1 at discharge consistent with not having dialysis. Chest x-ray was reviewed and shows patchy bilateral airspace disease with moderate pleural effusions. I have ordered a CTA of the chest given his symptoms and this is currently pending at the time of admission. He was treated with aerosols in the emergency department without much response per his report. He does not feel like his chest is tight or wheezy but is just short of breath. [facility] Medical History Acute renal failure Respiratory insufficiency Kidney disease COPD (chronic obstructive pulmonary disease) Former smoker Pneumonia CKD (chronic kidney disease) CKD (chronic kidney disease) HTN (hypertension) HLD (hyperlipidemia) Home Medications ?Medication ?Instructions ?Recorded ?Last Taken ?Type albuterol sulfate 90 mcg/actuation 2 puff inhalation Q4H PRN PRN 05/17/24 Unknown History aerosol inhaler wheezing guaifenesin 600 mg tablet, 600 mg PO BID 05/17/24 Unknown History extended release 12 hr (Mucus Relief ER) hydralazine 25 mg tablet 25 mg PO TID 05/17/24 Unknown History isosorbide mononitrate 30 mg 15 mg PO DAILY 05/17/24 Unknown History tablet,extended release 24 hr metoprolol succinate 25 mg 25 mg PO DAILY 05/17/24 Unknown History tablet,extended release 24 hr (Toprol XL) pantoprazole 40 mg tablet,delayed 40 mg PO DAILY 05/17/24 Unknown History release insulin glargine-yfgn 100 unit/mL 5 unit (0.05 mL) subcut QPM 30 05/23/24 Unknown Rx (3 mL) subcutaneous pen days #0 mL amino acids-protein hydrolysate 15 30 ml PO BID 06/09/24 Unknown History gram-100 kcal/30 mL oral liquid (Pro-Stat Sugar Free) fluticasone 250 mcg-salmeterol 50 1 inh inhalation BID 06/09/24 Unknown History mcg/dose blistr powdr for inhalation (Advair Diskus) Allergy/AdvReac Type Severity Reaction Status Date / Time No Known Allergies Allergy Verified 06/09/24 02:01 Social History (Updated 06/09/24 @ 03:[address] Leena Singletary, DO) housing: senior care Smoking Status: Former smoker alcohol intake: former substance use type: does not use ROS Constitutional Constitutional: Reports fatigue; Denies anorexia, change in weight, chills, fever(s), malaise, night sweats, weakness or other Eyes Eyes: Denies blurry vision, change in eye color, change in vision, discharge from eye(s), double vision, erythema, eye pain, loss of vision or other ENT HEENT: Denies abnormal hearing, dysphagia, ear pain, epistaxis, headache(s), hearing loss, nasal congestion, nasal discharge, post nasal drip, sinus pressure, sore throat or other Cardiovascular Cardiovascular: Reports dyspnea on exertion; Denies chest pain, claudication, edema, lightheadedness, orthopnea, palpitations, paroxysmal nocturnal dyspnea, rapid heart rate, syncope or other Respiratory/Chest Respiratory/Chest: Reports shortness of breath at rest and shortness of breath with exertion; Denies cough, dyspnea, excessive phlegm production, hemoptysis, productive cough, wheezing or other Gastrointestinal Gastrointestinal: Denies abdominal pain, coffee ground emesis, constipation, diarrhea, dyspepsia, hematemesis, hematochezia, loose stools, melena, nausea, vomiting or other Genitourinary Genitourinary: Denies burning urination, difficulty urinating, dysuria, hematuria, nocturia, urinary frequency, urinary hesitancy, urinary incontinence, urinary urgency or other Musculoskeletal Musculoskeletal: Denies arthralgias, back pain, joint pain, joint stiffness, joint swelling, myalgias, neck pain or other Neurologic Neurologic: Denies abnormal gait, abnormal speech, confusion, disequilibrium, dizziness, focal weakness, headache(s), numbness, paresthesias, seizure-like activity, seizures, syncope, tingling, tremor(s) or other Psychiatric Psychiatric: Denies anxiety, depression, homicidal ideation, suicidal ideation or other Endocrine Endocrinology: Denies change in body appearance, cold intolerance, excessive sweating, heat intolerance, polydipsia, polyuria or other Hematologic/Lymphatic Hematologic/Lymphatic: Denies anemia, easy bleeding, easy bruising, lymphadenopathy or other Allergic/Immunologic Allergic/Immunologic: Denies rhinitis, hives, eczemia, asthma or other Vital Signs Vital Signs Vital Signs: 06/09/24 02:01 06/09/24 02:07 06/09/24 02:22 Temperature 97.3 F L Temperature Source Temporal Pulse Rate 91 Respiratory Rate 31 H Respiratory Effort Normal Blood Pressure 157/117 H Blood Pressure Mean 130 Pulse Ox 97 Oxygen Delivery Method Nasal Cannula Nasal Cannula Nasal Cannula Oxygen Flow Rate (L/min) 2 2 2 06/09/24 03:29 Temperature Temperature Source Pulse Rate 89 Respiratory Rate 18 Respiratory Effort Blood Pressure Blood Pressure Mean Pulse Ox Oxygen Delivery Method Oxygen Flow Rate (L/min) Weight Weight: 54.3 kg Body Mass Index (BMI) 18.1 Physical Exam Const alert, oriented x3 and no apparent distress; Negative for average body habitus, healthy appearing or well nourished Constitutional Narrative: Cachectic, older, white male, sitting up in bed, no current signs of distress however is mildly tachypneic and has some mild conversational dyspnea, does not appear toxic, appears chronically ill General Appearance: cooperative HEENT normocephalic, head/scalp atraumatic and moist oral mucous membranes HEENT Narrative: Mild to moderate hearing loss, dentition is poor, Mallampati is 1, no thrush, temporal wasting Eyes PERRL, EOMs intact bilaterally and conjunctivae normal Eyes Narrative: No scleral icterus Neck no lymphadenopathy and supple Neck Narrative: Trachea midline, no thyroid enlargement Resp no retractions, no use of accessory muscles and No clear to auscultation bilaterally Resp Narrative: Mild tachypnea, crackles at bases on the right and consolidation on the left with good aeration at the apices bilaterally, no signs of respiratory extremis Auscultation: crackles; Negative for rhonchi or wheezes Cardio regular rate, regular rhythm, S1 normal heart sound, S2 normal heart sound, no murmurs, no rub, no gallops and no clicks GI normal to inspection, nondistended, normoactive bowel sounds, soft to palpation and non-tender GI Narrative: Scaphoid abdomen Extremity no clubbing, cyanosis or edema Extremity Narrative: Significant decrease in muscle mass Skin Skin Narrative: Skin is thin with scattered ecchymosis, total dialysis catheter right chest with dressing clean dry and intact, no surrounding tenderness Neuro oriented x3, moves all extremities and no focal motor deficits Speech: speech normal Psych Psych Narrative: Mildly agitated but answers questions appropriately and eye contact is good Results Lab / Micro Data 06/09/24 02:20 06/09/24 02:20 Labs: Laboratory Results - last 24 hr 06/09/24 02:20: WBC 8.0, RBC 4.43 L, Hgb 13.1, Hct 43.6, MCV 98.4 H, MCH 29.6, MCHC 30.0 L, RDW Std Deviation 62.4 H, RDW Coeff of Steven 17.2 H, Plt Count 231, MPV 11.4, Immature Gran % (Auto) 0.800, Neut % (Auto) 67.2, Lymph % (Auto) 21.1, [place] % (Auto) 7.9, Eos % (Auto) 2.4, Baso % (Auto) 0.6, Absolute Neuts (auto) 5.4, Absolute Lymphs (auto) 1.68, Nucleated RBC % 0, Sodium 139, Potassium 4.7, Chloride 104, Carbon Dioxide 27.0, Anion Gap 8, BUN 66 H, Creatinine 2.95 H, Estim Creat Clear Calc 16.87, Est GFR (MDRD) Af Amer 27 L, Est GFR (MDRD) Non-Af 22 L, BUN/Creatinine Ratio 22.4 H, Glucose 129 H, Calcium 8.9 Imaging Radiology Impression Chest X-Ray 06/09/24 02:18 IMPRESSION: Patchy bilateral airspace disease with moderate pleural effusions. Findings may indicate pneumonia. Electronically Signed: Sammy Riley MD at 3:02 EDT , Assessment & Plan Assessment/Plan (1) Missed dialysis: (2) SOB (shortness of breath): (3) Pleural effusion: (4) Severe malnutrition: PLAN: Plan Shortness of breath secondary to volume overload/pleural effusions -Patient without any wheezing, cough, fever, chills so highly doubt COPD exacerbation or infection -Check CTA of the chest to rule out PE and to further evaluate effusions -Thoracentesis ordered-May need bilateral but ordered for left as chest x-ray appears to have large left pleural effusion and right -Fluid studies, cytology, and culture ordered, serum LDH ordered for today to calculate lights criteria -Dialysis-discussed with nephrology per emergency department physician -Continue home inhalers -No nebulizers at this time as patient received in the emergency department with no relief of symptoms and I highly suspect this is more related to volume -Continue home oxygen of 2 L nasal cannula Pleural effusions -Thoracentesis as noted above -May need bilateral but will start with left -CTA of the chest pending to further clarify Essential hypertension -Continue home hydralazine -Continue home metoprolol -Continue isosorbide mononitrate MICHELLE on CKD stage IIIb -Patient is not yet chronic dialysis -Tunneled dialysis catheter placed at last hospitalization -Consult nephrology for assistance with ongoing dialysis Chronic HFrEF -Recent echocardiogram done at [facility] showed an EF of 31% -Volume management per dialysis next-patient is currently making very little urine -Continue home beta-denia, isosorbide mononitrate, hydralazine for goal-directed therapy History of lung mass -Has been stable Severe malnutrition -Patient cachectic in appearance and neck criteria for severe malnutrition at last admission 2 weeks ago -Supplements ordered -Dietitian consulted GERD -Continue home PPI COPD -Continue home inhalers/aerosols as needed -Continue home guaifenesin History of tobacco abuse -Remote -Encourage ongoing cessation DVT prophylaxis -Subcu Lovenox CODE STATUS -DNR CCA but okay for short-term intubation per discussion prior to admission Charges/Coding Visit Charges Inpatient E&M: 17357 Init Hosp L2
[2024-06-09 04:12] LABS: LDH 256 U/L (87-241)
[2024-06-09] MEDS: hydrALAZINE 25 MG Tablet PO ×3 (05:33→22:27)
[2024-06-09] MEDS: 0.9% Saline Lock 10 ML Syringe IV ×3 (05:37→12:10)
[2024-06-09 07:26] LABS: Absolute Lymphocyte Count 1.48 X10^3/uL (0.83-4.51); Absolute Neutrophil Count 5.6 X10^3/uL (2.0-7.7); Basophil# 0.05 X10^3/uL; Basophil% 0.6 % (0-1); Eosinophil# 0.13 X10^3/uL; Eosinophils% 1.6 % (0-5); Hematocrit 42.8 % (40-54); Hemoglobin 12.9 g/dL (13.0-16.5); Lymphocyte # 1.48 X10^3/ul (0.83-4.51); Lymphocyte % 18.5 % (19-41); Mean Corp Hgb Conc 30.1 g/dL (32-36); Mean Corpuscular Hgb 30.1 pg (27.0-32.0); Mean Corpuscular Volume 99.8 fL (80-94); Mean Platelet Vol. 11.7 fl (6.2-12.0); Monocyte# 0.63 X10^3/uL; Monocyte% 7.9 % (0-10); NRBC Flagged by Analyzer 0 % (0-5); Neutrophil # 5.63 X10^3/uL (2.7-7.7); Neutrophil % 70.4 % (47-70); Platelet Count 215 K/mm3 (150-450); RBC Distribution Width CV 17.2 % (11.6-14.6); RBC Distribution Width SD 63.6 fl (35.1-43.9); Red Blood Count 4.29 M/mm3 (4.6-6.2)
[2024-06-09 07:30] LABS: International Normalized Ratio 1.1; Prothrombin Time (Protime)PT. 14.6 SECONDS (11.7-14.9)
--- NOTE | 2024-06-09 07:36 | PCM.PN.HOSP ---
Reason for Visit Reason for Visit: Diagnoses Unspecified severe protein-calorie malnutrition (06/09/24) Pleural effusion, not elsewhere classified (06/09/24) Shortness of breath (06/09/24) Subjective Subjective Patient is a 73-year-old gentleman who presented with progressive shortness of breath imaging studies demonstrated bilateral pleural effusion and left lower lobe consolidation with patchy airspace disease in upper lobes and right lower lobe. Admitted to a monitored bed for subsequent Objective Data Objective Data Vital Signs: Vital Signs Temp Pulse Resp BP Pulse Ox O2 Del Method O2 Flow Rate 96.8 F L 90 18 161/112 H 4 High Flow 4 06/09/24 05:14 06/09/24 05:33 06/09/24 05:14 06/09/24 05:33 06/09/24 06:50 06/09/24 06:50 06/09/24 06:50 Oxygen Flow Rate (L/min) 4 Oxygen Delivery Method High Flow Weight: 51.2 kg Body Mass Index (BMI) 17.2 Intake & Output: Intake and Output for Last 24 Hours 06/07/24 06/08/24 06/09/24 23:59 23:59 23:59 Intake Total 60 / 60 Balance 60 / 60 Lab / Micro Data 06/09/24 06:05 06/09/24 06:05 Labs: Laboratory Results - last 24 hr 06/09/24 02:20: WBC 8.0, RBC 4.43 L, Hgb 13.1, Hct 43.6, MCV 98.4 H, MCH 29.6, MCHC 30.0 L, RDW Std Deviation 62.4 H, RDW Coeff of Steven 17.2 H, Plt Count 231, MPV 11.4, Immature Gran % (Auto) 0.800, Neut % (Auto) 67.2, Lymph % (Auto) 21.1, [place] % (Auto) 7.9, Eos % (Auto) 2.4, Baso % (Auto) 0.6, Absolute Neuts (auto) 5.4, Absolute Lymphs (auto) 1.68, Nucleated RBC % 0, Sodium 139, Potassium 4.7, Chloride 104, Carbon Dioxide 27.0, Anion Gap 8, BUN 66 H, Creatinine 2.95 H, Estim Creat Clear Calc 16.87, Est GFR (MDRD) Af Amer 27 L, Est GFR (MDRD) Non-Af 22 L, BUN/Creatinine Ratio 22.4 H, Glucose 129 H, Calcium 8.9, Lactate Dehydrogenase 256 H 06/09/24 06:05: WBC 8.0, RBC 4.29 L, Hgb 12.9 L, Hct 42.8, MCV 99.8 H, MCH 30.1, MCHC 30.1 L, RDW Std Deviation 63.6 H, RDW Coeff of Steven 17.2 H, Plt Count 215, MPV 11.7, Immature Gran % (Auto) 1.000 H, Neut % (Auto) 70.4 H, Lymph % (Auto) 18.5 L, [place] % (Auto) 7.9, Eos % (Auto) 1.6, Baso % (Auto) 0.6, Absolute Neuts (auto) 5.6, Absolute Lymphs (auto) 1.48, Nucleated RBC % 0, PT 14.6, INR 1.1 Radiography Diagnostic Testing: Radiology Impression Chest X-Ray 06/09/24 02:18 IMPRESSION: Patchy bilateral airspace disease with moderate pleural effusions. Findings may indicate pneumonia. Electronically Signed: Sammy Riley MD at 3:02 EDT , Chest CTA 06/09/24 03:50 IMPRESSION: 1. Large left and moderate right pleural effusions with left lower lobe consolidation, and additional patchy airspace disease in the upper lobes and right lower lobe. Findings likely indicate pneumonia. Follow-up is recommended to ensure resolution. 2. No evidence of pulmonary embolism. Electronically Signed: Sammy Riley MD at 5:45 EDT , Physical Exam Narrative GENERAL: Patient appears ill looking, dyspneic at rest HEENT: Atraumatic; normocephalic EYES; Anicteric, Normal Conjunctiva NECK; supple, normal thyroid, RESPIRATORY: Diminished to auscultation CARDIOVASCULAR: Regular S1 S2, GI: soft, normoactive bowel sounds, : No Renal angle tenderness; EXTREMITIES: Bipedal edema, no clubbing, MUSCULOSKELETAL: no muscle wasting NEURO: Awake; no lateralizing signs. SKIN: No Rash PSYCH; Flat affect Assessment & Plan Assessment/Plan (1) Missed dialysis: (2) SOB (shortness of breath): (3) Pleural effusion: (4) Severe malnutrition: PLAN: Plan Patient is a 73-year-old gentleman who presented with progressive shortness of breath imaging studies demonstrated bilateral pleural effusion and left lower lobe consolidation with patchy airspace disease in upper lobes and right lower lobe. Admitted to a monitored bed for subsequent 1. Acute hypoxia ? Secondary to combination of pneumonia as well as bilateral pleural effusion 2. Pneumonia - Suspected to be secondary to with suspected gram-negative organisms given patient recent hospitalization, Blood and sputum cultures sent. Patient placed on cefepime vancomycin and Zithromax and placed on oxygen titrated to keep Pulse Ox greater than 90. Also ordered sputum and blood cultures as well as viral respiratory panel COVID and influenza. 3. Bilateral pleural effusion ? Large left and moderate right pleural effusions. Suspected parapneumonic effusion versus CHF given patient low EF of 31%. Patient to undergo diagnostic and therapeutic thoracocentesis 4. Hypertension ? Blood pressure controlled, home medications continued with dose adjustment as needed 5. Chronic kidney disease stage IV ? Today appears to be progressive worsening of patient's kidney function. Creatinine from 03/13/2024 was 1.56 peaked at 4. 4 8 during patient previous hospitalization. Patient has a tunneled dialysis catheter and had received dialysis during previous admission on 05/24/2024. Consult placed to nephrology 6. Acute on chronic chronic congestive heart, -recent echo from [facility] had apparently demonstrated EF of 31%; patient presented with progressive shortness of breath bilateral pleural effusion. Patient to undergo therapeutic thoracocentesis consult has also been placed to nephrology for possible dialysis to help manage patient fluid overload status repeat echo ordered 7. Severe protein calorie malnutrition ? As evidenced by suboptimal energy intake, weight loss and severe physical changes consult placed to dietitian 8. Lung mass As per history stable 9. COPD ? With mild exacerbation, management initiated with bronchodilator treatment in addition to supplemental oxygen and antibiotics as stated above 10. GERD ? On PPI 11. Tobacco dependence ? Counseled on cessation, offered nicotine patch for tobacco cravings 12. Chronic use of insulin ? Patient denies being diabetic hemoglobin A1c from 05/20/2024 was 5.3 insulin subsequently discontinued 13. DVT prophylaxis ? Placed on subcu Lovenox dose adjusted for kidney function Time spent in the patient's overall evaluation,decision-making process, review of diagnostic data, adjustment of management, discussion with other providers, nursing nursing and ancillary staff involved in patient's care documentation, 52 Minutes Charges/Coding Visit Charges Inpatient E&M: 03764 [facility] Hosp L3
[2024-06-09] MEDS: 0.9% Normal Saline 1,000 ML IV.SOLN. 1000 ML OPERA.SITE (08:15)
[2024-06-09 08:50] LABS: ALB/GLOB Ratio 0.8 RATIO (0.9-2.4); AST(SGOT) 30 U/L (15-37); Alanine Aminotransfer ALT/SGPT 66 U/L (16-61); Albumin, Serum 2.3 g/dL (3.2-5.0); Alkaline Phosphatase 209 U/L (45-117); Anion Gap 11 (5-15); BUN 63 mg/dL (7-18); BUN/Creat Ratio 21.9 RATIO (10-20); Calcium,Total 8.1 mg/dL (8.5-10.1); Chloride 104 mmol/L (98-107); Creatinine, Serum 2.88 mg/dL (0.70-1.30); EST Glomerular Filtration Rate 23 mL/min (>60); Est Glom Filt Rate - Afr Amer 28 mL/min (>60); Estimated Creatinine Clearance 17.11 ml/min; Globulin 2.9 g/dL (2.2-4.2); Glucose 95 mg/dL (74-106); Magnesium 2.9 mg/dL (1.6-2.6); Phosphorus 4.1 mg/dL (2.5-4.9); Protein, Total 5.2 g/dL (6.4-8.2); Sodium Level 140 mmol/L (136-145)
--- NOTE | 2024-06-09 09:21 | ECHOD_ITS ---
Reason For Study: Dyspnea/SOB Procedure This was a 2D Doppler, Color Flow transthoracic echocardiogram. Exam performed portable in patient room. Left Ventricle Mildly dilated left ventricle. The estimated ejection fraction is 20 %. There is evidence of diastolic dysfunction. There is severe global hypokinesis of the left ventricle. Right Ventricle Normal RV size. Normal systolic function. Atria There is mild biatrial dilatation. Mitral Valve There is no mitral valve stenosis. Moderate (2+) mitral valve insufficiency. Tricuspid Valve There is no tricuspid stenosis. Mild to moderate (1-2+) tricuspid valve insufficiency. Pulmonary artery systolic pressure is 45 mmHg. Aortic Valve Trisinus/trileaflet aortic valve. There is no aortic stenosis. No aortic valve insufficiency. Pulmonic Valve There is no pulmonic valvular stenosis. No pulmonic valve insufficiency. Great Vessels Normal aortic root. Pericardium/Pleural No pericardial effusion. MMode/2D Measurements & Calculations LVIDd: 5.4 cm IVSd: 1.1 cm Ao root diam: 3.4 cm LVIDs: 4.9 cm LVPWd: 0.98 cm LA dimension: 4.0 cm FS: 8.9 % LAV(MOD-bp): 73.2 ml LVAd ap4: 30.9 cm2 LVAd ap2: 34.2 cm2 LAV(MOD-bp) Indexed: 44.8 ml/m2 LVLd ap4: 7.7 cm LVLd ap2: 8.6 cm LAV(MOD-sp2): 67.3 ml EDV(MOD-sp4): 102.7 ml EDV(MOD-sp2): 116.1 ml LAV(MOD-sp4): 63.8 ml EDV(sp4-el): 104.7 ml EDV(sp2-el): 115.6 ml LVAs ap4: 26.3 cm2 LVAs ap2: 27.9 cm2 LVLs ap4: 7.1 cm LVLs ap2: 8.3 cm ESV(MOD-sp4): 80.6 ml ESV(MOD-sp2): 79.9 ml ESV(sp4-el): 83.1 ml ESV(sp2-el): 79.8 ml EF(MOD-sp4): 21.5 % EF(MOD-sp2): 31.2 % EF(sp4-el): 20.6 % SV(MOD-sp4): 22.1 ml SV(MOD-sp2): 36.2 ml SV(sp4-el): 21.6 ml TAPSE: 1.7 cm LA A4 area: 23.7 cm2 RA A4 area: 17.6 cm2 Time Measurements MV dec time: 0.12 sec Doppler Measurements & Calculations MV E max ervin: 92.7 cm/sec Lat Peak E' Ervin: 7.5 cm/sec Med Peak E' Ervin: 5.7 cm/sec MV A max ervin: 46.7 cm/sec E/E' lat: 12.4 E/E' med: 16.2 MV E/A: 2.0 MV V2 max: 85.1 cm/sec MV P1/2t max ervin: 85.1 cm/sec Ao V2 max: 78.2 cm/sec MV max P.9 mmHg MV P1/2t: 35.5 msec Ao max P.5 mmHg MV V2 mean: 41.5 cm/sec MV dec slope: 701.6 cm/sec2 MV mean P.84 mmHg MV V2 VTI: 15.5 cm MVA(P1/2t): 6.2 cm2 LV V1 max: 44.6 cm/sec MR max ervin: 540.2 cm/sec PA V2 max: 37.9 cm/sec LV V1 max P.81 mmHg MR max P.7 mmHg MR mean ervin: 388.5 cm/sec MR mean P.6 mmHg MR VTI: 186.3 cm TR max ervni: 318.2 cm/sec TR max P.5 mmHg ECHO/Echo Complete Interpretation Summary The estimated ejection fraction is 20 %. There is evidence of diastolic dysfunction. There is severe global hypokinesis of the left ventricle. There is mild biatrial dilatation. Moderate (2+) mitral valve insufficiency. Ordering Physician: Ed Davis Referring Physician: Mackenzie Rizo Performed By: Jose De Jesus Pérez RCS
[2024-06-09] MEDS: PureFlow B 2K Dialysis Soln 1 BAG 6 BAG PF (09:31)
--- NOTE | 2024-06-09 09:48 | PCM.RX.CS ---
Consult Antibiotic Management Pharmacy has been consulted to manage selected antibiotic: Vancomycin Type of Intervention Type of Consult: New start Suspected Infection Suspected Infection: Pneumonia Labs Labs: Sodium 140 mmol/L (136-145) 06/09/24 06:05 Potassium 4.0 mmol/L (3.5-5.1) 06/09/24 06:05 Chloride 104 mmol/L (98-107) 06/09/24 06:05 Carbon Dioxide 25.0 mmol/L (21.0-32.0) 06/09/24 06:05 Anion Gap 11 (5-15) 06/09/24 06:05 BUN 63 mg/dL (7-18) H 06/09/24 06:05 Creatinine 2.88 mg/dL (0.70-1.30) H 06/09/24 06:05 Est GFR (MDRD) Af Amer 28 mL/min (>60) L 06/09/24 06:05 Est GFR (MDRD) Non-Af 23 mL/min (>60) L 06/09/24 06:05 BUN/Creatinine Ratio 21.9 RATIO (10-20) H 06/09/24 06:05 Glucose 95 mg/dL (74-106) 06/09/24 06:05 Estimated Creatinine Clearance Estimated Creatinine Clearance: 17.11 Goal Trough Goal Trough: 15-20 mcg/mL Pharmacy Plan for Drug Dosing Pharmacy Plan for Drug Dosing: NEW START IV VANCOMYCIN Consulting Physician: Dr. Davis Indication: Pneumonia Goal Trough: 15-20 SrCr: 2.88 CrCl: 17.11 (HD, but not yet chronic HD pt) Comments: Standing initial dose of 750mg x1 ordered for 14:00 06/09/24 following HD session. Will review HD schedule for subsequent dosing. Pharmacy Service will continue to monitor and adjust dosing as required.
--- NOTE | 2024-06-09 10:47 | CASEMGMT ---
Patient is from [place]. SW confirmed with patient's sister that the plan is to return to [facility] at discharge. Plan: d/c back to [facility] when medically ready. Shirin PANTOJA
[2024-06-09] MEDS: Heparin 10,000 UNITS/10 ML Vial IV (12:10)
[2024-06-09] MEDS: Azithromycin 500 MG in Dextrose 5%-Water (250mL Bag) 250 ML 250 MG IV (12:23)
[2024-06-09] MEDS: Isosorbide Mononitrate 30 MG Tablet 15 MG PO (12:30)
[2024-06-09] MEDS: Pantoprazole Sodium 40 MG Tablet PO (12:31)
[2024-06-09] MEDS: Metoprolol(XL)Succ 25 MG Tablet PO (12:31)
[2024-06-09] MEDS: guaiFENesin 1,200 MG Tablet 1200 MG PO ×2 (12:31→22:27)
[2024-06-09] MEDS: Albuterol 2.5 MG/3 ML VIAL.NEB. INHALATION ×2 (13:15→19:22)
--- NOTE | 2024-06-09 13:20 | PCM.CONS.R ---
Assessment & Plan Assessment/Plan (1) Acute renal failure: (2) Pleural effusion: (3) Weakness: PLAN: Plan This is a pleasant, unfortunate 73-year-old male with past medical history significant for hypertension, chronic heart failure reduced EF (EF 31%), history of lung mass, severe malnutrition, COPD, CKD stage IIIb (baseline SCr ~1.6) who was sent to the emergency room from the snf for evaluation of shortness of breath. Workup in the emergency room including chest x-ray and CT of chest showing bilateral pleural effusions. Nephrology consulted as patient has history of dialysis requiring hypervolemic acute kidney injury superimposed on CKD stage IIIb. Patient currently dialyzes Thursday at [facility]. He did miss his Thursday dialysis session. Patient underwent hemodialysis today and tolerated fluid removal, ~3L. Oxygenation improved. Will evaluate for hemodialysis/ultrafiltration tomorrow. Likely plan for dialysis again on Thursday to regularize hemodialysis schedule. We will continue to monitor for renal recovery. EDW has not been established yet as patient is fairly new with dialysis, he has been tolerating fluid removal with dialysis and weights have been slowly lowered at the [facility]. Dry weight was lowered to 48kg at [facility]. Patient is to undergo diagnostic and therapeutic thoracentesis. Blood pressures acceptable on hydralazine. Patient started on IV antibiotics for suspected pneumonia. Blood cultures pending. Further orders forthcoming as hospitalization evolves, thank you for allowing us to participate in the care of Mr. Frances. HPI Consult Data Date of Consult: 06/09/24 HPI Narrative HPI Narrative: DIANE FRANCES, is a 73 M who was sent from [facility] to the ER yesterday due to complaints of shortness of breath. Workup in the emergency room included chest x-ray which showed moderate bilateral pleural effusions. Chest CT showed large left, moderate right pleural effusions. Patient was admitted for further evaluation and treatment. Nephrology consulted in view of dialysis arrangements. Patient has history of dialysis requiring acute kidney injury superimposed on CKD stage IIIb. He was started on dialysis last admission when he was admitted for difficulty breathing felt to be combination of CHF and pneumonia, unfortunately renal function worsened to the point of needing dialysis. Patient's first dialysis was on 05/24/2004/07/2024. Patient is dialyzing at [facility] on a Thursday schedule via tunneled hemodialysis cath. He is tolerating dialysis well; he tolerates fluid removal. EDW not reached yet as dialysis is fairly new for patient. [facility] Medical History (Updated 06/09/24 @ 13:25 by SHILPA Bolivar) Acute renal failure Respiratory insufficiency Kidney disease COPD (chronic obstructive pulmonary disease) Former smoker Pneumonia CKD (chronic kidney disease) CKD (chronic kidney disease) HTN (hypertension) HLD (hyperlipidemia) Home Medications ?Medication ?Instructions ?Recorded ?Last Taken ?Type albuterol sulfate 90 mcg/actuation 2 puff inhalation Q4H PRN PRN 05/17/24 Unknown History aerosol inhaler wheezing guaifenesin 600 mg tablet, 600 mg PO BID 05/17/24 Unknown History extended release 12 hr (Mucus Relief ER) hydralazine 25 mg tablet 25 mg PO TID 05/17/24 Unknown History isosorbide mononitrate 30 mg 15 mg PO DAILY 05/17/24 Unknown History tablet,extended release 24 hr metoprolol succinate 25 mg 25 mg PO DAILY 05/17/24 Unknown History tablet,extended release 24 hr (Toprol XL) pantoprazole 40 mg tablet,delayed 40 mg PO DAILY 05/17/24 Unknown History release insulin glargine-yfgn 100 unit/mL 5 unit (0.05 mL) subcut QPM 30 05/23/24 Unknown Rx (3 mL) subcutaneous pen days #0 mL amino acids-protein hydrolysate 15 30 ml PO BID 06/09/24 Unknown History gram-100 kcal/30 mL oral liquid (Pro-Stat Sugar Free) fluticasone 250 mcg-salmeterol 50 1 inh inhalation BID 06/09/24 Unknown History mcg/dose blistr powdr for inhalation (Advair Diskus) Allergy/AdvReac Type Severity Reaction Status Date / Time No Known Allergies Allergy Verified 06/09/24 02:01 Social History (Updated 06/09/24 @ 03:[address] Leena Singletary DO) housing: snf Smoking Status: Former smoker alcohol intake: former substance use type: does not use ROS ROS Narrative As in HPI and past medical history Physical Exam Narrative Alert and oriented, no apparent distress S1, S2, RRR Diminished breath sounds with faint rales Abdomen soft, nontender No pitting edema Tunneled HD catheter dressing clean, dry and intact Lab / Micro Data 06/09/24 06:05 06/09/24 06:05 Labs: Laboratory Results - last 24 hr 06/09/24 02:20: WBC 8.0, RBC 4.43 L, Hgb 13.1, Hct 43.6, MCV 98.4 H, MCH 29.6, MCHC 30.0 L, RDW Std Deviation 62.4 H, RDW Coeff of Steven 17.2 H, Plt Count 231, MPV 11.4, Immature Gran % (Auto) 0.800, Neut % (Auto) 67.2, Lymph % (Auto) 21.1, [place] % (Auto) 7.9, Eos % (Auto) 2.4, Baso % (Auto) 0.6, Absolute Neuts (auto) 5.4, Absolute Lymphs (auto) 1.68, Nucleated RBC % 0, Sodium 139, Potassium 4.7, Chloride 104, Carbon Dioxide 27.0, Anion Gap 8, BUN 66 H, Creatinine 2.95 H, Estim Creat Clear Calc 16.87, Est GFR (MDRD) Af Amer 27 L, Est GFR (MDRD) Non-Af 22 L, BUN/Creatinine Ratio 22.4 H, Glucose 129 H, Calcium 8.9, Lactate Dehydrogenase 256 H 06/09/24 06:05: WBC 8.0, RBC 4.29 L, Hgb 12.9 L, Hct 42.8, MCV 99.8 H, MCH 30.1, MCHC 30.1 L, RDW Std Deviation 63.6 H, RDW Coeff of Steven 17.2 H, Plt Count 215, MPV 11.7, Immature Gran % (Auto) 1.000 H, Neut % (Auto) 70.4 H, Lymph % (Auto) 18.5 L, [place] % (Auto) 7.9, Eos % (Auto) 1.6, Baso % (Auto) 0.6, Absolute Neuts (auto) 5.6, Absolute Lymphs (auto) 1.48, Nucleated RBC % 0, PT 14.6, INR 1.1, Sodium 140, Potassium 4.0, Chloride 104, Carbon Dioxide 25.0, Anion Gap 11, BUN 63 H, Creatinine 2.88 H, Estim Creat Clear Calc 17.11, Est GFR (MDRD) Af Amer 28 L, Est GFR (MDRD) Non-Af 23 L, BUN/Creatinine Ratio 21.9 H, Glucose 95, Calcium 8.1 L, Phosphorus 4.1, Magnesium 2.9 H, Total Bilirubin 0.50, AST 30, ALT 66 H, Alkaline Phosphatase 209 H, Total Protein 5.2 L, Albumin 2.3 L, Globulin 2.9, Albumin/Globulin Ratio 0.8 L Micro: Microbiology 06/09/24 11:47 Mucosa - Nasopharyngeal Coronavirus COVID-19 PCR - Final Imaging Radiology Impression Chest X-Ray 06/09/24 02:18 IMPRESSION: Patchy bilateral airspace disease with moderate pleural effusions. Findings may indicate pneumonia. Electronically Signed: Sammy Riley MD at 3:02 EDT , Chest CTA 06/09/24 03:50 IMPRESSION: 1. Large left and moderate right pleural effusions with left lower lobe consolidation, and additional patchy airspace disease in the upper lobes and right lower lobe. Findings likely indicate pneumonia. Follow-up is recommended to ensure resolution. 2. No evidence of pulmonary embolism. Electronically Signed: Sammy Riley MD at 5:45 EDT ,
[2024-06-09] MEDS: Cefepime HCl 1 GM in 0.9% Normal Saline (50mL MB+) 50 ML IV (14:30)
--- NOTE | 2024-06-09 15:15 | RAD_ITS ---
STUDY: X-RAY CHEST REASON FOR EXAM: Male, 73 years old. Post thoracentesis TECHNIQUE: Status post left thoracentesis. COMPARISON: Comparison is made with prior examination dated June 09, 2024 earlier in the morning. FINDINGS: The patient is status post left thoracentesis. No evidence of pneumothorax. There is residual left pleural-parenchymal changes. RAD/Chest Insp/Exp 2 View IMPRESSION: No evidence of pneumothorax. Residual left pleural-parenchymal changes. Electronically Signed: Carroll Kim MD at 15:33 EDT ,
--- NOTE | 2024-06-09 15:21 | PRO.PCM_ITS ---
Procedure Report Date of Procedure: 06/09/24 Assessment & Plan Assessment/Plan (1) Pleural effusion: PLAN: PROCEDURE: Ultrasound Guided Thoracentesis ORDERING PROVIDER: Dr. Leena Singletary INDICATION: Male, 73 years old. Left pleural effusion. PROVIDER: HO Payne PROCEDURE: The risks, benefits, and alternatives to the procedure were explained to the patient. The specific risks of bleeding, infection, and pneumothorax requiring chest tube insertion were discussed and accepted. Written informed consent was obtained. The patient was placed in the sitting, upright position. Ultrasonographic evaluation of the bilateral lower pleural spaces was carried out. An adequate pocket was identified in the left lower pleural space.The overlying skin was prepped and draped in sterile fashion. 2% lidocaine was administered subcutaneously for local anesthesia. Under ultrasound guidance, a 5-Arabic thoracentesis needle/catheter system was advanced into the left posterior lower pleural fluid collection. 1430 ml of clear yellow colored fluid was drained. 100 mL of this fluid was collected and sent to laboratory for analysis. The catheter was removed, and a sterile dressing was applied. The patient tolerated the procedure well. A chest x-ray was ordered. IMPRESSION: Successful ultrasound-guided thoracentesis of left pleural effusion. Procedures Radiology Radiology US Procedures: 12150 Thoracentesis
[2024-06-09] MEDS: Lidocaine 2% (20 ml mdv) 20 ML Vial INFILT (15:26)
[2024-06-09 15:40] LABS: Cytology, Body Fluid / CSF SEE PATHOLOGY REPORT
[2024-06-09] MEDS: Furosemide 20 MG Tablet 60 MG PO (15:49)
[2024-06-09] MEDS: Vancomycin HCl 750 MG in 0.9% Normal Saline (250mL Bag) 250 ML 250 MG IV (15:49)
--- NOTE | 2024-06-09 16:09 | CASEMGMT ---
Met with patient to complete GARZA form. GARZA form explained to patient who voiced understanding and signed form. Original form placed in pt?s chart and copy provided to patient. Suzan Rojas, Discharge Planning Asst
[2024-06-09 16:11] LABS: Body Fluid Mononuclear WBC # 0.039 10^3/uL; Body Fluid Polynuclear WBC # 0.008 10^3/uL; Body Fluid Total Cells Counted 0.048 10^3/ul; White Blood Count/Body Fluid 0.047 10^3/uL
[2024-06-09 16:46] LABS: Glucose, Body Fluid 111 mg/dL (40-70); LDH,Body Fluid 32 Units/L (Not Establ.)
[2024-06-09 16:52] LABS: Red Cell Count/Body Fluid 16 /mm3
[2024-06-09 18:05] LABS: Appearance/Body Fluid CLEAR; Auto B Fluid Analyzer BKGD Ct COUNTS W/IN LIMITS (W/IN LIMITS); Color/Body Fluid YELLOW; Source- Body Fluid THORACENTESIS
[2024-06-09 18:17] LABS: Lymphocytes 12 %; Monocytes 72 %; Neutrophil (Segs) 16 %
[2024-06-09 18:18] LABS: Body Fluid QC Type(s) BF3Q
[2024-06-09] MEDS: Budesonide Respules 0.5 MG/2 ML AMPUL.NEB. INHALATION (19:22)
[2024-06-10] VITALS (12 sets, daily range): BP systolic 125–146; BP diastolic 82–102; PULSE 68–81; RESP 18–24; TEMP 36.3–36.7; O2SAT 96–100
[2024-06-10] MEDS: hydrALAZINE 25 MG Tablet PO ×3 (06:37→22:18)
[2024-06-10 07:21] LABS: Absolute Lymphocyte Count 1.37 X10^3/uL (0.83-4.51); Absolute Neutrophil Count 4.7 X10^3/uL (2.0-7.7); Basophil# 0.04 X10^3/uL; Basophil% 0.6 % (0-1); Eosinophil# 0.08 X10^3/uL; Eosinophils% 1.2 % (0-5); Hematocrit 41.7 % (40-54); Hemoglobin 12.8 g/dL (13.0-16.5); Lymphocyte # 1.37 X10^3/ul (0.83-4.51); Lymphocyte % 20.2 % (19-41); Mean Corp Hgb Conc 30.7 g/dL (32-36); Mean Corpuscular Hgb 29.6 pg (27.0-32.0); Mean Corpuscular Volume 96.3 fL (80-94); Mean Platelet Vol. 11.5 fl (6.2-12.0); Monocyte# 0.56 X10^3/uL; Monocyte% 8.3 % (0-10); NRBC Flagged by Analyzer 0 % (0-5); Neutrophil # 4.66 X10^3/uL (2.7-7.7); Neutrophil % 68.8 % (47-70); Platelet Count 177 K/mm3 (150-450); RBC Distribution Width CV 16.8 % (11.6-14.6); RBC Distribution Width SD 60.1 fl (35.1-43.9); Red Blood Count 4.33 M/mm3 (4.6-6.2); White Blood Count 6.8 K/mm3 (4.4-11.0)
--- NOTE | 2024-06-10 07:54 | PN.HOSP_ITS ---
Reason for Visit Reason for Visit: Diagnoses Unspecified severe protein-calorie malnutrition (06/09/24) Pleural effusion, not elsewhere classified (06/09/24) Shortness of breath (06/09/24) Subjective Subjective Patient underwent ultrasound-guided thoracocentesis 1430 ml of clear yellow colored fluid was drained Objective Data Objective Data Vital Signs: Vital Signs Temp Pulse Resp BP Pulse Ox O2 Del Method O2 Flow Rate 98 F 80 18 142/102 H 100 Room Air 2 06/10/24 06:00 06/10/24 06:37 06/10/24 06:00 06/10/24 06:37 06/10/24 06:00 06/10/24 06:00 06/10/24 03:00 Oxygen Flow Rate (L/min) 2 Oxygen Delivery Method Room Air Weight: 51.71 kg Body Mass Index (BMI) 17.2 Intake & Output: Intake and Output for Last 24 Hours 06/08/24 06/09/24 06/10/24 23:59 23:59 23:59 Intake Total 780 / 900 360 / 360 Output Total 4880 / 4880 100 / 100 Balance -4100 / -3980 260 / 260 Medical Nutrition Assessment Dietitian: Malnutrition Criteria Met Start: 06/09/24 14:52 Freq: Status: Active Protocol: Document 06/09/24 14:52 SB (Rec: 06/09/24 14:52 SB [id number]) Nutrition Malnutrition Evidence of Malnutrition Exists Yes Malnutrition (severe): Chronic Evidenced By Suboptimal Energy Intake ( Severe),Physical Changes ( Severe) Clinical Problem Chronic Disease or Condition Related Malnutrition Etiology severe protein calorie malnutrition related to chronic disease and inability to consume adequate nutrition Signs/Symptoms as evidenced by PO intake meeting <75% of estimated energy needs and severe fat/ muscle wasting in orbital, taoist, clavicle, and deltoid region. BMI: 18.0 Status Active Problem Recommendation Dietitian Recommendations/Changes Adjust to renal diet d/t pt being on dialysis. Will order 120ml PO nepro with meals. If PO intake continues to decline and weight loss occurs , recommend alternative nutrition support in accordance with patient/family wishes. Will monitor weight, as available. Reviewed and approved Kelly Ruiz RD, LD Lab / Micro Data 06/10/24 07:10 06/10/24 07:10 Labs: Laboratory Results - last 24 hr 06/09/24 06:05: Sodium 140, Potassium 4.0, Chloride 104, Carbon Dioxide 25.0, Anion Gap 11, BUN 63 H, Creatinine 2.88 H, Estim Creat Clear Calc 17.11, Est GFR (MDRD) Af Amer 28 L, Est GFR (MDRD) Non-Af 23 L, BUN/Creatinine Ratio 21.9 H, Glucose 95, Calcium 8.1 L, Phosphorus 4.1, Magnesium 2.9 H, Total Bilirubin 0.50, AST 30, ALT 66 H, Alkaline Phosphatase 209 H, Total Protein 5.2 L, Albumin 2.3 L, Globulin 2.9, Albumin/Globulin Ratio 0.8 L 06/09/24 15:00: Fluid Source THORACENTESIS, Fluid Color YELLOW, Fluid Appearance CLEAR, Fluid WBC 0.047, Fluid RBC 16, Fluid Tot Cell Count 0.048, Fld Polynuclear WBCs # 0.008, Fld Polynuclear WBCs % 17.0, Fluid Mononuclear WBCs 0.039, Fld Mononuclear WBCs % 83.0, Fluid Neutrophils 16, Fluid Lymphocytes 12, Fluid Monocytes 72, Fl Pathologist Comment May follow, Fluid Glucose 111 H, Fluid Total Protein 1.0, Fluid LDH 32, Fluid Comment 2 SEE COMMENT 06/10/24 07:10: WBC 6.8, RBC 4.33 L, Hgb 12.8 L, Hct 41.7, MCV 96.3 H, MCH 29.6, MCHC 30.7 L, RDW Std Deviation 60.1 H, RDW Coeff of Steven 16.8 H, Plt Count 177, MPV 11.5, Immature Gran % (Auto) 0.900, Neut % (Auto) 68.8, Lymph % (Auto) 20.2, [place] % (Auto) 8.3, Eos % (Auto) 1.2, Baso % (Auto) 0.6, Absolute Neuts (auto) 4.7, Absolute Lymphs (auto) 1.37, Nucleated RBC % 0 Micro: Microbiology 06/09/24 11:47 Mucosa - Nasopharyngeal Coronavirus COVID-19 PCR - Final 06/09/24 11:47 Mucosa - Nasopharyngeal Respiratory Panel (PCR) - Final Radiography Diagnostic Testing: Radiology Impression Echocardiogram 06/09/24 09:21 Interpretation Summary The estimated ejection fraction is 20 %. There is evidence of diastolic dysfunction. There is severe global hypokinesis of the left ventricle. There is mild biatrial dilatation. Moderate (2+) mitral valve insufficiency. Ordering Physician: Ed Davis Referring Physician: Mackenzie Rizo Performed By: Jose De Jesus Pérez RCS Chest X-Ray 06/09/24 15:15 IMPRESSION: No evidence of pneumothorax. Residual left pleural-parenchymal changes. Electronically Signed: Carroll Kim MD at 15:33 EDT , Physical Exam Narrative GENERAL: Cooperative HEENT: Atraumatic; normocephalic EYES; Anicteric, Normal Conjunctiva NECK; supple, normal thyroid, RESPIRATORY: Diminished to auscultation CARDIOVASCULAR: Regular S1 S2, GI: soft, normoactive bowel sounds, : No Renal angle tenderness; EXTREMITIES: Bipedal edema, no clubbing, MUSCULOSKELETAL: no muscle wasting NEURO: Awake; no lateralizing signs. SKIN: No Rash PSYCH; Flat affect Assessment & Plan Assessment/Plan (1) Missed dialysis: (2) SOB (shortness of breath): (3) Pleural effusion: (4) Severe malnutrition: PLAN: Plan Patient is a 73-year-old gentleman who presented with progressive shortness of breath imaging studies demonstrated bilateral pleural effusion and left lower lobe consolidation with patchy airspace disease in upper lobes and right lower lobe. Admitted to a monitored bed for subsequent 1. Acute hypoxia ? Secondary to combination of pneumonia as well as bilateral pleural effusion ? 06/10/2024; patient remains on supplemental oxygen. 2. Pneumonia - Suspected to be secondary to with suspected gram-negative organisms given patient recent hospitalization, Blood and sputum cultures sent. Patient placed on cefepime vancomycin and Zithromax and placed on oxygen titrated to keep Pulse Ox greater than 90. Also ordered sputum and blood cultures as well as viral respiratory panel COVID and influenza. 3. Bilateral pleural effusion ? Large left and moderate right pleural effusions. Suspected parapneumonic effusion versus CHF given patient low EF of 31%. Patient to undergo diagnostic and therapeutic thoracocentesis ? 06/10/2024; Patient underwent ultrasound-guided thoracocentesis 1430 ml of clear yellow colored fluid was drained. Patient's fluid analysis per lights criteria consistent with transudate. Cultures sent. 4. Hypertension ? Blood pressure controlled, home medications continued with dose adjustment as needed 5. Chronic kidney disease stage IV ? Today appears to be progressive worsening of patient's kidney function. Creatinine from 03/13/2024 was 1.56 peaked at 4. 4 8 during patient previous hospitalization. Patient has a tunneled dialysis catheter and had received dialysis during previous admission on 05/24/2024. Consult placed to nephrology ? 06/10/2024; creatinine down to 2.45 patient did receive dialysis the day prior. Scheduled to undergo repeat dialysis on 06/11/2024. 6. Acute on chronic chronic congestive heart, -recent echo from [facility] had apparently demonstrated EF of 31%; patient presented with progressive shortness of breath bilateral pleural effusion. Patient to undergo therapeutic thoracocentesis consult has also been placed to nephrology for possible dialysis to help manage patient fluid overload status repeat echo ordered ? 06/10/2024 echo obtained the day prior did demonstrate an estimated ejection fraction is 20 %. There is evidence of diastolic dysfunction. There is severe global hypokinesis of the left ventricle. There is mild biatrial dilatation. Moderate (2+) mitral valve insufficiency. 7. Severe protein calorie malnutrition ? As evidenced by suboptimal energy intake, weight loss and severe physical changes consult placed to dietitian 8. Lung mass As per history stable 9. COPD ? With mild exacerbation, management initiated with bronchodilator treatment in addition to supplemental oxygen and antibiotics as stated above 10. GERD ? On PPI 11. Tobacco dependence ? Counseled on cessation, offered nicotine patch for tobacco cravings 12. Chronic use of insulin ? Patient denies being diabetic hemoglobin A1c from 05/20/2024 was 5.3 insulin subsequently discontinued 13. DVT prophylaxis ? Placed on subcu Lovenox dose adjusted for kidney function 14. Physical deconditioning ? Requested for PT OT eval and renal social worker to assist with discharge planning Time spent in the patient's overall evaluation,decision-making process, review of diagnostic data, adjustment of management, discussion with other providers, nursing nursing and ancillary staff involved in patient's care documentation, 50 Minutes Charges/Coding Visit Charges Inpatient E&M: 42776 Subs Hosp L3
[2024-06-10] MEDS: Albuterol 2.5 MG/3 ML VIAL.NEB. INHALATION ×3 (08:00→19:06)
[2024-06-10] MEDS: Budesonide Respules 0.5 MG/2 ML AMPUL.NEB. INHALATION ×2 (08:00→19:06)
[2024-06-10 08:37] LABS: Anion Gap 10 (5-15); BUN 47 mg/dL (7-18); BUN/Creat Ratio 19.2 RATIO (10-20); Calcium,Total 8.3 mg/dL (8.5-10.1); Chloride 105 mmol/L (98-107); Creatinine, Serum 2.45 mg/dL (0.70-1.30); EST Glomerular Filtration Rate 28 mL/min (>60); Est Glom Filt Rate - Afr Amer 33 mL/min (>60); Estimated Creatinine Clearance 19.35 ml/min; Glucose 130 mg/dL (74-106); Magnesium 2.3 mg/dL (1.6-2.6); Phosphorus 3.9 mg/dL (2.5-4.9); Potassium 3.9 mmol/L (3.5-5.1); Sodium Level 140 mmol/L (136-145)
--- NOTE | 2024-06-10 08:44 | CASEMGMT ---
Discharge Planning Updates sent to [facility] via [facility]. Suzan Rojas DC Planning Asst.
[2024-06-10] MEDS: Azithromycin 500 MG in Dextrose 5%-Water (250mL Bag) 250 ML 250 MG IV (08:55)
[2024-06-10] MEDS: Isosorbide Mononitrate 30 MG Tablet 15 MG PO (09:00)
[2024-06-10] MEDS: Metoprolol(XL)Succ 25 MG Tablet PO (09:00)
[2024-06-10] MEDS: Pantoprazole Sodium 40 MG Tablet PO (09:00)
[2024-06-10] MEDS: Furosemide 20 MG Tablet 60 MG PO (09:00)
[2024-06-10] MEDS: guaiFENesin 1,200 MG Tablet 1200 MG PO ×2 (09:01→22:18)
--- NOTE | 2024-06-10 09:51 | PCM.RX.CS ---
Consult Antibiotic Management Pharmacy has been consulted to manage selected antibiotic: Vancomycin Type of Intervention Type of Consult: Follow-up Labs Labs: Sodium 140 mmol/L (136-145) 06/10/24 07:10 Potassium 3.9 mmol/L (3.5-5.1) 06/10/24 07:10 Chloride 105 mmol/L (98-107) 06/10/24 07:10 Carbon Dioxide 25.0 mmol/L (21.0-32.0) 06/10/24 07:10 Anion Gap 10 (5-15) 06/10/24 07:10 BUN 47 mg/dL (7-18) H 06/10/24 07:10 Creatinine 2.45 mg/dL (0.70-1.30) H 06/10/24 07:10 Est GFR (MDRD) Af Amer 33 mL/min (>60) L 06/10/24 07:10 Est GFR (MDRD) Non-Af 28 mL/min (>60) L 06/10/24 07:10 BUN/Creatinine Ratio 19.2 RATIO (10-20) 06/10/24 07:10 Glucose 130 mg/dL (74-106) H 06/10/24 07:10 Microbiology Microbiology: Microbiology 06/09/24 15:00 Fluid - Thoracentesis Fluid Gram Stain - Final 06/10/24 08:41 Urine, Clean Catch Legionella Antigen - Final 06/10/24 08:41 Urine, Clean Catch Streptococcus pneumoniae Antigen (M - Final 06/09/24 11:47 Mucosa - Nasopharyngeal Coronavirus COVID-19 PCR - Final 06/09/24 11:47 Mucosa - Nasopharyngeal Respiratory Panel (PCR) - Final Pharmacy Plan for Drug Dosing Pharmacy Plan for Drug Dosing: DAILY ASSESSMENT Current Vancomycin Dose: 750MG X1 06/09 Number of Doses Received: 1 Current Renal Function: HD (spoke to dialysis nurse Dennis pt is // schedule) Renal Function Trend: HD Lab/Micro: BCx pending Any Change in Vanc Plan: Patient due for HD tomorrow, will schedule weight based 500mg x1 post HD 06/10 and schedule a random/pre-HD level before next HD session 06/14. Pending Level: 06/14/24 @ 0600 - random Pharmacy Service will continue to monitor and adjust dosing as required.
[2024-06-10 12:08] LABS: Pathologist Comment/Body Fluid Reviewed
[2024-06-11] VITALS (12 sets, daily range): BP systolic 119–223; BP diastolic 81–100; PULSE 62–78; RESP 16–18; TEMP 36.4–36.8; O2SAT 96–100; BMI 16.7
[2024-06-11] MEDS: hydrALAZINE 25 MG Tablet PO (05:25)
[2024-06-11 06:58] LABS: Absolute Lymphocyte Count 1.65 X10^3/uL (0.83-4.51); Absolute Neutrophil Count 4.3 X10^3/uL (2.0-7.7); Basophil# 0.03 X10^3/uL; Basophil% 0.4 % (0-1); Eosinophil# 0.13 X10^3/uL; Eosinophils% 1.9 % (0-5); Hematocrit 37.5 % (40-54); Hemoglobin 11.8 g/dL (13.0-16.5); Lymphocyte # 1.65 X10^3/ul (0.83-4.51); Lymphocyte % 24.2 % (19-41); Mean Corp Hgb Conc 31.5 g/dL (32-36); Mean Corpuscular Volume 95.4 fL (80-94); Mean Platelet Vol. 11.4 fl (6.2-12.0); Monocyte# 0.62 X10^3/uL; Monocyte% 9.1 % (0-10); NRBC Flagged by Analyzer 0 % (0-5); Neutrophil # 4.34 X10^3/uL (2.7-7.7); Neutrophil % 63.7 % (47-70); Platelet Count 177 K/mm3 (150-450); RBC Distribution Width CV 16.8 % (11.6-14.6); RBC Distribution Width SD 59.5 fl (35.1-43.9); Red Blood Count 3.93 M/mm3 (4.6-6.2); White Blood Count 6.8 K/mm3 (4.4-11.0)
[2024-06-11] MEDS: Budesonide Respules 0.5 MG/2 ML AMPUL.NEB. INHALATION (07:13)
[2024-06-11] MEDS: Albuterol 2.5 MG/3 ML VIAL.NEB. INHALATION ×2 (07:13→13:26)
--- NOTE | 2024-06-11 07:35 | PCM.PN.HOSP ---
Reason for Visit Reason for Visit: Diagnoses Unspecified severe protein-calorie malnutrition (06/10/24) Pleural effusion, not elsewhere classified (06/10/24) Shortness of breath (06/10/24) Subjective Subjective Patient seen clinical condition markedly improved. Plan is for patient to be assessed for possible discharge back to the [facility] Objective Data Objective Data Vital Signs: Vital Signs Temp Pulse Resp BP Pulse Ox O2 Del Method O2 Flow Rate 98.2 F 73 18 119/83 H 100 Nasal Cannula 2 06/11/24 03:00 06/11/24 05:25 06/11/24 03:00 06/11/24 05:25 06/11/24 03:00 06/11/24 03:53 06/11/24 03:53 Oxygen Flow Rate (L/min) 2 Oxygen Delivery Method Nasal Cannula Weight: 51.71 kg Body Mass Index (BMI) 17.2 Intake & Output: Intake and Output for Last 24 Hours 06/09/24 06/10/24 06/11/24 23:59 23:59 23:59 Intake Total 780 / 900 1415 / 1655 480 / 480 Output Total 4880 / 4880 100 / 100 300 / 300 Balance -4100 / -3980 1315 / 1555 180 / 180 Medical Nutrition Assessment Dietitian: Malnutrition Criteria Met Start: 06/09/24 14:52 Freq: Status: Active Protocol: Document 06/09/24 14:52 SB (Rec: 06/09/24 14:52 SB [id number]) Nutrition Malnutrition Evidence of Malnutrition Exists Yes Malnutrition (severe): Chronic Evidenced By Suboptimal Energy Intake ( Severe),Physical Changes ( Severe) Clinical Problem Chronic Disease or Condition Related Malnutrition Etiology severe protein calorie malnutrition related to chronic disease and inability to consume adequate nutrition Signs/Symptoms as evidenced by PO intake meeting <75% of estimated energy needs and severe fat/ muscle wasting in orbital, judaism, clavicle, and deltoid region. BMI: 18.0 Status Active Problem Recommendation Dietitian Recommendations/Changes Adjust to renal diet d/t pt being on dialysis. Will order 120ml PO nepro with meals. If PO intake continues to decline and weight loss occurs , recommend alternative nutrition support in accordance with patient/family wishes. Will monitor weight, as available. Reviewed and approved Kelly Ruiz, CHASTITY, LD Lab / Micro Data 06/11/24 05:25 06/11/24 05:25 Labs: Laboratory Results - last 24 hr 06/09/24 15:00: Fl Pathologist Comment Reviewed 06/10/24 07:10: Sodium 140, Potassium 3.9, Chloride 105, Carbon Dioxide 25.0, Anion Gap 10, BUN 47 H, Creatinine 2.45 H, Estim Creat Clear Calc 19.35, Est GFR (MDRD) Af Amer 33 L, Est GFR (MDRD) Non-Af 28 L, BUN/Creatinine Ratio 19.2, Glucose 130 H, Calcium 8.3 L, Phosphorus 3.9, Magnesium 2.3 06/11/24 05:25: WBC 6.8, RBC 3.93 L, Hgb 11.8 L, Hct 37.5 L, MCV 95.4 H, MCH 30.0, MCHC 31.5 L, RDW Std Deviation 59.5 H, RDW Coeff of Steven 16.8 H, Plt Count 177, MPV 11.4, Immature Gran % (Auto) 0.700, Neut % (Auto) 63.7, Lymph % (Auto) 24.2, Mitchell % (Auto) 9.1, Eos % (Auto) 1.9, Baso % (Auto) 0.4, Absolute Neuts (auto) 4.3, Absolute Lymphs (auto) 1.65, Nucleated RBC % 0 Micro: Microbiology 06/11/24 05:29 Nasal Secretion MRSA (PCR) - Final 06/09/24 15:00 Fluid - Thoracentesis Fluid Gram Stain - Final 06/10/24 08:41 Urine, Clean Catch Legionella Antigen - Final 06/10/24 08:41 Urine, Clean Catch Streptococcus pneumoniae Antigen (M - Final 06/09/24 11:47 Mucosa - Nasopharyngeal Coronavirus COVID-19 PCR - Final 06/09/24 11:47 Mucosa - Nasopharyngeal Respiratory Panel (PCR) - Final Physical Exam Narrative GENERAL: Cooperative HEENT: Atraumatic; normocephalic EYES; Anicteric, Normal Conjunctiva NECK; supple, normal thyroid, RESPIRATORY: Diminished to auscultation CARDIOVASCULAR: Regular S1 S2, GI: soft, normoactive bowel sounds, : No Renal angle tenderness; EXTREMITIES: Bipedal edema, no clubbing, MUSCULOSKELETAL: no muscle wasting NEURO: Awake; no lateralizing signs. SKIN: No Rash PSYCH; Flat affect Assessment & Plan Assessment/Plan (1) Missed dialysis: (2) SOB (shortness of breath): (3) Pleural effusion: (4) Severe malnutrition: PLAN: Plan Patient is a 73-year-old gentleman who presented with progressive shortness of breath imaging studies demonstrated bilateral pleural effusion and left lower lobe consolidation with patchy airspace disease in upper lobes and right lower lobe. Admitted to a monitored bed for subsequent 1. Acute hypoxia ? Secondary to combination of pneumonia as well as bilateral pleural effusion ? 06/10/2024; patient remains on supplemental oxygen. ? 06/11/2024; clinical condition markedly improved following the thoracocentesis 2. Pneumonia - Suspected to be secondary to with suspected gram-negative organisms given patient recent hospitalization, Blood and sputum cultures sent. Patient placed on cefepime vancomycin and Zithromax and placed on oxygen titrated to keep Pulse Ox greater than 90. Also ordered sputum and blood cultures as well as viral respiratory panel COVID and influenza. 3. Bilateral pleural effusion ? Large left and moderate right pleural effusions. Suspected parapneumonic effusion versus CHF given patient low EF of 31%. Patient to undergo diagnostic and therapeutic thoracocentesis ? 06/10/2024; Patient underwent ultrasound-guided thoracocentesis 1430 ml of clear yellow colored fluid was drained. Patient's fluid analysis per lights criteria consistent with transudate. Cultures sent. 4. Hypertension ? Blood pressure controlled, home medications continued with dose adjustment as needed 5. Chronic kidney disease stage IV ? Today appears to be progressive worsening of patient's kidney function. Creatinine from 03/13/2024 was 1.56 peaked at 4. 4 8 during patient previous hospitalization. Patient has a tunneled dialysis catheter and had received dialysis during previous admission on 05/24/2024. Consult placed to nephrology ? 06/10/2024; creatinine down to 2.45 patient did receive dialysis the day prior. Scheduled to undergo repeat dialysis on 06/11/2024. 6. Acute on chronic chronic congestive heart, -recent echo from [facility] had apparently demonstrated EF of 31%; patient presented with progressive shortness of breath bilateral pleural effusion. Patient to undergo therapeutic thoracocentesis consult has also been placed to nephrology for possible dialysis to help manage patient fluid overload status repeat echo ordered ? 06/10/2024 echo obtained the day prior did demonstrate an estimated ejection fraction is 20 %. There is evidence of diastolic dysfunction. There is severe global hypokinesis of the left ventricle. There is mild biatrial dilatation. Moderate (2+) mitral valve insufficiency. 7. Severe protein calorie malnutrition ? As evidenced by suboptimal energy intake, weight loss and severe physical changes consult placed to dietitian 8. Lung mass As per history stable 9. COPD ? With mild exacerbation, management initiated with bronchodilator treatment in addition to supplemental oxygen and antibiotics as stated above 10. GERD ? On PPI 11. Tobacco dependence ? Counseled on cessation, offered nicotine patch for tobacco cravings 12. Chronic use of insulin ? Patient denies being diabetic hemoglobin A1c from 05/20/2024 was 5.3 insulin subsequently discontinued 13. DVT prophylaxis ? Placed on subcu Lovenox dose adjusted for kidney function 14. Physical deconditioning ? Requested for PT OT eval and social sciences research scientist to assist with discharge planning Time spent in the patient's overall evaluation,decision-making process, review of diagnostic data, adjustment of management, discussion with other providers, nursing nursing and ancillary staff involved in patient's care documentation, 36 minutes
[2024-06-11 08:22] LABS: Anion Gap 9 (5-15); BUN 50 mg/dL (7-18); BUN/Creat Ratio 19.4 RATIO (10-20); Calcium,Total 8.4 mg/dL (8.5-10.1); Chloride 102 mmol/L (98-107); Creatinine, Serum 2.58 mg/dL (0.70-1.30); EST Glomerular Filtration Rate 26 mL/min (>60); Est Glom Filt Rate - Afr Amer 31 mL/min (>60); Estimated Creatinine Clearance 17.84 ml/min; Glucose 116 mg/dL (74-106); Potassium 3.3 mmol/L (3.5-5.1); Sodium Level 138 mmol/L (136-145)
[2024-06-11] MEDS: 0.9% Normal Saline 1,000 ML IV.SOLN. 1000 ML OPERA.SITE (08:41)
[2024-06-11] MEDS: PureFlow B 2K Dialysis Soln 1 BAG 6 BAG PF (08:41)
--- NOTE | 2024-06-11 10:07 | TREXTCAR_ITS ---
Diet Diet Order/Speech Therapy: 06/09/24 14:48 Diet: Renal - General Food consistency:: Regular Liquid Consistency:: Regular/Thin Type of Dietary Supplement:: Nepro Routine Orders/Code Status Code Status: DNRCC-A Wound(s) LEFT LOWER BACK S/P THORACENTESIS: Wound Type: Puncture Therapies Physical Therapy: Eval and Treat Occupational Therapy: Eval and Treat Problem/Diagnosis (1) Missed dialysis: Status: Acute (2) SOB (shortness of breath): Status: Acute Code(s): R06.02 - Shortness of breath (3) Pleural effusion: Status: Acute Code(s): J90 - Pleural effusion, not elsewhere classified (4) Severe malnutrition: Status: Acute Code(s): E43 - Unspecified severe protein-calorie malnutrition Plan Patient is a 73-year-old gentleman who presented with progressive shortness of breath imaging studies demonstrated bilateral pleural effusion and left lower lobe consolidation with patchy airspace disease in upper lobes and right lower lobe. Admitted to a monitored bed for subsequent 1. Acute hypoxia ? Secondary to combination of pneumonia as well as bilateral pleural effusion ? 06/10/2024; patient remains on supplemental oxygen. ? 06/11/2024; clinical condition markedly improved following the thoracocentesis 2. Pneumonia - Suspected to be secondary to with suspected gram-negative organisms given patient recent hospitalization, Blood and sputum cultures sent. Patient placed on cefepime vancomycin and Zithromax and placed on oxygen titrated to keep Pulse Ox greater than 90. Also ordered sputum and blood cultures as well as viral respiratory panel COVID and influenza. 3. Bilateral pleural effusion ? Large left and moderate right pleural effusions. Suspected parapneumonic effusion versus CHF given patient low EF of 31%. Patient to undergo diagnostic and therapeutic thoracocentesis ? 06/10/2024; Patient underwent ultrasound-guided thoracocentesis 1430 ml of clear yellow colored fluid was drained. Patient's fluid analysis per lights criteria consistent with transudate. Cultures sent. 4. Hypertension ? Blood pressure controlled, home medications continued with dose adjustment as needed 5. Chronic kidney disease stage IV ? Today appears to be progressive worsening of patient's kidney function. Creatinine from 03/13/2024 was 1.56 peaked at 4. 4 8 during patient previous hospitalization. Patient has a tunneled dialysis catheter and had received dialysis during previous admission on 05/24/2024. Consult placed to nephrology ? 06/10/2024; creatinine down to 2.45 patient did receive dialysis the day prior. Scheduled to undergo repeat dialysis on 06/11/2024. 6. Acute on chronic chronic congestive heart, -recent echo from [facility] had apparently demonstrated EF of 31%; patient presented with progressive shortness of breath bilateral pleural effusion. Patient to undergo therapeutic thoracocentesis consult has also been placed to nephrology for possible dialysis to help manage patient fluid overload status repeat echo o rdered ? 06/10/2024 echo obtained the day prior did demonstrate an estimated ejection fraction is 20 %. There is evidence of diastolic dysfunction. There is severe global hypokinesis of the left ventricle. There is mild biatrial dilatation. Moderate (2+) mitral valve insufficiency. 7. Severe protein calorie malnutrition ? As evidenced by suboptimal energy intake, weight loss and severe physical changes consult placed to dietitian 8. Lung mass As per history stable 9. COPD ? With mild exacerbation, management initiated with bronchodilator treatment in addition to supplemental oxygen and antibiotics as stated above 10. GERD ? On PPI 11. Tobacco dependence ? Counseled on cessation, offered nicotine patch for tobacco cravings 12. Chronic use of insulin ? Patient denies being diabetic hemoglobin A1c from 05/20/2024 was 5.3 insulin subsequently discontinued 13. DVT prophylaxis ? Placed on subcu Lovenox dose adjusted for kidney function 14. Physical deconditioning ? Requested for PT OT eval and social media senior associate to assist with discharge planning Time spent in the patient's overall evaluation,decision-making process, review of diagnostic data, adjustment of management, discussion with other providers, nursing nursing and ancillary staff involved in patient's care documentation, 36 minutes Allergies/Procedures Done in Hospital Allergies No Known Allergies Allergy (Verified 06/09/24 02:01) Type of Care/Length of Stay Estimated LOS: More Than 30 Days Type of Care Needed: Intermediate Rehab Potential: Fair Prognosis: Fair Additional Orders/Day of Discharge Day of Discharge: 06/11/24 Dietary and Speech Recommendations Dietitian Recommendations/Changes: Adjust to renal diet d/t pt being on dialysis. Will order 120ml PO nepro with meals. If PO intake continues to decline and weight loss occurs, recommend alternative nutrition support in accordance with patient/family wishes. Will monitor weight, as available. Reviewed and approved Kelly Ruiz RD, LD Discharge Plan Admission Admit Date/Time: 06/10/24 11:58 Attending Provider: Ed Davis Primary Care Provider: Mackenzie Rizo Consulting Providers: Kaitlin Joya; Leena Singletary Instructions Patient Instructions: LOC RN Thoracentesis Dc Discharge Orders/Prescriptions Prescriptions: New cefdinir 300 mg capsule 300 mg PO BID Qty: 10 0RF azithromycin 500 mg tablet 500 mg PO DAILY 3 Days Qty: 3 0RF Continued albuterol sulfate 90 mcg/actuation HFA aerosol inhaler 2 puff inhalation Q4H PRN PRN (Reason: wheezing) guaifenesin [Mucus Relief ER] 600 mg tablet extended release 12hr 600 mg PO BID hydralazine 25 mg tablet 25 mg PO TID isosorbide mononitrate 30 mg tablet extended release 24 hr 15 mg PO DAILY metoprolol succinate [Toprol XL] 25 mg tablet extended release 24 hr 25 mg PO DAILY pantoprazole 40 mg Tablet,Delayed Release (Dr/Ec) 40 mg PO DAILY insulin glargine-yfgn 100 unit/mL (3 mL) insulin pen 5 unit subcut QPM 30 Days Qty: 0 0RF Rx Instructions: Hold if glucose less than 130 mg/dl fluticasone propion-salmeterol [Advair Diskus] 250-50 mcg/dose blister with device 1 inh inhalation BID Pro-Stat Sugar Free 15-100 gram-kcal/30 mL liquid 30 ml PO BID Referrals / Follow Up: Mackenzie Rizo MD [Primary Care Provider] - Within 2 Weeks Disposition Disposition (needs filled in before D/C Order can be placed): [facility]
--- NOTE | 2024-06-11 10:15 | DS.PCM_ITS ---
Providers Date of Admission: 06/10/24 Date of Discharge: 06/11/24 Primary Care Physician: Dr. Mackenzie Rizo MD Consultations 06/09/24 04:53 Consult: Nephrology Routine Consulting Provider: Kaitlin Joya Reason for Consult: Dialysis EMERGENT Consult: No MD Notified: Yes Date Notified: 06/09/24 Time Notified: 03:34 Method of Notification: ED Physician Initiated Reason For Visit: SHORTNESS OF BREATH & MISSED HD Diagnosis Discharge Diagnosis (1) Missed dialysis: Status: Acute (2) SOB (shortness of breath): Status: Acute Code(s): R06.02 - Shortness of breath (3) Pleural effusion: Status: Acute Code(s): J90 - Pleural effusion, not elsewhere classified (4) Severe malnutrition: Status: Acute Code(s): E43 - Unspecified severe protein-calorie malnutrition Plan Patient is a 73-year-old gentleman who presented with progressive shortness of breath imaging studies demonstrated bilateral pleural effusion and left lower lobe consolidation with patchy airspace disease in upper lobes and right lower lobe. Admitted to a monitored bed for subsequent 1. Acute hypoxia ? Secondary to combination of pneumonia as well as bilateral pleural effusion ? 06/10/2024; patient remains on supplemental oxygen. ? 06/11/2024; clinical condition markedly improved following the thoracocentesis 2. Pneumonia - Suspected to be secondary to with suspected gram-negative organisms given patient recent hospitalization, Blood and sputum cultures sent. Patient placed on cefepime vancomycin and Zithromax and placed on oxygen titrated to keep Pulse Ox greater than 90. Also ordered sputum and blood cultures as well as viral respiratory panel COVID and influenza. 3. Bilateral pleural effusion ? Large left and moderate right pleural effusions. Suspected parapneumonic effusion versus CHF given patient low EF of 31%. Patient to undergo diagnostic and therapeutic thoracocentesis ? 06/10/2024; Patient underwent ultrasound-guided thoracocentesis 1430 ml of clear yellow colored fluid was drained. Patient's fluid analysis per lights criteria consistent with transudate. Cultures sent. 4. Hypertension ? Blood pressure controlled, home medications continued with dose adjustment as needed 5. Chronic kidney disease stage IV ? Today appears to be progressive worsening of patient's kidney function. Creatinine from 03/13/2024 was 1.56 peaked at 4. 4 8 during patient previous hospitalization. Patient has a tunneled dialysis catheter and had received dialysis during previous admission on 05/24/2024. Consult placed to nephrology ? 06/10/2024; creatinine down to 2.45 patient did receive dialysis the day prior. Scheduled to undergo repeat dialysis on 06/11/2024. 6. Acute on chronic chronic congestive heart, -recent echo from [facility] had apparently demonstrated EF of 31%; patient presented with progressive shortness of breath bilateral pleural effusion. Patient to undergo therapeutic thoracocentesis consult has also been placed to nephrology for possible dialysis to help manage patient fluid overload status repeat echo ordered ? 06/10/2024 echo obtained the day prior did demonstrate an estimated ejection fraction is 20 %. There is evidence of diastolic dysfunction. There is severe global hypokinesis of the left ventricle. There is mild biatrial dilatation. Moderate (2+) mitral valve insufficiency. 7. Severe protein calorie malnutrition ? As evidenced by suboptimal energy intake, weight loss and severe physical changes consult placed to dietitian 8. Lung mass As per history stable 9. COPD ? With mild exacerbation, management initiated with bronchodilator treatment in addition to supplemental oxygen and antibiotics as stated above 10. GERD ? On PPI 11. Tobacco dependence ? Counseled on cessation, offered nicotine patch for tobacco cravings 12. Chronic use of insulin ? Patient denies being diabetic hemoglobin A1c from 05/20/2024 was 5.3 insulin subsequently discontinued 13. DVT prophylaxis ? Placed on subcu Lovenox dose adjusted for kidney function 14. Physical deconditioning ? Requested for PT OT eval and social media analyst to assist with discharge planning Time spent in the patient's overall evaluation,decision-making process, review of diagnostic data, adjustment of management, discussion with other providers, nursing nursing and ancillary staff involved in patient's care documentation, 36 minutes Medications at Discharge Home Medications albuterol sulfate 90 mcg/actuation aerosol inhaler 2 puff inhalation Q4H PRN PRN wheezing 05/17/24 guaifenesin 600 mg tablet, extended release 12 hr (Mucus Relief ER) 600 mg PO BID 05/17/24 hydralazine 25 mg tablet 25 mg PO TID 05/17/24 isosorbide mononitrate 30 mg tablet,extended release 24 hr 15 mg PO DAILY 05/17/24 metoprolol succinate 25 mg tablet,extended release 24 hr (Toprol XL) 25 mg PO DAILY 05/17/24 pantoprazole 40 mg tablet,delayed release 40 mg PO DAILY 05/17/24 insulin glargine-yfgn 100 unit/mL (3 mL) subcutaneous pen 5 unit (0.05 mL) subcut QPM 30 days #0 mL 05/23/24 amino acids-protein hydrolysate 15 gram-100 kcal/30 mL oral liquid (Pro-Stat Sugar Free) 30 ml PO BID 06/09/24 fluticasone 250 mcg-salmeterol 50 mcg/dose blistr powdr for inhalation (Advair Diskus) 1 inh inhalation BID 06/09/24 azithromycin 500 mg tablet 500 mg PO DAILY 3 days #3 tabs 06/11/24 cefdinir 300 mg capsule 300 mg PO BID #10 caps 06/11/24 Physical Exam Narrative GENERAL: Cooperative HEENT: Atraumatic; normocephalic EYES; Anicteric, Normal Conjunctiva NECK; supple, normal thyroid, RESPIRATORY: Diminished to auscultation CARDIOVASCULAR: Regular S1 S2, GI: soft, normoactive bowel sounds, : No Renal angle tenderness; EXTREMITIES: Bipedal edema, no clubbing, MUSCULOSKELETAL: no muscle wasting NEURO: Awake; no lateralizing signs. SKIN: No Rash PSYCH; Flat affect Medical Records Data Medical Nutrition Assessment Dietitian: Malnutrition Criteria Met Start: 06/09/24 14:52 Freq: Status: Active Protocol: Document 06/09/24 14:52 SB (Rec: 06/09/24 14:52 SB [id number]) Nutrition Malnutrition Evidence of Malnutrition Exists Yes Malnutrition (severe): Chronic Evidenced By Suboptimal Energy Intake ( Severe),Physical Changes ( Severe) Clinical Problem Chronic Disease or Condition Related Malnutrition Etiology severe protein calorie malnutrition related to chronic disease and inability to consume adequate nutrition Signs/Symptoms as evidenced by PO intake meeting <75% of estimated energy needs and severe fat/ muscle wasting in orbital, yazidi, clavicle, and deltoid region. BMI: 18.0 Status Active Problem Recommendation Dietitian Recommendations/Changes Adjust to renal diet d/t pt being on dialysis. Will order 120ml PO nepro with meals. If PO intake continues to decline and weight loss occurs , recommend alternative nutrition support in accordance with patient/family wishes. Will monitor weight, as available. Reviewed and approved Kelly Ruiz, CHASTITY, LD Weight / BMI Weight Weight: 50.213 kg Body Mass Index (BMI) 16.7 ABG / Lab / Microbiology Data 06/11/24 05:25 06/11/24 05:25 Laboratory: Laboratory Results - last 24 hr 06/09/24 15:00: Fl Pathologist Comment Reviewed 06/11/24 05:25: WBC 6.8, RBC 3.93 L, Hgb 11.8 L, Hct 37.5 L, MCV 95.4 H, MCH 30.0, MCHC 31.5 L, RDW Std Deviation 59.5 H, RDW Coeff of Steven 16.8 H, Plt Count 177, MPV 11.4, Immature Gran % (Auto) 0.700, Neut % (Auto) 63.7, Lymph % (Auto) 24.2, [place] % (Auto) 9.1, Eos % (Auto) 1.9, Baso % (Auto) 0.4, Absolute Neuts (auto) 4.3, Absolute Lymphs (auto) 1.65, Nucleated RBC % 0, Sodium 138, P otassium 3.3 L, Chloride 102, Carbon Dioxide 27.0, Anion Gap 9, BUN 50 H, C reatinine 2.58 H, Estim Creat Clear Calc 17.84, Est GFR (MDRD) Af Amer 31 L, Est GFR (MDRD) Non-Af 26 L, BUN/Creatinine Ratio 19.4, Glucose 116 H, Calcium 8.4 L Microbiology: Microbiology 06/11/24 05:29 Nasal Secretion MRSA (PCR) - Final 06/09/24 15:00 Fluid - Thoracentesis Fluid Gram Stain - Final 06/10/24 08:41 Urine, Clean Catch Legionella Antigen - Final 06/10/24 08:41 Urine, Clean Catch Streptococcus pneumoniae Antigen (M - Final 06/09/24 11:47 Mucosa - Nasopharyngeal Coronavirus COVID-19 PCR - Final 06/09/24 11:47 Mucosa - Nasopharyngeal Respiratory Panel (PCR) - Final Meaningful Use Info Meaningful Use Meaningful Use Diagnoses (Choose all that apply): CHF CHF RICHARD/ARB ordered at discharge?: No Reason RICHARD/ARB not ordered?: Worsening renal disease Documented LVEF (%): 20 Ischemic Stroke Statin Dosing Therapy Reference: STATIN DOSE THERAPY REFERENCE: * Patients > 75 years receive moderate or high dose statin therapy. * Patients 75 years or YOUNGER should receive HIGH intensity statin dose unless contraindicated. You will be required to document reason for non-treatment if statin daily dose does not meet guidelines. HIGH DOSE STATIN THERAPY DAILY Atorvastatin > than or = to 40 mg Rosuvastatin > than or = to 20 mg Amlodipine + Atorvastatin > than or = to 2.5/40 mg Ezetimibe + Simvastatin 10/80 mg Simvastatin 80mg Discharge Plan Admission Admit Date/Time: 06/10/24 11:58 Attending Provider: Ed Davis Primary Care Provider: Mackenzie Rizo Consulting Providers: Kaitlin Joya; Leena Singletary Instructions Patient Instructions: LOC RN Thoracentesis Dc Discharge Orders/Prescriptions Prescriptions: New cefdinir 300 mg capsule 300 mg PO BID Qty: 10 0RF azithromycin 500 mg tablet 500 mg PO DAILY 3 Days Qty: 3 0RF Continued albuterol sulfate 90 mcg/actuation HFA aerosol inhaler 2 puff inhalation Q4H PRN PRN (Reason: wheezing) guaifenesin [Mucus Relief ER] 600 mg tablet extended release 12hr 600 mg PO BID hydralazine 25 mg tablet 25 mg PO TID isosorbide mononitrate 30 mg tablet extended release 24 hr 15 mg PO DAILY metoprolol succinate [Toprol XL] 25 mg tablet extended release 24 hr 25 mg PO DAILY pantoprazole 40 mg Tablet,Delayed Release (Dr/Ec) 40 mg PO DAILY insulin glargine-yfgn 100 unit/mL (3 mL) insulin pen 5 unit subcut QPM 30 Days Qty: 0 0RF Rx Instructions: Hold if glucose less than 130 mg/dl fluticasone propion-salmeterol [Advair Diskus] 250-50 mcg/dose blister with device 1 inh inhalation BID Pro-Stat Sugar Free 15-100 gram-kcal/30 mL liquid 30 ml PO BID Referrals / Follow Up: Mackenzie Rizo MD [Primary Care Provider] - Within 2 Weeks Disposition Disposition (needs filled in before D/C Order can be placed): [facility] Facility Charges/Coding Visit Charges Inpatient E&M: 95075 Disch Hosp >30min
[2024-06-11] MEDS: Potassium Chloride Oral Tablet 20 MEQ PO (11:03)
[2024-06-11] MEDS: Azithromycin 500 MG in Dextrose 5%-Water (250mL Bag) 250 ML 250 MG IV (11:04)
[2024-06-11] MEDS: Isosorbide Mononitrate 30 MG Tablet 15 MG PO (11:07)
[2024-06-11] MEDS: Furosemide 20 MG Tablet 60 MG PO (11:08)
[2024-06-11] MEDS: guaiFENesin 1,200 MG Tablet 1200 MG PO (11:08)
[2024-06-11] MEDS: Metoprolol(XL)Succ 25 MG Tablet PO (11:09)
[2024-06-11] MEDS: Pantoprazole Sodium 40 MG Tablet PO (11:09)
--- NOTE | 2024-06-11 11:48 | NURSING ---
Report called to nurse Gomez for pt to be d/c back to [facility].
== END 2024-06-11 14:15 | disposition skilled nursing facility (03) | DRG 291 ==
LOC: ED 03:41 → PCU 04:03
PROVIDERS: Admitting Provider Internal Medicine; Emergency Provider Emergency Medicine; PCP Internal Medicine; Visit Provider Internal Medicine
DX: I13.0 Hypertensive heart and chronic kidney disease with heart failure and stage 1 through stage 4 chronic kidney disease, or unspecified chronic kidney disease (principal); J15.69 Pneumonia due to other Gram-negative bacteria; E43 Unspecified severe protein-calorie malnutrition; I50.23 Acute on chronic systolic (congestive) heart failure; N17.9 Acute kidney failure, unspecified; N18.4 Chronic kidney disease, stage 4 (severe); J91.8 Pleural effusion in other conditions classified elsewhere; J44.0 Chronic obstructive pulmonary disease with (acute) lower respiratory infection; J44.1 Chronic obstructive pulmonary disease with (acute) exacerbation; Z68.1 Body mass index [BMI] 19.9 or less, adult; I34.0 Nonrheumatic mitral (valve) insufficiency; Z79.4 Long term (current) use of insulin; E78.5 Hyperlipidemia, unspecified; K21.9 Gastro-esophageal reflux disease without esophagitis; Z91.158 Patient's noncompliance with renal dialysis for other reason; R09.02 Hypoxemia; Z11.52 Encounter for screening for COVID-19; Z66 Do not resuscitate; Z79.51 Long term (current) use of inhaled steroids; Z79.899 Other long term (current) drug therapy; Z87.891 Personal history of nicotine dependence
CPT/HCPCS: 32555; 36415; 71045; 71046; 71275; 80048; 80053; 82945; 83615; 83735; 84100; 84157; 85025; 85610; 87040; 87070; 87075; 87205; 87449; 87633; 87635; 87641; 88108; 88305; 88313; 89050; 90937; 93005; 93306; 94640; 94668; 97802; 99252; 99284; 99406; J7030; J7050; Q9967; A4216; G0257; G0463

== ENCOUNTER → 2024-06-22 | Outpatient (REF) | payer MEDICARE, OTHER, SELFPAY ==
[2024-06-22 08:39] LABS: Absolute Lymphocyte Count 1.67 X10^3/uL (0.83-4.51); Absolute Neutrophil Count 4.3 X10^3/uL (2.0-7.7); Basophil# 0.06 X10^3/uL; Basophil% 0.9 % (0-1); Eosinophil# 0.29 X10^3/uL; Eosinophils% 4.2 % (0-5); Hematocrit 40.8 % (40-54); Hemoglobin 12.3 g/dL (13.0-16.5); Lymphocyte # 1.67 X10^3/ul (0.83-4.51); Mean Corp Hgb Conc 30.1 g/dL (32-36); Mean Corpuscular Hgb 29.4 pg (27.0-32.0); Mean Corpuscular Volume 97.4 fL (80-94); Mean Platelet Vol. 11.4 fl (6.2-12.0); Monocyte# 0.62 X10^3/uL; Monocyte% 8.9 % (0-10); NRBC Flagged by Analyzer 0 % (0-5); Neutrophil # 4.28 X10^3/uL (2.7-7.7); Neutrophil % 61.4 % (47-70); Platelet Count 175 K/mm3 (150-450); RBC Distribution Width CV 16.1 % (11.6-14.6); RBC Distribution Width SD 58.1 fl (35.1-43.9); Red Blood Count 4.19 M/mm3 (4.6-6.2)
[2024-06-22 08:41] LABS: Anion Gap 6 (5-15); BUN 29 mg/dL (7-18); BUN/Creat Ratio 15.1 RATIO (10-20); Calcium,Total 8.6 mg/dL (8.5-10.1); Chloride 105 mmol/L (98-107); Creatinine, Serum 1.92 mg/dL (0.70-1.30); EST Glomerular Filtration Rate 37 mL/min (>60); Est Glom Filt Rate - Afr Amer 44 mL/min (>60); Glucose 74 mg/dL (74-106); Potassium 3.2 mmol/L (3.5-5.1); Sodium Level 141 mmol/L (136-145)
== END ==
LOC: OLS.WHLTCC 05:00
PROVIDERS: PCP Internal Medicine; Visit Provider Internal Medicine
DX: I50.43 Acute on chronic combined systolic (congestive) and diastolic (congestive) heart failure (principal)
CPT/HCPCS: 36415; 80048; 85025